=== PATIENT | female | born 1965 | race Caucasian/White ===

== ENCOUNTER 2017-06-15 07:29 | Outpatient (CLI) | payer MEDICARE ==
[~2017-06-15] VITALS: Ht 167.6 cm; Wt 95.5 kg
--- NOTE | ~2017-06-15 | HEMODYNAMI ---
PATIENT:NYLA SCHMIDT MEDICAL RECORD: [id number] : 67 LOCATION:[facility] ADMISSION DATE: 06/15/17 Generatedon:06/15/201711:34 Patient name: NYLA SCHMIDT Patient #: [id number] SSN: : 1965 Date of study: 06/15/2017 Page: Of Hemodynamic Procedure Report Patient Data Patient Demographics Procedure consent was obtained First Name: NYLA Gender: Female Last Name: BRAYAN : 1965 [facility] Initial: NASEEM Age: 52 year(s) Patient #: [id number] Race: Additional ID: [id number] Contact details Address: [address] [place] [address] [address]ET State: [place] City: [place] Zip code: [address] Admission Admission Data Admission Date: 06/15/2017 Admission Time: 7:29 Height (in.): 66 BSA: 2.04 (m2) Height (cm.): 167.64 BMI: 33.89 (kg/m2) Weight (lbs.): 210 Weight (kg.): 95.25 Lab Results Lab Result Date: 06/15/2017 Lab Result Time: 0:00 Biochemistry Name Units Result Min Max BUN mg/dl 14 --(--*-)-- 7 18 CK-MB ng/ml 0.1 --(*---)-- 0 3.6 Creatinine mg/dl 0.8 --(-*--)-- 0.6 1.3 Creatinine l 41 --(*---)-- 21 215 Kinase Troponin l ng/ml 0.017 --(-*--)-- 0 0.06 CBC Name Units Result Min Max Hemoglobin g/dl 15.5 --(-*--)-- 13.5 17.5 Procedure Procedure Types Cath Procedure Diagnostic Procedure [facility] w/Coronaries PCI Procedure Coronary Stent Initial Miscellaneous Procedures Moderate Sedation up to 15 minutes Procedure Description Procedure Date Procedure Date: 06/15/2017 Procedure Start Time: 11:16 Procedure End Time: 11:33 Procedure Staff Name Function Deejay Wong MD Performing Physician Otto Nguyen RT Scrub Kendal Gill RN Nurse Pablo Ascencio RT Monitor Procedure Data Cath Procedure Fluoroscopy Diagnostic fluoroscopy Total fluoroscopy Time: 3 time: 3 min min Diagnostic fluoroscopy Total fluoroscopy dose: 509 dose: 509 mGy mGy Contrast Material Contrast Material Type Amount (ml) Isovue 300 102 Entry Location Entry Primary Successful Side Size Upsize Upsize Entry Closure Wray ccessful Closure Location (Fr) 1 (Fr) 2 (Fr) Remarks Device Remarks Radial Right 6 Fr Mechanical artery Short Compression Estimated blood loss: 10 ml Diagnostic catheters Device Type Used For End Catheter Placement Diagnostic Terumo 5Fr Procedure [place] 110cm catheter Procedure Complications No complications Procedure Medications Medication Administration Route Dosage Oxygen NC 2 l/min Heparin Flush Bag added to field 2 bags (1000units/500ml NS) Lidocaine 2% added to field 20 Radial Cocktail added to field 1 syringe (Verapomil 2mg/Nitro 400mcg/Heparin 1500units) Versed I.V. 1 mg Fentanyl I.V. 50 mcg Radial Cocktail I.A. 1 syringe (Verapomil 2mg/Nitro 400mcg/Heparin 1500units) Versed I.V. 1 mg Fentanyl I.V. 50 mcg Versed I.V. 1 mg Fentanyl I.V. 50 mcg Heparin Bolus I.V. 4000 units Integrilin (Bolus I.V. 8.5 ml 2mg/ml) Versed I.V. 1 mg Fentanyl I.V. 50 mcg Versed I.V. 0.5 mg Fentanyl I.V. 50 mcg Plavix P.O. 600 mg Hemodynamics Rest BSA: 2.04 (m2) HGB: 15.5 (g/dl) O2 Consumption: Estimated: 214.94 (ml/min) O2 Co nsumption indexed: Estimated:105.36 (ml/min/m) Heart Rate: 91 (bpm) Pressure Samples Time Site Value (mmHg) Purpose Heart Use Rate(bpm) 11:19 AO 82/60(71) Snapshot 103 Snapshots Pre Cath Intra NCS Post Cath Vital Signs Time Heart Resp SPO2 etCO2 [id number] NIBP (mmHg) Rhythm Pain Sedation Rate (ipm) (%) (mmHg) (mmHg) Status Level (bpm) 10:35:42 75 16 97 0 0 160/79(112) NSR 0 (11) 10(A) , No pain 10:40:00 87 20 97 0 0 133/68(87) NSR 0 (11) 10(A) , No pain 10:44:12 88 20 95 0 0 126/74(96) NSR 0 (11) 10(A) , No pain 10:48:22 86 16 96 0 0 129/69(104) NSR 0 (11) 10(A) , No pain 10:52:23 95 16 96 0 0 124/70(96) NSR 0 (11) 10(A) , No pain 10:56:31 95 16 95 0 0 121/70(98) NSR 0 (11) 10(A) , No pain 11:00:39 98 19 95 0 0 129/72(95) NSR 0 (11) 10(A) , No pain 11:04:39 97 16 95 0 0 115/69(96) NSR 0 (11) 10(A) , No pain 11:08:47 97 16 96 0 0 112/67(89) NSR 0 (11) 10(A) , No pain 11:12:56 97 15 96 0 0 124/59(91) NSR 0 (11) 10(A) , No pain 11:16:58 97 14 96 0 0 104/64(87) NSR 0 (11) 10(A) , No pain 11:21:02 119 17 96 0 0 121/67(106) NSR 0 (11) 10(A) , No pain 11:25:14 114 15 94 0 0 132/61(103) NSR 0 (11) 10(A) , No pain 11:29:14 108 15 98 0 0 127/65(95) NSR 0 (11) 10(A) , No pain 11:33:23 94 0 0 135/72(97) NSR 0 (11) 10(A) , No pain Medications Time Medication Route Dose Verified Delivered Reason Note s Effectiveness by by 10:38:30 Oxygen NC 2 l/min Deejay Lopezecca Per physician Judith Gill RN 10:38:38 Heparin Flush added 2 bags Deejay Villalba used for Bag to Judith Wong MD procedure (1000units/500ml field NS) 10:38:46 Lidocaine 2% added 20ml Deejay Deejay used for to vial Judith Wong MD procedure field 10:38:52 Radial Cocktail added 1 Deejay Deejay used for (Verapomil to syringe Judith Wong MD procedure 2mg/Nitro field 400mcg/Heparin 1500units) 11:14:40 Versed I.V. 1 mg Deejay Kendal for sedation Judith Gill RN 11:14:54 Fentanyl I.V. 50 mcg Deejay Kendal for sedation Judith Gill RN 11:16:38 Versed I.V. 1 mg Deejay Kendal for sedation Judith Gill RN 11:16:47 Fentanyl I.V. 50 mcg Deejay Kendal for sedation Judith Gill RN 11:18:11 Radial Cocktail I.A. 1 Deejay Deejay for (Verapomil syringe Judith Wong MD vasodilation 2mg/Nitro 400mcg/Heparin 1500units) 11:18:33 Versed I.V. 1 mg Deejay Kendal for sedation Judith Gill RN 11:18:49 Fentanyl I.V. 50 mcg Deejay Kendal for sedation Judith Gill RN 11:20:35 Versed I.V. 1 mg Deejay Kendal for sedation Judith Gill RN 11:20:53 Fentanyl I.V. 50 mcg Deejay Kendal for sedation Judith Gill RN 11:22:39 Versed I.V. 0.5 mg Deejay Kendal for sedation Judith Gill RN 11:22:54 Fentanyl I.V. 50 mcg Deejay Kendal for sedation Judith Gill RN 11:23:00 Heparin Bolus I.V. 4000 Deejay Kendal for dose units Judith Gill RN anticoagulation verified with dr wong 11:24:02 Integrilin I.V. 8.5 ml Deejay Kendal for wast ed (Bolus 2mg/ml) Judith Gill RN antiplatelet 1.5ml therapy 11:27:13 Plavix P.O. 600 mg Deejay Kendal for Judith Gill RN antiplatelet therapy Procedure Log Time Note 9:40:03 ACC Patient presents with Stable Angina CCS Anginal Class 2--Slight limitation of ordinary activity. 9:40:06 Diagnostic Cath status Elective 9:40:09 Time tracking: Regular hours 9:40:13 Plan of Care:Hemodynamics will remain stable., Cardiac rhythm will remain stable., Comfort level will be maintained., Respiratory function will remain adequate., Patient/ family verbilizes understanding of procedure., Procedure tolerated without complication., Recovers from procedure without complications.. 10:15:36 Pablo NAYAK(R) sent for patient. Start room use. 10:30:26 Patient received from Pre/Post Procedure Room to CCL 1 Alert and oriented. Tansferred to table in Supine position. 10:30:27 Warm blankets applied, and dianne hugger turned on for patient comfort. 10:30:28 Correct patient and procedure confirmed by team. 10:30:29 Signed procedure consent form obtained from patient. 10:30:30 ECG and BP/O2 sat monitors applied to patient. 10:31:05 Lab Result : BUN 14 mg/dl 10:31:05 Lab Result : Creatinine 0.8 mg/dl 10:31:05 Lab Result : Creatinine Kinase 41 l 10:31:05 Lab Result : CK-MB 0.1 ng/ml 10:31:05 Lab Result : Hemoglobin 15.5 g/dl 10:31:05 Lab Result : Troponin l 0.017 ng/ml 10:31:08 Lab results completed and on chart. 10:34:33 Vital chart was started 10:38:30 Oxygen 2 l/min NC was administered by Kendal Gill RN; Per physician; 10:38:38 Heparin Flush Bag (1000units/500ml NS) 2 bags added to field was administered by Deejay Wong MD; used for procedure; 10:38:46 Lidocaine 2% 20ml vial added to field was administered by Deejay Wong MD; used for procedure; 10:38:52 Radial Cocktail (Verapomil 2mg/Nitro 400mcg/Heparin 1500units) 1 syringe added to field was administered by Deejay Wong MD; used for procedure; 10:45:31 Baseline sample Acquired. 10:45:36 Rhythm: sinus rhythm 10:45:38 Full Disclosure recording started 10:46:12 H&P Date Dictated: 06/10/2017 Within 30 days and on chart.. 10:46:14 Pre-procedure instructions explained to patient. 10:46:14 Pre-op teaching completed and patient verbalized understanding. 10:46:18 Family in waiting room. 10:46:19 Patient NPO since Midnight. 10:46:21 Is the patient allergic to Iodine/contrast media? No. 10:46:28 Is patient on blood thinner?No 10:46:29 Patient diabetic? Yes. 10:46:31 If diabetic: On Metformin? No 10:46:33 Patient not . Patient has had hysterectomy. 10:46:37 Previous problem with sedation/anesthesia? No ? 10:46:38 Snore? Yes 10:46:39 Sleep apnea? Yes 10:46:40 Deviated septum? No 10:46:40 Opens mouth fully? Yes 10:46:41 Sticks out tongue? Yes 10:46:44 Airway obstruction? Yes COPD 10:46:58 Dentures? Yes OUT 10:47:01 Pre procedure: right dorsailis pedis pulse 1+ Palpable, but thready & weak; easily obliterated 10:47:03 Modified Mark's test Ulnar < 7 seconds 10:47:04 Patient pain scale 0/10 ?. 10:47:11 IV patent on arrival in port with 0.9% NaCl at O. 10:47:32 Port is located in the Rt Chest. 10:47:38 Right Radial & Right Groin area was prepped with chlora-prep and draped in sterile fashion 10:47:40 Alarms reviewed by R. N. 10:47:40 Sharps counted by scrub and verified by R.N. 10:47:49 Use device set Radial Dx 10:47:53 Tegaderm 4 x 4 opened to sterile field. 10:47:54 Acist Hand Control opened to sterile field. 10:47:54 Acist Manifold opened to sterile field. 10:47:56 Acist Syringe opened to sterile field. 10:47:56 Medline Cath Pack opened to sterile field. 10:47:57 Bag Decanter opened to sterile field. 10:47:57 Terumo 6Fr Slender Glidesheath opened to sterile field. 10:47:57 St Alfredo 260cm J .035 wire opened to sterile field. 10:47:58 MBrace Wrist Support opened to sterile field. 10:49:49 Physician paged 10:50:55 Zero performed for pressure channel P1 10:51:39 Patient Height : 66 cm 10:51:43 Patient Weight : 210 kg 11:14:02 Zero performed for pressure channel P1 11:14:13 Zero performed for pressure channel P1 11:14:33 --------ALL STOP TIME OUT------ 11:14:34 Final Timeout: patient, procedure, and site verified with staff and physician. All members of the team are in agreement. 11:14:36 Right Radial & Right Groin site verified by team. 11:14:39 Physical assessment completed. ASA score P 2 - A patient with mild systemic disease as per Deejay Wong MD. 11:14:40 Versed 1 mg I.V. was administered by Kendal Gill RN; for sedation; 11:14:42 Sedation plan: IV Moderate Sedation Versed, Fentanyl 11:14:43 Zero performed for pressure channel P1 11:14:54 Fentanyl 50 mcg I.V. was administered by Kendal Gill RN; for sedation; 11:16:21 Procedure started. 11:16:28 Local anesthetic to right radial artery with Lidocaine 2% by Deejay Wong MD.INITIAL ACCESS ONLY 11:16:38 Versed 1 mg I.V. was administered by Kendal Gill RN; for sedation; 11:16:47 Fentanyl 50 mcg I.V. was administered by Kendal Gill RN; for sedation; 11:17:38 A 6 Fr Short sheath was inserted into the Right Radial artery 11:18:11 Radial Cocktail (Verapomil 2mg/Nitro 400mcg/Heparin 1500units) 1 syringe I.A. was administered by Deejay Wong MD; for vasodilation; 11:18:30 A Diagnostic Terumo 5Fr [place] 110cm catheter was advanced over the wire and used for Procedure. 11:18:33 Versed 1 mg I.V. was administered by Kendal Gill RN; for sedation; 11:18:49 Fentanyl 50 mcg I.V. was administered by Kendal Gill RN; for sedation; 11:19:05 LV angiography performed. 11:19:06 LV gram done using CARBALLO 11:19:14 EF : 55 % 11:19:21 Injector settings: Ml/sec: 7, Volume: 15, 11:19:39 LCA angiography performed. 11:20:16 Sounday BasixCompak Inflation Kit opened to sterile field. 11:20:16 Seay Whisper J 300cm 0.014 guide wire opened to sterile field. 11:20:35 Versed 1 mg I.V. was administered by Kendal Gill RN; for sedation; 11::53 Fentanyl 50 mcg I.V. was administered by Kendal Gill RN; for sedation; 11::09 Medtronic Launcher 6Fr AR 2.0 guide catheter opened to sterile field. 11:21:14 RCA angiography performed. 11::55 Catheter exchanged over wire. 11::39 Versed 0.5 mg I.V. was administered by Kendal Gill RN; for sedation; 11::42 ACC PCI Site: [place] has 80% stenosis. 11::44 ACC Pre-intervention GIOVANI Flow is 3. 11:22:53 6 Fr AR 2 guide catheter was inserted over the wire 11::54 Fentanyl 50 mcg I.V. was administered by Kendal Gill RN; for sedation; 11::00 Heparin Bolus 4000 units I.V. was administered by Kendal Gill RN; for anticoagulation; dose verified with dr wong 11:23:26 Whisper wire advanced. 11:23:40 Wire advanced across lesion. 11:24:02 Integrilin (Bolus 2mg/ml) 8.5 ml I.V. was administered by Kendal Gill RN; for antiplatelet therapy; wasted 1.5ml 11::52 Inflation Number: 1 A Biofreedom 2.25 x 24 Stent (No Cost Implant) was prepped and advanced across the Dist RCA. The stent was deployed at 15 SERJIO for 0:10 (min:sec). 11:25:04 ACC Post-intervention GIOVANI Flow is 3. 11:25:13 Stent catheter was removed intact over wire. 11:25:17 Wire removed. 11:25:18 Guide catheter removed. 11:25:32 Sheath removed intact; hemostasis achieved with Mechanical Compression to the Right Radial artery. 11:25:34 Procedure ended.(Physican Out) 11::42 Terumo TR Band Standard opened to sterile field. 11:26:11 Fluoroscopy time 03.00 minutes. 11::16 Fluoroscopy dose: 509 mGy 11::16 Flurop Dose total: 509 11::21 Contrast amount:Isovue 300 102ml. 11::23 Sharps counted by scrub and verified by R.N. 11::32 TR band inflated with 12cc of air. 11:26:34 Insertion/operative site no bleeding no hematoma. 11:26:36 Post Procedure Pulses reassessed and unchanged 11::41 Post-procedure physical assessment completed. ASA score P 2 - A patient with mild systemic disease as per Deejay Wong MD. 11::44 Post procedure rhythm: unchanged. 11::47 Estimated blood loss: 10 ml 11::49 Post procedure instruction explained to patient.Patient verbalizes understanding. 11::49 Patient needs reinforcement of post procedure teaching. 11:27:04 Procedure type changed to Cath procedure, Diagnostic procedure, LHC, LHC w/Coronaries, PCI procedure, Coronary Stent Initial, Miscellaneous Procedures, Moderate Sedation up to 15 minutes 11:27:09 Procedure Complication : No complications 11:27:13 Plavix 600 mg P.O. was administered by Kendal Gill RN; for antiplatelet therapy; 11:27:13 Procedure and supply charges have been captured, reviewed, submitted and are correct. 11:33:13 Vital chart was stopped 11:33:14 See physician's report for complete and final results. 11:33:16 Report given to Pre/Post Procedure Room. 11:33:21 Patient transfered to Pre/Post Procedure Room with Stretcher. 11:33:24 Procedure ended. 11:33:24 Full Disclosure recording stopped 11:33:32 End room use (Document Last) Intervention Summary Intervention Notes Time ActionType Lesion and Equipment Action# Pressure Duration Attributes Used 11:24:52 Place stent Dist RCA Biofreedom 1 15 00:10 2.25 x 24 Stent (No Cost Implant) Device Usage Item Name Manufacture Quantity Catalog Hospital Part Current Minimal Lot# / Number Charge Number Stock Stock Serial# Code Tegaderm 4 3M 1 [id number] 673657 242955 5 x 4 Acist Hand Acist 1 90529 462767 347128 621075 5 One Public Acist Acist 1 28352 200826 698970 836913 5 Mobim Acist Acist 1 59952 227974 149325 398145 20 Syringe Medical Systems Inc Medline Cardinal 1 [id number] 210749 75830 811525 5 Cath Pack Health Bag Microtek 1 2002S 819133 51305 189536 5 Decanter Medical Inc. Terumo 6Fr Terumo 1 [id number] 233736 943623 608834 [address] St Alfredo 1 173429 174681 222912 256719 30 260cm J .035 wire MBrace Advanced 1 140-0250-00 158114 45109 853984 5 Wrist Vascular Support Dynamics Diagnostic Terumo 1 03-6813 103438 518681 541117 5 Terumo 5Fr [place] 110cm catheter Merit Merit 1 [id number] 619334 146383 543716 15 BasixComDealflow.comk Medical Inflation Kit Seay Seay 1 [id number] 650686 073260 952468 5 Whisper J Vascular 300cm 0.014 guide wire Medtronic Medtronic 1 [id number] 276885 43141 827818 1 Launcher 6Fr AR 2.0 guide catheter Biofreedom Biosensors 1 [facility]2-2224 657990 119583 5 [id number] 2.25 x 24 Europe SA Stent (No Cost Implant) Terumo TR Terumo 1 [id number] 596077 717437 809364 40 Band Standard Signature Audit [place] Stage Time Signature Unsigned Intra-Procedure 06/15/2017 Pablo Ascencio 11:34:13 AM RT(R) Signatures Monitor : Pablo Ascencio RT Signature : Date : Time : [facility] [address] [place] [address]
--- NOTE | ~2017-06-15 | OP ---
PATIENT NAME: NYLA SCHMIDT MEDICAL RECORD: [id number] :67 LOCATION:D.[facility] ADMISSION DATE: SURGEON: DEL LEON MD OPERATION DATE: 06/15/17 PROCEDURES: 1. Percutaneous transluminal coronary angioplasty stent right coronary artery. 2. Left heart catheterization. 3. Selective coronary angiography. 4. Left ventriculogram. INDICATION: 1. Angina. 2. Coronary artery disease. 3. Preoperative evaluation for upcoming hernia surgery. PROCEDURE IN DETAIL: After informed consent was obtained and after detailed explanation of risks, benefits, as well as alternative therapies, the patient elected to proceed with angiogram and angioplasty. The right radial area was prepped and draped in a normal sterile fashion. The right radial artery was cannulated via modified Seldinger technique with placement of 6-Wolof sheath. All catheters exchanged through this sheath. FINDINGS: Left ventricular systolic function is normal. Overall ejection fraction is estimated at 60%. SELECTIVE CORONARY ANGIOGRAPHY: 1. Left main is with no significant angiographic disease. 2. Left anterior descending has mild irregularities but no flow-limiting stenosis. Previous placed stent appears to be widely patent. 3. Left circumflex has mild irregularities but no flow-limiting stenosis. 4. The right coronary artery has previous placed stent with 80% stenosis. This is in the distal right coronary artery. It is a 20 millimeter lesion in a 2.25 vessel with GIOVANI 3 flow before and after the intervention. PTCA STENT TO THE RIGHT CORONARY ARTERY: The intervention was undertaken with a 2.25 X 24 millimeter BioFreedom stent. The result was 0% residual stenosis. OVERALL IMPRESSION: Successful percutaneous transluminal coronary angioplasty stent of the right coronary artery going from 80% initial stenosis to 0% residual stenosis. DEL LEON MD CC: [id number] DICTATION DATE: 06/15/17 1500 PHOTO MASK PROCESSOR: DM 06/16/17 0911 DEP CLI 06/15/17 [place] [id number]
[~2017-06-15 07:29] MED LIST: ADVAIR 500/501 DISK INH; AMBIEN10 MG PO; ASPIRIN81 MG PO; CATAPRES0.3 MG PO; CELEXA20 MG PO; HYDROCODONE-APA1 TAB PO; IPRAT-ALBUT 0.5-3 ML UPD; KLONOPIN0.5 MG PO; LEVAQUIN750 MG PO; NORVASC5 MG PO; PLAVIX75 MG PO; PREDNISONE10 MG PO; PREDNISONE20 MG PO; PREDNISONE5 MG PO; PREDNISONE50 MG PO; PROVENTIL/2.5 MG/3 M NEB; SPIRIVA18 MCG INH; ZESTRIL20 MG PO; ZITHROMAX250 MG PO; [UNRECOGNIZED DRUG - OTHER] IM
[2017-06-15] MEDS ORDERED: NORVASC5 MG PO (07:53)
[2017-06-15 07:55] VITALS: BP 147/79; Ht 167.6 cm; Wt 95.5 kg
[2017-06-15 08:47] LABS: BASOPHILS 0.2 % (0-2); EOSINOPHILS 0.7 % (0-7); HEMOGLOBIN 15.5 g/dL (12-16); IMMATURE GRANULOCYTES 0.2 % (0-5); LYMPHOCYTES 38.6 % (15-50); MCH 30.6 pg (26.0-34.0); MCHC 33.7 g/dL (31.0-37.0); MCV 90.7 fL (80.0-100.0); MONOCYTES 7.9 % (2-11); NEUTROPHILS 52.4 % (40-80); PLATELET COUNT 256 10x3/uL (130-400); RBC 5.07 10x6/uL (4.00-5.40); RDW 14.1 % (11.5-14.5); WBC 9.4 10x3/uL (4.8-10.8)
[2017-06-15 08:48] LABS: CALC OSMOLALITY 278 mosm/kg (275-300); CALCIUM 8.7 mg/dL (8.5-10.1); CHLORIDE - SERUM 97 mmol/L (98-107); CREATININE - SERUM 0.8 mg/dL (0.6-1.3); SODIUM 134 mmol/L (136-145); UREA NITROGEN 14 mg/dL (7-18); eGFR NON AFRICAN AMERICAN 80 mL/min (90-120)
[2017-06-15 08:56] LABS: GLUCOSE 278 mg/dL (74-106)
[2017-06-15 10:26] LABS: CKMB 0.1 U/L (0.0-3.6); CREATINE KINASE 41 UL (21-215); TROPONIN-I < 0.017 ng/mL (0.000-0.060)
--- NOTE | 2017-06-15 11:52 | NUR ---
1145 RECEIVED PT FROM HOSIERY OPERATOR. PT IS DROWSY. VSS, PT DENIES ANY C/O CHEST DISCOMFORT. TR BAND CDI TO RIGHT WRIST, AREA IS FREE FROM BLEEDING/HEMATOMA. WRIST IMMOBILIZER IN PLACE. FINGERS WARM, CAP REFILL IS BRISK, PT DENIES ANY N/V DEFICIT. PO FLUIDS AND SANDWICH SERVED. FAMILY AT BEDSIDE, CALL LIGHT IN REACH. RR EVEN AND UNLABORED.
--- NOTE | 2017-06-15 12:08 | NUR ---
1200 PT IS TOLERATING PO FLUIDS AND SANDWICH WITH NO C/O. TR BAND CDI TO RIGHT WRIST, NO BLEEDING OR HEMATOMA NOTED. FINGERS WARM, CAP REFILL IS BRISK. WRIST IMMOBILIZER IN PLACE. RR EVEN AND UNLABORED. CALL LIGHT IN REACH. PT DENEIS ANY C/O AT THIS TIME.
--- NOTE | 2017-06-15 12:54 | NUR ---
1230 PT JACIEL SANDWICH AND PO FLUIDS WITH NO C/O. TR BAND CDI, NO BLEEDING OR HEMATOMA NOTED. CAP REFILL IS BRISK, FINGERS WARM. DENIES ANY C/O AT THIS TIME. CALL LIGHT IS IN REACH. NO FAMILY AT BEDSIDE.
--- NOTE | 2017-06-15 13:08 | NUR ---
1300 FAMILY AT BEDSIDE, CALL LIGHT IN REACH. PT DENIES ANY C/O. TR BAND IS CDI. RR EVEN AND UNLABORED. VSS. CONTINUE TO MONITOR.
--- NOTE | 2017-06-15 13:28 | NUR ---
1330 PT DENIES ANY C/O. TR BAND IS CDI, AREA FREE FROM BLEEDING OR HEMATOMA. FINGERS WARM, CAP REFILL IS BRISK. FAMILY AT BEDSIDE.
--- NOTE | 2017-06-15 14:15 | NUR ---
1415 DENIES ANY C/O, NO BLEEDING AT CATH SITE. POST PROCEDURE EKG DONE. FAMILY AT BEDSIDE.
--- NOTE | 2017-06-15 15:00 | NUR ---
1500 POST PROCEDURE LAB HAS BEEN DRAWN. TR BAND DEFLATION UNDERWAY WITH NO BLEEDING OR HEMATOMA NOTED. PT HAS AMBULATED TO THE BATHROOM AND VOIDED QS. DENIES ANY C/O AT THIS TIME.
--- NOTE | 2017-06-15 15:46 | NUR ---
1530 POWER PORT HAS BEEN FLUSHED AND DE-ACCESSED PER PROTOCOL. BANDAID PLACED TO SITE. TR BAND HAS BEEN REMOVED, NO BLEEDING OR HEMATOMA NOTED AT SITE. 2X2 AND TEGADERM APPLIED. REVIEWED DC INSTRUCTIONS, PT AND VERBALIZE UNDERSTANDING. PT ESCORTED TO PRIVATE AUTO VIA WC BY NURSE WTIH DRIVING HER HOME.
== END 2017-06-15 15:30 | disposition home or self-care (01) ==
LOC: D.CATH 07:29
PROVIDERS: Internal Medicine Interventional Cardiology
DX: I25.119 Atherosclerotic heart disease of native coronary artery with unspecified angina pectoris (principal); Z00.6 Encounter for examination for normal comparison and control in clinical research program; Z01.812 Encounter for preprocedural laboratory examination
CPT/HCPCS: 93458; C9600

== ENCOUNTER 2017-08-17 06:00 | Outpatient (CLI) | payer MEDICARE ==
[~2017-08-17] VITALS: Ht 167.6 cm; Wt 94.5 kg
--- NOTE | ~2017-08-17 | DS ---
PATIENT:NYLA SAPP :67 MEDICAL RECORD: [id number] DISCHARGE SUMMARY ADMISSION DATE: 08/17/17 DISCHARGE DATE: DISCHARGE DIAGNOSES: 1. Chest pain. 2. Coronary artery disease. 3. Previous percutaneous transluminal coronary angioplasty and stent. 4. Hypertension. HOSPITAL COURSE: Mrs. Sapp presents with chest pain; however, she has wide patency of all previously placed stents. Most likely, the chest pain is secondary to GERD. No new disease was present. Discharged home. Follow up with [facility] as previously scheduled. TRANSINT:[id number] Voice Confirmation ID: [id number] DOCUMENT ID: [id number] DEL LEON MD CC: [id number] DICTATION DATE: 08/17/17 1116 ELECTRONICS SPECIALIST: 08/17/17 1336 [facility] [address] [place] [address]
--- NOTE | ~2017-08-17 | HEMODYNAMI ---
PATIENT:NYLA SCHMIDT MEDICAL RECORD: [id number] : 67 [facility] ADMISSION DATE: 08/17/17 Generatedon:08/17/201711:15 Patient name: NYLA SCHMIDT Patient #: [id number] SSN: : 1965 Date of study: 08/17/2017 Page: Of Hemodynamic Procedure Report Patient Data Patient Demographics Procedure consent was obtained First Name: NYLA Gender: Female Last Name: BRAYAN : 1965 Middle Initial: NASEEM Age: 52 year(s) Patient #: [id number] Race: Additional ID: [id number] Contact details Address: [address] [place] [address] [address] State: [place] City: [place] Zip code: [address] Past Medical History Allergies Allergen Reaction Date Comments Reported IV contrast dye 08/17/2017 Other allergy 08/17/2017 Naproxen Admission Admission Data Admission Date: 08/17/2017 Admission Time: 6:00 Room #: D.2120 Procedure Procedure Types Cath Procedure Diagnostic Procedure [facility] w/Coronaries Miscellaneous Procedures Moderate Sedation up to 15 minutes Procedure Description Procedure Date Procedure Date: 08/17/2017 Procedure Start Time: 11:07 Procedure End Time: 11:15 Procedure Staff Name Function Deejay Wong MD Performing Physician Pablo Ascencio RT Scrub Manuela Mcfarland RT Scrub Wilman Garner RN Nurse Mila Cowart RT Monitor Procedure Data Cath Procedure Fluoroscopy Diagnostic fluoroscopy Total fluoroscopy Time: 0.9 time: 0.9 min min Diagnostic fluoroscopy Total fluoroscopy dose: 497 dose: 497 mGy mGy Contrast Material Contrast Material Type Amount (ml) Isovue 300 44 Entry Location Entry Primary Successful Side Size Upsize Upsize Entry Closure Succes sful Closure Location (Fr) 1 (Fr) 2 (Fr) Remarks Device Remarks Femoral Right 5 Fr Exoseal artery Estimated blood loss: 5 ml Diagnostic catheters Device Type Used For End Catheter Placement Cordis 5Fr Pigtail LV Angiography Catheter (MP) Cordis 5Fr JL 4.0 Left Coronary Catheter (MP) Angiography Cordis 5Fr 3DRC Catheter Right Coronary (MP) Angiography Procedure Complications No complications Procedure Medications Medication Administration Route Dosage 0.9% NaCl I.V. 100 ml/hr Oxygen NC 2 l/min Versed I.V. 1 mg Fentanyl I.V. 50 mcg Heparin Flush Bag added to field 2 bags (1000units/500ml NS) Lidocaine 2% added to field 20 Versed I.V. 1 mg Fentanyl I.V. 50 mcg Hemodynamics Rest Heart Rate: 83 (bpm) Snapshots Pre Cath Intra NCS Post Cath Vital Signs Time Heart Resp SPO2 etCO2 [id number] NIBP (mmHg) Rhythm Pain Sedation Rate (ipm) (%) (mmHg) (mmHg) Status Level (bpm) 10:55:09 84 14 95 0 0 130/74(103) NSR 0 (11) 10(A) , No pain 10:59:52 80 16 95 0 0 121/64(93) NSR 0 (11) 10(A) , No pain 11:04:32 74 15 95 0 0 132/67(93) NSR 0 (11) 9(A) , No pain 11:09:15 80 16 94 0 0 129/66(92) NSR 0 (11) 10(A) , No pain 11:13:56 86 11 94 0 0 127/65(91) NSR 0 (11) 10(A) , No pain Medications Time Medication Route Dose Verified Delivered Reason Notes Effe ctiveness by by 10:50:54 0.9% NaCl I.V. 100 Wilman Wilman Per ml/hr Pascual Garner physician RN RN 10:51:10 Oxygen NC 2 Wilman Wilman Per l/min Pascual Garner physician RN RN 11:01:40 Versed I.V. 1 mg Wilman Wilman for Lorigan Lorigan sedation RN RN 11:01:50 Fentanyl I.V. 50 Wilman Wilman for mcg Lorigan Lorglory sedation RN RN 11:04:10 Heparin Flush added 2 Wilman Wilman used for Bag to bags Lorigan Pascual procedure (1000units/500ml field RN RN NS) 11:04:29 Lidocaine 2% added 20ml Wilman Wilman for local to vial Lorigan Lorigan anesthetic field RN RN 11:08:02 Versed I.V. 1 mg Wilman Wilman for Pascual Garner sedation RN RN 11:08:12 Fentanyl I.V. 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 Start room use. 10:37:09 Time tracking: Regular hours 10:37:13 Plan of Care:Hemodynamics will remain stable., Cardiac rhythm will remain stable., Comfort level will be maintained., Respiratory function will remain adequate., Patient/ family verbilizes understanding of procedure., Procedure tolerated without complication., Recovers from procedure without complications.. 10:49:57 Patient received from PCU to CCL 1 Alert and oriented. Tansferred to table in Supine position. 10:49:59 Warm blankets applied, and dianne hugger turned on for patient comfort. 10:50:00 Correct patient and procedure confirmed by team. 10:50:02 Signed procedure consent form obtained from patient. 10:50:02 ECG and BP/O2 sat monitors applied to patient. 10:50:03 Full Disclosure recording started 10:50:54 0.9% NaCl 100 ml/hr I.V. was administered by Wilman Garner RN; Per physician; 10:51:10 Oxygen 2 l/min NC was administered by Wilman Garner RN; Per physician; 10:54:21 Vital chart was started 10:57:10 Rhythm: sinus rhythm 10:57:19 H&P Date Dictated: 08/16/2017 Within 30 days and on chart.. 10:57:20 Pre-procedure instructions explained to patient. 10:57:21 Pre-op teaching completed and patient verbalized understanding. 10:57:24 Baseline sample Acquired. 10:57:28 Family in patients room. 10:57:30 Patient NPO since Midnight. 10:57:38 Patient allergic to IV contrast dye 10:57:46 Patient allergic to Other allergyNaproxen 10:57:49 Is the patient allergic to Iodine/contrast media? Yes. 10:57:50 Was the patient premedicated? Yes 10:57:51 Is patient on blood thinner?No 10:57:55 Patient diabetic? No. 10:57:58 Previous problem with sedation/anesthesia? No ? 10:57:59 Snore? Yes 10:58:00 Sleep apnea? Yes 10:58:01 Deviated septum? No 10:58:01 Opens mouth fully? Yes 10:58:02 Sticks out tongue? Yes 10:58:08 Airway obstruction? Yes COPD 10:58:11 Dentures? Yes OUT 10:58:15 Pre procedure: right dorsailis pedis pulse 2+ Normal; easily identifiable; not easily obliterated 10:58:22 Pre procedure: right radial pulse 0-Absent 10:58:24 Patient pain scale 7/10 ?. 10:59:23 IV patent on arrival in port, Rt subclavian with 0.9% NaCl at KVO. 10:59:33 Lab results completed and on chart. 10:59:36 Right groin area was prepped with chlora-prep and draped in sterile fashion 10:59:37 Alarms reviewed by R. N. 10:59:37 Sharps counted by scrub and verified by R.N. 10:59:52 Use device set Femoral Dx 10:59:53 Acist Syringe opened to sterile field. 10:59:54 Bag Decanter opened to sterile field. 10:59:54 Medline Cath Pack opened to sterile field. 10:59:54 Terumo 5Fr Oliver Sheath opened to sterile field. 10:59:55 [facility] Alfredo 260cm J .035 wire opened to sterile field. 10:59:56 Acist Hand Control opened to sterile field. 10:59:57 Acist Manifold opened to sterile field. 10:59:57 Diagnostic Infinity 5Fr Multipack catheter opened to sterile field. 10:59:58 Tegaderm 4 x 4 opened to sterile field. 11:00:20 Final Timeout: patient, procedure, and site verified with staff and physician. All members of the team are in agreement. 11:00:22 Right groin site verified by team. 11:00:24 Physical assessment completed. ASA score P 2 - A patient with mild systemic disease as per Deejay Wong MD. 11:00:27 Sedation plan: IV Moderate Sedation Versed, Fentanyl 11:01:40 Versed 1 mg I.V. was administered by Wilman Garner RN; for sedation; 11:01:50 Fentanyl 50 mcg I.V. was administered by Wilman Garner RN; for sedation; 11:02:38 Zero performed for pressure channel P1 11:03:11 Zero performed for pressure channel P1 11:04:10 Heparin Flush Bag (1000units/500ml NS) 2 bags added to field was administered by Wilman Garner RN; used for procedure; 11::29 Lidocaine 2% 20ml vial added to field was administered by Wilman Garner RN; for local anesthetic; 11:06:54 Procedure started. 11:07:03 Local anesthetic to right femoral artery with Lidocaine 2% by Deejay Wong MD.INITIAL ACCESS ONLY 11:07:20 A 5 Fr sheath was inserted into the Right Femoral artery 11:08:02 Versed 1 mg I.V. was administered by Wilman Garner RN; for sedation; 11:08:05 A Cordis 5Fr Pigtail Catheter (MP) was advanced over the wire and used for LV Angiography. 11:08:12 Fentanyl 50 mcg I.V. was administered by Wilman Garner RN; for sedation; 11::54 LV gram done using CARBALLO 11:08:58 EF : 55 % 11:09:01 Injector settings: Ml/sec: 10, Volume: 20, 11:09:02 Catheter removed. 11:09:08 A Cordis 5Fr JL 4.0 Catheter (MP) was advanced over the wire and used for Left Coronary Angiography. 11:10:28 Catheter removed. 11:10:34 A Cordis 5Fr 3DRC Catheter (MP) was advanced over the wire and used for Right Coronary Angiography. 11:11:26 Catheter removed. 11:11:37 Sheath removed intact; hemostasis achieved with Exoseal to the Right Femoral artery. 11:11:39 Procedure ended.(Physican Out) 11:11:52 Fluoroscopy time 00.90 minutes. 11:11:55 Fluoroscopy dose: 497 mGy 11:11:55 Flurop Dose total: 497 11:11:58 Contrast amount:Isovue 300 44ml. 11:12:02 Insertion/operative site no bleeding no hematoma. 11:12:05 Post-op/insertion site Right Femoral artery dressed using a 4 x 4 and Tegaderm. 11:12:08 Post right femoral artery:stable, clean and dry 11:12:09 Post Procedure Pulses reassessed and unchanged 11:12:13 Post-procedure physical assessment completed. ASA score P 2 - A patient with mild systemic disease as per Deejay Wong MD. 11:12:15 Post procedure rhythm: unchanged. 11:12:22 Cordis 5Fr Exoseal opened to sterile field. 11:12:26 Estimated blood loss: 5 ml 11:12:27 Post procedure instruction explained to patient.Patient verbalizes understanding. 11:12:28 Patient needs reinforcement of post procedure teaching. 11:12:35 Procedure type changed to Cath procedure, Diagnostic procedure, LHC, LHC w/Coronaries, Miscellaneous Procedures, Moderate Sedation up to 15 minutes 11:12:39 Procedure Complication : No complications 11:12:41 See physician's report for complete and final results. 11:14:28 Procedure and supply charges have been captured, reviewed, submitted and are correct. 11:15:17 Vital chart was stopped 11:15:20 Report given to PCU. 11:15:24 Patient transfered to PCU with Bed. 11:15:28 Procedure ended. 11:15:28 Full Disclosure recording stopped 11:15:34 End room use (Document Last) Device Usage Item Name Manufacture Quantity Catalog Hospital Part Current Minimal Lo t# / Number Charge Number Stock Stock Serial# Code Acist Acist 1 [id number] [id number] 335271 755944 20 Syringe [employer] Inc Bag Microtek 1 2002S [id number] 06350 386901 5 Decanter [employer] Inc. Medline Cardinal 1 [id number] 390687 68736 553316 5 Cath Pack Health Terumo 5Fr Terumo 1 [id number] 103126 912148 509540 [address] [facility] Alfredo 1 324208 675007 828072 003551 30 260cm J .035 wire Acist Hand Acist 1 99910 557678 701985 175099 5 Control Medical [employer] Inc Acist Acist 1 62175 897018 406219 022761 5 Manifold Medical Systems Inc Diagnostic Cardinal 1 [id number] 346808 88698 339663 30 Infinity Health 5Fr Multipack catheter Tegaderm 4 3M 1 1626W 250403 461975 632217 5 x 4 Cordis 5Fr Cardinal 1 645556 5 Pigtail Health Catheter (MP) Cordis 5Fr Cardinal 1 619730 5 JL 4.0 Health Catheter (MP) Cordis 5Fr Cardinal 1 890519 5 3DRC Health Catheter (MP) Cordis 5Fr Cardinal 1 EX500 624045 263136 546401 10 Exoseal Health Signature Audit [place] Stage Time Signature Unsigned Intra-Procedure 08/17/2017 Mila 11:15:43 AM Counts RT(R) Signatures Monitor : Mila Signature : Counts RT Date : Time : [address] [place] [address]
--- NOTE | ~2017-08-17 | OP ---
PATIENT NAME: NYLA SCHMIDT MEDICAL RECORD: [id number] :67 LOCATION:D.M2 D.2120 ADMISSION DATE: SURGEON: DEL LEON MD DATE OF OPERATION: 08/17/2017 PROCEDURES: 1. Left heart catheterization. 2. Selective coronary angiography. 3. Left ventriculogram. INDICATION: Chest pain compatible with angina, previous PTCA stent. PROCEDURE IN DETAIL: After informed consent was obtained and after detailed explanation of risks, benefits as well as alternative therapies, the patient elected to proceed with angiogram and heart catheterization. The right femoral area was prepped and draped in normal sterile fashion. The right femoral artery was cannulated via modified Seldinger technique with placement of 5-Guyanese sheath. All catheters exchanged through this sheath. FINDINGS: Left ventriculogram was performed in the standard 30-degree CARBALLO view reveals good cardiac wall motion throughout all segments. Overall ejection fraction estimated 60%. SELECTIVE CORONARY ANGIOGRAPHY: 1. Left main showed no significant angiographic disease. 2. Left anterior descending has previously placed stent that is widely patent with no significant restenosis. No disease elsewise throughout the LAD or its branches. 3. Left circumflex has moderate irregularities, but no flow-limiting stenosis. 4. The right coronary has previously placed stent that is widely patent with no significant restenosis. No disease elsewise throughout the RCA or its branches. OVERALL IMPRESSION: Wide patency of all of the previously placed stent. No disease elsewise. Chest pain is noncardiac in etiology, most likely gastroesophageal reflux disease. TRANSINT:[id number] Voice Confirmation ID: [id number] DOCUMENT ID: [id number] DEL LEON MD CC: [id number] DICTATION DATE: 08/17/17 1117 QUALITY LAB TECHNICIAN: 08/17/17 1227 REG [facility] [address] [place] [place] [id number]
[2017-08-17 06:35] LABS: BASOPHILS 0.3 % (0-2); EOSINOPHILS 1.3 % (0-7); HEMATOCRIT 44.6 % (36.0-48.0); HEMOGLOBIN 15.5 g/dL (12-16); IMMATURE GRANULOCYTES 0.3 % (0-5); LYMPHOCYTES 34.5 % (15-50); MCH 31.6 pg (26.0-34.0); MCHC 34.8 g/dL (31.0-37.0); MCV 90.8 fL (80.0-100.0); MEAN PLATELET VOLUME 10.5 fL (7.4-10.4); MONOCYTES 6.9 % (2-11); NEUTROPHILS 56.7 % (40-80); PLATELET COUNT 279 10x3/uL (130-400); RBC 4.91 10x6/uL (4.00-5.40); RDW 13.7 % (11.5-14.5); WBC 11.7 10x3/uL (4.8-10.8)
[2017-08-17 06:56] LABS: ALBUMIN 3.4 g/dL (3.4-5.0); ALKALINE PHOSPHATASE 123 U/L (46-116); ALT (SGPT) 41 U/L (10-68); BILIRUBIN - TOTAL 0.28 mg/dL (0.2-1.3); CALC OSMOLALITY 280 mosm/kg (275-300); CALCIUM 8.7 mg/dL (8.5-10.1); CARBON DIOXIDE 30.2 mmol/L (21.0-32.0); CHLORIDE - SERUM 98 mmol/L (98-107); CREATININE - SERUM 0.8 mg/dL (0.6-1.3); GLUCOSE 304 mg/dL (74-106); PROTEIN - SERUM 7.2 g/dL (6.4-8.2); SODIUM 135 mmol/L (136-145); UREA NITROGEN 12 mg/dL (7-18); eGFR NON AFRICAN AMERICAN 80 mL/min (90-120)
[2017-08-17 07:07] LABS: CHOL - HDL RATIO 5.5 ratio (2.3-4.1); CHOLESTEROL, TOTAL 142 mg/dL (0-200); CKMB 0.3 U/L (0.0-3.6); CREATINE KINASE 38 UL (21-215); HDL CHOLESTEROL 26 mg/dL (32-96); LDL CHOLESTEROL 92 mg/dL (0-100); LDL-HDL RATIO 3.5 ratio (1.5-3.5); TRIGLYCERIDE 122 mg/dL (30-200); TROPONIN-I 0.037 ng/mL (0.000-0.060)
--- NOTE | 2017-08-17 09:35 | NUR ---
RECEIVED PT FROM ER TO ROOM 2119 VIA BED IN STABLE CONDITION RESP UNLABORED DENIES ANY NEEDS OR DISCOMFORT AT THIS TIME
--- NOTE | 2017-08-17 11:30 | NUR ---
TO TEACHER LEARNING DISABLED VIA BED
[2017-08-17 12:31] VITALS: BP 155/92; Ht 167.6 cm; Wt 94.5 kg
--- NOTE | 2017-08-17 13:00 | NUR ---
RECIEVED PT BACK TO ROOM VIA BED VSS RT GROIN DRSG C/D/I PPPX4 NAD NOTED AT BEDSIDE
--- NOTE | 2017-08-17 15:20 | NUR ---
REVIEWED DISCHARGE INSTRUCTIONS WITH PT STATES UNDERSTANDING COPY GIVEN DCD RT CHEST INFUSAPORT USING STERILE TECHNIQUE PT TOLERATED WELL DISCHARGE PT TO HOME LEFT UNIT VIA W/C IN STABLE CONDITION WITH ALL PERSONAL BELONGINGS
== END 2017-08-17 15:20 | disposition home or self-care (01) ==
LOC: D.ER 06:00 → D.M2 06:00 → D.OPS 06:00 → D.M2 07:39 → EDSTATUS 07:39 → D.OPS 15:20
PROVIDERS: Family Medicine
DX: I25.10 Atherosclerotic heart disease of native coronary artery without angina pectoris (principal); R07.9 Chest pain, unspecified; I10 Essential (primary) hypertension; Z95.5 Presence of coronary angioplasty implant and graft; F17.200 Nicotine dependence, unspecified, uncomplicated; Z01.812 Encounter for preprocedural laboratory examination

== ENCOUNTER → 2017-09-09 17:00 | Outpatient (CLI) | payer MEDICARE ==
[2017-08-17 12:31] VITALS: BMI 33.6
== END | disposition home or self-care (01) ==
LOC: D.MAMMO 14:30
DX: Z85.3 Personal history of malignant neoplasm of breast (principal); Z12.31 Encounter for screening mammogram for malignant neoplasm of breast

== ENCOUNTER 2018-05-27 11:10 | Emergency (ER) | payer MEDICARE ==
[~2018-05-27] VITALS: Ht 167.6 cm; Wt 92.3 kg
[2018-05-27 11:23] VITALS: Ht 167.6 cm; Wt 92.3 kg
[2018-05-27] MEDS ORDERED: METFORMIN HCL500 M1 PO (11:26)
[2018-05-27] MEDS ORDERED: CATAPRES0.1 MG PO (11:26)
[2018-05-27] MEDS ORDERED: NOVOLOG100 U/M1 SC (11:27)
[2018-05-27] MEDS ORDERED: LANTUS SOL100 UNIT/1 SC (11:28)
[2018-05-27 11:49] LABS: BASOPHILS 0.2 % (0-2); EOSINOPHILS 1.1 % (0-7); HEMATOCRIT 45.2 % (36.0-48.0); HEMOGLOBIN 15.7 g/dL (12-16); IMMATURE GRANULOCYTES 0.3 % (0-5); LYMPHOCYTES 33.9 % (15-50); MCH 34.3 pg (26.0-34.0); MCHC 34.7 g/dL (31.0-37.0); MCV 98.7 fL (80.0-100.0); MEAN PLATELET VOLUME 10.2 fL (7.4-10.4); MONOCYTES 6.5 % (2-11); PLATELET COUNT 292 10x3/uL (130-400); RBC 4.58 10x6/uL (4.00-5.40); RDW 14.9 % (11.5-14.5); WBC 11.5 10x3/uL (4.8-10.8)
[2018-05-27 12:02] LABS: ALBUMIN 3.7 g/dL (3.4-5.0); ALKALINE PHOSPHATASE 119 U/L (46-116); ALT (SGPT) 27 U/L (10-68); BILIRUBIN - TOTAL 0.33 mg/dL (0.2-1.3); CALC OSMOLALITY 282 mosm/kg (275-300); CALCIUM 9.2 mg/dL (8.5-10.1); CARBON DIOXIDE 27.7 mmol/L (21.0-32.0); CHLORIDE - SERUM 101 mmol/L (98-107); CREATININE - SERUM 0.8 mg/dL (0.6-1.3); GLUCOSE 249 mg/dL (74-106); POTASSIUM - SERUM 4.6 mmol/L (3.5-5.1); PROTEIN - SERUM 7.5 g/dL (6.4-8.2); SODIUM 138 mmol/L (136-145); UREA NITROGEN 9 mg/dL (7-18); eGFR NON AFRICAN AMERICAN 80 mL/min (90-120)
[2018-05-27 12:43] LABS: CKMB 0.3 U/L (0.0-3.6); CREATINE KINASE 30 UL (21-215); TROPONIN-I < 0.017 ng/mL (0.000-0.060)
[2018-05-27 12:44] LABS: INR 0.99 (0.85-1.17); PROTIME 12.7 SECONDS (11.6-15.0)
[2018-05-27 12:46] LABS: D-DIMER-QUANTITATIVE 0.6 ug/mLFEU (0.20-0.54)
[2018-05-27 14:59] LABS: APPEARANCE HAZY (CLEAR); BILIRUBIN NEGATIVE (NEGATIVE); COLOR STRAW (YELLOW); GLUCOSE NEGATIVE (NEGATIVE); KETONE NEGATIVE (NEGATIVE); NITRITE NEGATIVE (NEGATIVE); PROTEIN NEGATIVE (NEGATIVE); SPECIFIC GRAVITY 1.005 (1.005-1.020); UROBILINOGEN NORMAL (NORMAL)
[2018-05-27] MEDS ORDERED: LEVAQUIN500 MG PO (16:22)
[2018-05-27] MEDS ORDERED: PREDNISONE10 MG PO (16:22)
[2018-05-27] MEDS ORDERED: PROAIR HFA8.5 GM INH (16:22)
== END 2018-05-27 17:52 | disposition home or self-care (01) ==
LOC: D.ER 11:10
PROVIDERS: Family Medicine
DX: J11.1 Influenza due to unidentified influenza virus with other respiratory manifestations (principal); R05 Cough; F17.200 Nicotine dependence, unspecified, uncomplicated

== ENCOUNTER 2019-01-24 08:24 | Outpatient (CLI) | payer MEDICARE ==
[~2019-01-24] VITALS: Ht 167.6 cm; Wt 90.9 kg
[~2019-01-24 08:24] MED LIST changes: +CATAPRES0.1 MG PO; +LANTUS SOL100 UNIT/1 SC; +LEVAQUIN500 MG PO; +METFORMIN HCL500 M1 PO; +NOVOLOG100 U/M1 SC; +PROAIR HFA8.5 GM INH
[2019-01-24 09:34] VITALS: BP 95/60; Ht 167.6 cm; Wt 90.9 kg
--- NOTE | 2019-01-24 10:00 | NUR ---
CALLED DR SORENSEN AT THIS TIME, TELEPHONE ORDER GIVEN TO DIEGO COLLADO AT THIS TIME.
[2019-01-24 10:52] LABS: BASOPHILS 0.3 % (0-2); EOSINOPHILS 0.9 % (0-7); HEMATOCRIT 38.7 % (36.0-48.0); HEMOGLOBIN 13.5 g/dL (12-16); IMMATURE GRANULOCYTES 0.1 % (0-5); LYMPHOCYTES 34.9 % (15-50); MCH 40.8 pg (26.0-34.0); MCHC 34.9 g/dL (31.0-37.0); MCV 116.9 fL (80.0-100.0); MEAN PLATELET VOLUME 10.5 fL (7.4-10.4); MONOCYTES 4.8 % (2-11); PLATELET COUNT 278 10x3/uL (130-400); RBC 3.31 10x6/uL (4.00-5.40); RDW 14.3 % (11.5-14.5); WBC 6.7 10x3/uL (4.8-10.8)
[2019-01-24 11:03] LABS: CALC OSMOLALITY 281 mosm/kg (275-300); CALCIUM 8.7 mg/dL (8.5-10.1); CARBON DIOXIDE 29.6 mmol/L (21.0-32.0); CHLORIDE - SERUM 102 mmol/L (98-107); CREATININE - SERUM 0.6 mg/dL (0.6-1.3); POTASSIUM - SERUM 4.3 mmol/L (3.5-5.1); SODIUM 139 mmol/L (136-145); UREA NITROGEN 10 mg/dL (7-18); eGFR NON AFRICAN AMERICAN > 90 mL/min (90-120)
[2019-01-24 11:06] LABS: GLUCOSE 190 mg/dL (74-106)
[2019-01-24 11:09] LABS: INR 1.07 (0.85-1.17); PROTIME 13.4 SECONDS (11.6-15.0)
[2019-01-24 11:10] LABS: APTT 31.8 SECONDS (22.8-39.4)
== END 2019-01-24 13:50 | disposition home or self-care (01) ==
LOC: D.SP 08:24 → D.CT 11:00 → D.SP 13:50
PROVIDERS: Specialist
DX: R91.8 Other nonspecific abnormal finding of lung field (principal); Z53.8 Procedure and treatment not carried out for other reasons; Z85.3 Personal history of malignant neoplasm of breast; Z01.812 Encounter for preprocedural laboratory examination

== ENCOUNTER 2019-05-20 14:34 | Emergency (ER) | payer MEDICARE ==
[~2019-05-20] VITALS: Ht 167.6 cm; Wt 90.5 kg
[2019-05-20 14:58] VITALS: BP 138/88; Ht 167.6 cm; Wt 90.5 kg
[2019-05-20] MEDS ORDERED: ULTRAM50 MG PO (17:09)
== END 2019-05-20 17:47 | disposition home or self-care (01) ==
LOC: D.ER 14:34
DX: S83.92XA Sprain of unspecified site of left knee, initial encounter (principal); W18.30XA Fall on same level, unspecified, initial encounter; Y93.89 Activity, other specified; Y92.89 Other specified places as the place of occurrence of the external cause

== ENCOUNTER → 2019-06-01 10:07 | Outpatient (CLI) | payer MEDICARE ==
[2019-05-20 14:58] VITALS: BMI 32.2
[~2019-06-01 10:07] MED LIST changes: +ULTRAM50 MG PO
== END | disposition home or self-care (01) ==
LOC: D.MRI 10:07
PROVIDERS: ATTEND Emergency Medicine
DX: M89.9 Disorder of bone, unspecified (principal); Z85.3 Personal history of malignant neoplasm of breast

== ENCOUNTER 2019-06-16 12:35 | Inpatient (IN) | payer MEDICARE ==
[~2019-06-16] VITALS: Ht 167.6 cm; Wt 90.3 kg
[2019-06-16] MEDS ORDERED: OXYCONTIN10 MG PO (12:51)
[2019-06-16 13:43] LABS: INR 1.23 (0.85-1.17)
[2019-06-16 13:49] LABS: ALBUMIN 3.1 g/dL (3.4-5.0); ALKALINE PHOSPHATASE 64 U/L (46-116); ALT (SGPT) 14 U/L (10-68); BILIRUBIN - TOTAL 1.37 mg/dL (0.2-1.3); CALC OSMOLALITY 273 mosm/kg (275-300); CALCIUM 8.1 mg/dL (8.5-10.1); CARBON DIOXIDE 30.8 mmol/L (21.0-32.0); CHLORIDE - SERUM 100 mmol/L (98-107); CREATININE - SERUM 0.6 mg/dL (0.6-1.3); PROTEIN - SERUM 6.1 g/dL (6.4-8.2); SODIUM 137 mmol/L (136-145); UREA NITROGEN 8 mg/dL (7-18); eGFR NON AFRICAN AMERICAN > 90 mL/min (90-120)
[2019-06-16 13:55] LABS: GLUCOSE 127 mg/dL (74-106)
[2019-06-16 14:01] LABS: CKMB 0.1 U/L (0.0-3.6); CREATINE KINASE 23 UL (21-215); PRO BNP 705 pg/mL (0-125); TROPONIN-I < 0.017 ng/mL (0.000-0.060)
[2019-06-16 14:26] LABS: MCH 42.6 pg (26.0-34.0); MCHC 35.9 g/dL (31.0-37.0); MCV 118.5 fL (80.0-100.0); RDW 17.4 % (11.5-14.5); WBC 2.9 10x3/uL (4.8-10.8)
[2019-06-16 14:27] LABS: PLATELET COUNT 106 10x3/uL (130-400)
[2019-06-16 14:31] LABS: HEMATOCRIT 19.2 % (36.0-48.0); HEMOGLOBIN 6.9 g/dL (12-16); RBC 1.62 10x6/uL (4.00-5.40)
[2019-06-16 15:55] LABS: APPEARANCE CLEAR (CLEAR); BILIRUBIN NEGATIVE (NEGATIVE); COLOR YELLOW (YELLOW); GLUCOSE NEGATIVE (NEGATIVE); KETONE NEGATIVE (NEGATIVE); NITRITE NEGATIVE (NEGATIVE); PROTEIN NEGATIVE (NEGATIVE); SPECIFIC GRAVITY 1.005 (1.005-1.020); UROBILINOGEN NORMAL (NORMAL)
[2019-06-16 16:10] LABS: HYPOCHROMASIA 2+; LYMPHOCYTES 48 % (15-50); MONOCYTES 1 % (2-11); NEUTROPHILS 51 % (40-80); ROULEAUX 4+
[2019-06-16 16:11] LABS: PLATELET ESTIMATE NORMAL; PLATELET MORPHOLOGY NORMAL PLT MORPH
[2019-06-16 18:07] VITALS: BP 107/64; BMI 32.2
[2019-06-16 20:00] VITALS: BP 110/57
[2019-06-17] VITALS: BP 112/65
[2019-06-17 04:00] VITALS: BP 106/57
[2019-06-17 04:23] LABS: BASOPHILS 0 % (0-2); EOSINOPHILS 1.1 % (0-7); IMMATURE GRANULOCYTES 0.3 % (0-5); LYMPHOCYTES 57.8 % (15-50); MCH 38.3 pg (26.0-34.0); MCHC 35.1 g/dL (31.0-37.0); MEAN PLATELET VOLUME 12.2 fL (7.4-10.4); MONOCYTES 3.1 % (2-11); NEUTROPHILS 37.7 % (40-80); PLATELET COUNT 95 10x3/uL (130-400); RDW 24.6 % (11.5-14.5); WBC 3.6 10x3/uL (4.8-10.8)
[2019-06-17 04:30] LABS: HEMATOCRIT 27.1 % (36.0-48.0); HEMOGLOBIN 9.5 g/dL (12-16); MCV 109.3 fL (80.0-100.0); RBC 2.48 10x6/uL (4.00-5.40)
[2019-06-17 04:36] LABS: CALC OSMOLALITY 273 mosm/kg (275-300); CALCIUM 7.3 mg/dL (8.5-10.1); CARBON DIOXIDE 30.4 mmol/L (21.0-32.0); CHLORIDE - SERUM 100 mmol/L (98-107); CREATININE - SERUM 0.7 mg/dL (0.6-1.3); GLUCOSE 143 mg/dL (74-106); MAGNESIUM - SERUM 1.6 mg/dL (1.8-2.4); PHOSPHOROUS 4.8 mg/dL (2.5-4.9); POTASSIUM - SERUM 3.3 mmol/L (3.5-5.1); SODIUM 137 mmol/L (136-145); UREA NITROGEN 8 mg/dL (7-18); eGFR NON AFRICAN AMERICAN > 90 mL/min (90-120)
[2019-06-17 09:01] VITALS: BP 125/67
[2019-06-17 12:50] VITALS: BP 110/61
[2019-06-17 14:43] VITALS: Ht 167.6 cm; Wt 90.3 kg
[2019-06-17 17:44] VITALS: BP 101/55
[2019-06-17 20:00] VITALS: BP 94/55
[2019-06-18] VITALS: BP 106/59
[2019-06-18 04:00] VITALS: BP 113/57
[2019-06-18 06:20] LABS: BASOPHILS 0.3 % (0-2); EOSINOPHILS 0.9 % (0-7); HEMATOCRIT 25.6 % (36.0-48.0); HEMOGLOBIN 8.9 g/dL (12-16); IMMATURE GRANULOCYTES 0.3 % (0-5); LYMPHOCYTES 37.6 % (15-50); MCH 37.7 pg (26.0-34.0); MCHC 34.8 g/dL (31.0-37.0); MCV 108.5 fL (80.0-100.0); NEUTROPHILS 58.9 % (40-80); PLATELET COUNT 77 10x3/uL (130-400); RBC 2.36 10x6/uL (4.00-5.40); RDW 23.8 % (11.5-14.5); WBC 3.4 10x3/uL (4.8-10.8)
[2019-06-18 06:26] LABS: CHLORIDE - SERUM 100 mmol/L (98-107); MAGNESIUM - SERUM 1.7 mg/dL (1.8-2.4); SODIUM 135 mmol/L (136-145)
[2019-06-18 06:27] LABS: CALC OSMOLALITY 270 mosm/kg (275-300); CALCIUM 7.3 mg/dL (8.5-10.1); CARBON DIOXIDE 32.3 mmol/L (21.0-32.0); CREATININE - SERUM 0.7 mg/dL (0.6-1.3); GLUCOSE 136 mg/dL (74-106); POTASSIUM - SERUM 4.1 mmol/L (3.5-5.1); eGFR NON AFRICAN AMERICAN > 90 mL/min (90-120)
[2019-06-18 06:35] LABS: UREA NITROGEN 11 mg/dL (7-18)
[2019-06-18 07:54] LABS: PLATELET ESTIMATE DECREASED
[2019-06-18 09:16] VITALS: BP 127/80
[2019-06-18 12:54] VITALS: BP 140/73
[2019-06-18 18:29] VITALS: BP 136/86
[2019-06-18 20:00] VITALS: BP 125/68
[2019-06-19] VITALS: BP 109/58
[2019-06-19 05:45] VITALS: BP 122/63
[2019-06-19 07:02] LABS: INR 1.28 (0.85-1.17); PROTIME 15.4 SECONDS (11.6-15.0)
[2019-06-19 07:03] LABS: D-DIMER-QUANTITATIVE 3.56 ug/mLFEU (0.20-0.54)
[2019-06-19 07:20] LABS: HEMATOCRIT 25.7 % (36.0-48.0); MCH 37.7 pg (26.0-34.0); MCV 107.5 fL (80.0-100.0); MEAN PLATELET VOLUME 11.6 fL (7.4-10.4); PLATELET COUNT 62 10x3/uL (130-400); RBC 2.39 10x6/uL (4.00-5.40); RDW 22.3 % (11.5-14.5)
[2019-06-19 07:26] LABS: CALCIUM 7.7 mg/dL (8.5-10.1); CARBON DIOXIDE 30.9 mmol/L (21.0-32.0); CHLORIDE - SERUM 102 mmol/L (98-107); CREATININE - SERUM 0.7 mg/dL (0.6-1.3); FERRITIN 176 ng/mL (3-244); MAGNESIUM - SERUM 1.6 mg/dL (1.8-2.4); PHOSPHOROUS 2.7 mg/dL (2.5-4.9); POTASSIUM - SERUM 4.1 mmol/L (3.5-5.1); SODIUM 140 mmol/L (136-145); UREA NITROGEN 11 mg/dL (7-18); WBC 1.7 10x3/uL (4.8-10.8); eGFR NON AFRICAN AMERICAN > 90 mL/min (90-120)
[2019-06-19 07:32] LABS: CALC OSMOLALITY 283 mosm/kg (275-300); GLUCOSE 200 mg/dL (74-106); LDH 1864 U/L (81-234)
[2019-06-19 08:44] VITALS: BP 118/65
[2019-06-19 09:28] LABS: HYPER SEGMENTED NEUTROPHILS 1+; LYMPHOCYTES 38 % (15-50); NEUTROPHILS 62 % (40-80); PLATELET ESTIMATE DECREASED
--- NOTE | 2019-06-20 11:41 | MORECARE ---
CASE MANAGEMENT DISCHARGE SUMMARY PATIENT: NYLA SCHMIDT UNIT: [id number] ADM DATE: 06/16/19 AGE: 54 : [birth year] SEX: F ROOM[facility]ED[facility] AUTHOR: MAGALY CAMARA PHYSICIAN: REFERRING PHYSICIAN: FRANCISCO SORENSEN MD DATE OF SERVICE: 06/20/19 Discharge Plan Patient Name: NYLA SCHMIDT Facility: [facility]:[place] : 1965 Planned Disposition: Anticipated Discharge Date: Discharge Date: 06/19/2019 Expected LOS: 0 Initial Reviewer: [email or web address] Initial Review Date: 06/20/2019 Generated: 06/20/19 12:40 pm Patient Name: NYLA SCHMIDT Page 49727 at 1141 All edits/amendments must be made on the electronic document DICTATION DATE: 06/20/19 1140 MILL ORDER SCHEDULER: EDY 06/20/19 1140 RPT#: [id number] DC DATE:06/19/19 STATUS: DIS IN [facility] [address] [facility] [place] [address] END OF REPORT
[2019-06-21 07:14] LABS: IMMUNOGLOBULIN A 170 mg/dL (87-352); IMMUNOGLOBULIN G 802 mg/dL (700-1600)
[2019-06-21 12:09] LABS: ANA REFLEX - ANTICHROMATIN ABS 0.2 AI (0.0-0.9); ANA REFLEX - CENTROMERE B ABS <0.2 AI (0.0-0.9); ANA REFLEX - DBL STRANDED DNA <1 IU/mL (0-9); ANA REFLEX - DIRECT Positive (Negative); ANA REFLEX - JO-1 AB <0.2 AI (0.0-0.9); ANA REFLEX - RNP ANTIBODIES 1.1 AI (0.0-0.9); ANA REFLEX - SCL-70 <0.2 AI (0.0-0.9); ANA REFLEX - SJOGRENS AB SSA <0.2 AI (0.0-0.9); ANA REFLEX - SJOGRENS AB SSB <0.2 AI (0.0-0.9); ANA REFLEX - SMITH AB <0.2 AI (0.0-0.9)
[2019-06-22 06:09] LABS: IGG SUBCLASS 1 513 mg/dL (248-810); IGG SUBCLASS 2 109 mg/dL (130-555); IGG SUBCLASS 3 26 mg/dL (15-102); IGG SUBCLASS 4 17 mg/dL (2-96)
[2019-06-23 05:09] LABS: IMMUNOGLOBULIN E 19 IU/mL (6-495)
== END 2019-06-19 08:40 | disposition left against medical advice (07) | DRG 177 ==
LOC: D.ER 12:35 → D.MS 17:23
PROVIDERS: Family Medicine; Internal Medicine Pulmonary Disease; Legal Medicine; ADMIT Emergency Medicine; ATTEND Emergency Medicine
DX: J15.6 Pneumonia due to other Gram-negative bacteria (principal); J96.01 Acute respiratory failure with hypoxia; D61.818 Other pancytopenia; D64.9 Anemia, unspecified; J15.212 Pneumonia due to Methicillin resistant Staphylococcus aureus; E87.6 Hypokalemia; J44.9 Chronic obstructive pulmonary disease, unspecified; I10 Essential (primary) hypertension

== ENCOUNTER → 2019-07-07 13:02 | Outpatient (CLI) | payer MEDICARE ==
[2019-06-17 14:43] VITALS: BMI 32.1
--- NOTE | ~2019-07-07 | EC ---
PATIENT:NYLA SCHMIDT DATE OF SERVICE: 07/07/19 SEX: F MEDICAL RECORD: [id number] DATE OF : 67 LOCATION:D.[facility] AGE OF PATIENT: 54 ADMISSION DATE: 07/07/19 REFERRING PHYSICIAN: INTERPRETING PHYSICIAN: DEL WONG MD ECHOCARDIOGRAM REPORT ECHO CHARGES 4 ECHO COMPLETE Date: 07/07/19 CLINICAL DIAGNOSIS: SOB/MAGANA/ANGINA H/O CAD/HTN ECHOCARDIOGRAPHIC MEASUREMENTS (adult normal given) AC root (d.<3.7cm) 3.2 cm LV Septum d (<1.2 cm> 1.3 cm Valve Excursion 2.0 cm LV Septum (systole) 1.4 cm Left Atria (s.<4.0cm> 4.8 cm LVPW d(<1.2cm) 1.2 cm RV (d.<2.3cm) 2.6 cm LVPW (sytole) 1.6 cm LV diastole(<5.6CM) 5.3 cm MV E-F(>70mm/sec) cm LV systole 4.1 cm LVOT Diameter 1.9 cm MV exc.(>10mm) cm Est.ejection fraction (50-75%) % DOPPLER: LVIT cm/sec A 104 cm/sec E 86.0 cm/sec LA cm/sec RVSP 18.1 mmHg LVOT 91.0 cm/sec AOP1/2T m/s Asc. Ao 125 cm/sec RVOT 54.0 cm/sec RA cm/sec PA 103 cm/sec AV Gradient Peak 6.2 mmHg AV Mean 3.2 mmHg AV Area 2.2 cm MV Gradient Peak 4.1 mmHg MV Mean 1.7 mmHg MV Area cm COMMENTS: Sterilizer Operator: Albert TERRYOE Maintenance Services Dispatcher: 1 Dr. Wong TAPE# PACS Pericardial Effusion Y DATE OF SERVICE: 07/07/2019 ECHOCARDIOGRAM DATE OF SERVICE: 07/07/2019 FINDINGS: 1. Left ventricular chamber size is within normal limits. Left ventricular systolic function is normal at 50%. 2. Left atrium is enlarged at 4.8 cm. Right atrium and right ventricular ECHOCARDIOGRAM REPORT [id number] NYLA SCHMIDT chamber sizes are as well mildly dilated. 3. Valvular structures have normal structure and motion. 4. Doppler interrogation reveals no significant valvular insufficiency or stenosis. 5. Trace pericardial effusion is present. This is not hemodynamically significant. TRANSINT:[id number] Voice Confirmation ID: [id number] DOCUMENT ID: [id number] DEL WONG MD CC: [id number] DICTATION DATE: 07/08/19 145 BUSINESS PROCESS MODELER: 07/08/19 1609 DEP CLI 07/07/19 [place] [id number] [place] [id number]
[~2019-07-07 13:02] MED LIST changes: +OXYCONTIN10 MG PO
== END | disposition home or self-care (01) ==
LOC: D.HCCARDIO 13:02
PROVIDERS: ATTEND Internal Medicine Interventional Cardiology
DX: R06.00 Dyspnea, unspecified (principal); R06.02 Shortness of breath; I25.110 Atherosclerotic heart disease of native coronary artery with unstable angina pectoris; I10 Essential (primary) hypertension

== ENCOUNTER → 2019-08-17 12:25 | Outpatient (CLI) | payer MEDICARE ==
[2019-06-17 14:43] VITALS: BMI 32.1
[~2019-08-17 12:25] MED LIST changes: +BAYER CHEWABLE81 MG PO
[2019-08-17 12:38] LABS: HEMATOCRIT 27.4 % (36.0-48.0); HEMOGLOBIN 8.9 g/dL (12-16); LYMPHOCYTES 33.6 % (15-50); MCH 35.9 pg (26.0-34.0); MCHC 32.5 g/dL (31.0-37.0); MCV 110.5 fL (80.0-100.0); NEUTROPHILS 48.7 % (40-80); PLATELET COUNT 262 10x3/uL (130-400); RBC 2.48 10x6/uL (4.00-5.40)
== END | disposition home or self-care (01) ==
LOC: D.LABREF 12:25
PROVIDERS: ATTEND Legal Medicine
DX: Z85.3 Personal history of malignant neoplasm of breast (principal)

== ENCOUNTER 2019-08-30 08:13 | Outpatient (CLI) | payer MEDICARE ==
[~2019-08-30] VITALS: Ht 167.6 cm; Wt 82.3 kg
--- NOTE | ~2019-08-30 | HEMODYNAMI ---
PATIENT:NYLA SCHMIDT MEDICAL RECORD: [id number] : 67 LOCATION:[facility] ADMISSION DATE: 08/30/19 Generatedon:08/31/20198:17 Patient name: NYLA SCHMIDT Patient #: [id number] SSN: [id number] : 1965 Date of study: 08/30/2019 Page: Of Hemodynamic Procedure Report Patient Data Patient Demographics Procedure consent was obtained First Name: NYLA Gender: Female Last Name: BRAYAN : 1965 [facility] Initial: NASEEM Age: 54 year(s) Patient #: [id number] Race: SSN: [id number] Additional ID: [id number] Contact details [address]: [address] [place] [address] street State: [place] City: [place] Zip code: [address] Past Medical History Allergies Allergen Reaction Date Comments Reported IV contrast dye 08/17/2017 Other allergy 08/17/2017 Naproxen Other allergy 08/30/2019 IODINE/NAPROXEN Admission Admission Data Admission Date: 08/30/2019 Admission Time: 8:13 Arrival Date: 08/30/2019 Arrival Time: 8:13 Admit Source: Emergency Insurance Payor: Medicare, department Medicaid Room #: D.CL02 PSYCHIATRIC #: [id number] Height (in.): 66.14 BSA: 1.92 (m2) Height (cm.): 168 BMI: 29.05 (kg/m2) Weight (lbs.): 180.78 Weight (kg.): 82 Lab Results Lab Result Date: 08/30/2019 Lab Result Time: 0:00 Biochemistry Name Units Result Min Max BUN mg/dl 10 --(-*--)-- 7 18 Creatinine l 0.9 -*(----)-- 21 215 Kinase eGFR ml/min 69 *-(----)-- 90 120 NONAFRICAN CBC Name Units Result Min Max Hemoglobin g/dl 11.6 *-(----)-- 13.5 17.5 Procedure Procedure Types Cath Procedure Diagnostic Procedure [facility] w/Coronaries FFR/IVUS FFR Initial Sedation Charges Moderate Sedation up to 15 minutes PCI Procedure Coronary Stent Coronary Stent Initial Procedure Description Procedure Date Procedure Date: 08/30/2019 Procedure Start Time: 11:12 Procedure End Time: 11:37 Procedure Staff Name Function Cristiana Leavitten RT Scrub Deejay Wong MD Performing Physician Coretta Don RT Monitor Samantha Moore RT Monitor Wilman Garner RN Nurse Indication Angina Procedure Data Cath Procedure Fluoroscopy Diagnostic fluoroscopy Total fluoroscopy Time: 4.4 time: 4.4 min min Diagnostic fluoroscopy Total fluoroscopy dose: 706 dose: 706 mGy mGy Contrast Material Contrast Material Type Amount (ml) Isovue 300 82 Entry Location Entry Primary Successful Side Size Upsize Upsize Entry Closure Succes sful Closure Location (Fr) 1 (Fr) 2 (Fr) Remarks Device Remarks Femoral Right 5 Fr 6 Fr Exoseal artery Short Estimated blood loss: 10 ml Diagnostic catheters Device Type Used For End Catheter Placement MULTIPACK Pigtail 5 Fr LV Angiography catheter MULTIPACK JL 4.0 5Fr Left Coronary catheter Angiography MULTIPACK 3DRC 5Fr Right Coronary catheter Angiography Procedure Complications No complications Procedure Medications Medication Administration Route Dosage 0.9% NaCl I.V. 100 ml/hr Oxygen etCO2 Nasal cannula 2 l/min Heparin Flush Bag added to field 2 bags (1000units/500ml NS) Lidocaine 2% added to field 20 Versed I.V. 2 mg Fentanyl I.V. 100 mcg Heparin Bolus I.V. 4000 units Integrilin (Bolus I.V. 7.3 ml 2mg/ml) Integrilin (Bolus wasted 2.7 ml 2mg/ml) Plavix P.O. 600 mg Hemodynamics Rest HGB: 11.6 (g/dl) O2 Consumption: Estimated: 176.11 (ml/min) O2 Consumption index ed: Estimated:91.72 (ml/min/m) Heart Rate: 56 (bpm) Snapshots Pre Cath Intra NCS Post Cath Vital Signs Time Heart Resp SPO2 etCO2 NIBP Rhythm Pain Sedation Rate (ipm) (%) (mmHg) (mmHg) Status Level (bpm) 10:58:19 63 20 96 0 126/55(84) NSR 0 (11) 10(A) , No pain 11:02:35 60 15 93 43.6 110/56(72) NSR 0 (11) 10(A) , No pain 11:06:47 61 12 93 31.5 105/50(72) NSR 0 (11) 10(A) , No pain 11:10:55 64 15 92 39.1 97/51(71) NSR 0 (11) 10(A) , No pain 11:14:59 66 11 93 39.1 99/48(74) NSR 0 (11) 9(A) , No pain 11:19:07 73 12 93 39.8 107/45(74) NSR 0 (11) 9(A) , No pain 11:23:16 73 12 93 39.1 98/48(73) NSR 0 (11) 9(A) , No pain 11:27:22 78 14 93 41.3 106/49(73) NSR 0 (11) 10(A) , No pain 11:31:32 75 19 93 40.6 103/49(68) NSR 0 (11) 10(A) , No pain 11:35:38 74 12 95 41.3 104/56(69) NSR 0 (11) 10(A) , No pain Medications Time Medication Route Dose Verified Delivered Reason Notes Effectiveness by by 11:04:26 0.9% NaCl I.V. 100 Wilman Wilman Per physician ml/hr Pascual Garner RN RN 11:04:37 Oxygen etCO2 2 Wilman Wilman for low 02 sats Nasal l/min Pascual Garner cannula RN RN 11:04:50 Heparin Flush added 2 Wilman Wilman used for Bag to bags Pascual Garner procedure (1000units/500ml RN RN NS) 11:05:02 Lidocaine 2% added 20ml Wilman Wilman for local to vial Pascual Garner anesthetic RN RN 11:10:41 Versed I.V. 2 mg Wilman Wilman for sedation Pascual Garner RN RN 11:10:49 Fentanyl I.V. 100 Wilman Wilman for sedation mcg Pascual Garner RN RN 11:25:23 Heparin Bolus I.V. 4000 Wilman Wilman for units Pascual Garner anticoagulation RN RN 11:25:40 Integrilin I.V. 7.3 Wilman Wilman for (Bolus 2mg/ml) ml Pascual Garner antiplatelet RN RN therapy 11:25:50 Integrilin wasted 2.7ml Wilman Stovall to sharp's (Bolus 2mg/ml) Pascual Garner RN RN 11:30:45 Plavix P.O. 600 Wilman Stovall for mg Pascual Garner antiplatelet RN RN therapy Procedure Log Time Note 10:42:56 Diagnostic Cath Status : Urgent 10:44:01 Admit Source: Emergency department 10:45:10 ACC Patient presents with Unstable Angina CCS Anginal Class 4--Inability to carry out any physical activity w/o angina. Angina may occur at rest. 10:45:23 Procedure Status Emergent Heart Cath (AMI). 10:45:27 Wilman Garner RN sent for patient. Start room use. 10:45:30 Time tracking: Regular hours (M-F 7:00 - 5:00) 10:45:37 Plan of Care:Hemodynamics will remain stable., Cardiac rhythm will remain stable., Comfort level will be maintained., Respiratory function will remain adequate., Patient/ family verbilizes understanding of procedure., Procedure tolerated without complication., Recovers from procedure without complications.. 10:46:29 Indication : Angina 10:46:56 Informed consent obtained and on chart 10:49:58 Patient received from ED to CCL 2 Alert and oriented. Tansferred to table in Supine position. 10:50:01 Warm blankets applied, and dianne hugger turned on for patient comfort. 10:50:02 ECG and BP/O2 sat monitors applied to patient. 10:50:02 Correct patient and procedure confirmed by team. 10:53:56 Arrival Date: 08/30/2019 8:13:00 AM 10:54:35 Insurance Payor : Medicare, Medicaid 10:55:47 Patient Height : 66.14 inches 10:55:53 Patient Weight : 180.78 lbs 10:57:04 Lab Result : eGFR NONAFRICAN 69 ml/min 10:57:04 Lab Result : Hemoglobin 11.6 g/dl 10:57:04 Lab Result : BUN 10 mg/dl 10:57:04 Lab Result : Creatinine Kinase 0.9 l 10:57:06 Vital chart was started 10:57:46 Baseline sample Acquired. 10:57:51 Rhythm: sinus rhythm 10:57:54 Full Disclosure recording started 10:57:55 - 10:58:14 H&P Date Dictated: 08/30/2019 ER History on chart., New H&P dictated by physician.. 10:58:17 Pre-procedure instructions explained to patient. 10:58:18 Pre-op teaching completed and patient verbalized understanding. 10:58:31 Family in waiting room. 10:58:40 Patient NPO since Midnight. 10:59:08 Patient allergic to Other allergyIODINE/NAPROXEN 10:59:15 Is the patient allergic to Iodine/contrast media? Yes. 10:59:26 Was the patient premedicated? Yes 10:59:36 Is patient on blood thinner?No 10:59:43 Patient diabetic? Yes. 10:59:48 If diabetic: On Metformin? Yes 11:00:05 If on Metformin: Last Dose? 08/29/2019 11:00:51 ----Pre-sedation anethsthesia assessment.---- 11:01:01 Patient not . Patient has had hysterectomy. 11:01:10 Previous problem with sedation/anesthesia? No NO 11:01:12 Snore? Yes 11:01:14 Sleep apnea? Yes 11:01:24 Deviated septum? Unknown 11:01:26 Opens mouth fully? Yes 11:01:27 Sticks out tongue? Yes 11:01:51 Dentures? No ? 11:02:01 Pre procedure: right dorsailis pedis pulse 1+ Palpable, but thready & weak; easily obliterated 11:02:09 Patient pain scale 0/10 ?. 11:02:20 IV patent on arrival in left forearm with 0.9% NaCl at KVO. 11:02:29 Lab results completed and on chart. 11:02:34 Right groin area was prepped with chlora-prep and draped in sterile fashion 11:02:41 Sharps counted by scrub and verified by R.N. 11:02:41 Alarms reviewed by R. N. 11:03:42 Use device set Femoral Dx 11:03:44 ACIST Syringe (28329) opened to sterile field. 11:03:46 Bag Decanter (2001S) opened to sterile field. 11:03:47 Medline Cath Pack ([id number]) opened to sterile field. 11:03:49 ACIST Hand Control (26173) opened to sterile field. 11:03:50 ACIST Manifold (74927) opened to sterile field. 11:03:52 Tegaderm 4 x 4 (1626W) opened to sterile field. 11:03:55 SHEATH 5FR [place] (SAE440) opened to sterile field. 11:03:56 EMERALD Guide Wire (484-175) opened to sterile field. 11:04:25 PCI Cath Status : Urgent 11:04:26 0.9% NaCl 100 ml/hr I.V. was administered by Wilman Garner RN; Per physician; Verbal order read back and verified. 11:04:37 Oxygen 2 l/min etCO2 Nasal cannula was administered by Wilman Garner RN; for low 02 sats; Verbal order read back and verified. 11:04:50 Heparin Flush Bag (1000units/500ml NS) 2 bags added to field was administered by Wilman Garner RN; used for procedure; Verbal order read back and verified. 11:05:02 Lidocaine 2% 20ml vial added to field was administered by Wilman Garner RN; for local anesthetic; Verbal order read back and verified. 11:08:54 ACCPatient has been prescribed/administered the following anti-anginal medication within the last 2 weeks: Calcium Channel Blockers, SARA-Inhibitor 11:09:01 Zero performed for pressure channel P1 11:09:20 Physician arrived 11::22 --------ALL STOP TIME OUT------ 11::23 Final Timeout: patient, procedure, and site verified with staff and physician. All members of the team are in agreement. 11:09:25 Right groin site verified by team. 11:09:32 Fire Safety Assessment: A--An alcohol-based skin anteseptic being used preoperatively., C--Open oxygen or nitrous oxide is being used., D--An ESU, laser, or fiber-optic light is being used. 11:09:50 Physical assessment completed. ASA score P 3 - A patient with severe systemic disease as per Deejay Wong MD. 11:09:58 2) 60-89 Mildly reduced kidney function, and other findings (as for stage 1) point to kidney disease. 11:10:07 Maximum allowable contrast dose (3.7 X eGFR X 0.75)191 ml. 11:10:14 Sedation plan: IV Moderate Sedation Medication:Versed, Fentanyl 11:10:38 DIAGNOSTIC Multipack 5Fr catheter set (EM7182) opened to sterile field. 11:10:41 Versed 2 mg I.V. was administered by Wilman Garner RN; for sedation; Verbal order read back and verified. 11:10:49 Fentanyl 100 mcg I.V. was administered by Wilman Garner RN; for sedation; Verbal order read back and verified. 11:12:45 Procedure started. 11:12:53 Local anesthetic to right femoral artery with Lidocaine 2% by Deejay Wong MD.INITIAL ACCESS ONLY 11:14:09 A 5 Fr sheath was inserted into the Right Femoral artery 11:14:26 A MULTIPACK Pigtail 5 Fr catheter was advanced over the wire and used for LV Angiography. 11:14:52 LV gram done using CARBALLO 11:15:00 EF : 50 % 11:15:08 A MULTIPACK JL 4.0 5Fr catheter was advanced over the wire and used for Left Coronary Angiography. 11:15:33 LCA angiography performed. 11:16:13 Catheter removed. 11:16:21 A MULTIPACK 3DRC 5Fr catheter was advanced over the wire and used for Right Coronary Angiography. 11:17:19 INFLATOR Merit BasixCompak (OW5919) opened to sterile field. 11:17:33 CHOICE PT Extra Support 182cm wire ([id number]) opened to sterile field. 11:17:53 GUIDE 6FR AR 1.0 catheter ([id number]) opened to sterile field. 11:18:05 SHEATH 6FR [place] (FIU469) opened to sterile field. 11:18:29 ACC Pre-intervention GIOVANI Flow is 3. 11:18:32 Sheath upsized to a 6 Fr Short. 11:20:00 [place] Verrata Plus pressure wire (54912X) opened to sterile field. 11:21:09 6 Fr AR1 guide catheter was inserted over the wire 11:21:44 IFR wire advanced. 11:22:04 FFR/IFR wire advanced. 11:22:06 Wire advanced across lesion. 11:23:51 mRCA lesion measured at .80 with IFR 11::23 Heparin Bolus 4000 units I.V. was administered by Wilman Garner RN; for anticoagulation; Verbal order read back and verified. 11:25:40 Inflate balloon Inflation number: 1 A EUPHORA 2.5 x 15 Balloon ([id number]) was prepped and advanced across the Mid RCA 80, then inflated to 13 SERJIO for 0:10 (min:sec) . 11:25:40 Integrilin (Bolus 2mg/ml) 7.3 ml I.V. was administered by Wilman Garner RN; for antiplatelet therapy; Verbal order read back and verified. 11:25:50 Integrilin (Bolus 2mg/ml) 2.7ml wasted was administered by Wilman Garner RN; to sharp's; Verbal order read back and verified. 11:27:51 Place stent Inflation Number: 2 A COBRA RX 2.5 X 08 Stent was prepped and advanced across the Mid RCA 80. The stent was deployed at 13 SERJIO for 0:12 (min:sec) . 11:29:05 Stent catheter was removed intact over wire. 11:29:08 Guide catheter removed. 11:29:20 ACC Post-intervention GIOVANI Flow is 3. 11:30:00 EXOSEAL 6Fr (EX600) opened to sterile field. 11:30:12 Procedure ended.(Physican Out) 11:30:32 Sheath removed intact; hemostasis achieved with Exoseal to the Right Femoral artery. 11:30:45 Plavix 600 mg P.O. was administered by Wilman Garner RN; for antiplatelet therapy; Verbal order read back and verified. 11:31:06 ACCDominant side:Co-Dominant 11:31:36 Fluoroscopy time 04.40 minutes. 11::39 Fluoroscopy dose: 706 mGy 11:31:39 Flurop Dose total: 706 11:31:46 Dose Area Product 94168 mGy/cm. 11:31:53 Contrast amount:Isovue 300 82ml. 11:31:56 Sharps counted by scrub and verified by R.N. 11:32:01 Insertion/operative site no bleeding no hematoma. 11:32:06 Post-op/insertion site Right Femoral artery dressed using a 4 x 4 and Tegaderm. 11:32:12 Post right femoral artery:stable 11:32:16 Post Procedure Pulses reassessed and unchanged 11:32:27 Post-procedure physical assessment completed. ASA score P 3 - A patient with severe systemic disease as per Deejay Wong MD. 11:32:33 Post procedure rhythm: unchanged. 11:32:39 Estimated blood loss: 10 ml 11:32:42 Post procedure instruction explained to patient.Patient verbalizes understanding. 11:32:43 Patient needs reinforcement of post procedure teaching. 11:32:50 Procedure and supply charges have been captured, reviewed, submitted an d are correct. 11:33:00 Procedure Complication : No complications 11:35:07 Procedure type changed to Cath procedure, Diagnostic procedure, LHC, LH C w/Coronaries, FFR/IVUS, FFR Initial, Sedation Charges, Moderate Sedation up to 15 minutes, PCI procedure, Coronary Stent, Coronary Stent Initial 11:35:30 ACT drawn and resulted at 265 seconds. (normal therapeutic range 180-24 0 seconds). 11:37:18 Vital chart was stopped 11:37:19 See physician's report for complete and final results. 11:37:27 Report given to Pre/Post Procedure Room. 11:37:47 Patient transfered to Pre/Post Procedure Room with Stretcher. 11:37:50 Full Disclosure recording stopped 11:37:50 Procedure ended. 11:38:21 ACC-PCI Only Patient was given prescriptions, or instructed by Deejay Wong MD to start/continue the following medications upon discharge: Plavix 11:38:31 End room use (Document Last) Intervention Summary Intervention Notes Time ActionType Lesion and Equipment Action# Pressure Duration Attributes Used 11:25:40 Inflate Mid RCA EUPHORA 1 13 00:10 balloon 2.5 x 15 Balloon ([id number]) 11:27:51 Place stent Mid RCA COBRA RX 2 13 00:12 2.5 X 08 Stent Device Usage Item Name Manufacture Quantity Catalog Number Hospital Part Current Minimal Lot# / Charge Number Stock Stock Serial# Code ACIST Syringe Acist 1 58745 664859 243992 769755 20 (39150) i2we Inc Bag Decanter Microtek 1 196321 74575 247149 5 (2002S) Medical Inc. Medline Cath Medline 1 [id number] 303202 96362 148261 5 Pack ([id number]) ACIST Hand Acist 1 06279 745432 837542 796318 5 Control Medical (51299) Systems Inc ACIST Manifold Acist 1 27691 791912 036724 621874 5 (89767) Medical Systems Inc Tegaderm 4 x 4 3M 1 1626W 713667 557108 808314 5 (1626W) SHEATH 5FR Terumo 1 WCP592 225215 095325 216220 5 [place] (YWR800) EMERALD Guide Cardinal 1 502-455 671436 704961 382639 5 Wire (502-455) Health DIAGNOSTIC Cardinal 1 NV7494 334118 39538 924086 30 Multipack 5Fr Health catheter set (TV3321) MULTIPACK Cardinal 1 841247 5 Pigtail 5 Fr Health catheter MULTIPACK JL Cardinal 1 778357 5 4.0 5Fr Health catheter MULTIPACK 3DRC Cardinal 1 473512 5 5Fr catheter Health INFLATOR Merit Merit 1 BD3845 166105 720477 808831 15 Accelera Mobile Broadband (LB9529) CHOICE PT Seney 1 [id number] 844812 687572 930404 5 Extra Support Scientific 182cm wire ([id number]) GUIDE 6FR AR Medtronic 1 [id number] 630023 15327 889165 1 1.0 catheter (EO7DI98) SHEATH 6FR Terumo 1 RXU617 046576 299280 784155 40 [place] (GNL659) [place] 1 53085K 291052 731547673 602131 5 Verrata Plus pressure wire (37299U) EUPHORA 2.5 x Medtronic 1 [id number] 884106 018395 039662 5 [id number] 15 Balloon ([id number]) COBRA RX 2.5 X Celonova 1 039541 [id number] 7844016 1 2 [id number] 08 stent Biosciences () EXOSEAL 6Fr Cardinal 1 EX600 083574 434085 356589 10 (EX600) Health Signature Audit [place] Stage Time Signature Unsigned Intra-Procedure 08/30/2019 Samantha 11:39:19 AM Teresa RT(R) (CV) Intra-Procedure 08/30/2019 Wilman 11:39:53 AM Pascual RIVAS Intra-Procedure 08/30/2019 Deejay Wong 11:40:23 AM ; Cristiana Velasquez RT(R) [facility] [address] [place] [address]
[~2019-08-30 08:13] MED LIST changes: -BAYER CHEWABLE81 MG PO
[2019-08-30 08:46] LABS: BASOPHILS 0.4 % (0-2); EOSINOPHILS 0.9 % (0-7); HEMATOCRIT 37.5 % (36.0-48.0); HEMOGLOBIN 11.6 g/dL (12-16); IMMATURE GRANULOCYTES 0.2 % (0-5); LYMPHOCYTES 14.8 % (15-50); MCH 30.4 pg (26.0-34.0); MCHC 30.9 g/dL (31.0-37.0); MCV 98.4 fL (80.0-100.0); MONOCYTES 9.1 % (2-11); NEUTROPHILS 74.6 % (40-80); RBC 3.81 10x6/uL (4.00-5.40); RDW 23.8 % (11.5-14.5); WBC 9.9 10x3/uL (4.8-10.8)
[2019-08-30 08:48] LABS: PLATELET COUNT 408 10x3/uL (130-400)
[2019-08-30 08:55] LABS: APTT 31.3 SECONDS (22.8-39.4); INR 1.07 (0.85-1.17); PROTIME 13.4 SECONDS (11.6-15.0)
[2019-08-30 08:59] LABS: ALBUMIN 3.2 g/dL (3.4-5.0); ALKALINE PHOSPHATASE 117 U/L (46-116); ALT (SGPT) 15 U/L (10-68); BILIRUBIN - TOTAL 0.33 mg/dL (0.2-1.3); CALC OSMOLALITY 282 mosm/kg (275-300); CALCIUM 8.7 mg/dL (8.5-10.1); CARBON DIOXIDE 31.6 mmol/L (21.0-32.0); CHLORIDE - SERUM 104 mmol/L (98-107); CREATININE - SERUM 0.9 mg/dL (0.6-1.3); GLUCOSE 184 mg/dL (74-106); POTASSIUM - SERUM 4.3 mmol/L (3.5-5.1); PROTEIN - SERUM 6.8 g/dL (6.4-8.2); SODIUM 140 mmol/L (136-145); UREA NITROGEN 10 mg/dL (7-18); eGFR NON AFRICAN AMERICAN 69 mL/min (90-120)
[2019-08-30 09:11] LABS: CKMB 0.2 U/L (0.0-3.6); CREATINE KINASE 16 UL (21-215); MAGNESIUM - SERUM 1.9 mg/dL (1.8-2.4); TROPONIN-I < 0.017 ng/mL (0.000-0.060)
[2019-08-30 10:02] VITALS: Ht 167.6 cm; Wt 82.3 kg
[2019-08-30 10:47] VITALS: BP 126/64
--- NOTE | 2019-08-30 11:47 | NUR ---
PT ARRIVED BY STRETCHER. PLACED ON MONITORS. ASSESSMENT COMPLETED. NO FAMILY FOUND AT THIS TIME. CHECKED WAITING ROOM AND CALLED ER. PT INSTRUCTED TO KEEP HEAD FLAT ON PILLOW AND RIGHT LEG STRAIGHT. RIGHT UPPER CHEST INFUSAPORT ACCESSED AND INFUSING PER MD ORDERS.
[2019-08-30] MEDS ORDERED: BAYER CHEWABLE81 MG PO (11:54)
[2019-08-30] MEDS ORDERED: PLAVIX75 MG PO (11:54)
--- NOTE | 2019-08-30 12:02 | NUR ---
RIGHT GROIN DRESSING C/D/I. NO S/S OF HEMATOMA NOTED. CALL LIGHT WITHIN REACH. VSS.
--- NOTE | 2019-08-30 12:29 | NUR ---
PT ON BEDPAN. VOIDED WITHOUT DIFFICULTY. RADHA CARE GIVEN. VSS. FAMILY AT BEDSIDE. RIGHT GROIN DRESSING C/D/I. NO S/S OF HEMATOMA NOTED. PT IN SUPINE POSITION. DENIES NAUSEA. GIVEN SANDWICH TRAY. FAMILY AT BEDSIDE TO ASSIST PT WITH EATING.
--- NOTE | 2019-08-30 13:00 | NUR ---
PT RESTING COMFORTABLY. RIGHT GROIN DRESSING C/D/I. NO S/S OF HEMATOMA NOTED. CALL LIGHT WITHIN REACH. FAMILY AT BEDSIDE. RIGHT PEDAL PULSE PALPABLE. DENIES NAUSEA/PAIN. WILL CONTINUE TO MONITOR.
--- NOTE | 2019-08-30 13:45 | NUR ---
PT RESTING COMFORTABLY. VSS. RIGHT GROIN DRESSING C/D/I. NO S/S OF HEMATOMA NOTED. CALL LIGHT WITHIN REACH. VSS. FAMILY AT BEDSIDE. NO NEEDS AT THIS TIME.
--- NOTE | 2019-08-30 14:30 | NUR ---
HEAD OF BED INC TO 30 DEGREES. TOLERATED WELL. RIGHT GROIN DRESSING C/D/I. NO S/S OF HEMATOMA NOTED. CALL LIGHT WITHIN REACH. VSS. FAMILY AT BEDSIDE.
--- NOTE | 2019-08-30 15:20 | NUR ---
RIGHT UPPER CHEST INFUSAPORT FLUSHED WITH HEPARIN FLUSH PER MD ORDERS. TOLERATED WELL. NEEDLE REMOVED AND 2X2 APPLIED WITH BANDAID. NO BLEEDING NOTED. RIGHT GROIN DRESSING C/D/I. NO S/S OF HEMATOMA NOTED. PT INSTRUCTED TO GET UP AND DRESSED. AMBULATED TO RESTROOM. VOIDED WITHOUT DIFFICULTY. BACK TO ROOM AND DISCUSSED DISCHARGE INSTRUCTIONS WITH PT AND PT'S FAMILY. THEY VOICED UNDERSTANDING.
--- NOTE | 2019-08-30 15:25 | NUR ---
PT TAKEN OUT TO VEHICLE BY WHEELCHAIR. NO S/S OF DISTRESS NOTED. ALL BELONGINGS AND PAPERWORK IN HAND.
--- NOTE | 2019-09-08 13:30 | OP ---
PATIENT NAME: NYLA SAPP MEDICAL RECORD: [id number] :67 LOCATION:D.CAT ADMISSION DATE: SURGEON: DEL LEON MD DATE OF OPERATION: 08/30/2019 ADDENDUM Ms. Sapp underwent successful PTCA stent with no further anginal symptomatology. She will follow up with [facility] in 1 month. Lipid panel will be drawn at that time and a fasting state. TRANSINT:[id number] Voice Confirmation ID: [id number] DOCUMENT ID: [id number] DEL LEON MD at 1330 CC: [id number] DICTATION DATE: 08/31/19 1038 PARAPROFESSIONAL AIDE TEACHER: 08/31/19 1200 DEP CLI 08/30/19 [address] [place] [address]
--- NOTE | 2019-09-08 13:30 | CN ---
PATIENT NAME:NYLA SAPP MEDICAL RECORD: [id number] : 67 LOCATION:DДмитрийCAT ADMIT DATE: ACCOUNT: [id number] CONSULTING PHYSICIAN: DEL LEON MD REFERRING PHYSICIAN: ARTURO CLAIRE MD DATE OF CONSULTATION: 08/30/2019 DIAGNOSES: 1. Unstable angina class IV. 2. Coronary artery disease. 3. Previous multivessel percutaneous transluminal coronary angioplasty stent. 4. Insulin-dependent diabetes. 5. Hypertension. 6. Hyperlipidemia. 7. Smoking. 8. Chronic obstructive pulmonary disease. HISTORY OF PRESENT ILLNESS: Mrs. Sapp presents with increasing anginal symptomatology. She is now a class IV. She presented to our office yesterday with increasing anginal symptomatology. We had the addition of Imdur to her medical regimen. She is already on lisinopril, amlodipine, clonidine. She has bradycardia, hence beta blockers were not needed. She has continued to have progression of her angina. She has a class IV. She has multiple risk factors as above. She has a past history of coronary artery disease. Last cardiac intervention was over a year ago, has been on aspirin as well, but not on Plavix. PHYSICAL EXAMINATION: CONSTITUTIONAL/GENERAL APPEARANCE: Well nourished, well developed, appears stated age. EYES: Lids and conjunctivae noninjected. No discharge. No pallor. ENT: Lips within normal limit. No cyanosis. No pallor. NECK: Carotid arteries, bilateral normal upstroke. No bruits. No thrills. No jugular venous pressure or distention. CERVICAL LYMPH NODES: Nontender. Nonenlarged. THYROID: Not enlarged. No nodules. CARDIOVASCULAR: Precordial exam, nondisplaced. No heaves or pericardial thrills. Rate and rhythm, regular. Heart sounds, normal S1, normal S2. No S3, no gallop, no rub. Systolic murmur, not heard. Diastolic murmur, not heard. RESPIRATORY: Respiratory effort, unlabored. Normal curvature. No thoracic deformity. No chest wall tenderness. Percussion, resonant. Auscultation, clear. No wheezes, no rales, no rhonchi. ABDOMEN: Soft, nondistended, nontender. No abdominal pain, no vomiting and normal appetite. MUSCULOSKELETAL: No joint tenderness, normal gait, normal tone. SKIN: Warm and dry. OVERALL IMPRESSION: Unstable angina class IV, despite maximal medical therapy with clonidine, amlodipine, Imdur, lisinopril, with heart rates in the 60s and 70s and continued progression of angina. We will proceed with repeat coronary angiography and further care depends upon the findings of the angiography. TRANSINT:[id number] Voice Confirmation ID: [id number] DOCUMENT ID: [id number] CONSULT REPORT [id number] NYLA SAPP JEFFREY MD at 1330 CC: [id number] DICTATION DATE: 08/30/19 1034 AGENT TICKETING GATE: 08/30/19 1250 DEP CLI 08/30/[address] [facility] [address] [place] [address]
--- NOTE | 2019-09-08 13:30 | OP ---
PATIENT NAME: NYLA SCHMIDT MEDICAL RECORD: [id number] :67 LOCATION:D.CAT ADMISSION DATE: SURGEON: DEL LEON MD DATE OF OPERATION: 08/30/2019 PROCEDURES: 1. PTCA stent RCA. 2. IFR. 3. Left heart catheterization. 4. Selective coronary angiography. 5. Left ventriculogram. INDICATION: Unstable angina and coronary artery disease. PROCEDURE IN DETAIL: After informed consent was obtained and after detailed explanation of risks, benefits as well as alternative therapies, the patient elected to proceed with angiogram and angioplasty. The right femoral area was prepped and draped in normal sterile fashion. Right femoral artery was cannulated via modified Seldinger technique with placement of 6-Faroese sheath. All catheters exchanged through this sheath. FINDINGS: The left ventriculogram was performed in standard 30-degree CARBALLO view, reveals good cardiac wall motion, ejection fraction 50% to 55%. SELECTIVE CORONARY ANGIOGRAPHY: 1. Left main is with no significant angiographic disease. 2. Left anterior descending has mild irregularities, but no flow-limiting stenosis. Previously placed stent is widely patent. 3. Left circumflex has mild irregularities, but no flow-limiting stenosis. 4. The right coronary has previously placed stent throughout the RCA leading into the PLV. IFR was normal going into the PLV; however, the PDA takes off at this and there is greater than 80% stenosis. The IFR was abnormal at 0.80. PTCA STENT OF THE RCA PDA: Stent used was a 2.5 x 8 mm Cobra. Result was 0% residual stenosis. OVERALL IMPRESSION: Successful PTCA stent of the RCA PDA going from 80+ percent initial stenosis with abnormal IFR to 0% residual stenosis. TRANSINT:[id number] Voice Confirmation ID: [id number] DOCUMENT ID: [id number] DEL LEON MD at 1332 CC: [id number] DICTATION DATE: 08/30/19 1136 PROJECT ASSISTANT: 08/30/19 1359 DEP CLI 08/30/19 [facility] [address] [id number]
== END 2019-08-30 15:25 | disposition home or self-care (01) ==
LOC: D.CATH 08:13 → D.ER 08:13 → EDSTATUS 10:04 → D.CLR 11:44 → D.CATH 15:25
PROVIDERS: ATTEND Family Medicine
DX: I25.110 Atherosclerotic heart disease of native coronary artery with unstable angina pectoris (principal); E11.9 Type 2 diabetes mellitus without complications; I10 Essential (primary) hypertension; E78.5 Hyperlipidemia, unspecified; J44.9 Chronic obstructive pulmonary disease, unspecified

== ENCOUNTER → 2020-06-11 10:58 | Outpatient (CLI) | payer MEDICARE ==
[2019-08-30 10:02] VITALS: BMI 29.2
[~2020-06-11 10:58] MED LIST changes: +BAYER CHEWABLE81 MG PO
== END | disposition home or self-care (01) ==
LOC: D.RAD 10:58 → D.LAB 10:58
PROVIDERS: ATTEND Emergency Medicine
DX: R10.9 Unspecified abdominal pain (principal)

== ENCOUNTER 2020-07-18 09:05 | Inpatient (IN) | payer MEDICARE ==
[~2020-07-18] VITALS: Ht 167.6 cm; Wt 90.3 kg
[2020-07-18 09:49] LABS: CALC OSMOLALITY 278 mosm/kg (275-300); CALCIUM 10.1 mg/dL (8.5-10.1); CARBON DIOXIDE 26.6 mmol/L (21.0-32.0); CHLORIDE - SERUM 99 mmol/L (98-107); CREATININE - SERUM 1.4 mg/dL (0.6-1.3); POTASSIUM - SERUM 4.9 mmol/L (3.5-5.1); SODIUM 135 mmol/L (136-145); UREA NITROGEN 16 mg/dL (7-18); eGFR NON AFRICAN AMERICAN 41 mL/min (90-120)
[2020-07-18 09:50] LABS: GLUCOSE 236 mg/dL (74-106)
[2020-07-18 09:53] LABS: BASOPHILS 0.1 % (0-2); EOSINOPHILS 0.1 % (0-7); HEMATOCRIT 50.6 % (36.0-48.0); IMMATURE GRANULOCYTES 0.3 % (0-5); LYMPHOCYTES 16.4 % (15-50); MCH 29.4 pg (26.0-34.0); MCHC 33.6 g/dL (31.0-37.0); MCV 87.4 fL (80.0-100.0); MEAN PLATELET VOLUME 10.3 fL (7.4-10.4); MONOCYTES 5.7 % (2-11); NEUTROPHILS 77.4 % (40-80); PLATELET COUNT 366 10x3/uL (130-400); RBC 5.79 10x6/uL (4.00-5.40); RDW 14.9 % (11.5-14.5); WBC 18.2 10x3/uL (4.8-10.8)
[2020-07-18 09:58] LABS: ALBUMIN 4.1 g/dL (3.4-5.0); ALKALINE PHOSPHATASE 121 U/L (30-120); ALT (SGPT) 39 U/L (10-68); AMYLASE - SERUM 41 U/L (25-115); BILIRUBIN - TOTAL 0.56 mg/dL (0.2-1.3); LIPASE 54 U/L (73-393); PROTEIN - SERUM 8.5 g/dL (6.4-8.2)
[2020-07-18 09:59] LABS: TROPONIN-I < 0.017 ng/mL (0.000-0.060)
[2020-07-18 12:31] LABS: BILIRUBIN NEGATIVE (NEGATIVE); KETONE NEGATIVE (NEGATIVE); NITRITE NEGATIVE (NEGATIVE)
--- NOTE | 2020-07-18 13:07 | NUR ---
AFTER NG TUBE PLACEMENT, O2 SATURATION 88% ON 2L NC, INCREASED TO 4L SAT 91%.
--- NOTE | 2020-07-18 13:11 | NUR ---
PT REQUESTING THAT HER PORT BE ACCESSED PRIOR TO TRANSPORT TO FLOOR, WILL ACCESS PORT.
[2020-07-18] MEDS ORDERED: BASAGLAR K100 UNIT/1 SC (13:49)
--- NOTE | 2020-07-18 14:04 | NUR ---
ARRIVED TO ROOM 2218 VIA WC AWAKE AND ALERT. RESP EVEN AND UNLABORED WITH NO DISTRESS NOTED. HAS NG TUBE NOTED TO LEFT NARE TO LIWS. TURN AND REPOSITION SELF AB RAAD. CAN EXPRESS NEEDS AND WANTS. NO C/O NOTED OF YET. REMAIN NPO. ASSESSMENT COMPLETED. C/L IN REACH AT BEDSIDE.
[2020-07-18 15:50] VITALS: BMI 32.3
--- NOTE | 2020-07-18 18:11 | NUR ---
PT WAS MEDICATED WITH MORPHINE AT THIS TIME FOR C/O ABD PAIN RATING 8/10. AND C/L IN REACH AT BEDSIDE.
--- NOTE | 2020-07-18 19:30 | NUR ---
PT SITTING UP IN BED WITHOUT DISTRESS, AOX4. AT BEDSIDE. NGT TO LIS. RIGHT CHEST PORT INFUSING NS @ 125. DENIES NEEDS AT THIS TIME. CL IN REACH, WILL CTM
[2020-07-18 20:00] VITALS: BP 118/65
--- NOTE | 2020-07-18 20:00 | NUR ---
PT O2 88% ON 2L/NC. CALLED RESP, O2 INCREASED TO 3L/NC. ENCOURAGED TO TRY AND COUGH AND DEEP BREATHE AND USE INCENTIVE SPIROMETER. PT STATES SHE HAS COPD AND O2 IS USUALLY LOW
--- NOTE | 2020-07-18 21:30 | NUR ---
CALLED DR SANCHEZ ABOUT PT PAIN NO CONTROLLED WITH MORPHINE. PT STATES PAIN 9/10 TWO HOURS AFTER HAVING MORPHINE, NOT DUE AGAIN FOR TWO HOURS. DR SANCHEZ ORDERED TO GIVE DOSE OF MORPHINE EARLY NOW AND START DILAUDID GENERATOR TECHNICIAN AT STANDARD DOSE. GAVE PT MORPHINE AND STARTED DILAUDID GENERATOR TECHNICIAN. WILL CTM
[2020-07-19 04:00] VITALS: BP 101/52
--- NOTE | 2020-07-19 04:09 | NUR ---
PT O2 88% AND WOULD NOT INCREASE WITH DEEP BREATHS. CALLED RESP, O2 INCREASED TO 4L/NC, O2 93%
[2020-07-19 07:00] LABS: BASOPHILS 0.1 % (0-2); EOSINOPHILS 0.3 % (0-7); HEMATOCRIT 45.2 % (36.0-48.0); HEMOGLOBIN 14.3 g/dL (12-16); IMMATURE GRANULOCYTES 0.2 % (0-5); LYMPHOCYTES 26.8 % (15-50); MCH 28.5 pg (26.0-34.0); MCHC 31.6 g/dL (31.0-37.0); MEAN PLATELET VOLUME 10.2 fL (7.4-10.4); MONOCYTES 10.1 % (2-11); NEUTROPHILS 62.5 % (40-80); PLATELET COUNT 311 10x3/uL (130-400); RBC 5.01 10x6/uL (4.00-5.40); RDW 15.1 % (11.5-14.5)
[2020-07-19 07:05] LABS: APTT 28.3 SECONDS (22.8-39.4); INR 1.01 (0.85-1.17); PROTIME 13.3 SECONDS (11.6-15.0)
[2020-07-19 07:13] LABS: MCV 90.2 fL (80.0-100.0); WBC 11.5 10x3/uL (4.8-10.8)
[2020-07-19 07:20] LABS: ALBUMIN 3.1 g/dL (3.4-5.0); ANION GAP 9.5 mmol/L (8-16); BILIRUBIN - TOTAL 0.38 mg/dL (0.2-1.3); CALCIUM 7.9 mg/dL (8.5-10.1); CARBON DIOXIDE 28.8 mmol/L (21.0-32.0); MAGNESIUM - SERUM 1.7 mg/dL (1.8-2.4); POTASSIUM - SERUM 4.3 mmol/L (3.5-5.1); PROTEIN - SERUM 6.9 g/dL (6.4-8.2)
[2020-07-19 09:48] VITALS: BP 122/70
[2020-07-19 12:58] VITALS: BP 112/77
[2020-07-19 13:31] VITALS: BMI 32.2
--- NOTE | 2020-07-19 14:33 | NUR ---
I have reviewed this patient and I concur with the Shift Assessment completed by the Licensed Practical Nurse today this shift.
[2020-07-19 17:23] VITALS: BP 150/88
[2020-07-19 20:00] VITALS: BP 140/64
--- NOTE | 2020-07-19 20:30 | NUR ---
PT SITTING UP IN BED WITHOUT DISTRESS, AOX4. AT BEDSIDE. SIPPING ON DR BRAGA WHEN I WALKED IN ROOM, REMINDED PT SHE IS NPO AND CANNOT HAVE ANYTHING TO DRINK OR EAT. PT NGT OUT. PT STATES IT CAME OUT EARLIER TODAY. REFUSES TO HAVE IT PLACED BACK IN. IV LEFT AC INFUSING NS @ 100 WITH DILAUDID FLASH WELDING MACHINE OPERATOR. RIGHT CHEST PORT UNACCESSED AFTER COMING OUT EARLIER. REACCESSED PORT WITH 20G 1 INCH NEEDLE X 2 ATTEMPTS. SL LEFT AC. CONSENTS FOR SURGERY SIGNED AT THIS TIME. DENIES OTHER NEEDS AT THIS TIME. CL IN REACH, WILL CTM
[2020-07-20] VITALS (13 sets, daily range): BP systolic 105–155; BP diastolic 51–87
--- NOTE | 2020-07-20 02:00 | NUR ---
PT IV ALARMING OCCLUDED. NO OCCLUSION OF TUBING, ATTEMPTED TO FLUSH PORT, WOULD NOT FLUSH OR DRAW BLOOD. REMOVED PORT. ATTEMPTED TO ACCESS PORT AGAIN, INFILTRATED. PT DID NOT LIKE LEFT AC IV, ALARMS OCCLUDED WHEN SHE BENDS HER ARM AND STATES IT KEEPS HER AWAKE. 20G IV SITED TO RIGHT FA X1 ATTEMPT
[2020-07-20 05:34] LABS: BASOPHILS 0.1 % (0-2); EOSINOPHILS 0.4 % (0-7); HEMATOCRIT 41.7 % (36.0-48.0); HEMOGLOBIN 13.2 g/dL (12-16); IMMATURE GRANULOCYTES 0.1 % (0-5); MCH 28.4 pg (26.0-34.0); MCHC 31.7 g/dL (31.0-37.0); MCV 89.9 fL (80.0-100.0); MONOCYTES 12.5 % (2-11); NEUTROPHILS 48.9 % (40-80); PLATELET COUNT 277 10x3/uL (130-400); RBC 4.64 10x6/uL (4.00-5.40); RDW 14.7 % (11.5-14.5); WBC 9.2 10x3/uL (4.8-10.8)
[2020-07-20 05:51] LABS: ANION GAP 7.5 mmol/L (8-16); CALCIUM 7.9 mg/dL (8.5-10.1); CARBON DIOXIDE 28.6 mmol/L (21.0-32.0); CREATININE - SERUM 0.9 mg/dL (0.6-1.3); POTASSIUM - SERUM 4.1 mmol/L (3.5-5.1)
--- NOTE | 2020-07-20 06:00 | NUR ---
ASSISTED PT WITH SHOWER SET UP. PT DID HIBICLENS FOR PROCEDURE TODAY. LINENS CHANGED
--- NOTE | 2020-07-20 10:33 | NUR ---
ASSESSMENT PER FLOW SHEET. PATIENT IS WITHOUT DISTRESS.NPO FOR PROCEDURE TODAY. HEPI CLENSE BATH COMPLETED BY RAILROAD TRACK INSPECTOR.PAIN CONTROLLED WITH FRAMING INSPECTOR.MONITOR FOR NEEDS.
--- NOTE | 2020-07-20 13:03 | NUR ---
TO OR VIA BED.
--- NOTE | 2020-07-20 19:04 | NUR ---
1854 DR CAMEJO LABOR RELATIONS DIRECTOR. NOTIFIED OF PATIENTS COPD COMPLICATIONS. ORDERS RECIEVED TO TRANSER TO ICU
--- NOTE | 2020-07-20 19:30 | NUR ---
PT BACK FROM SURGERY. VSS. O2 93% ON 10L/HFNC. PT HAVING 6/10 ABD PAIN. CONNECTED PT TO DILAUDID BUDDHIST MONK. WOUND VAC IN PLACE, ON AND CONNECTED TO POWER. DRESSING TO BILAT SIDES OF ABD CDI. AT BEDSIDE. PROVIDED ICE CHIPS ORDERED. DENIES OTHER NEEDS AT THIS TIME. CL IN REACH, WILL CTM
--- NOTE | 2020-07-20 19:43 | NUR ---
1914 PATIENT REFUSES GOING TO ICU. HER CONDITION WAS EXPLAINED TO HER AND THE RISKS INVOLVED. HER AT BEDSIDE AND HE TRIED TALKING WITH HER. PATIENT STATES "YOU CANT MAKE ME GO TO THE ICU, I WILL LEAVE THE HOSPITAL FIRST." "YOU HAVE BEEN TELLING ME WHAT TO DO ALL DAY AND I AM SICK OF IT." "YOU ARE NOT GONNA TELL ME WHAT TO DO." "YOU ARE NOT GOD, YOU CANT TELL ME WHAT WILL HAPPEN IF I GO TO THE FLOOR." PATIENT IS AWAKE AND ALERT AND ORIENTED TO PERSON, PLACE AND TIME. SAO2 89-90% ON 10 L OXYGEN VIA HIGH FLOW NASAL CANNULA. PATIENT REMOVED NASAL CANNULA 3 TIMES IN THE TWO HOURS IN PACU, AND EACH TIME HER SAO2 DROPPED LESS THAN 86% QUICKLY. PATIENT AND ACKNOLEDGES ACCEPTANCE OF THE RISKS GOING BACK TO HER ROOM ON MED SURG. REPORT CALLED TO KELLY RIVAS, AND SITUATION EXPLAINED AND REPORT GIVEN. SLITTER CUT OFF OPERATOR, JOE RIVAS AND DR CAMEJO NOTIFIED OF THE SITUATION. PATIENT TRANSPORTED TO 2217 MED SURG WITH 10L PORTABLE OXYGEN, HAND OFF TO KELLY PERFORMED. SAO2 ON ARRIVAL WAS 90% PATIENT INSTRUCTED TO TAKE DEEP BREATHS. SAO2 INCREASED TO 93% ON 10 LITERS NC OXYGEN.
--- NOTE | 2020-07-20 20:01 | NUR ---
1800 DR PEACE CALLED REGARDING LOW SAO2, HIGH FLOW OXYGEN AND ABG RESULTS. ORDERS RECEIVED FOR SODIUM BICARB X 2, A SECOND DUONEB UPD AND 1 GM CALCIUM CHLORIDE. HE SUGGESTS PATIENT MAY NEED TO GO TO ICU FOR FURTHER PULMONARY TREATENT EG. CPAP/BIPAP. 1830 DR CAMEJO WEB KNITTER, NOTIFIED OF SITUATION AND CURRENT TREATMENT WITHOUT PROGRESS. ORDERS FOR TRANSFER TO ICU AND PULMONARY CONSULT RECEIVED. ORDERS ENTERED INTO EMR.
--- NOTE | 2020-07-20 20:30 | NUR ---
DR SANCHEZ CALLED, UPDATE GIVEN ON PT. STATES HE WILL BE BY IN AM TO SEE PT AND SPEAK WITH . UPDATED
--- NOTE | 2020-07-20 21:30 | NUR ---
DR SNIDER AT BEDSIDE SEEING PT
--- NOTE | 2020-07-20 23:00 | NUR ---
PT LYING IN BED SLEEPING WITH OUT DISTRESS, AT BEDSIDE. VSS. WILL CTM
[2020-07-21 00:30] VITALS: BP 110/63
[2020-07-21 04:00] VITALS: BP 103/57
[2020-07-21 07:14] LABS: BASOPHILS 0.1 % (0-2); EOSINOPHILS 0 % (0-7); HEMATOCRIT 41.6 % (36.0-48.0); HEMOGLOBIN 13.1 g/dL (12-16); IMMATURE GRANULOCYTES 0.2 % (0-5); LYMPHOCYTES 16.3 % (15-50); MCH 28.6 pg (26.0-34.0); MCHC 31.5 g/dL (31.0-37.0); MCV 90.8 fL (80.0-100.0); MEAN PLATELET VOLUME 9.6 fL (7.4-10.4); MONOCYTES 9.9 % (2-11); NEUTROPHILS 73.5 % (40-80); PLATELET COUNT 251 10x3/uL (130-400); RBC 4.58 10x6/uL (4.00-5.40); RDW 14.6 % (11.5-14.5)
[2020-07-21 07:16] LABS: WBC 11.7 10x3/uL (4.8-10.8)
--- NOTE | 2020-07-21 08:00 | NUR ---
ASSESSMENT PER FLOW SHEET. PATIENT IS WITHOUT SIGNS OF DISTRESS. IN ROOM. CALL LIGHT IN REACH. MIDLINE ABDOMINAL INCISION CDI,WOUND VAC WORKING. RIGHT AND LEFT SIDE INCISION MINIMAL DRAINAGE ON DRESSING. MONITOR
[2020-07-21 08:15] VITALS: BP 89/49
[2020-07-21 09:08] LABS: ANION GAP 11.2 mmol/L (8-16); CARBON DIOXIDE 27.6 mmol/L (21.0-32.0); CREATININE - SERUM 0.9 mg/dL (0.6-1.3); POTASSIUM - SERUM 4.8 mmol/L (3.5-5.1)
[2020-07-21 13:47] VITALS: BP 154/73
--- NOTE | 2020-07-21 16:00 | NUR ---
DISCHARGE INSTRUCTIONS,STATES UNDERSTANDING. IV DCD WITH CATH TIP INTACT.LEFT UNIT VIA WHEELCHAIR
[2020-07-21 17:37] VITALS: BP 110/57
--- NOTE | 2020-07-21 19:00 | NUR ---
BEDSIDE REPORT RECEIVED AND CARE OF PT ASSUMED. PT LYING IN MID BAEZ'S POSITION WITH EYES CLOSED. O2 IN USE VIA NC AT 4L, HOWEVER PT HAS PULLED OFF AND IS READING 60% O2 SATS. REPLACED O2 AND O2 CAME UP TO 92%. INSTRUCTED PT TO NOT TAKE O2 OFF. IS AT BEDSIDE. IV TO LEFT FA PATENT WITH NS INFUSING AT 100 ML/HR. HYPERBARIC TECH W/ DILAUDID IN USE FOR PAIN CONTROL. MIDLINE INCISION WITH WOUND VAC IN PLACE. PLACED SCD'S ON BLE PER ORDER.
--- NOTE | 2020-07-21 19:00 | NUR ---
PATIENT ALERT AND ORIENTED WHEN ENTERING THE ROOM. PATIENT ASSESSMENT PERFORMED, SEE CHART. PATIENT INCONTINENT OF URINE. BED BATH AND BE CHANGE PROVIDED. DENIES PAIN. DENIES DISCOMFORT AT THIS TIME. DENIES FURTHER NEEDS AT THIS TIME. CALL LIGHT CLOSE. CPOC.
[2020-07-21 20:00] VITALS: BP 123/55
--- NOTE | 2020-07-21 21:16 | NUR ---
HS MEDICATIONS GIVEN. PT WITH O2 OFF AGAIN AND SPO2 IN THE 60%. REPLACED O2 AND NOW READING 93%. ENCOURAGED PT TO KEEP O2 ON.
[2020-07-22 00:10] VITALS: BP 114/69
--- NOTE | 2020-07-22 00:36 | NUR ---
PT PULLED OUT IV AND WOUND VAC LOOSENED AND ALARM SOUNDING....O2 OFF, PT WILL NOT KEEP ON AND SPO2 DROPS TO 60%. IV BEING RE-SITED. PT STATES THAT SHE DOES NOT WANT THIS NURSE IN HER ROOM BECAUSE I STATED THAT SHE WAS GETTING CONFUSED BECAUSE SHE WILL NOT KEEP HER O2 ON. ASSIGNED TO URMILA SAMUELS RN.
--- NOTE | 2020-07-22 01:10 | NUR ---
ATTEMPTED TO RESITE IV X 2. PATIENT PULLED HAND FIRST TIME AND IV BLEW. ATTEMPTED SECOND TIME THAT WAS UNSUCCESSFUL. PATIENT REFUSES TO LET ANOTHER NURSE RESITE. PATIENT STATES SHE "CAN'T AND WON'T DO THIS ANYMORE." SPOKE WITH PATIENT ABOUT VASCULAR ACCESS. PATIENT CONTINUALLY DENIED. NO IV ACCESS AT THIS TIME. EDUCATION PROVIDED ABOUT PAIN CONTROL BEING IV. PATIENT CONTINUALLY REFUSED EVEN WITH EDUCATION.
--- NOTE | 2020-07-22 04:01 | NUR ---
PATIENT OXYGEN OFF AGAIN. CONTINUOUS PULSE OX READING 87%, READJUSTED HFC AND STATS IMPROVED TO 94%
[2020-07-22 04:30] VITALS: BP 136/68
[2020-07-22 07:29] LABS: CALC OSMOLALITY 278 mosm/kg (275-300); CALCIUM 7.4 mg/dL (8.5-10.1); CARBON DIOXIDE 27.6 mmol/L (21.0-32.0); CHLORIDE - SERUM 104 mmol/L (98-107); CREATININE - SERUM 0.7 mg/dL (0.6-1.3); GLUCOSE 181 mg/dL (74-106); SODIUM 137 mmol/L (136-145); UREA NITROGEN 13 mg/dL (7-18); eGFR NON AFRICAN AMERICAN > 90 mL/min (90-120)
[2020-07-22 07:50] LABS: BASOPHILS 0.1 % (0-2); EOSINOPHILS 0.2 % (0-7); HEMATOCRIT 37.1 % (36.0-48.0); IMMATURE GRANULOCYTES 0.3 % (0-5); MCH 28.8 pg (26.0-34.0); MCHC 32.3 g/dL (31.0-37.0); MEAN PLATELET VOLUME 9.8 fL (7.4-10.4); NEUTROPHILS 76.4 % (40-80); PLATELET COUNT 250 10x3/uL (130-400); RBC 4.17 10x6/uL (4.00-5.40); RDW 14.5 % (11.5-14.5); WBC 14.3 10x3/uL (4.8-10.8)
--- NOTE | 2020-07-22 08:00 | NUR ---
ASSESSMENT PER FLOW SHEET. PATIENT IS WITHOUT DISTRESS. SHE DID PULL IV OUT LAST NIGHT AND REFUSES RE SITE AFTER 2 STICKS PER NIGHT NURSE. SAYS SHE WAS UP MOST OF NIGHT AND WANTS HER TO SLEEP. MONITOR FOR NEEDS
[2020-07-22 09:49] VITALS: BP 150/66
--- NOTE | 2020-07-22 12:28 | NUR ---
STILL REFUSES IV RESITE. WANTS TO SPEAK WITH .
--- NOTE | 2020-07-22 16:58 | NUR ---
I HAVE SPOKE WITH DR. LEI AND NELL MCINTYRE. PATIENT REFUSAL OF IV RESITE. DR LEI AGREEABLE WITH PO LEVAQUIN, BUT PATIENT NOT ABLE. SHE IS NPO.
[2020-07-22 17:21] VITALS: BP 135/81
--- NOTE | 2020-07-22 19:00 | NUR ---
PATIENT ALERT AND ORIENTED WHEN ENTERING THE ROOM. AT BEDSIDE. ASSESSMENT PERFORMED, SEE CHART. DIANE CATHETER PATENT AND DRAINING YELLOW URINE. PATIENT REMAINS WITHOUT AN IV DUE TO REFUSAL, MD'S AND SURGEONS ARE AWARE. SPOKE WITH PATIENT FOR SEVERAL MINUTES IN REGARDS TO DIANE CATHETER AND WOUND VAC. EDUCATION AND TEACHING PROVIDED ON SPLINTING. PATIENT PROVIDES RETURN DEMONSTRATION. PATIENT HAS SCDS ON PER ORDER. DENIES NEEDS AT THIS TIME. CALL LIGHT CLOSE. CPOC.
[2020-07-22 20:00] VITALS: BP 141/74
[2020-07-23 00:05] VITALS: BP 140/80
--- NOTE | 2020-07-23 03:39 | NUR ---
DIANE CARE PERFORMED PER PROTOCAL.
[2020-07-23 04:30] VITALS: BP 141/72
[2020-07-23 05:15] LABS: BASOPHILS 0.1 % (0-2); EOSINOPHILS 0.4 % (0-7); HEMATOCRIT 35.9 % (36.0-48.0); HEMOGLOBIN 11.8 g/dL (12-16); IMMATURE GRANULOCYTES 0.4 % (0-5); LYMPHOCYTES 16.5 % (15-50); MCH 28.6 pg (26.0-34.0); MCHC 32.9 g/dL (31.0-37.0); MEAN PLATELET VOLUME 9.9 fL (7.4-10.4); MONOCYTES 10.9 % (2-11); NEUTROPHILS 71.7 % (40-80); PLATELET COUNT 294 10x3/uL (130-400); RBC 4.13 10x6/uL (4.00-5.40); RDW 14.2 % (11.5-14.5)
[2020-07-23 05:28] LABS: MCV 86.9 fL (80.0-100.0)
[2020-07-23 05:50] LABS: CALC OSMOLALITY 273 mosm/kg (275-300); CALCIUM 7.9 mg/dL (8.5-10.1); CARBON DIOXIDE 28.2 mmol/L (21.0-32.0); CHLORIDE - SERUM 101 mmol/L (98-107); CREATININE - SERUM 0.8 mg/dL (0.6-1.3); GLUCOSE 142 mg/dL (74-106); MAGNESIUM - SERUM 1.6 mg/dL (1.8-2.4); PHOSPHOROUS 1.7 mg/dL (2.5-4.9); SODIUM 136 mmol/L (136-145); UREA NITROGEN 13 mg/dL (7-18); eGFR NON AFRICAN AMERICAN 79 mL/min (90-120)
[2020-07-23 05:56] LABS: POTASSIUM - SERUM 3.3 mmol/L (3.5-5.1)
[2020-07-23 08:44] VITALS: BP 120/75
[2020-07-23 13:30] VITALS: BP 87/61
[2020-07-23 17:37] VITALS: BP 94/50
[2020-07-23 20:00] VITALS: BP 97/54
--- NOTE | 2020-07-24 01:37 | NUR ---
RESTING WITH NO SIGNS OR SYMPTOMS OF DISTRESS. AT BEDSIDE. WOUND VAC CONNECTED AND SUCTIONING AT 125 MMHQ WITH NO SIGNS OF LEAKAGE. CALL LIGHT CLOSE. CPOC.
[2020-07-24 04:00] VITALS: BP 106/63
[2020-07-24 05:45] LABS: BASOPHILS 0.1 % (0-2); EOSINOPHILS 1.4 % (0-7); HEMOGLOBIN 11.1 g/dL (12-16); IMMATURE GRANULOCYTES 0.3 % (0-5); MCH 28.2 pg (26.0-34.0); MCHC 32.6 g/dL (31.0-37.0); MCV 86.3 fL (80.0-100.0); MEAN PLATELET VOLUME 10.2 fL (7.4-10.4); NEUTROPHILS 68.2 % (40-80); PLATELET COUNT 308 10x3/uL (130-400); RBC 3.94 10x6/uL (4.00-5.40); RDW 14.4 % (11.5-14.5); WBC 12.1 10x3/uL (4.8-10.8)
[2020-07-24 06:23] LABS: CALC OSMOLALITY 269 mosm/kg (275-300); CALCIUM 7.9 mg/dL (8.5-10.1); CARBON DIOXIDE 30.5 mmol/L (21.0-32.0); CHLORIDE - SERUM 101 mmol/L (98-107); CREATININE - SERUM 0.8 mg/dL (0.6-1.3); GLUCOSE 103 mg/dL (74-106); POTASSIUM - SERUM 3.1 mmol/L (3.5-5.1); SODIUM 135 mmol/L (136-145); UREA NITROGEN 12 mg/dL (7-18); eGFR NON AFRICAN AMERICAN 79 mL/min (90-120)
[2020-07-24 09:02] LABS: MAGNESIUM - SERUM 1.7 mg/dL (1.8-2.4)
[2020-07-24 09:03] LABS: PHOSPHOROUS 2.5 mg/dL (2.5-4.9)
[2020-07-24 10:04] VITALS: BP 109/62
[2020-07-24 13:46] VITALS: BP 116/69
--- NOTE | 2020-07-24 14:52 | NUR ---
Nutrition follow-up: Pt remains on clear liquids 2/2 SBO; surgery No IV access 2/2 refusal Labs reviewed Wound VAC in place Wt: 199# Recommend starting ProcalAmine PPN @ 75 ml/hr RDN following.
[2020-07-24 16:47] VITALS: BP 93/54
[2020-07-24 20:00] VITALS: BP 109/57
--- NOTE | 2020-07-24 20:30 | NUR ---
PT SITTING UP IN BED WITHOUT DISTRESS, AOX4. AT BEDSIDE. NO IV ACCESS, PT REFUSES. STATES SHE IS GOING HOME IN AM. SCDS ON. MIDLINE INCISION TO ABD WITH WOUND VAC IN PLACE. BILAT DRESSING TO SIDES, DRESSING WITH SOME DRAINAGE. PT STATES NO PAIN AT THIS TIME. TOLERATING DIET, NO N/V. ABD TENDER. FSBS 151, REFUSED HUMALOG BUT TOOK LANTUS. DENIES OTHER NEEDS. CL IN REACH, WILL CTM
[2020-07-25] VITALS: BP 103/54
[2020-07-25 04:00] VITALS: BP 99/54
--- NOTE | 2020-07-25 04:19 | NUR ---
PT LYING IN BED SLEEPING WITHOUT DISTRESS, AT BEDSIDE. CL IN REACH, WILL CTM
[2020-07-25 07:00] LABS: BASOPHILS 0.1 % (0-2); EOSINOPHILS 1.4 % (0-7); HEMATOCRIT 31.8 % (36.0-48.0); HEMOGLOBIN 10.6 g/dL (12-16); IMMATURE GRANULOCYTES 0.4 % (0-5); LYMPHOCYTES 22.5 % (15-50); MCH 28.6 pg (26.0-34.0); MCHC 33.3 g/dL (31.0-37.0); MCV 85.7 fL (80.0-100.0); MONOCYTES 11.1 % (2-11); NEUTROPHILS 64.5 % (40-80); PLATELET COUNT 282 10x3/uL (130-400); RBC 3.71 10x6/uL (4.00-5.40); RDW 14.4 % (11.5-14.5); WBC 13.4 10x3/uL (4.8-10.8)
[2020-07-25 08:50] LABS: CREATININE - SERUM 0.8 mg/dL (0.6-1.3); SODIUM 135 mmol/L (136-145); eGFR NON AFRICAN AMERICAN 79 mL/min (90-120)
[2020-07-25 09:12] LABS: CHLORIDE - SERUM 98 mmol/L (98-107)
[2020-07-25 09:15] LABS: CALC OSMOLALITY 270 mosm/kg (275-300); GLUCOSE 156 mg/dL (74-106); UREA NITROGEN 7 mg/dL (7-18)
[2020-07-25 09:21] LABS: POTASSIUM - SERUM 2.8 mmol/L (3.5-5.1)
[2020-07-25 13:46] VITALS: BP 137/71
[2020-07-25] MEDS ORDERED: COLACE100 MG PO (14:16)
[2020-07-25] MEDS ORDERED: DILAUDID2 MG PO (14:17)
--- NOTE | 2020-07-25 15:16 | MORECARE ---
CASE MANAGEMENT DISCHARGE SUMMARY PATIENT: NYLA SCHMIDT UNIT: [id number] ADM DATE: 07/18/20 AGE: 55 : 67 SEX: F ROOM/BED: D.2218 AUTHOR: MAGALY CAMARA PHYSICIAN: REFERRING PHYSICIAN: FRANCISCO SORENSEN MD DATE OF SERVICE: 07/25/20 Discharge Plan Patient Name: NYLA SCHMIDT Facility: [facility]:[place] : 1965 Planned Disposition: Home or Self Care Anticipated Discharge Date: Discharge Date: Expected LOS: Initial Reviewer: [email or web address] Initial Review Date: 07/18/2020 Generated: 07/25/20 4:16 pm DCPIA - Discharge Planning Initial Assessment Updated by [email or web address]: Vivian Huynh on 07/25/20 3:13 pm * Is the patient Alert and Oriented? Yes * How many steps to enter\exit or inside your home? * PCP LULU * [facility]acy [facility] * Preadmission Environment Home with Family * ADLs Independent * Equipment Nebulizer Oxygen * List name and contact numbers for known caregivers / representatives who currently or will assist patient after discharge: AUDI ( SPOUSE) [phone] * Verbal permission to speak to the caregivers and representatives has been obtained from the patient. N/A * Community resources currently utilized None * Additional services required to return to the preadmission environment? Yes * Can the patient safely return to the preadmission environment? Yes * Has this patient been hospitalized within the prior 30 days at any hospital? No Patient Name: NYLA SCHMIDT Page [id number] at 1516 All edits/amendments must be made on the electronic document DICTATION DATE: 07/25/20 1516 CHAR CONVEYOR TENDER: DEY 07/25/20 151 RPT#: [id number] DC DATE: STATUS: ADM IN [facility] [address] [place] [address] END OF REPORT
--- NOTE | 2020-07-25 15:25 | MORECARE ---
CASE MANAGEMENT DISCHARGE SUMMARY PATIENT: NYLA SCHMIDT UNIT: [id number] ADM DATE: 07/18/20 AGE: 55 : 67 SEX: F ROOM/BED: D.7304 AUTHOR: MAGALY CAMARA PHYSICIAN: REFERRING PHYSICIAN: FRANCISCO SORENSEN MD DATE OF SERVICE: 07/25/20 Discharge Plan Patient Name: NYLA SCHMIDT Facility: [facility]:[place] : 1965 Planned Disposition: Home or Self Care Anticipated Discharge Date: Discharge Date: Expected LOS: Initial Reviewer: [email or web address] Initial Review Date: 07/18/2020 Generated: 07/25/20 4:24 pm Comments DCP- Discharge Planning Updated by [email or web address]: Vivian Huynh on 07/25/20 2:[address] Patient Name: NYLA SCHMIDT Admission Status: ER Accout number: [id number] Admission Date: 07-18-2020 : 1965 Admission Diagnosis:INCISIONAL HERNIA WITH OBSTRUCTION, WITHOUT GANGRENE Attending: RISHABH Current LOS: 7 Anticipated DC Date: Planned Disposition: Home or Self Care Primary Insurance: [employer] ADV Discharge Planning Comments: CM met with patient to complete initial dc planning assessment. CM educated patient on the CM role and verbal consent given by patient to complete assessment. Patient lives at home with her where she states that she is independent with her care. At discharge patient plans to return home and feels this is a safe discharge. CM discussed availability of home health, rehab services, and medical equipment. She stated that she has home O2 and a nebulizer with [facility]. I called [facility] and they did not having her with portable O2. She did qualify for Portable, they will deliver a portable tank to the hospital before she leaves today. She did not want home health. TITO for [employer] and declination for home health obtained. [facility] also served and explained. Patient denied known discharge needs at this time. CM will continue to follow and will assist as needed with dc plans/needs. Mulling Machine Operator: Vivian Huynh DCPIA - Discharge Planning Initial Assessment Updated by [id number]: Vivian Huynh on 07/25/20 3:13 pm * Is the patient Alert and Oriented? Yes * How many steps to enter\exit or inside your home? * PCP AGATHA * Pharmacy [facility] * Preadmission Environment Home with Family * ADLs Independent * Equipment Nebulizer Oxygen * List name and contact numbers for known caregivers / representatives who currently or will assist patient after discharge: AUDI ( SPOUSE) [phone] * Verbal permission to speak to the caregivers and representatives has been obtained from the patient. N/A * Community resources currently utilized None * Additional services required to return to the preadmission environment? Yes * Can the patient safely return to the preadmission environment? Yes * Has this patient been hospitalized within the prior 30 days at any hospital? No External Providers [facility] [place] Contact Date: Service Request Date: Service Type: Resolution: Reviewer: Comments: Coverage Notice Reviewer: [email or web address] Génesis Huynh Notice Issued Date-Time: 07/25/2020 14:45 Notice Type: IM Discharge Notice Notice Delivered To: Patient Relationship to Patient: Book Publisher Name: Delivery Method: - Yessenia Days: Prior Verbal Notification: Recipient Understood Notice: Recipient Signature: Med Rec Note Co-signed by Attending: Coverage Notice Comment: Last DP export: 07/25/20 2:16 p Patient Name: NYLA SCHMIDT Page 62315 at 1525 All edits/amendments must be made on the electronic document DICTATION DATE: 07/25/20 1524 ATHLETIC FIELD CUSTODIAN: EDY 07/25/20 1524 RPT#: [id number] DC DATE: STATUS: ADM IN [facility] [address] [place] [address] END OF REPORT
--- NOTE | 2020-07-25 17:20 | NUR ---
PATIENT RECIEVED DC INSTRUCTIONS. VERBALIZED UNDERSTANDING. NO QUESTIONS AT THIS TIME. PRESCRIPTIONS GIVEN TO PATIENT. PROVENA WOUND VAC CHANGED TO SMALLER HOME VAC. ASSISTED TO AND ESCORTED DOWN TO PRIVATE VEHICLE WITH PESONAL BELONGINGS.
--- NOTE | 2020-07-26 16:30 | MORECARE ---
CASE MANAGEMENT DISCHARGE SUMMARY PATIENT: NYLA SCHMIDT UNIT: [id number] ADM DATE: 07/18/20 AGE: 55 : 67 SEX: F ROOM/BED: D.6508 AUTHOR: MAGALY CAMARA PHYSICIAN: REFERRING PHYSICIAN: FRANCISCO SORENSEN MD DATE OF SERVICE: 07/26/20 Discharge Plan Patient Name: NYLA SCHMIDT Facility: [facility]:[place] : 1965 Planned Disposition: Home or Self Care Anticipated Discharge Date: Discharge Date: 07/25/2020 Expected LOS: Initial Reviewer: [email or web address] Initial Review Date: 07/18/2020 Generated: 07/26/20 5:29 pm Comments DCP- Discharge Planning Updated by [email or web address]: Vivian Huynh on 07/25/20 2:[address] Patient Name: NYLA SCHMIDT Admission Status: ER Accout number: [id number] Admission Date: 07-18-2020 : 1965 Admission Diagnosis:INCISIONAL HERNIA WITH OBSTRUCTION, WITHOUT GANGRENE Attending: RISHABH Current LOS: 7 Anticipated DC Date: Planned Disposition: Home or Self Care Primary Insurance: [employer] MEDICARE ADV Discharge Planning Comments: CM met with patient to complete initial dc planning assessment. CM educated patient on the CM role and verbal consent given by patient to complete assessment. Patient lives at home with her where she states that she is independent with her care. At discharge patient plans to return home and feels this is a safe discharge. CM discussed availability of home health, rehab services, and medical equipment. She stated that she has home O2 and a nebulizer with [facility]. I called [facility] and they did not having her with portable O2. She did qualify for Portable, they will deliver a portable tank to the hospital before she leaves today. She did not want home health. TITO for [facility] and declination for home health obtained. [facility] also served and explained. Patient denied known discharge needs at this time. CM will continue to follow and will assist as needed with dc plans/needs. Pot Fireman: Vivian Huynh DCPIA - Discharge Planning Initial Assessment Updated by [email or web address]: Vivian Huynh on 07/25/20 3:13 pm * Is the patient Alert and Oriented? Yes * How many steps to enter\exit or inside your home? * PCP AGATHA * Pharmacy [facility] * Preadmission Environment Home with Family * ADLs Independent * Equipment Nebulizer Oxygen * List name and contact numbers for known caregivers / representatives who currently or will assist patient after discharge: NERI ( SPOUSE) [phone] * Verbal permission to speak to the caregivers and representatives has been obtained from the patient. N/A * Community resources currently utilized None * Additional services required to return to the preadmission environment? Yes * Can the patient safely return to the preadmission environment? Yes * Has this patient been hospitalized within the prior 30 days at any hospital? No Coverage Notice Reviewer: [email or web address] Génesis Huynh Notice Issued Date-Time: 07/25/2020 14:45 Notice Type: IM Discharge Notice Notice Delivered To: Patient Relationship to Patient: Advertising Job Titles Name: neri spouse Delivery Method: HAND - Hand Delivered Yessenia Days: Prior Verbal Notification: Recipient Understood Notice: Yes Recipient Signature: Yes Med Rec Note Co-signed by Attending: Coverage Notice Comment: Reviewer: [id number] Huynh Notice Issued Date-Time: 07/25/2020 14:45 Notice Type: Patient Choice Letter Notice Delivered To: Family Member Relationship to Patient: Spouse Advertising Job Titles Name: neri Delivery Method: HAND - Hand Delivered Yessenia Days: Prior Verbal Notification: Recipient Understood Notice: Yes Recipient Signature: Yes Med Rec Note Co-signed by Attending: Coverage Notice Comment: did not want home health Last DP export: 07/25/20 2:25 p Patient Name: NYLA SCHMIDT Page [id number] at 1630 All edits/amendments must be made on the electronic document DICTATION DATE: 07/26/20 1630 BARREL STRAIGHTENER: EDY 07/26/20 1630 RPT#: [id number] DC DATE:07/25/20 STATUS: DIS IN [place] [address] [place] [address] END OF REPORT
[2020-08-15 15:10] VITALS: Ht 167.6 cm; Wt 90.3 kg
== END 2020-07-25 17:30 | disposition home or self-care (01) | DRG 354 ==
LOC: D.ER 09:05 → D.MS 12:09 → OBSVTIME 12:09 → D.MS 12:09 → D.CVICU 15:44 → D.MS 07-20 19:22
PROVIDERS: Family Medicine; Legal Medicine; Surgery; ADMIT Emergency Medicine; ATTEND Emergency Medicine
PROC: 0WQF0ZZ Repair Abdominal Wall, Open Approach (ICD-10-PCS; principal; 2020-07-20 11:30)
DX: K43.0 Incisional hernia with obstruction, without gangrene (principal); J98.11 Atelectasis; I31.3 Pericardial effusion (noninflammatory); I10 Essential (primary) hypertension; E11.9 Type 2 diabetes mellitus without complications; J44.9 Chronic obstructive pulmonary disease, unspecified; K76.0 Fatty (change of) liver, not elsewhere classified; F32.9 Major depressive disorder, single episode, unspecified; K57.90 Diverticulosis of intestine, part unspecified, without perforation or abscess without bleeding; I25.10 Atherosclerotic heart disease of native coronary artery without angina pectoris

== ENCOUNTER → 2020-09-19 15:00 | Outpatient (CLI) | payer MEDICARE ==
[2020-08-15 15:10] VITALS: BMI 32.3
[~2020-09-19 15:00] MED LIST changes: +BASAGLAR K100 UNIT/1 SC; +COLACE100 MG PO; +DILAUDID2 MG PO
== END | disposition home or self-care (01) ==
LOC: D.LABREF 15:00
PROVIDERS: ATTEND Surgery
DX: T14.90XA Injury, unspecified, initial encounter (principal)

== ENCOUNTER 2021-02-11 08:15 | Inpatient (IN) | payer MEDICARE ==
[2021-02-08 12:49] LABS: BASOPHILS 0.2 % (0-2); EOSINOPHILS 0.5 % (0-7); HEMATOCRIT 46.2 % (36.0-48.0); IMMATURE GRANULOCYTES 0.3 % (0-5); LYMPHOCYTE ABS# 3.29 10x3/uL (1.18-3.74); LYMPHOCYTES 28.6 % (15-50); MCH 28.2 pg (26.0-34.0); MCHC 32.5 g/dL (31.0-37.0); MCV 86.8 fL (80.0-100.0); MEAN PLATELET VOLUME 9.1 fL (7.4-10.4); MONOCYTES 5.9 % (2-11); NEUTROPHIL ABS# 7.41 10x3/uL (1.56-6.13); NEUTROPHILS 64.5 % (40-80); PLATELET COUNT 306 10x3/uL (130-400); RBC 5.32 10x6/uL (4.00-5.40); RDW 15.5 % (11.5-14.5); WBC 11.5 10x3/uL (4.8-10.8)
[2021-02-08 13:20] LABS: ANION GAP 9.9 mmol/L (8-16); CALCIUM 9.1 mg/dL (8.5-10.1); CARBON DIOXIDE 26.3 mmol/L (21.0-32.0); CREATININE - SERUM 0.9 mg/dL (0.6-1.3); POTASSIUM - SERUM 4.2 mmol/L (3.5-5.1)
[~2021-02-11] VITALS: Ht 167.6 cm; Wt 90.7 kg
[2021-02-11 08:56] VITALS: BP 122/63; BMI 32.3
[2021-02-11 18:09] VITALS: BP 114/55; BMI 32.3
[2021-02-11 20:00] VITALS: BP 123/67
[2021-02-12] VITALS: BP 111/51
[2021-02-12 04:00] VITALS: BP 130/84
[2021-02-12 06:11] LABS: BASOPHILS 0.1 % (0-2); EOSINOPHILS 0.6 % (0-7); HEMATOCRIT 42.6 % (36.0-48.0); HEMOGLOBIN 13.4 g/dL (12-16); IMMATURE GRANULOCYTES 0.3 % (0-5); LYMPHOCYTE ABS# 2.05 10x3/uL (1.18-3.74); LYMPHOCYTES 13.1 % (15-50); MCH 28.1 pg (26.0-34.0); MCHC 31.5 g/dL (31.0-37.0); MCV 89.3 fL (80.0-100.0); MEAN PLATELET VOLUME 9.6 fL (7.4-10.4); NEUTROPHIL ABS# 11.99 10x3/uL (1.56-6.13); NEUTROPHILS 76.9 % (40-80); PLATELET COUNT 289 10x3/uL (130-400); RBC 4.77 10x6/uL (4.00-5.40); RDW 15.6 % (11.5-14.5); WBC 15.6 10x3/uL (4.8-10.8)
[2021-02-12 06:54] LABS: ALKALINE PHOSPHATASE 74 U/L (30-120); ALT (SGPT) 22 U/L (10-68); BILIRUBIN - TOTAL 0.39 mg/dL (0.2-1.3); CALCIUM 7.8 mg/dL (8.5-10.1); CARBON DIOXIDE 28.1 mmol/L (21.0-32.0); CHLORIDE - SERUM 103 mmol/L (98-107); CREATININE - SERUM 0.9 mg/dL (0.6-1.3); MAGNESIUM - SERUM 1.7 mg/dL (1.8-2.4); PHOSPHOROUS 4.4 mg/dL (2.5-4.9); POTASSIUM - SERUM 4.3 mmol/L (3.5-5.1); PROTEIN - SERUM 6.5 g/dL (6.4-8.2); SODIUM 135 mmol/L (136-145); UREA NITROGEN 10 mg/dL (7-18); eGFR NON AFRICAN AMERICAN 69 mL/min (90-120)
[2021-02-12 06:57] LABS: CALC OSMOLALITY 274 mosm/kg (275-300); GLUCOSE 212 mg/dL (74-106); TROPONIN-I < 0.017 ng/mL (0.000-0.060)
--- NOTE | 2021-02-12 07:04 | NUR ---
pt slept in bed all throughout the night. was at bedside. complained of pain but was using the information technology intern pump. bed in lowest position. call light in reach. o2 at 2-3L via nasal cannula.
--- NOTE | 2021-02-12 07:30 | NUR ---
REC'D IN BED AWAKE AND ALERT. RESP EVEN AND UNLABORED WITH NO DISTRESS NOTED. CAN EXPRESS NEEDS AND WANTS. NO C/O NOTED OR VOICED. ASSESSMENT COMPLETED AT THIS TIME. HUBSAND AND C/L IN REACH AT BEDSIDE.
[2021-02-12 08:26] VITALS: BP 132/58
[2021-02-12 12:43] VITALS: BP 112/58
[2021-02-12 13:54] VITALS: BMI 32.2
[2021-02-12 17:47] VITALS: BP 98/54
[2021-02-12 20:00] VITALS: BP 115/53
--- NOTE | 2021-02-12 21:03 | NUR ---
PT IS LYING IN BED WITH AT BEDSIDE. DILAUDID PUMP WAS CHANGED. ABDOMEN DRESSING HAS A LITTLE DRAINAG ON IT. NO OTHER COMPLAINTS AT THIS TIME. ALL NEEDS WERE COMPLETED. CALL LIGHT IN REACH.
[2021-02-13 04:00] VITALS: BP 120/60
--- NOTE | 2021-02-13 07:30 | NUR ---
REC'D IN BED AWAKE AND ALERT. RESP EVEN AND UNLABORED WITH NO DISTRESS NOTED CAN EXPRESS NEEDS AND WANTS. NO C/O NOTED OR VOICED. ASSESSMENT COMPLETED AT THIS TIME. HUBSAND AND C/L IN REACH AT BEDSIDE.
[2021-02-13 08:14] VITALS: BP 95/51
[2021-02-13 09:21] VITALS: Ht 167.6 cm; Wt 90.7 kg
--- NOTE | 2021-02-13 09:30 | NUR ---
KATHERINE WALSH HERE MADE ROUNDS REC'D NEW ORDERS FOR TO DC DILUADID DESILVERIZER AND TO START ON NORCO 10 MG Q 6 HRS PRN AND VISTARIL 25 MG Q 6 HRS PRN WELL. PT AWARE OF NEW ORDERS.
--- NOTE | 2021-02-13 10:39 | NUR ---
DRESSING CHANGED TO MIDLINE AT THIS TIME AND PT OUT OF BED TO CHAIR. TOLERATED WELL. C/L AND AT BEDSIDE.
[2021-02-13 11:37] LABS: ALBUMIN 2.5 g/dL (3.4-5.0); BILIRUBIN - TOTAL 0.53 mg/dL (0.2-1.3); CALCIUM 7.6 mg/dL (8.5-10.1); CARBON DIOXIDE 27.2 mmol/L (21.0-32.0); CREATININE - SERUM 0.9 mg/dL (0.6-1.3); MAGNESIUM - SERUM 1.6 mg/dL (1.8-2.4); POTASSIUM - SERUM 4.2 mmol/L (3.5-5.1); PROTEIN - SERUM 5.3 g/dL (6.4-8.2)
[2021-02-13 12:19] VITALS: BP 134/82
[2021-02-13 12:22] LABS: BASOPHILS 0.1 % (0-2); EOSINOPHILS 1.8 % (0-7); HEMOGLOBIN 11.5 g/dL (12-16); IMMATURE GRANULOCYTES 0.2 % (0-5); LYMPHOCYTE ABS# 2.66 10x3/uL (1.18-3.74); LYMPHOCYTES 15.9 % (15-50); MCH 28.8 pg (26.0-34.0); MCHC 31.9 g/dL (31.0-37.0); MEAN PLATELET VOLUME 9.6 fL (7.4-10.4); MONOCYTES 9.5 % (2-11); NEUTROPHILS 72.5 % (40-80); RDW 15.4 % (11.5-14.5); WBC 16.7 10x3/uL (4.8-10.8)
[2021-02-13 12:50] LABS: PLATELET COUNT 222 10x3/uL (130-400)
--- NOTE | 2021-02-13 14:26 | NUR ---
WAS MEDICATED WITH PRN NORCO AND VISTARIL PER ORDER FOR C/O ABD PAIN. C/L IN REACH AT BEDSIDE.
[2021-02-13 17:05] VITALS: BP 112/57
[2021-02-13 20:00] VITALS: BP 100/46
[2021-02-14] VITALS (7 sets, daily range): BP systolic 88–126; BP diastolic 46–62
--- NOTE | 2021-02-14 02:39 | NUR ---
PT WAS IN BED WITH AT BEDSIDE. ALERT AND ORIENTED. NO COMPLAINTS OF PAIN NOR DISTRESS NOTED. ABD DRESSING STILL IN PLACE WITH LITTLE DRAINAGE. CALL LIGHT IN REACH WITH BED IN LOWEST POSITION.
[2021-02-14 06:01] LABS: BASOPHILS 0.1 % (0-2); EOSINOPHILS 2.5 % (0-7); HEMATOCRIT 33.7 % (36.0-48.0); HEMOGLOBIN 10.6 g/dL (12-16); IMMATURE GRANULOCYTES 0.4 % (0-5); LYMPHOCYTE ABS# 2.96 10x3/uL (1.18-3.74); LYMPHOCYTES 21.6 % (15-50); MCHC 31.5 g/dL (31.0-37.0); MCV 88.9 fL (80.0-100.0); MEAN PLATELET VOLUME 9.8 fL (7.4-10.4); MONOCYTES 10.5 % (2-11); NEUTROPHIL ABS# 8.92 10x3/uL (1.56-6.13); NEUTROPHILS 64.9 % (40-80); PLATELET COUNT 219 10x3/uL (130-400); RBC 3.79 10x6/uL (4.00-5.40); RDW 15.4 % (11.5-14.5); WBC 13.7 10x3/uL (4.8-10.8)
[2021-02-14 06:23] LABS: ALBUMIN 2.2 g/dL (3.4-5.0); ANION GAP 8.9 mmol/L (8-16); BILIRUBIN - TOTAL 0.41 mg/dL (0.2-1.3); CALCIUM 7.8 mg/dL (8.5-10.1); CARBON DIOXIDE 27.9 mmol/L (21.0-32.0); CREATININE - SERUM 0.9 mg/dL (0.6-1.3); MAGNESIUM - SERUM 1.7 mg/dL (1.8-2.4); POTASSIUM - SERUM 3.8 mmol/L (3.5-5.1); PROTEIN - SERUM 5.5 g/dL (6.4-8.2)
--- OUTSIDE RECORDS SUMMARY | 2021-02-14 13:39 | XMS Report ---
Demographics + + + | Address | [address] | | | [place] [address] | + + + | Home Phone | | + + + | Preferred Language | Unknown | + + + | Marital Status | | + + + | Restoration Affiliation | Unknown | + + + | Race | White | + + + | Ethnic Group | Not or | + + + Author + + + | Author | [facility], | | | [facility] | | | [place] | + + + | Organization | [facility], | | | [facility] | | | [place] | + + + | Address | [address] | | | [place] [address] | | | | + + + | Phone | [phone] | + + + Care Team Providers + +------+ + | Care Terrazzo Worker Helper Name | Role | Phone | + +------+ + | MARIBELL SNIDER | 3 | [phone] | + +------+ + | MARIBELL SNIDER | 4 | [phone] | + +------+ + Reason for Referral Reason for Visit Ventral incisional hernia, History of hernia re pair Assessment No assessment recorded. Patient Targets + + + + | Encounter Date | Instructions | Goals | | | | | | | | | + + + + | 02/14/2021 | | | | | | | | | | | + + + + Plan of Treatment + + + + + + + | Reminders | | Order | Submit | Provider | Details | | | | Date | Date | | | | | | | | | | | | | | | | | | | | | | | | | | | | | | | + + + + + + + | | None | | | | | | | recorded. | | | | | | | | | | | | | | | | | | | | | | | | | | | Appointme | | | | | | | nts | | | | | | | | | | | | | | | | | | | | | | | | | | | | | | | | | | | | | | | | | | | | | | | | | | | | | | | | | | | | | | + + + + + + + | | None | | | | | | | recorded. | | | | | | | | | | | | | | | | | | | | Lab | | | | | | | | | | | | | | | | | | | | | | | | | | | | | | | | | | | | | | | | | | | | | | | | | | | | | | | | | | | | | | + + + + + + + | | | | | | | | | | | | National | | | | | 1 | | Park | | | | | | 1 | Medical | | | | | | | Center, | | | Referral | general | | | 130 | | | | surgery | | | Medical | | | | referral | | | [address], Hot | | | | | | | [place], | | | | | | | [place], | | | | | | | [address], Ph | | | | | | | (501) | | | | | | | [phone] | | | | | | | | | | | | | | | | | | | | | | | | | | | | | | + + + + + + + | | None | | | | | | | recorded. | | | | | | | | | | | | | | | | | | | | | | | | | | | Procedure | | | | | | | s | | | | | | | | | | | | | | | | | | | | | | | | | | | | | | | | | | | | | | | | | | | | | | | | | | | | | | | | | | | | | | + + + + + + + | | None | | | | | | | recorded. | | | | | | | | | | | | | | | | | | | | | | | | | | | Surgeries | | | | | | | | | | | | | | | | | | | | | | | | | | | | | | | | | | | | | | | | | | | | | | | | | | | | | | | | | | | | | | + + + + + + + | | None | | | | | | | recorded. | | | | | | | | | | | | | | | | | | | | | | | | | | | Imaging | | | | | | | | | | | | | | | | | | | | | | | | | | | | | | | | | | | | | | | | | | | | | | | | | | | | | | | | | | | | | | + + + + + + + Results +--------+--------+--------+--------+--------+--------+--------+--------+ | Date | Name | Descri | Value | Unit | Range | Abnorm | Provid | | | | ption | | | | al | er | | | | | | | | Flag | Detail | | | | | | | | | | | | | | | | | | | | | | | | | | | | | | | | | | | | | | | | | | | | | | | | | | | | | | | +--------+--------+--------+--------+--------+--------+--------+--------+ | 02/08/ | CBC w/ | | 0.2 | % | 0-2 | normal | | | 2021 | auto | | | | | | | | | diff | | | | | | | | | | | | | | | | | | | | | | | | | | | | | | | | | | | | | | | | | | | | | | basoph | | | | | Nation | | | | il % | | | | | al | | | | | | | | | Park | | | | | | | | | Medica | | | | | | | | | l | | | | | | | | | Center | | | | | | | | | | | | | | | | | | | | | | | | | | | | | | | | | | | | | | | | | | | | | | | | | | | | | | | | | | | | | | | | | | | | | | | | | | | | | | | | | | | | | | | | | | | | | | | | | | | | | | | | | | | | | | | | | | | | | | | | | | | | | | | | | | | | | | | 1909 | | | | | | | | | [address] | | | | | | [address], | | | | | | | | | Hot | | | | | | | | | Spring | | | | | | | | | s, [place], | | | | | | | | | | | | | | | | | | [address]- | | | | | | | | | [address], | | | | | | | | | Ph | | | | | | | | | (501) | | | | | | | | | 321[address]10 | | | | | | | | | 00 | | | | | | | | | | | | | | | | | | | | | | | | | | | | | | | | | | | | | | | | | | | | | | | | | | | | | | | | | | | | | | | | | | | | | | | | | | | | | | | | | | | | | | | | | | | | | | | | | | | | +--------+--------+--------+--------+--------+--------+--------+--------+ | 03/12/ | CBC w/ | | 0.5 | % | 0-7 | normal | | | 2021 | auto | | | | | | | | | diff | | | | | | | | | | | | | | | | | | | | | | | | | | | | | | | | | | | | | | | | | | | | | | eosino | | | | | Nation | | | | phils | | | | | al | | | | | | | | | Park | | | | | | | | | Medica | | | | | | | | | l | | | | | | | | | Center | | | | | | | | | | | | | | | | | | | | | | | | | | | | | | | | | | | | | | | | | | | | | | | | | | | | | | | | | | | | | | | | | | | | | | | | | | | | | | | | | | | | | | | | | | | | | | | | | | | | | | | | | | | | | | | | | | | | | | | | | | | | | | | | | | | | | | | 1909 | | | | | | | | | [address] | | | | [address] | [address], | | | | | | | | | Hot | | | | | | | | | Spring | | | | | | | | | s, [place], | | | | | | | | | | | | | | | | | | [address]- | | | | | | | | | [address], | | | | | | | | | Ph | | | | | | | | | (501) | | | | | | | | | 321[address]10 | | | | | | | | | 00 | | | | | | | | | | | | | | | | | | | | | | | | | | | | | | | | | | | | | | | | | | | | | | | | | | | | | | | | | | | | | | | | | | | | | | | | | | | | | | | | | | | | | | | | | | | | | | | | | | | | +--------+--------+--------+--------+--------+--------+--------+--------+ | 03/12/ | CBC w/ | | 46.2 | % | 36.0-4 | normal | | | 2021 | auto | | | | 8.0 | | | | | diff | | | | | | | | | | | | | | | | | | | | | | | | | | | | | | | | | | | | | | | | | | | | | | HCT | | | | | Nation | | | | vfr | | | | | al | | | | bld | | | | | Park | | | | auto | | | | | Medica | | | | | | | | | l | | | | | | | | | Center | | | | | | | | | | | | | | | | | | | | | | | | | | | | | | | | | | | | | | | | | | | | | | | | | | | | | | | | | | | | | | | | | | | | | | | | | | | | | | | | | | | | | | | | | | | | | | | | | | | | | | | | | | | | | | | | | | | | | | | | | | | | | | | | | | | | | | | 1909 | | | | | | | | | [address] | | | | | [address] | [address], | | | | | | | | | Hot | | | | | | | | | Spring | | | | | | | | | s, [place], | | | | | | | | | | | | | | | | | | [address]- | | | | | | | | | [address], | | | | | | | | | Ph | | | | | | | | | (501) | | | | | | | | | 321[address]10 | | | | | | | | | 00 | | | | | | | | | | | | | | | | | | | | | | | | | | | | | | | | | | | | | | | | | | | | | | | | | | | | | | | | | | | | | | | | | | | | | | | | | | | | | | | | | | | | | | | | | | | | | | | | | | | | +--------+--------+--------+--------+--------+--------+--------+--------+ | 03/12/ | CBC w/ | | 15.0 | g/dL | 12-16 | normal | | | 2021 | auto | | | | | | | | | diff | | | | | | | | | | | | | | | | | | | | | | | | | | | | | | | | | | | | | | | | | | | | | | hemogl | | | | | Nation | | | | obin | | | | | al | | | | | | | | | Park | | | | | | | | | Medica | | | | | | | | | l | | | | | | | | | Center | | | | | | | | | | | | | | | | | | | | | | | | | | | | | | | | | | | | | | | | | | | | | | | | | | | | | | | | | | | | | | | | | | | | | | | | | | | | | | | | | | | | | | | | | | | | | | | | | | | | | | | | | | | | | | | | | | | | | | | | | | | | | | | | | | | | | | | [address] | | | | | | | | | [address], | | | | | | | | | Hot | | | | | | | | | Spring | | | | | | | | | s, [place], | | | | | | | | | | | | | | | | | | [address]- | | | | | | | | | [address], | | | | | | | | | Ph | | | | | | | | | (501) | | | | | | | | | 321[address]10 | | | | | | | | | 00 | | | | | | | | | | | | | | | | | | | | | | | | | | | | | | | | | | | | | | | | | | | | | | | | | | | | | | | | | | | | | | | | | | | | | | | | | | | | | | | | | | | | | | | | | | | | | | | | | | | | +--------+--------+--------+--------+--------+--------+--------+--------+ | 03/12/ | CBC w/ | | 0.3 | % | 0-5 | normal | | | 2021 | auto | | 0.3 | | | | | | | diff | | | | | | | | | | | | | | | | | | | | | | | | | | | | | | | | | | | | | | | | | | | | | | imm | | | | | Nation | | | | granul | | | | | al | | | | ocytes | | | | | Park | | | | bld | | | | | Medica | | | | ql | | | | | l | | | | auto | | | | | Center | | | | | | | | | | | | | | | | | | | | | | | | | | | | | | | | | | | | | | | | | | | | | | | | | | | | | | | | | | | | | | | | | | | | | | | | | | | | | | | | | | | | | | | | | | | | | | | | | | | | | | | | | | | | | | | | | | | | | | | | | | | | | | | | | | | | | | | 1909 | | | | | | | | | [address] | | | | | | | | | [address], | | | | | | | | | Hot | | | | | | | | | Spring | | | | | | | | | s, [place], | | | | | | | | | | | | | | | | | | [address]- | | | | | | | | | [address], | | | | | | | | | Ph | | | | | | | | | (501) | | | | | | | | | 321[address]10 | | | | | | | | | 00 | | | | | | | | | | | | | | | | | | | | | | | | | | | | | | | | | | | | | | | | | | | | | | | | | | | | | | | | | | | | | | | | | | | | | | | | | | | | | | | | | | | | | | | | | | | | | | | | | | | | +--------+--------+--------+--------+--------+--------+--------+--------+ | 03/12/ | CBC w/ | | 3.29 | 10x3/u | 1.18-3 | normal | | | 2021 | auto | | | L | .74 | | | | | diff | | | | | | | | | | | | | | | | | | | | | | | | | | | | | | | | | | | | | | | | | | | | | | absolu | | | | | Nation | | | | te | | | | | al | | | | lympho | | | | | Park | | | | cyte | | | | | Medica | | | | count | | | | | l | | | | | | | | | Center | | | | | | | | | | | | | | | | | | | | | | | | | | | | | | | | | | | | | | | | | | | | | | | | | | | | | | | | | | | | | | | | | | | | | | | | | | | | | | | | | | | | | | | | | | | | | | | | | | | | | | | | | | | | | | | | | | | | | | | | | | | | | | | | | | | | | | | 1909 | | | | | | | | | [address] | | | | | | | | | [address], | | | | | | | | | Hot | | | | | | | | | Spring | | | | | | | | | s, [place], | | | | | | | | | | | | | | | | | | [address]- | | | | | | | | | [address], | | | | | | | | | Ph | | | | | | | | | (501) | | | | | | | | | 321[address]10 | | | | | | | | | 00 | | | | | | | | | | | | | | | | | | | | | | | | | | | | | | | | | | | | | | | | | | | | | | | | | | | | | | | | | | | | | | | | | | | | | | | | | | | | | | | | | | | | | | | | | | | | | | | | | | | | +--------+--------+--------+--------+--------+--------+--------+--------+ | 03/12/ | CBC w/ | | 28.6 | % | 15-50 | normal | | | 2021 | auto | | | | | | | | | diff | | | | | | | | | | | | | | | | | | | | | | | | | | | | | | | | | | | | | | | | | | | | | | lympho | | | | | Nation | | | | cytes | | | | | al | | | | | | | | | Park | | | | | | | | | Medica | | | | | | | | | l | | | | | | | | | Center | | | | | | | | | | | | | | | | | | | | | | | | | | | | | | | | | | | | | | | | | | | | | | | | | | | | | | | | | | | | | | | | | | | | | | | | | | | | | | | | | | | | | | | | | | | | | | | | | | | | | | | | | | | | | | | | | | | | | | | | | | | | | | | | | | | | | | | 1909 | | | | | | | | | [address] | | | | | | | | | [address], | | | | | | | | | Hot | | | | | | | | | Spring | | | | | | | | | s, [place], | | | | | | | | | | | | | | | | | | [address]- | | | | | | | | | [address], | | | | | | | | | Ph | | | | | | | | | (501) | | | | | | | | | 321[address]10 | | | | | | | | | 00 | | | | | | | | | | | | | | | | | | | | | | | | | | | | | | | | | | | | | | | | | | | | | | | | | | | | | | | | | | | | | | | | | | | | | | | | | | | | | | | | | | | | | | | | | | | | | | | | | | | | +--------+--------+--------+--------+--------+--------+--------+--------+ | 03/12/ | CBC w/ | | 28.2 | pg | 26.0-3 | normal | | | 2021 | auto | | | | 4.0 | | | | | diff | | | | | | | | | | | | | | | | | | | | | | | | | | | | | | | | | | | | | | | | | | | | | | [facility]CH | | | | | Nation | | | | | | | | | al | | | | | | | | | Park | | | | | | | | | Medica | | | | | | | | | l | | | | | | | | | Center | | | | | | | | | | | | | | | | | | | | | | | | | | | | | | | | | | | | | | | | | | | | | | | | | | | | | | | | | | | | | | | | | | | | | | | | | | | | | | | | | | | | | | | | | | | | | | | | | | | | | | | | | | | | | | | | | | | | | | | | | | | | | | | | | | | | | | | 1909 | | | | | | | | | [address] | | | | | | | | | [address], | | | | | | | | | Hot | | | | | | | | | Spring | | | | | | | | | s, [place], | | | | | | | | | | | | | | | | | | [address]- | | | | | | | | | [address], | | | | | | | | | Ph | | | | | | | | | (501) | | | | | | | | | 321[address]10 | | | | | | | | | 00 | | | | | | | | | | | | | | | | | | | | | | | | | | | | | | | | | | | | | | | | | | | | | | | | | | | | | | | | | | | | | | | | | | | | | | | | | | | | | | | | | | | | | | | | | | | | | | | | | | | | +--------+--------+--------+--------+--------+--------+--------+--------+ | 03/12/ | CBC w/ | | 32.5 | g/dL | 31.0-3 | normal | | | 2021 | auto | | | | 7.0 | | | | | diff | | | | | | | | | | | | | | | | | | | | | | | | | | | | | | | | | | | | | | | | | | | | | | [facility] | | | | | Nation | | | | RBC | | | | | al | | | | auto-m | | | | | Park | | | | cnc | | | | | Medica | | | | | | | | | l | | | | | | | | | Center | | | | | | | | | | | | | | | | | | | | | | | | | | | | | | | | | | | | | | | | | | | | | | | | | | | | | | | | | | | | | | | | | | | | | | | | | | | | | | | | | | | | | | | | | | | | | | | | | | | | | | | | | | | | | | | | | | | | | | | | | | | | | | | | | | | | | | | [address] | | | | | | | | | [address] | | [address], | | | | | | | | | Hot | | | | | | | | | Spring | | | | | | | | | s, [place], | | | | | | | | | | | | | | | | | | [address]- | | | | | | | | | [address], | | | | | | | | | Ph | | | | | | | | | (501) | | | | | | | | | 321[address]10 | | | | | | | | | 00 | | | | | | | | | | | | | | | | | | | | | | | | | | | | | | | | | | | | | | | | | | | | | | | | | | | | | | | | | | | | | | | | | | | | | | | | | | | | | | | | | | | | | | | | | | | | | | | | | | | | +--------+--------+--------+--------+--------+--------+--------+--------+ | 03/12/ | CBC w/ | | 86.8 | fL | 80.0-1 | normal | | | 2021 | auto | | | | 00.0 | | | | | diff | | | | | | | | | | | | | | | | | | | | | | | | | | | | | | | | | | | | | | | | | | | | | | MCV | | | | | Nation | | | | | | | | | al | | | | | | | | | Park | | | | | | | | | Medica | | | | | | | | | l | | | | | | | | | Center | | | | | | | | | | | | | | | | | | | | | | | | | | | | | | | | | | | | | | | | | | | | | | | | | | | | | | | | | | | | | | | | | | | | | | | | | | | | | | | | | | | | | | | | | | | | | | | | | | | | | | | | | | | | | | | | | | | | | | | | | | | | | | | | | | | | | | | [address] | | | | | | | | | [address] | [address], | | | | | | | | | Hot | | | | | | | | | Spring | | | | | | | | | s, [place], | | | | | | | | | | | | | | | | | | [address]- | | | | | | | | | [address], | | | | | | | | | Ph | | | | | | | | | (501) | | | | | | | | | 321[address]10 | | | | | | | | | 00 | | | | | | | | | | | | | | | | | | | | | | | | | | | | | | | | | | | | | | | | | | | | | | | | | | | | | | | | | | | | | | | | | | | | | | | | | | | | | | | | | | | | | | | | | | | | | | | | | | | | +--------+--------+--------+--------+--------+--------+--------+--------+ | 03/12/ | CBC w/ | | 5.9 | % | 2-11 | normal | | | 2021 | auto | | | | | | | | | diff | | | | | | | | | | | | | | | | | | | | | | | | | | | | | | | | | | | | | | | | | | | | | | monocy | | | | | Nation | | | | dl | | | | | al | | | | | | | | | Park | | | | | | | | | Medica | | | | | | | | | l | | | | | | | | | Center | | | | | | | | | | | | | | | | | | | | | | | | | | | | | | | | | | | | | | | | | | | | | | | | | | | | | | | | | | | | | | | | | | | | | | | | | | | | | | | | | | | | | | | | | | | | | | | | | | | | | | | | | | | | | | | | | | | | | | | | | | | | | | | | | | | | | | | [address] | | | | | | | | | [address] | | [address] | | | | | | | | | Hot | | | | | | | | | Spring | | | | | | | | | s, [place], | | | | | | | | | | | | | | | | | | [address]- | | | | | | | | | [address], | | | | | | | | | Ph | | | | | | | | | (501) | | | | | | | | | 321[address]10 | | | | | | | | | 00 | | | | | | | | | | | | | | | | | | | | | | | | | | | | | | | | | | | | | | | | | | | | | | | | | | | | | | | | | | | | | | | | | | | | | | | | | | | | | | | | | | | | | | | | | | | | | | | | | | | | +--------+--------+--------+--------+--------+--------+--------+--------+ | 03/12/ | CBC w/ | | 9.1 | fL | 7.4-10 | normal | | | 2021 | auto | | | | .4 | | | | | diff | | | | | | | | | | | | | | | | | | | | | | | | | | | | | | | | | | | | | | | | | | | | | | mean | | | | | Nation | | | | platel | | | | | al | | | | et | | | | | Park | | | | volume | | | | | Medica | | | | | | | | | l | | | | | | | | | Center | | | | | | | | | | | | | | | | | | | | | | | | | | | | | | | | | | | | | | | | | | | | | | | | | | | | | | | | | | | | | | | | | | | | | | | | | | | | | | | | | | | | | | | | | | | | | | | | | | | | | | | | | | | | | | | | | | | | | | | | | | | | | | | | | | | | | | | 1909 | | | | | | | | | [address] | | | | | | | | | [address], | | | | | | | | | Hot | | | | | | | | | Spring | | | | | | | | | s, [place], | | | | | | | | | | | | | | | | | | [address]- | | | | | | | | | [address], | | | | | | | | | Ph | | | | | | | | | (501) | | | | | | | | | [address] | | | | | | | | | 00 | | | | | | | | | | | | | | | | | | | | | | | | | | | | | | | | | | | | | | | | | | | | | | | | | | | | | | | | | | | | | | | | | | | | | | | | | | | | | | | | | | | | | | | | | | | | | | | | | | | | +--------+--------+--------+--------+--------+--------+--------+--------+ | 03/12/ | CBC w/ | | 7.41 | 10x3/u | 1.56-6 | high | | | 2021 | auto | | | L | .13 | | | | | diff | | | | | | | | | | | | | | | | | | | | | | | | | | | | | | | | | | | | | | | | | | | | | | neutro | | | | | Nation | | | | norma | | | | | al | | | | abs# | | | | | Park | | | | | | | | | Medica | | | | | | | | | l | | | | | | | | | Center | | | | | | | | | | | | | | | | | | | | | | | | | | | | | | | | | | | | | | | | | | | | | | | | | | | | | | | | | | | | | | | | | | | | | | | | | | | | | | | | | | | | | | | | | | | | | | | | | | | | | | | | | | | | | | | | | | | | | | | | | | | | | | | | | | | | | | | 1909 | | | | | | | | | [address] | | | | | | | | | [address], | | | | | | | | | Hot | | | | | | | | | Spring | | | | | | | | | s, [place], | | | | | | | | | | | | | | | | | | [address]- | | | | | | | | | 7752, | | | | | | | | | Ph | | | | | | | | | (501) | | | | | | | | | 321-10 | | | | | | | | | 00 | | | | | | | | | | | | | | | | | | | | | | | | | | | | | | | | | | | | | | | | | | | | | | | | | | | | | | | | | | | | | | | | | | | | | | | | | | | | | | | | | | | | | | | | | | | | | | | | | | | | +--------+--------+--------+--------+--------+--------+--------+--------+ | 03/12/ | CBC w/ | | 64.5 | % | 40-80 | normal | | | 2021 | auto | | | | | | | | | diff | | | | | | | | | | | | | | | | | | | | | | | | | | | | | | | | | | | | | | | | | | | | | | neutro | | | | | Nation | | | | phils | | | | | al | | | | nfr | | | | | Park | | | | bld | | | | | [facility] | | | | auto | | | | | l | | | | | | | | | Center | | | | | | | | | | | | | | | | | | | | | | | | | | | | | | | | | | | | | | | | | | | | | | | | | | | | | | | | | | | | | | | | | | | | | | | | | | | | | | | | | | | | | | | | | | | | | | | | | | | | | | | | | | | | | | | | | | | | | | | | | | | | | | | | | | | | | | | [address] | | | | | | | | | [address], | | | | | | | | | Hot | | | | | | | | | Spring | | | | | | | | | s, [place], | | | | | | | | | | | | | | | | | | [address]- | | | | | | | | | 7752, | | | | | | | | | Ph | | | | | | | | | (501) | | | | | | | | | 321-10 | | | | | | | | | 00 | | | | | | | | | | | | | | | | | | | | | | | | | | | | | | | | | | | | | | | | | | | | | | | | | | | | | | | | | | | | | | | | | | | | | | | | | | | | | | | | | | | | | | | | | | | | | | | | | | | | +--------+--------+--------+--------+--------+--------+--------+--------+ | 03/12/ | CBC w/ | | 306 | 10x3/u | 130-40 | normal | | | 2021 | auto | | | L | 0 | | | | | diff | | | | | | | | | | | | | | | | | | | | | | | | | | | | | | | | | | | | | | | | | | | | | | platel | | | | | Nation | | | | et # | | | | | al | | | | bld | | | | | Park | | | | auto | | | | | [facility] | | | | | | | | | l | | | | | | | | | Center | | | | | | | | | | | | | | | | | | | | | | | | | | | | | | | | | | | | | | | | | | | | | | | | | | | | | | | | | | | | | | | | | | | | | | | | | | | | | | | | | | | | | | | | | | | | | | | | | | | | | | | | | | | | | | | | | | | | | | | | | | | | | | | | | | | | | | | [address] | | | | | | | | | [address] | | | | | | | | | Hot | | | | | | | | | Spring | | | | | | | | | s, [place], | | | | | | | | | | | | | | | | | | [address]- | | | | | | | | | 7752, | | | | | | | | | Ph | | | | | | | | | (501) | | | | | | | | | 321-10 | | | | | | | | | 00 | | | | | | | | | | | | | | | | | | | | | | | | | | | | | | | | | | | | | | | | | | | | | | | | | | | | | | | | | | | | | | | | | | | | | | | | | | | | | | | | | | | | | | | | | | | | | | | | | | | | +--------+--------+--------+--------+--------+--------+--------+--------+ | 03/12/ | CBC w/ | | 5.32 | 10x6/u | 4.00-5 | normal | | | 2021 | auto | | | L | .40 | | | | | diff | | | | | | | | | | | | | | | | | | | | | | | | | | | | | | | | | | | | | | | | | | | | | | RBC # | | | | | Nation | | | | bld | | | | | al | | | | auto | | | | | Park | | | | | | | | | [facility] | | | | | | | | | l | | | | | | | | | Center | | | | | | | | | | | | | | | | | | | | | | | | | | | | | | | | | | | | | | | | | | | | | | | | | | | | | | | | | | | | | | | | | | | | | | | | | | | | | | | | | | | | | | | | | | | | | | | | | | | | | | | | | | | | | | | | | | | | | | | | | | | | | | | | | | | | | | | [address] | | | | | | | | | [address] | | | | [address], | | | | | | | | | Hot | | | | | | | | | Spring | | | | | | | | | s, [place], | | | | | | | | | | | | | | | | | | [address]- | | | | | | | | | [address]752, | | | | | | | | | Ph | | | | | | | | | (501) | | | | | | | | | 321-10 | | | | | | | | | 00 | | | | | | | | | | | | | | | | | | | | | | | | | | | | | | | | | | | | | | | | | | | | | | | | | | | | | | | | | | | | | | | | | | | | | | | | | | | | | | | | | | | | | | | | | | | | | | | | | | | | +--------+--------+--------+--------+--------+--------+--------+--------+ | 03/12/ | CBC w/ | | 15.5 | % | 11.5-1 | high | | | 2021 | auto | | | | 4.5 | | | | | diff | | | | | | | | | | | | | | | | | | | | | | | | | | | | | | | | | | | | | | | | | | | | | | RDW | | | | | Nation | | | | RBC | | | | | al | | | | auto-R | | | | | Park | | | | TO | | | | | [facility] | | | | | | | | | l | | | | | | | | | Center | | | | | | | | | | | | | | | | | | | | | | | | | | | | | | | | | | | | | | | | | | | | | | | | | | | | | | | | | | | | | | | | | | | | | | | | | | | | | | | | | | | | | | | | | | | | | | | | | | | | | | | | | | | | | | | | | | | | | | | | | | | | | | | | | | | | | | | 1909 | | | | | | | | | [address] | | | [address] | | | | | | | | | Hot | | | | | | | | | Spring | | | | | | | | | s, [place], | | | | | | | | | | | | | | | | | | [address]- | | | | | | | | | [address], | | | | | | | | | Ph | | | | | | | | | (501) | | | | | | | | | 321-10 | | | | | | | | | 00 | | | | | | | | | | | | | | | | | | | | | | | | | | | | | | | | | | | | | | | | | | | | | | | | | | | | | | | | | | | | | | | | | | | | | | | | | | | | | | | | | | | | | | | | | | | | | | | | | | | | +--------+--------+--------+--------+--------+--------+--------+--------+ | 03/12/ | CBC w/ | | 11.5 | 10x3/u | 4.8-10 | high | | | 2021 | auto | | | L | .8 | | | | | diff | | | | | | | | | | | | | | | | | | | | | | | | | | | | | | | | | | | | | | | | | | | | | | WBC | | | | | Nation | | | | | | | | | al | | | | | | | | | Park | | | | | | | | | [facility] | | | | | | | | | l | | | | | | | | | Center | | | | | | | | | | | | | | | | | | | | | | | | | | | | | | | | | | | | | | | | | | | | | | | | | | | | | | | | | | | | | | | | | | | | | | | | | | | | | | | | | | | | | | | | | | | | | | | | | | | | | | | | | | | | | | | | | | | | | | | | | | | | | | | | | | | | | | | [address] | | | | | | | | | [address] | | | | [address] | [address] | | | | | | | | | Hot | | | | | | | | | Spring | | | | | | | | | s, [place], | | | | | | | | | | | | | | | | | | [id number]- | | | | | | | | | [address], | | | | | | | | | Ph | | | | | | | | | (501) | | | | | | | | | 321-10 | | | | | | | | | 00 | | | | | | | | | | | | | | | | | | | | | | | | | | | | | | | | | | | | | | | | | | | | | | | | | | | | | | | | | | | | | | | | | | | | | | | | | | | | | | | | | | | | | | | | | | | | | | | | | | | | +--------+--------+--------+--------+--------+--------+--------+--------+ | 03/12/ | BMP, | | 9.90 | mmol/L | 8-16 | normal | | | 2021 | serum | | | | | | | | | or | | | | | | | | | plasma | | | | | | | | | | | | | | | | | | | | | | | | | | | | | | | | | | | | | anion | | | | | Nation | | | | gap | | | | | al | | | | serpl- | | | | | Park | | | | scnc | | | | | [facility] | | | | | | | | | l | | | | | | | | | Center | | | | | | | | | | | | | | | | | | | | | | | | | | | | | | | | | | | | | | | | | | | | | | | | | | | | | | | | | | | | | | | | | | | | | | | | | | | | | | | | | | | | | | | | | | | | | | | | | | | | | | | | | | | | | | | | | | | | | | | | | | | | | | | | | | | | | | | 1910 | | | | | | | | | [address] | | | | | | | | | [address], | | | | | | | | | Hot | | | | | | | | | Spring | | | | | | | | | s, [place], | | | | | | | | | | | | | | | | | | [address]- | | | | | | | | | [address]752, | | | | | | | | | Ph | | | | | | | | | (501) | | | | | | | | | 321-10 | | | | | | | | | 00 | | | | | | | | | | | | | | | | | | | | | | | | | | | | | | | | | | | | | | | | | | | | | | | | | | | | | | | | | | | | | | | | | | | | | | | | | | | | | | | | | | | | | | | | | | | | | | | | | | | | +--------+--------+--------+--------+--------+--------+--------+--------+ | 03/12/ | BMP, | | 17 | ratio | 10-20 | normal | | | 2021 | serum | | | | | | | | | or | | | | | | | | | plasma | | | | | | | | | | | | | | | | | | | | | | | | | | | | | | | | | | | | | BUN/cr | | | | | Nation | | | | e | | | | | al | | | | ratio | | | | | Park | | | | | | | | | Medica | | | | | | | | | l | | | | | | | | | Center | | | | | | | | | | | | | | | | | | | | | | | | | | | | | | | | | | | | | | | | | | | | | | | | | | | | | | | | | | | | | | | | | | | | | | | | | | | | | | | | | | | | | | | | | | | | | | | | | | | | | | | | | | | | | | | | | | | | | | | | | | | | | | | | | | | | | | | 1910 | | | | | | | | | [address] | | | | | | | | | [address], | | | | | | | | | Hot | | | | | | | | | Spring | | | | | | | | | s, [place], | | | | | | | | | | | | | | | | | | [address]- | | | | | | | | | [address]752, | | | | | | | | | Ph | | | | | | | | | (501) | | | | | | | | | 321[address]10 | | | | | | | | | 00 | | | | | | | | | | | | | | | | | | | | | | | | | | | | | | | | | | | | | | | | | | | | | | | | | | | | | | | | | | | | | | | | | | | | | | | | | | | | | | | | | | | | | | | | | | | | | | | | | | | | +--------+--------+--------+--------+--------+--------+--------+--------+ | 03/12/ | BMP, | | 15 | mg/dL | 7-18 | normal | | | 2021 | serum | | | | | | | | | or | | | | | | | | | plasma | | | | | | | | | | | | | | | | | | | | | | | | | | | | | | | | | | | | | BUN | | | | | Nation | | | | serpl- | | | | | al | | | | mcnc | | | | | Park | | | | | | | | | [facility]ica | | | | | | | | | l | | | | | | | | | Center | | | | | | | | | | | | | | | | | | | | | | | | | | | | | | | | | | | | | | | | | | | | | | | | | | | | | | | | | | | | | | | | | | | | | | | | | | | | | | | | | | | | | | | | | | | | | | | | | | | | | | | | | | | | | | | | | | | | | | | | | | | | | | | | | | | | | | | 1910 | | | | | | | | | [address] | | | | | | | | | [address], | | | | | | | | | Hot | | | | | | | | | Spring | | | | | | | | | s, [place], | | | | | | | | | | | | | | | | | | [address]- | | | | | | | | | 7752, | | | | | | | | | Ph | | | | | | | | | (501) | | | | | | | | | 321[address]10 | | | | | | | | | 00 | | | | | | | | | | | | | | | | | | | | | | | | | | | | | | | | | | | | | | | | | | | | | | | | | | | | | | | | | | | | | | | | | | | | | | | | | | | | | | | | | | | | | | | | | | | | | | | | | | | | +--------+--------+--------+--------+--------+--------+--------+--------+ | 03/12/ | BMP, | | 9.1 | mg/dL | 8.5-10 | normal | | | 2021 | serum | | | | .1 | | | | | or | | | | | | | | | plasma | | | | | | | | | | | | | | | | | | | | | | | | | | | | | | | | | | | | | calciu | | | | | Nation | | | | m | | | | | al | | | | serpl- | | | | | Park | | | | mcnc | | | | | [facility] | | | | | | | | | l | | | | | | | | | Center | | | | | | | | | | | | | | | | | | | | | | | | | | | | | | | | | | | | | | | | | | | | | | | | | | | | | | | | | | | | | | | | | | | | | | | | | | | | | | | | | | | | | | | | | | | | | | | | | | | | | | | | | | | | | | | | | | | | | | | | | | | | | | | | | | | | | | | 1909 | | | | | | | | | [address] | | | | | | | | | [address], | | | | | | | | | Hot | | | | | | | | | Spring | | | | | | | | | s, [place], | | | | | | | | | | | | | | | | | | [address]- | | | | | | | | | [address]752, | | | | | | | | | Ph | | | | | | | | | (501) | | | | | | | | | 321[address]10 | | | | | | | | | 00 | | | | | | | | | | | | | | | | | | | | | | | | | | | | | | | | | | | | | | | | | | | | | | | | | | | | | | | | | | | | | | | | | | | | | | | | | | | | | | | | | | | | | | | | | | | | | | | | | | | | +--------+--------+--------+--------+--------+--------+--------+--------+ | 03/12/ | BMP, | | 89 | mmol/L | 98-107 | low | | | 2021 | serum | | | | | | | | | or | | | | | | | | | plasma | | | | | | | | | | | | | | | | | | | | | | | | | | | | | | | | | | | | | chlori | | | | | Nation | | | | de | | | | | al | | | | ser/pl | | | | | Park | | | | as | | | | | Medica | | | | | | | | | l | | | | | | | | | Center | | | | | | | | | | | | | | | | | | | | | | | | | | | | | | | | | | | | | | | | | | | | | | | | | | | | | | | | | | | | | | | | | | | | | | | | | | | | | | | | | | | | | | | | | | | | | | | | | | | | | | | | | | | | | | | | | | | | | | | | | | | | | | | | | | | | | | | 1909 | | | | | | | | | [address] | | | | | | | | | [address], | | | | | | | | | Hot | | | | | | | | | Spring | | | | | | | | | s, [place], | | | | | | | | | | | | | | | | | | [address]- | | | | | | | | | [address]752, | | | | | | | | | Ph | | | | | | | | | (501) | | | | | | | | | 321[address]10 | | | | | | | | | 00 | | | | | | | | | | | | | | | | | | | | | | | | | | | | | | | | | | | | | | | | | | | | | | | | | | | | | | | | | | | | | | | | | | | | | | | | | | | | | | | | | | | | | | | | | | | | | | | | | | | | +--------+--------+--------+--------+--------+--------+--------+--------+ | 03/12/ | BMP, | | 26.3 | mmol/L | 21.0-3 | normal | | | 2021 | serum | | | | 2.0 | | | | | or | | | | | | | | | plasma | | | | | | | | | | | | | | | | | | | | | | | | | | | | | | | | | | | | | CO2 | | | | | Nation | | | | serpl- | | | | | al | | | | scnc | | | | | Park | | | | | | | | | [facility]ica | | | | | | | | | l | | | | | | | | | Center | | | | | | | | | | | | | | | | | | | | | | | | | | | | | | | | | | | | | | | | | | | | | | | | | | | | | | | | | | | | | | | | | | | | | | | | | | | | | | | | | | | | | | | | | | | | | | | | | | | | | | | | | | | | | | | | | | | | | | | | | | | | | | | | | | | | | | | 1909 | | | | | | | | | [address] | | | | | | | | | [address], | | | | | | | | | Hot | | | | | | | | | Spring | | | | | | | | | s, [place], | | | | | | | | | | | | | | | | | | [address]- | | | | | | | | | [address]752, | | | | | | | | | Ph | | | | | | | | | (501) | | | | | | | | | 321[address]10 | | | | | | | | | 00 | | | | | | | | | | | | | | | | | | | | | | | | | | | | | | | | | | | | | | | | | | | | | | | | | | | | | | | | | | | | | | | | | | | | | | | | | | | | | | | | | | | | | | | | | | | | | | | | | | | | +--------+--------+--------+--------+--------+--------+--------+--------+ | 03/12/ | BMP, | | 254 | mOsm/k | 275-30 | low | | | 2021 | serum | | | g | 0 | | | | | or | | | | | | | | | plasma | | | | | | | | | | | | | | | | | | | | | | | | | | | | | | | | | | | | | osmola | | | | | Nation | | | | lity | | | | | al | | | | serpl | | | | | Park | | | | calc | | | | | Medica | | | | | | | | | l | | | | | | | | | Center | | | | | | | | | | | | | | | | | | | | | | | | | | | | | | | | | | | | | | | | | | | | | | | | | | | | | | | | | | | | | | | | | | | | | | | | | | | | | | | | | | | | | | | | | | | | | | | | | | | | | | | | | | | | | | | | | | | | | | | | | | | | | | | | | | | | | | | 1909 | | | | | | | | | [address] | | | | | | | | | [address], | | | | | | | | | Hot | | | | | | | | | Spring | | | | | | | | | s, [place], | | | | | | | | | | | | | | | | | | [address]- | | | | | | | | | [address]752, | | | | | | | | | Ph | | | | | | | | | (501) | | | | | | | | | 321-10 | | | | | | | | | 00 | | | | | | | | | | | | | | | | | | | | | | | | | | | | | | | | | | | | | | | | | | | | | | | | | | | | | | | | | | | | | | | | | | | | | | | | | | | | | | | | | | | | | | | | | | | | | | | | | | | | +--------+--------+--------+--------+--------+--------+--------+--------+ | 03/12/ | BMP, | | 0.9 | mg/dL | 0.6-1. | normal | | | 2021 | serum | | | | 3 | | | | | or | | | | | | | | | plasma | | | | | | | | | | | | | | | | | | | | | | | | | | | | | | | | | | | | | creat | | | | | Nation | | | | serpl- | | | | | al | | | | mc[facility] | | | | | Park | | | | | | | | | [facility] | | | | | | | | | l | | | | | | | | | Center | | | | | | | | | | | | | | | | | | | | | | | | | | | | | | | | | | | | | | | | | | | | | | | | | | | | | | | | | | | | | | | | | | | | | | | | | | | | | | | | | | | | | | | | | | | | | | | | | | | | | | | | | | | | | | | | | | | | | | | | | | | | | | | | | | | | | | | 1909 | | | | | | | | | [address] | | | | | | | | | [address], | | | | | | | | | Hot | | | | | | | | | Spring | | | | | | | | | s, [place], | | | | | | | | | | | | | | | | | | [address]- | | | | | | | | | [address], | | | | | | | | | Ph | | | | | | | | | (501) | | | | | | | | | 321[address]10 | | | | | | | | | 00 | | | | | | | | | | | | | | | | | | | | | | | | | | | | | | | | | | | | | | | | | | | | | | | | | | | | | | | | | | | | | | | | | | | | | | | | | | | | | | | | | | | | | | | | | | | | | | | | | | | | +--------+--------+--------+--------+--------+--------+--------+--------+ | 03/12/ | BMP, | | 84 | mL/min | 90-120 | low | | | 2021 | serum | | | | | | | | | or | | | | | | | | | plasma | | | | | | | | | | | | | | | | | | | | | | | | | | | | | | | | | | | | | eGFR | | | | | Nation | | | | joie | | | | | al | | | | n | | | | | Park | | | | americ | | | | | [facility] | | | | an | | | | | l | | | | | | | | | Center | | | | | | | | | | | | | | | | | | | | | | | | | | | | | | | | | | | | | | | | | | | | | | | | | | | | | | | | | | | | | | | | | | | | | | | | | | | | | | | | | | | | | | | | | | | | | | | | | | | | | | | | | | | | | | | | | | | | | | | | | | | | | | | | | | | | | | | 1909 | | | | | | | | | [address] | | | | | | | | | [address], | | | | | | | | | Hot | | | | | | | | | Spring | | | | | | | | | s, [place], | | | | | | | | | | | | | | | | | | [address]- | | | | | | | | | [address]752, | | | | | | | | | Ph | | | | | | | | | (501) | | | | | | | | | 321[address]10 | | | | | | | | | 00 | | | | | | | | | | | | | | | | | | | | | | | | | | | | | | | | | | | | | | | | | | | | | | | | | | | | | | | | | | | | | | | | | | | | | | | | | | | | | | | | | | | | | | | | | | | | | | | | | | | | +--------+--------+--------+--------+--------+--------+--------+--------+ | 03/12/ | BMP, | | 69 | mL/min | 90-120 | low | | | 2021 | serum | | | | | | | | | or | | | | | | | | | plasma | | | | | | | | | | | | | | | | | | | | | | | | | | | | | | | | | | | | | eGFR | | | | | Nation | | | | non-af | | | | | al | | | | rican | | | | | Park | | | | americ | | | | | Medica | | | | an | | | | | l | | | | | | | | | Center | | | | | | | | | | | | | | | | | | | | | | | | | | | | | | | | | | | | | | | | | | | | | | | | | | | | | | | | | | | | | | | | | | | | | | | | | | | | | | | | | | | | | | | | | | | | | | | | | | | | | | | | | | | | | | | | | | | | | | | | | | | | | | | | | | | | | | | 1909 | | | | | | | | | [address] | | | | | | | | | [address], | | | | | | | | | Hot | | | | | | | | | Spring | | | | | | | | | s, [place], | | | | | | | | | | | | | | | | | | [address]- | | | | | | | | | [address], | | | | | | | | | Ph | | | | | | | | | (501) | | | | | | | | | 321[address]10 | | | | | | | | | 00 | | | | | | | | | | | | | | | | | | | | | | | | | | | | | | | | | | | | | | | | | | | | | | | | | | | | | | | | | | | | | | | | | | | | | | | | | | | | | | | | | | | | | | | | | | | | | | | | | | | | +--------+--------+--------+--------+--------+--------+--------+--------+ | 03/12/ | BMP, | | 286 | mg/dL | 74-106 | high | | | 2021 | serum | | | | | | | | | or | | | | | | | | | plasma | | | | | | | | | | | | | | | | | | | | | | | | | | | | | | | | | | | | | glucos | | | | | Nation | | | | e | | | | | al | | | | serpl- | | | | | Park | | | | [facility] | | | | | [facility] | | | | | | | | | l | | | | | | | | | Center | | | | | | | | | | | | | | | | | | | | | | | | | | | | | | | | | | | | | | | | | | | | | | | | | | | | | | | | | | | | | | | | | | | | | | | | | | | | | | | | | | | | | | | | | | | | | | | | | | | | | | | | | | | | | | | | | | | | | | | | | | | | | | | | | | | | | | | 1910 | | | | | | | | | [address] | | | | | | | | | [address], | | | | | | | | | Hot | | | | | | | | | Spring | | | | | | | | | s, [place], | | | | | | | | | | | | | | | | | | [address]- | | | | | | | | | [address]752, | | | | | | | | | Ph | | | | | | | | | (501) | | | | | | | | | 321[address]10 | | | | | | | | | 00 | | | | | | | | | | | | | | | | | | | | | | | | | | | | | | | | | | | | | | | | | | | | | | | | | | | | | | | | | | | | | | | | | | | | | | | | | | | | | | | | | | | | | | | | | | | | | | | | | | | | +--------+--------+--------+--------+--------+--------+--------+--------+ | 03/12/ | BMP, | | 4.2 | mmol/L | 3.5-5. | normal | | | 2021 | serum | | | | 1 | | | | | or | | | | | | | | | plasma | | | | | | | | | | | | | | | | | | | | | | | | | | | | | | | | | | | | | potass | | | | | Nation | | | | ium | | | | | al | | | | ser/pl | | | | | Park | | | | as | | | | | Medica | | | | | | | | | l | | | | | | | | | Center | | | | | | | | | | | | | | | | | | | | | | | | | | | | | | | | | | | | | | | | | | | | | | | | | | | | | | | | | | | | | | | | | | | | | | | | | | | | | | | | | | | | | | | | | | | | | | | | | | | | | | | | | | | | | | | | | | | | | | | | | | | | | | | | | | | | | | | 1910 | | | | | | | | | [address] | | | | | | | | [address], | | | | | | | | | Hot | | | | | | | | | Spring | | | | | | | | | s, [place], | | | | | | | | | | | | | | | | | | [address]- | | | | | | | | | [address]752, | | | | | | | | | Ph | | | | | | | | | (501) | | | | | | | | | 321-10 | | | | | | | | | 00 | | | | | | | | | | | | | | | | | | | | | | | | | | | | | | | | | | | | | | | | | | | | | | | | | | | | | | | | | | | | | | | | | | | | | | | | | | | | | | | | | | | | | | | | | | | | | | | | | | | | +--------+--------+--------+--------+--------+--------+--------+--------+ | 03/12/ | BMP, | | 121 | mmol/L | 136-14 | low | | | 2021 | serum | | | | 5 | | | | | or | | | | | | | | | plasma | | | | | | | | | | | | | | | | | | | | | | | | | | | | | | | | | | | | | sodium | | | | | Nation | | | | | | | | | al | | | | serpl- | | | | | Park | | | | scnc | | | | | Medica | | | | | | | | | l | | | | | | | | | Center | | | | | | | | | | | | | | | | | | | | | | | | | | | | | | | | | | | | | | | | | | | | | | | | | | | | | | | | | | | | | | | | | | | | | | | | | | | | | | | | | | | | | | | | | | | | | | | | | | | | | | | | | | | | | | | | | | | | | | | | | | | | | | | | | | | | | | | [address] | | | | | | | | | [address] | [address], | | | | | | | | | Hot | | | | | | | | | Spring | | | | | | | | | s, [place], | | | | | | | | | | | | | | | | | | [address]- | | | | | | | | | [address]752, | | | | | | | | | Ph | | | | | | | | | (501) | | | | | | | | | 321[address]10 | | | | | | | | | 00 | | | | | | | | | | | | | | | | | | | | | | | | | | | | | | | | | | | | | | | | | | | | | | | | | | | | | | | | | | | | | | | | | | | | | | | | | | | | | | | | | | | | | | | | | | | | | | | | | | | | +--------+--------+--------+--------+--------+--------+--------+--------+ | 03/16/ | CBC w/ | | 0.1 | % | 0-2 | normal | | | 2021 | auto | | | | | | | | | diff | | | | | | | | | | | | | | | | | | | | | | | | | | | | | | | | | | | | | | | | | | | | | | basoph | | | | | Nation | | | | il % | | | | | al | | | | | | | | | Park | | | | | | | | | Medica | | | | | | | | | l | | | | | | | | | Center | | | | | | | | | | | | | | | | | | | | | | | | | | | | | | | | | | | | | | | | | | | | | | | | | | | | | | | | | | | | | | | | | | | | | | | | | | | | | | | | | | | | | | | | | | | | | | | | | | | | | | | | | | | | | | | | | | | | | | | | | | | | | | | | | | | | | | | 1910 | | | | | | | | | [address] | | | | | | | | | [address], | | | | | | | | | Hot | | | | | | | | | Spring | | | | | | | | | s, [place], | | | | | | | | | | | | | | | | | | [address]- | | | | | | | | | [address], | | | | | | | | | Ph | | | | | | | | | (501) | | | | | | | | | 321[address]10 | | | | | | | | | 00 | | | | | | | | | | | | | | | | | | | | | | | | | | | | | | | | | | | | | | | | | | | | | | | | | | | | | | | | | | | | | | | | | | | | | | | | | | | | | | | | | | | | | | | | | | | | | | | | | | | | +--------+--------+--------+--------+--------+--------+--------+--------+ | 03/16/ | CBC w/ | | 0.6 | % | 0-7 | normal | | | 2021 | auto | | | | | | | | | diff | | | | | | | | | | | | | | | | | | | | | | | | | | | | | | | | | | | | | | | | | | | | | | eosino | | | | | Nation | | | | phils | | | | | al | | | | | | | | | Park | | | | | | | | | Medica | | | | | | | | | l | | | | | | | | | Center | | | | | | | | | | | | | | | | | | | | | | | | | | | | | | | | | | | | | | | | | | | | | | | | | | | | | | | | | | | | | | | | | | | | | | | | | | | | | | | | | | | | | | | | | | | | | | | | | | | | | | | | | | | | | | | | | | | | | | | | | | | | | | | | | | | | | | | 1910 | | | | | | | | | [address] | | | | | | | | | [address], | | | | | | | | | Hot | | | | | | | | | Spring | | | | | | | | | s, [place], | | | | | | | | | | | | | | | | | | [address]- | | | | | | | | | [address], | | | | | | | | | Ph | | | | | | | | | (501) | | | | | | | | | [address] | | | | | | | | | 00 | | | | | | | | | | | | | | | | | | | | | | | | | | | | | | | | | | | | | | | | | | | | | | | | | | | | | | | | | | | | | | | | | | | | | | | | | | | | | | | | | | | | | | | | | | | | | | | | | | | | +--------+--------+--------+--------+--------+--------+--------+--------+ | 03/16/ | CBC w/ | | 42.6 | % | 36.0-4 | normal | | | 2021 | auto | | | | 8.0 | | | | | diff | | | | | | | | | | | | | | | | | | | | | | | | | | | | | | | | | | | | | | | | | | | | | | HCT | | | | | Nation | | | | vfr | | | | | al | | | | bld | | | | | Park | | | | auto | | | | | [facility] | | | | | | | | | l | | | | | | | | | Center | | | | | | | | | | | | | | | | | | | | | | | | | | | | | | | | | | | | | | | | | | | | | | | | | | | | | | | | | | | | | | | | | | | | | | | | | | | | | | | | | | | | | | | | | | | | | | | | | | | | | | | | | | | | | | | | | | | | | | | | | | | | | | | | | | | | | | | 1909 | | | | | | | | | [address] | | | [address] | | | | | | | | | Hot | | | | | | | | | Spring | | | | | | | | | s, [place], | | | | | | | | | | | | | | | | | | [id number]- | | | | | | | | | 7752, | | | | | | | | | Ph | | | | | | | | | (501) | | | | | | | | | 321-10 | | | | | | | | | 00 | | | | | | | | | | | | | | | | | | | | | | | | | | | | | | | | | | | | | | | | | | | | | | | | | | | | | | | | | | | | | | | | | | | | | | | | | | | | | | | | | | | | | | | | | | | | | | | | | | | | +--------+--------+--------+--------+--------+--------+--------+--------+ | 03/16/ | CBC w/ | | 13.4 | g/dL | 12-16 | normal | | | 2021 | auto | | | | | | | | | diff | | | | | | | | | | | | | | | | | | | | | | | | | | | | | | | | | | | | | | | | | | | | | | hemogl | | | | | Nation | | | | obin | | | | | al | | | | | | | | | Park | | | | | | | | | [facility] | | | | | | | | | l | | | | | | | | | Center | | | | | | | | | | | | | | | | | | | | | | | | | | | | | | | | | | | | | | | | | | | | | | | | | | | | | | | | | | | | | | | | | | | | | | | | | | | | | | | | | | | | | | | | | | | | | | | | | | | | | | | | | | | | | | | | | | | | | | | | | | | | | | | | | | | | | | | [address] | | | | | | | | | [address] | | | | | | | | | Hot | | | | | | | | | Spring | | | | | | | | | s, [place], | | | | | | | | | | | | | | | | | | [address]- | | | | | | | | | 7752, | | | | | | | | | Ph | | | | | | | | | (501) | | | | | | | | | 321-10 | | | | | | | | | 00 | | | | | | | | | | | | | | | | | | | | | | | | | | | | | | | | | | | | | | | | | | | | | | | | | | | | | | | | | | | | | | | | | | | | | | | | | | | | | | | | | | | | | | | | | | | | | | | | | | | | +--------+--------+--------+--------+--------+--------+--------+--------+ | 03/16/ | CBC w/ | | 0.3 | % | 0-5 | normal | | | 2021 | auto | | 0.3 | | | | | | | diff | | | | | | | | | | | | | | | | | | | | | | | | | | | | | | | | | | | | | | | | | | | | | | imm | | | | | Nation | | | | granul | | | | | al | | | | ocytes | | | | | Park | | | | bld | | | | | [facility] | | | | ql | | | | | l | | | | auto | | | | | Center | | | | | | | | | | | | | | | | | | | | | | | | | | | | | | | | | | | | | | | | | | | | | | | | | | | | | | | | | | | | | | | | | | | | | | | | | | | | | | | | | | | | | | | | | | | | | | | | | | | | | | | | | | | | | | | | | | | | | | | | | | | | | | | | | | | | | | | [address] | | | | | | | | | [address] | | | | | | | | | Hot | | | | | | | | | Spring | | | | | | | | | s, [place], | | | | | | | | | | | | | | | | | | [address]- | | | | | | | | | [address], | | | | | | | | | Ph | | | | | | | | | (501) | | | | | | | | | 321[address]10 | | | | | | | | | 00 | | | | | | | | | | | | | | | | | | | | | | | | | | | | | | | | | | | | | | | | | | | | | | | | | | | | | | | | | | | | | | | | | | | | | | | | | | | | | | | | | | | | | | | | | | | | | | | | | | | | +--------+--------+--------+--------+--------+--------+--------+--------+ | 03/16/ | CBC w/ | | 2.05 | 10x3/u | 1.18-3 | normal | | | 2021 | auto | | | L | .74 | | | | | diff | | | | | | | | | | | | | | | | | | | | | | | | | | | | | | | | | | | | | | | | | | | | | | absolu | | | | | Nation | | | | te | | | | | al | | | | lympho | | | | | Park | | | | cyte | | | | | [facility] | | | | count | | | | | l | | | | | | | | | Center | | | | | | | | | | | | | | | | | | | | | | | | | | | | | | | | | | | | | | | | | | | | | | | | | | | | | | | | | | | | | | | | | | | | | | | | | | | | | | | | | | | | | | | | | | | | | | | | | | | | | | | | | | | | | | | | | | | | | | | | | | | | | | | | | | | | | | | [address] | | | | | | | | | [address] | | | | | | | | | Hot | | | | | | | | | Spring | | | | | | | | | s, [place], | | | | | | | | | | | | | | | | | | [address]- | | | | | | | | | [address], | | | | | | | | | Ph | | | | | | | | | (501) | | | | | | | | | 321[address]10 | | | | | | | | | 00 | | | | | | | | | | | | | | | | | | | | | | | | | | | | | | | | | | | | | | | | | | | | | | | | | | | | | | | | | | | | | | | | | | | | | | | | | | | | | | | | | | | | | | | | | | | | | | | | | | | | +--------+--------+--------+--------+--------+--------+--------+--------+ | 03/16/ | CBC w/ | | 13.1 | % | 15-50 | low | | | 2021 | auto | | | | | | | | | diff | | | | | | | | | | | | | | | | | | | | | | | | | | | | | | | | | | | | | | | | | | | | | | lympho | | | | | Nation | | | | cytes | | | | | al | | | | | | | | | Park | | | | | | | | | [facility] | | | | | | | | | l | | | | | | | | | Center | | | | | | | | | | | | | | | | | | | | | | | | | | | | | | | | | | | | | | | | | | | | | | | | | | | | | | | | | | | | | | | | | | | | | | | | | | | | | | | | | | | | | | | | | | | | | | | | | | | | | | | | | | | | | | | | | | | | | | | | | | | | | | | | | | | | | | | 1909 | | | | | | | | | [address] | | | | | | | | | Hot | | | | | | | | | Spring | | | | | | | | | s, [place], | | | | | | | | | | | | | | | | | | [address]- | | | | | | | | | [address], | | | | | | | | | Ph | | | | | | | | | (501) | | | | | | | | | 321[address]10 | | | | | | | | | 00 | | | | | | | | | | | | | | | | | | | | | | | | | | | | | | | | | | | | | | | | | | | | | | | | | | | | | | | | | | | | | | | | | | | | | | | | | | | | | | | | | | | | | | | | | | | | | | | | | | | | +--------+--------+--------+--------+--------+--------+--------+--------+ | 03/16/ | CBC w/ | | 28.1 | pg | 26.0-3 | normal | | | 2021 | auto | | | | 4.0 | | | | | diff | | | | | | | | | | | | | | | | | | | | | | | | | | | | | | | | | | | | | | | | | | | | | | [facility] | | | | | Nation | | | | | | | | | al | | | | | | | | | Park | | | | | | | | | [facility] | | | | | | | | | l | | | | | | | | | Center | | | | | | | | | | | | | | | | | | | | | | | | | | | | | | | | | | | | | | | | | | | | | | | | | | | | | | | | | | | | | | | | | | | | | | | | | | | | | | | | | | | | | | | | | | | | | | | | | | | | | | | | | | | | | | | | | | | | | | | | | | | | | | | | | | | | | | | 1909 | | | | | | | | | [address] | | | | | | [address] | [address], | | | | | | | | | Hot | | | | | | | | | Spring | | | | | | | | | s, [place], | | | | | | | | | | | | | | | | | | [address]- | | | | | | | | | [address]752, | | | | | | | | | Ph | | | | | | | | | (501) | | | | | | | | | 321-10 | | | | | | | | | 00 | | | | | | | | | | | | | | | | | | | | | | | | | | | | | | | | | | | | | | | | | | | | | | | | | | | | | | | | | | | | | | | | | | | | | | | | | | | | | | | | | | | | | | | | | | | | | | | | | | | | +--------+--------+--------+--------+--------+--------+--------+--------+ | 03/16/ | CBC w/ | | 31.5 | g/dL | 31.0-3 | normal | | | 2021 | auto | | | | 7.0 | | | | | diff | | | | | | | | | | | | | | | | | | | | | | | | | | | | | | | | | | | | | | | | | | | | | | [facility] | | | | | Nation | | | | RBC | | | | | al | | | | auto-m | | | | | Park | | | | cnc | | | | | [facility] | | | | | | | | | l | | | | | | | | | Center | | | | | | | | | | | | | | | | | | | | | | | | | | | | | | | | | | | | | | | | | | | | | | | | | | | | | | | | | | | | | | | | | | | | | | | | | | | | | | | | | | | | | | | | | | | | | | | | | | | | | | | | | | | | | | | | | | | | | | | | | | | | | | | | | | | | | | | 1910 | | | | | | | | | [address] | | | | | | | | | [address], | | | | | | | | | Hot | | | | | | | | | Spring | | | | | | | | | s, [place], | | | | | | | | | | | | | | | | | | [address]- | | | | | | | | | 7752, | | | | | | | | | Ph | | | | | | | | | (501) | | | | | | | | | 321-10 | | | | | | | | | 00 | | | | | | | | | | | | | | | | | | | | | | | | | | | | | | | | | | | | | | | | | | | | | | | | | | | | | | | | | | | | | | | | | | | | | | | | | | | | | | | | | | | | | | | | | | | | | | | | | | | | +--------+--------+--------+--------+--------+--------+--------+--------+ | 03/16/ | CBC w/ | | 89.3 | fL | 80.0-1 | normal | | | 2021 | auto | | | | 00.0 | | | | | diff | | | | | | | | | | | | | | | | | | | | | | | | | | | | | | | | | | | | | | | | | | | | | | MCV | | | | | Nation | | | | | | | | | al | | | | | | | | | Park | | | | | | | | | Medica | | | | | | | | | l | | | | | | | | | Center | | | | | | | | | | | | | | | | | | | | | | | | | | | | | | | | | | | | | | | | | | | | | | | | | | | | | | | | | | | | | | | | | | | | | | | | | | | | | | | | | | | | | | | | | | | | | | | | | | | | | | | | | | | | | | | | | | | | | | | | | | | | | | | | | | | | | | | 1909 | | | | | | | | | [address] | | | | | | | | | [address], | | | | | | | | | Hot | | | | | | | | | Spring | | | | | | | | | s, [place], | | | | | | | | | | | | | | | | | | [address]- | | | | | | | | | [address]752, | | | | | | | | | Ph | | | | | | | | | (501) | | | | | | | | | 321-10 | | | | | | | | | 00 | | | | | | | | | | | | | | | | | | | | | | | | | | | | | | | | | | | | | | | | | | | | | | | | | | | | | | | | | | | | | | | | | | | | | | | | | | | | | | | | | | | | | | | | | | | | | | | | | | | | +--------+--------+--------+--------+--------+--------+--------+--------+ | 03/16/ | CBC w/ | | 9.0 | % | 2-11 | normal | | | 2021 | auto | | | | | | | | | diff | | | | | | | | | | | | | | | | | | | | | | | | | | | | | | | | | | | | | | | | | | | | | | monocy | | | | | Nation | | | | dl | | | | | al | | | | | | | | | Park | | | | | | | | | Medica | | | | | | | | | l | | | | | | | | | Center | | | | | | | | | | | | | | | | | | | | | | | | | | | | | | | | | | | | | | | | | | | | | | | | | | | | | | | | | | | | | | | | | | | | | | | | | | | | | | | | | | | | | | | | | | | | | | | | | | | | | | | | | | | | | | | | | | | | | | | | | | | | | | | | | | | | | | | 1909 | | | | | | | | | [address] | | | | | | | | | [address], | | | | | | | | | Hot | | | | | | | | | Spring | | | | | | | | | s, [place], | | | | | | | | | | | | | | | | | | [address]- | | | | | | | | | [address]752, | | | | | | | | | Ph | | | | | | | | | (501) | | | | | | | | | 321-10 | | | | | | | | | 00 | | | | | | | | | | | | | | | | | | | | | | | | | | | | | | | | | | | | | | | | | | | | | | | | | | | | | | | | | | | | | | | | | | | | | | | | | | | | | | | | | | | | | | | | | | | | | | | | | | | | +--------+--------+--------+--------+--------+--------+--------+--------+ | 03/16/ | CBC w/ | | 9.6 | fL | 7.4-10 | normal | | | 2021 | auto | | | | .4 | | | | | diff | | | | | | | | | | | | | | | | | | | | | | | | | | | | | | | | | | | | | | | | | | | | | | mean | | | | | Nation | | | | platel | | | | | al | | | | et | | | | | Park | | | | volume | | | | | [facility] | | | | | | | | | l | | | | | | | | | Center | | | | | | | | | | | | | | | | | | | | | | | | | | | | | | | | | | | | | | | | | | | | | | | | | | | | | | | | | | | | | | | | | | | | | | | | | | | | | | | | | | | | | | | | | | | | | | | | | | | | | | | | | | | | | | | | | | | | | | | | | | | | | | | | | | | | | | | 1909 | | | | | | | | | [address] | | | | | | | | | [address], | | | | | | | | | Hot | | | | | | | | | Spring | | | | | | | | | s, [place], | | | | | | | | | | | | | | | | | | [address]- | | | | | | | | | [address]752, | | | | | | | | | Ph | | | | | | | | | (501) | | | | | | | | | 321-10 | | | | | | | | | 00 | | | | | | | | | | | | | | | | | | | | | | | | | | | | | | | | | | | | | | | | | | | | | | | | | | | | | | | | | | | | | | | | | | | | | | | | | | | | | | | | | | | | | | | | | | | | | | | | | | | | +--------+--------+--------+--------+--------+--------+--------+--------+ | 03/16/ | CBC w/ | | 11.99 | 10x3/u | 1.56-6 | high | | | 2021 | auto | | | L | .13 | | | | | diff | | | | | | | | | | | | | | | | | | | | | | | | | | | | | | | | | | | | | | | | | | | | | | neutro | | | | | Nation | | | | norma | | | | | al | | | | abs# | | | | | Park | | | | | | | | | [facility] | | | | | | | | | l | | | | | | | | | Center | | | | | | | | | | | | | | | | | | | | | | | | | | | | | | | | | | | | | | | | | | | | | | | | | | | | | | | | | | | | | | | | | | | | | | | | | | | | | | | | | | | | | | | | | | | | | | | | | | | | | | | | | | | | | | | | | | | | | | | | | | | | | | | | | | | | | | | 1909 | | | | | | | | | [address] | | | | | | | | | [address], | | | | | | | | | Hot | | | | | | | | | Spring | | | | | | | | | s, [place], | | | | | | | | | | | | | | | | | | [address]- | | | | | | | | | [address]752, | | | | | | | | | Ph | | | | | | | | | (501) | | | | | | | | | 321-10 | | | | | | | | | 00 | | | | | | | | | | | | | | | | | | | | | | | | | | | | | | | | | | | | | | | | | | | | | | | | | | | | | | | | | | | | | | | | | | | | | | | | | | | | | | | | | | | | | | | | | | | | | | | | | | | | +--------+--------+--------+--------+--------+--------+--------+--------+ | 03/16/ | CBC w/ | | 76.9 | % | 40-80 | normal | | | 2021 | auto | | | | | | | | | diff | | | | | | | | | | | | | | | | | | | | | | | | | | | | | | | | | | | | | | | | | | | | | | neutro | | | | | Nation | | | | phils | | | | | al | | | | nfr | | | | | Park | | | | bld | | | | | [facility] | | | | auto | | | | | l | | | | | | | | | Center | | | | | | | | | | | | | | | | | | | | | | | | | | | | | | | | | | | | | | | | | | | | | | | | | | | | | | | | | | | | | | | | | | | | | | | | | | | | | | | | | | | | | | | | | | | | | | | | | | | | | | | | | | | | | | | | | | | | | | | | | | | | | | | | | | | | | | | 1909 | | | | | | | | | [address] | | | | | | | | | [address], | | | | | | | | | Hot | | | | | | | | | Spring | | | | | | | | | s, [place], | | | | | | | | | | | | | | | | | | [address]- | | | | | | | | | [address]752, | | | | | | | | | Ph | | | | | | | | | (501) | | | | | | | | | 321[address]10 | | | | | | | | | 00 | | | | | | | | | | | | | | | | | | | | | | | | | | | | | | | | | | | | | | | | | | | | | | | | | | | | | | | | | | | | | | | | | | | | | | | | | | | | | | | | | | | | | | | | | | | | | | | | | | | | +--------+--------+--------+--------+--------+--------+--------+--------+ | 03/16/ | CBC w/ | | 289 | 10x3/u | 130-40 | normal | | | 2021 | auto | | | L | 0 | | | | | diff | | | | | | | | | | | | | | | | | | | | | | | | | | | | | | | | | | | | | | | | | | | | | | platel | | | | | Nation | | | | et # | | | | | al | | | | bld | | | | | Park | | | | auto | | | | | [facility] | | | | | | | | | l | | | | | | | | | Center | | | | | | | | | | | | | | | | | | | | | | | | | | | | | | | | | | | | | | | | | | | | | | | | | | | | | | | | | | | | | | | | | | | | | | | | | | | | | | | | | | | | | | | | | | | | | | | | | | | | | | | | | | | | | | | | | | | | | | | | | | | | | | | | | | | | | | | 1909 | | | | | | | | | [address] | | | | | | | | | [address], | | | | | | | | | Hot | | | | | | | | | Spring | | | | | | | | | s, [place], | | | | | | | | | | | | | | | | | | [address]- | | | | | | | | | [address]752, | | | | | | | | | Ph | | | | | | | | | (501) | | | | | | | | | 321[address]10 | | | | | | | | | 00 | | | | | | | | | | | | | | | | | | | | | | | | | | | | | | | | | | | | | | | | | | | | | | | | | | | | | | | | | | | | | | | | | | | | | | | | | | | | | | | | | | | | | | | | | | | | | | | | | | | | +--------+--------+--------+--------+--------+--------+--------+--------+ | 03/16/ | CBC w/ | | 4.77 | 10x6/u | 4.00-5 | normal | | | 2021 | auto | | | L | .40 | | | | | diff | | | | | | | | | | | | | | | | | | | | | | | | | | | | | | | | | | | | | | | | | | | | | | RBC # | | | | | Nation | | | | bld | | | | | al | | | | auto | | | | | Park | | | | | | | | | [facility] | | | | | | | | | l | | | | | | | | | Center | | | | | | | | | | | | | | | | | | | | | | | | | | | | | | | | | | | | | | | | | | | | | | | | | | | | | | | | | | | | | | | | | | | | | | | | | | | | | | | | | | | | | | | | | | | | | | | | | | | | | | | | | | | | | | | | | | | | | | | | | | | | | | | | | | | | | | | 1909 | | | | | | | | | [address] | | | | | | | | | [address], | | | | | | | | | Hot | | | | | | | | | Spring | | | | | | | | | s, [place], | | | | | | | | | | | | | | | | | | [address]- | | | | | | | | | [address]752, | | | | | | | | | Ph | | | | | | | | | (501) | | | | | | | | | 321[address]10 | | | | | | | | | 00 | | | | | | | | | | | | | | | | | | | | | | | | | | | | | | | | | | | | | | | | | | | | | | | | | | | | | | | | | | | | | | | | | | | | | | | | | | | | | | | | | | | | | | | | | | | | | | | | | | | | +--------+--------+--------+--------+--------+--------+--------+--------+ | 03/16/ | CBC w/ | | 15.6 | % | 11.5-1 | high | | | 2021 | auto | | | | 4.5 | | | | | diff | | | | | | | | | | | | | | | | | | | | | | | | | | | | | | | | | | | | | | | | | | | | | | RDW | | | | | Nation | | | | RBC | | | | | al | | | | auto-R | | | | | Park | | | | TO | | | | | [facility] | | | | | | | | | l | | | | | | | | | Center | | | | | | | | | | | | | | | | | | | | | | | | | | | | | | | | | | | | | | | | | | | | | | | | | | | | | | | | | | | | | | | | | | | | | | | | | | | | | | | | | | | | | | | | | | | | | | | | | | | | | | | | | | | | | | | | | | | | | | | | | | | | | | | | | | | | | | | 1909 | | | | | | | | | [address] | | | | | | | | | [address], | | | | | | | | | Hot | | | | | | | | | Spring | | | | | | | | | s, [place], | | | | | | | | | | | | | | | | | | [address]- | | | | | | | | | [address]752, | | | | | | | | | Ph | | | | | | | | | (501) | | | | | | | | | 321[address]10 | | | | | | | | | 00 | | | | | | | | | | | | | | | | | | | | | | | | | | | | | | | | | | | | | | | | | | | | | | | | | | | | | | | | | | | | | | | | | | | | | | | | | | | | | | | | | | | | | | | | | | | | | | | | | | | | +--------+--------+--------+--------+--------+--------+--------+--------+ | 03/16/ | CBC w/ | | 15.6 | 10x3/u | 4.8-10 | high | | | 2021 | auto | | | L | .8 | | | | | diff | | | | | | | | | | | | | | | | | | | | | | | | | | | | | | | | | | | | | | | | | | | | | | WBC | | | | | Nation | | | | | | | | | al | | | | | | | | | Park | | | | | | | | | [facility] | | | | | | | | | l | | | | | | | | | Center | | | | | | | | | | | | | | | | | | | | | | | | | | | | | | | | | | | | | | | | | | | | | | | | | | | | | | | | | | | | | | | | | | | | | | | | | | | | | | | | | | | | | | | | | | | | | | | | | | | | | | | | | | | | | | | | | | | | | | | | | | | | | | | | | | | | | | | 1909 | | | | | | | | | [address] | | | | | | | | | [address], | | | | | | | | | Hot | | | | | | | | | Spring | | | | | | | | | s, [place], | | | | | | | | | | | | | | | | | | [address]- | | | | | | | | | 7752, | | | | | | | | | Ph | | | | | | | | | (501) | | | | | | | | | 321[address]10 | | | | | | | | | 00 | | | | | | | | | | | | | | | | | | | | | | | | | | | | | | | | | | | | | | | | | | | | | | | | | | | | | | | | | | | | | | | | | | | | | | | | | | | | | | | | | | | | | | | | | | | | | | | | | | | | +--------+--------+--------+--------+--------+--------+--------+--------+ | 03/16/ | CMP, | | 3.0 | g/dL | 3.4-5. | low | | | 2021 | serum | | | | 0 | | | | | or | | | | | | | | | plasma | | | | | | | | | | | | | | | | | | | | | | | | | | | | | | | | | | | | | albumi | | | | | Nation | | | | n | | | | | al | | | | | | | | | Park | | | | | | | | | Medica | | | | | | | | | l | | | | | | | | | Center | | | | | | | | | | | | | | | | | | | | | | | | | | | | | | | | | | | | | | | | | | | | | | | | | | | | | | | | | | | | | | | | | | | | | | | | | | | | | | | | | | | | | | | | | | | | | | | | | | | | | | | | | | | | | | | | | | | | | | | | | | | | | | | | | | | | | | | [address] | | | | | | | | | [address] | | | | | | | | [address], | | | | | | | | | Hot | | | | | | | | | Spring | | | | | | | | | s, [place], | | | | | | | | | | | | | | | | | | [address]- | | | | | | | | | [address]752, | | | | | | | | | Ph | | | | | | | | | (501) | | | | | | | | | 321[address]10 | | | | | | | | | 00 | | | | | | | | | | | | | | | | | | | | | | | | | | | | | | | | | | | | | | | | | | | | | | | | | | | | | | | | | | | | | | | | | | | | | | | | | | | | | | | | | | | | | | | | | | | | | | | | | | | | +--------+--------+--------+--------+--------+--------+--------+--------+ | 03/16/ | CMP, | | 74 | U/L | 30-120 | normal | | | 2021 | serum | | | | | | | | | or | | | | | | | | | plasma | | | | | | | | | | | | | | | | | | | | | | | | | | | | | | | | | | | | | ALP | | | | | Nation | | | | serpl- | | | | | al | | | | ccnc | | | | | Park | | | | | | | | | [facility] | | | | | | | | | l | | | | | | | | | Center | | | | | | | | | | | | | | | | | | | | | | | | | | | | | | | | | | | | | | | | | | | | | | | | | | | | | | | | | | | | | | | | | | | | | | | | | | | | | | | | | | | | | | | | | | | | | | | | | | | | | | | | | | | | | | | | | | | | | | | | | | | | | | | | | | | | | | | 1910 | | | | | | | | | [address] | | | | | | | | | [address], | | | | | | | | | Hot | | | | | | | | | Spring | | | | | | | | | s, [place], | | | | | | | | | | | | | | | | | | [address]- | | | | | | | | | [address]752, | | | | | | | | | Ph | | | | | | | | | (501) | | | | | | | | | 321[address]10 | | | | | | | | | 00 | | | | | | | | | | | | | | | | | | | | | | | | | | | | | | | | | | | | | | | | | | | | | | | | | | | | | | | | | | | | | | | | | | | | | | | | | | | | | | | | | | | | | | | | | | | | | | | | | | | | +--------+--------+--------+--------+--------+--------+--------+--------+ | 03/16/ | CMP, | | 22 | U/L | 10-68 | normal | | | 2021 | serum | | | | | | | | | or | | | | | | | | | plasma | | | | | | | | | | | | | | | | | | | | | | | | | | | | | | | | | | | | | ALT | | | | | Nation | | | | (SGPT) | | | | | al | | | | | | | | | Park | | | | ser/pl | | | | | [facility] | | | | as | | | | | l | | | | | | | | | Center | | | | | | | | | | | | | | | | | | | | | | | | | | | | | | | | | | | | | | | | | | | | | | | | | | | | | | | | | | | | | | | | | | | | | | | | | | | | | | | | | | | | | | | | | | | | | | | | | | | | | | | | | | | | | | | | | | | | | | | | | | | | | | | | | | | | | | | 1910 | | | | | | | | | [address] | | | | | | | | | [address], | | | | | | | | | Hot | | | | | | | | | Spring | | | | | | | | | s, [place], | | | | | | | | | | | | | | | | | | [address]- | | | | | | | | | [address]752, | | | | | | | | | Ph | | | | | | | | | (501) | | | | | | | | | 321[address]10 | | | | | | | | | 00 | | | | | | | | | | | | | | | | | | | | | | | | | | | | | | | | | | | | | | | | | | | | | | | | | | | | | | | | | | | | | | | | | | | | | | | | | | | | | | | | | | | | | | | | | | | | | | | | | | | | +--------+--------+--------+--------+--------+--------+--------+--------+ | 03/16/ | CMP, | | 8.20 | mmol/L | 8-16 | normal | | | 2021 | serum | | | | | | | | | or | | | | | | | | | plasma | | | | | | | | | | | | | | | | | | | | | | | | | | | | | | | | | | | | | anion | | | | | Nation | | | | gap | | | | | al | | | | serpl- | | | | | Park | | | | scnc | | | | | [facility] | | | | | | | | | l | | | | | | | | | Center | | | | | | | | | | | | | | | | | | | | | | | | | | | | | | | | | | | | | | | | | | | | | | | | | | | | | | | | | | | | | | | | | | | | | | | | | | | | | | | | | | | | | | | | | | | | | | | | | | | | | | | | | | | | | | | | | | | | | | | | | | | | | | | | | | | | | | | 1909 | | | | | | | | | [address] | | | | | | | | | [address], | | | | | | | | | Hot | | | | | | | | | Spring | | | | | | | | | s, [place], | | | | | | | | | | | | | | | | | | [address]- | | | | | | | | | [address]752, | | | | | | | | | Ph | | | | | | | | | (501) | | | | | | | | | [address]10 | | | | | | | | | 00 | | | | | | | | | | | | | | | | | | | | | | | | | | | | | | | | | | | | | | | | | | | | | | | | | | | | | | | | | | | | | | | | | | | | | | | | | | | | | | | | | | | | | | | | | | | | | | | | | | | | +--------+--------+--------+--------+--------+--------+--------+--------+ | 03/16/ | CMP, | | 18 | U/L | 0-45 | normal | | | 2021 | serum | | | | | | | | | or | | | | | | | | | plasma | | | | | | | | | | | | | | | | | | | | | | | | | | | | | | | | | | | | | AST | | | | | Nation | | | | (SGOT) | | | | | al | | | | | | | | | Park | | | | | | | | | [facility] | | | | | | | | | l | | | | | | | | | Center | | | | | | | | | | | | | | | | | | | | | | | | | | | | | | | | | | | | | | | | | | | | | | | | | | | | | | | | | | | | | | | | | | | | | | | | | | | | | | | | | | | | | | | | | | | | | | | | | | | | | | | | | | | | | | | | | | | | | | | | | | | | | | | | | | | | | | | 1909 | | | | | | | | | [address] | | | | | | | | | Hot | | | | | | | | | Spring | | | | | | | | | s, [place], | | | | | | | | | | | | | | | | | | [address]- | | | | | | | | | [address], | | | | | | | | | Ph | | | | | | | | | (501) | | | | | | | | | 321[address]10 | | | | | | | | | 00 | | | | | | | | | | | | | | | | | | | | | | | | | | | | | | | | | | | | | | | | | | | | | | | | | | | | | | | | | | | | | | | | | | | | | | | | | | | | | | | | | | | | | | | | | | | | | | | | | | | | +--------+--------+--------+--------+--------+--------+--------+--------+ | 03/16/ | CMP, | | 11 | ratio | 10-20 | normal | | | 2021 | serum | | | | | | | | | or | | | | | | | | | plasma | | | | | | | | | | | | | | | | | | | | | | | | | | | | | | | | | | | | | BUN/cr | | | | | Nation | | | | e | | | | | al | | | | ratio | | | | | Park | | | | | | | | | [facility] | | | | | | | | | l | | | | | | | | | Center | | | | | | | | | | | | | | | | | | | | | | | | | | | | | | | | | | | | | | | | | | | | | | | | | | | | | | | | | | | | | | | | | | | | | | | | | | | | | | | | | | | | | | | | | | | | | | | | | | | | | | | | | | | | | | | | | | | | | | | | | | | | | | | | | | | | | | | 1909 | | | | | | | | | [address] | | | [address] | [address], | | | | | | | | | Hot | | | | | | | | | Spring | | | | | | | | | s, [place], | | | | | | | | | | | | | | | | | | [address]- | | | | | | | | | [address], | | | | | | | | | Ph | | | | | | | | | (501) | | | | | | | | | [address]10 | | | | | | | | | 00 | | | | | | | | | | | | | | | | | | | | | | | | | | | | | | | | | | | | | | | | | | | | | | | | | | | | | | | | | | | | | | | | | | | | | | | | | | | | | | | | | | | | | | | | | | | | | | | | | | | | +--------+--------+--------+--------+--------+--------+--------+--------+ | 03/16/ | CMP, | | 0.39 | mg/dL | 0.2-1. | normal | | | 2021 | serum | | | | 3 | | | | | or | | | | | | | | | plasma | | | | | | | | | | | | | | | | | | | | | | | | | | | | | | | | | | | | | biliru | | | | | Nation | | | | bin - | | | | | al | | | | total | | | | | Park | | | | | | | | | [facility] | | | | | | | | | l | | | | | | | | | Center | | | | | | | | | | | | | | | | | | | | | | | | | | | | | | | | | | | | | | | | | | | | | | | | | | | | | | | | | | | | | | | | | | | | | | | | | | | | | | | | | | | | | | | | | | | | | | | | | | | | | | | | | | | | | | | | | | | | | | | | | | | | | | | | | | | | | | | 1909 | | | | | | | | | [address] | | | | | | | | | [address], | | | | | | | | | Hot | | | | | | | | | Spring | | | | | | | | | s, [place], | | | | | | | | | | | | | | | | | | [address]- | | | | | | | | | [address], | | | | | | | | | Ph | | | | | | | | | (501) | | | | | | | | | [address] | | | | | | | | | 00 | | | | | | | | | | | | | | | | | | | | | | | | | | | | | | | | | | | | | | | | | | | | | | | | | | | | | | | | | | | | | | | | | | | | | | | | | | | | | | | | | | | | | | | | | | | | | | | | | | | | +--------+--------+--------+--------+--------+--------+--------+--------+ | 03/16/ | CMP, | | 10 | mg/dL | 7-18 | normal | | | 2021 | serum | | | | | | | | | or | | | | | | | | | plasma | | | | | | | | | | | | | | | | | | | | | | | | | | | | | | | | | | | | | BUN | | | | | Nation | | | | serpl- | | | | | al | | | | [facility] | | | | | Park | | | | | | | | | [facility] | | | | | | | | | l | | | | | | | | | Center | | | | | | | | | | | | | | | | | | | | | | | | | | | | | | | | | | | | | | | | | | | | | | | | | | | | | | | | | | | | | | | | | | | | | | | | | | | | | | | | | | | | | | | | | | | | | | | | | | | | | | | | | | | | | | | | | | | | | | | | | | | | | | | | | | | | | | | 1909 | | | | | | | | | [address] | | | | | [address] | [address], | | | | | | | | | Hot | | | | | | | | | Spring | | | | | | | | | s, [place], | | | | | | | | | | | | | | | | | | [address]- | | | | | | | | | [address], | | | | | | | | | Ph | | | | | | | | | (501) | | | | | | | | | [address] | | | | | | | | | 00 | | | | | | | | | | | | | | | | | | | | | | | | | | | | | | | | | | | | | | | | | | | | | | | | | | | | | | | | | | | | | | | | | | | | | | | | | | | | | | | | | | | | | | | | | | | | | | | | | | | | +--------+--------+--------+--------+--------+--------+--------+--------+ | 03/16/ | CMP, | | 7.8 | mg/dL | 8.5-10 | low | | | 2021 | serum | | | | .1 | | | | | or | | | | | | | | | plasma | | | | | | | | | | | | | | | | | | | | | | | | | | | | | | | | | | | | | calciu | | | | | Nation | | | | m | | | | | al | | | | serpl- | | | | | Park | | | | [facility] | | | | | [facility] | | | | | | | | | l | | | | | | | | | Center | | | | | | | | | | | | | | | | | | | | | | | | | | | | | | | | | | | | | | | | | | | | | | | | | | | | | | | | | | | | | | | | | | | | | | | | | | | | | | | | | | | | | | | | | | | | | | | | | | | | | | | | | | | | | | | | | | | | | | | | | | | | | | | | | | | | | | | [address] | | | | | | | | | [address] | | | [address] | | | | | | | | | Hot | | | | | | | | | Spring | | | | | | | | | s, [place], | | | | | | | | | | | | | | | | | | [address]- | | | | | | | | | [address], | | | | | | | | | Ph | | | | | | | | | (501) | | | | | | | | | [address] | | | | | | | | | 00 | | | | | | | | | | | | | | | | | | | | | | | | | | | | | | | | | | | | | | | | | | | | | | | | | | | | | | | | | | | | | | | | | | | | | | | | | | | | | | | | | | | | | | | | | | | | | | | | | | | | +--------+--------+--------+--------+--------+--------+--------+--------+ | 03/16/ | CMP, | | 103 | mmol/L | 98-107 | normal | | | 2021 | serum | | | | | | | | | or | | | | | | | | | plasma | | | | | | | | | | | | | | | | | | | | | | | | | | | | | | | | | | | | | chlori | | | | | Nation | | | | de | | | | | al | | | | ser/pl | | | | | Park | | | | as | | | | | [facility] | | | | | | | | | l | | | | | | | | | Center | | | | | | | | | | | | | | | | | | | | | | | | | | | | | | | | | | | | | | | | | | | | | | | | | | | | | | | | | | | | | | | | | | | | | | | | | | | | | | | | | | | | | | | | | | | | | | | | | | | | | | | | | | | | | | | | | | | | | | | | | | | | | | | | | | | | | | | [address] | | | | | | | | | [address] | | | | | | | | | Hot | | | | | | | | | Spring | | | | | | | | | s, [place], | | | | | | | | | | | | | | | | | | [address]- | | | | | | | | | [address], | | | | | | | | | Ph | | | | | | | | | (501) | | | | | | | | | [address] | | | | | | | | | 00 | | | | | | | | | | | | | | | | | | | | | | | | | | | | | | | | | | | | | | | | | | | | | | | | | | | | | | | | | | | | | | | | | | | | | | | | | | | | | | | | | | | | | | | | | | | | | | | | | | | | +--------+--------+--------+--------+--------+--------+--------+--------+ | 03/16/ | CMP, | | 28.1 | mmol/L | 21.0-3 | normal | | | 2021 | serum | | | | 2.0 | | | | | or | | | | | | | | | plasma | | | | | | | | | | | | | | | | | | | | | | | | | | | | | | | | | | | | | CO2 | | | | | Nation | | | | serpl- | | | | | al | | | | scnc | | | | | Park | | | | | | | | | Medica | | | | | | | | | l | | | | | | | | | Center | | | | | | | | | | | | | | | | | | | | | | | | | | | | | | | | | | | | | | | | | | | | | | | | | | | | | | | | | | | | | | | | | | | | | | | | | | | | | | | | | | | | | | | | | | | | | | | | | | | | | | | | | | | | | | | | | | | | | | | | | | | | | | | | | | | | | | | 1910 | | | | | | | | | [address] | | | | | | | | | [address], | | | | | | | | | Hot | | | | | | | | | Spring | | | | | | | | | s, [place], | | | | | | | | | | | | | | | | | | [address]- | | | | | | | | | 7752, | | | | | | | | | Ph | | | | | | | | | (501) | | | | | | | | | 321-10 | | | | | | | | | 00 | | | | | | | | | | | | | | | | | | | | | | | | | | | | | | | | | | | | | | | | | | | | | | | | | | | | | | | | | | | | | | | | | | | | | | | | | | | | | | | | | | | | | | | | | | | | | | | | | | | | +--------+--------+--------+--------+--------+--------+--------+--------+ | 03/16/ | CMP, | | 274 | mOsm/k | 275-30 | low | | | 2021 | serum | | | g | 0 | | | | | or | | | | | | | | | plasma | | | | | | | | | | | | | | | | | | | | | | | | | | | | | | | | | | | | | osmola | | | | | Nation | | | | lity | | | | | al | | | | serpl | | | | | Park | | | | calc | | | | | Medica | | | | | | | | | l | | | | | | | | | Center | | | | | | | | | | | | | | | | | | | | | | | | | | | | | | | | | | | | | | | | | | | | | | | | | | | | | | | | | | | | | | | | | | | | | | | | | | | | | | | | | | | | | | | | | | | | | | | | | | | | | | | | | | | | | | | | | | | | | | | | | | | | | | | | | | | | | | | 1909 | | | | | | | | | [address] | | | | | | | | | [address], | | | | | | | | | Hot | | | | | | | | | Spring | | | | | | | | | s, [place], | | | | | | | | | | | | | | | | | | [address]- | | | | | | | | | 7752, | | | | | | | | | Ph | | | | | | | | | (501) | | | | | | | | | 321-10 | | | | | | | | | 00 | | | | | | | | | | | | | | | | | | | | | | | | | | | | | | | | | | | | | | | | | | | | | | | | | | | | | | | | | | | | | | | | | | | | | | | | | | | | | | | | | | | | | | | | | | | | | | | | | | | | +--------+--------+--------+--------+--------+--------+--------+--------+ | 03/16/ | CMP, | | 0.9 | mg/dL | 0.6-1. | normal | | | 2021 | serum | | | | 3 | | | | | or | | | | | | | | | plasma | | | | | | | | | | | | | | | | | | | | | | | | | | | | | | | | | | | | | creat | | | | | Nation | | | | serpl- | | | | | al | | | | mcnc | | | | | Park | | | | | | | | | Medica | | | | | | | | | l | | | | | | | | | Center | | | | | | | | | | | | | | | | | | | | | | | | | | | | | | | | | | | | | | | | | | | | | | | | | | | | | | | | | | | | | | | | | | | | | | | | | | | | | | | | | | | | | | | | | | | | | | | | | | | | | | | | | | | | | | | | | | | | | | | | | | | | | | | | | | | | | | | 1909 | | | | | | | | | [address] | | | | | | | | | [address], | | | | | | | | | Hot | | | | | | | | | Spring | | | | | | | | | s, [place], | | | | | | | | | | | | | | | | | | [address]- | | | | | | | | | 7752, | | | | | | | | | Ph | | | | | | | | | (501) | | | | | | | | | 321-10 | | | | | | | | | 00 | | | | | | | | | | | | | | | | | | | | | | | | | | | | | | | | | | | | | | | | | | | | | | | | | | | | | | | | | | | | | | | | | | | | | | | | | | | | | | | | | | | | | | | | | | | | | | | | | | | | +--------+--------+--------+--------+--------+--------+--------+--------+ | 03/16/ | CMP, | | 84 | mL/min | 90-120 | low | | | 2021 | serum | | | | | | | | | or | | | | | | | | | plasma | | | | | | | | | | | | | | | | | | | | | | | | | | | | | | | | | | | | | eGFR | | | | | Nation | | | | joie | | | | | al | | | | n | | | | | Park | | | | americ | | | | | Medica | | | | an | | | | | l | | | | | | | | | Center | | | | | | | | | | | | | | | | | | | | | | | | | | | | | | | | | | | | | | | | | | | | | | | | | | | | | | | | | | | | | | | | | | | | | | | | | | | | | | | | | | | | | | | | | | | | | | | | | | | | | | | | | | | | | | | | | | | | | | | | | | | | | | | | | | | | | | | 1909 | | | | | | | | | [address] | | | | | | | | | [address], | | | | | | | | | Hot | | | | | | | | | Spring | | | | | | | | | s, [place], | | | | | | | | | | | | | | | | | | [address]- | | | | | | | | | 7752, | | | | | | | | | Ph | | | | | | | | | (501) | | | | | | | | | 321-10 | | | | | | | | | 00 | | | | | | | | | | | | | | | | | | | | | | | | | | | | | | | | | | | | | | | | | | | | | | | | | | | | | | | | | | | | | | | | | | | | | | | | | | | | | | | | | | | | | | | | | | | | | | | | | | | | +--------+--------+--------+--------+--------+--------+--------+--------+ | 03/16/ | CMP, | | 69 | mL/min | 90-120 | low | | | 2021 | serum | | | | | | | | | or | | | | | | | | | plasma | | | | | | | | | | | | | | | | | | | | | | | | | | | | | | | | | | | | | eGFR | | | | | Nation | | | | non-af | | | | | al | | | | rican | | | | | Park | | | | americ | | | | | Medica | | | | an | | | | | l | | | | | | | | | Center | | | | | | | | | | | | | | | | | | | | | | | | | | | | | | | | | | | | | | | | | | | | | | | | | | | | | | | | | | | | | | | | | | | | | | | | | | | | | | | | | | | | | | | | | | | | | | | | | | | | | | | | | | | | | | | | | | | | | | | | | | | | | | | | | | | | | | | 1909 | | | | | | | | | [address] | | | | | | | | | [address], | | | | | | | | | Hot | | | | | | | | | Spring | | | | | | | | | s, [place], | | | | | | | | | | | | | | | | | | [address]- | | | | | | | | | 7752, | | | | | | | | | Ph | | | | | | | | | (501) | | | | | | | | | 321-10 | | | | | | | | | 00 | | | | | | | | | | | | | | | | | | | | | | | | | | | | | | | | | | | | | | | | | | | | | | | | | | | | | | | | | | | | | | | | | | | | | | | | | | | | | | | | | | | | | | | | | | | | | | | | | | | | +--------+--------+--------+--------+--------+--------+--------+--------+ | 03/16/ | CMP, | | 3.5 | g/L | | | | | 2021 | serum | | | | | | | | | or | | | | | | | | | plasma | | | | | | | | | | | | | | | | | | | | | | | | | | | | | | | | | | | | | globul | | | | | Nation | | | | in ser | | | | | al | | | | | | | | | Park | | | | calc-m | | | | | Medica | | | | cnc | | | | | l | | | | | | | | | Center | | | | | | | | | | | | | | | | | | | | | | | | | | | | | | | | | | | | | | | | | | | | | | | | | | | | | | | | | | | | | | | | | | | | | | | | | | | | | | | | | | | | | | | | | | | | | | | | | | | | | | | | | | | | | | | | | | | | | | | | | | | | | | | | | | | | | | | 1909 | | | | | | | | | [address] | | | | | | | | | [address], | | | | | | | | | Hot | | | | | | | | | Spring | | | | | | | | | s, [place], | | | | | | | | | | | | | | | | | | [address]- | | | | | | | | | 7752, | | | | | | | | | Ph | | | | | | | | | (501) | | | | | | | | | 321[address]10 | | | | | | | | | 00 | | | | | | | | | | | | | | | | | | | | | | | | | | | | | | | | | | | | | | | | | | | | | | | | | | | | | | | | | | | | | | | | | | | | | | | | | | | | | | | | | | | | | | | | | | | | | | | | | | | | +--------+--------+--------+--------+--------+--------+--------+--------+ | 03/16/ | CMP, | | 212 | mg/dL | 74-106 | high | | | 2021 | serum | | | | | | | | | or | | | | | | | | | plasma | | | | | | | | | | | | | | | | | | | | | | | | | | | | | | | | | | | | | glucos | | | | | Nation | | | | e | | | | | al | | | | serpl- | | | | | Park | | | | mcnc | | | | | Medica | | | | | | | | | l | | | | | | | | | Center | | | | | | | | | | | | | | | | | | | | | | | | | | | | | | | | | | | | | | | | | | | | | | | | | | | | | | | | | | | | | | | | | | | | | | | | | | | | | | | | | | | | | | | | | | | | | | | | | | | | | | | | | | | | | | | | | | | | | | | | | | | | | | | | | | | | | | | 1909 | | | | | | | | | [address] | | | | | | | | | [address], | | | | | | | | | Hot | | | | | | | | | Spring | | | | | | | | | s, [place], | | | | | | | | | | | | | | | | | | [address]- | | | | | | | | | 7752, | | | | | | | | | Ph | | | | | | | | | (501) | | | | | | | | | 321-10 | | | | | | | | | 00 | | | | | | | | | | | | | | | | | | | | | | | | | | | | | | | | | | | | | | | | | | | | | | | | | | | | | | | | | | | | | | | | | | | | | | | | | | | | | | | | | | | | | | | | | | | | | | | | | | | | +--------+--------+--------+--------+--------+--------+--------+--------+ | 03/16/ | CMP, | | 4.3 | mmol/L | 3.5-5. | normal | | | 2021 | serum | | | | 1 | | | | | or | | | | | | | | | plasma | | | | | | | | | | | | | | | | | | | | | | | | | | | | | | | | | | | | | potass | | | | | Nation | | | | ium | | | | | al | | | | ser/pl | | | | | Park | | | | as | | | | | Medica | | | | | | | | | l | | | | | | | | | Center | | | | | | | | | | | | | | | | | | | | | | | | | | | | | | | | | | | | | | | | | | | | | | | | | | | | | | | | | | | | | | | | | | | | | | | | | | | | | | | | | | | | | | | | | | | | | | | | | | | | | | | | | | | | | | | | | | | | | | | | | | | | | | | | | | | | | | | 1909 | | | | | | | | | [address] | | | | | | | | | [address], | | | | | | | | | Hot | | | | | | | | | Spring | | | | | | | | | s, [place], | | | | | | | | | | | | | | | | | | [address]- | | | | | | | | | [address]752, | | | | | | | | | Ph | | | | | | | | | (501) | | | | | | | | | 321-10 | | | | | | | | | 00 | | | | | | | | | | | | | | | | | | | | | | | | | | | | | | | | | | | | | | | | | | | | | | | | | | | | | | | | | | | | | | | | | | | | | | | | | | | | | | | | | | | | | | | | | | | | | | | | | | | | +--------+--------+--------+--------+--------+--------+--------+--------+ | 03/16/ | CMP, | | 135 | mmol/L | 136-14 | low | | | 2021 | serum | | | | 5 | | | | | or | | | | | | | | | plasma | | | | | | | | | | | | | | | | | | | | | | | | | | | | | | | | | | | | | sodium | | | | | Nation | | | | | | | | | al | | | | serpl- | | | | | Park | | | | scnc | | | | | Medica | | | | | | | | | l | | | | | | | | | Center | | | | | | | | | | | | | | | | | | | | | | | | | | | | | | | | | | | | | | | | | | | | | | | | | | | | | | | | | | | | | | | | | | | | | | | | | | | | | | | | | | | | | | | | | | | | | | | | | | | | | | | | | | | | | | | | | | | | | | | | | | | | | | | | | | | | | | | 1909 | | | | | | | | | [address] | | | | | | | | | [address], | | | | | | | | | Hot | | | | | | | | | Spring | | | | | | | | | s, [place], | | | | | | | | | | | | | | | | | | [address]- | | | | | | | | | [address]752, | | | | | | | | | Ph | | | | | | | | | (501) | | | | | | | | | 321-10 | | | | | | | | | 00 | | | | | | | | | | | | | | | | | | | | | | | | | | | | | | | | | | | | | | | | | | | | | | | | | | | | | | | | | | | | | | | | | | | | | | | | | | | | | | | | | | | | | | | | | | | | | | | | | | | | +--------+--------+--------+--------+--------+--------+--------+--------+ | 03/16/ | CMP, | | 6.5 | g/dL | 6.4-8. | normal | | | 2021 | serum | | | | 2 | | | | | or | | | | | | | | | plasma | | | | | | | | | | | | | | | | | | | | | | | | | | | | | | | | | | | | | protei | | | | | Nation | | | | n | | | | | al | | | | total | | | | | Park | | | | ser/pl | | | | | Medica | | | | as | | | | | l | | | | | | | | | Center | | | | | | | | | | | | | | | | | | | | | | | | | | | | | | | | | | | | | | | | | | | | | | | | | | | | | | | | | | | | | | | | | | | | | | | | | | | | | | | | | | | | | | | | | | | | | | | | | | | | | | | | | | | | | | | | | | | | | | | | | | | | | | | | | | | | | | | 1909 | | | | | | | | | [address] | | | | | | | | | [address], | | | | | | | | | Hot | | | | | | | | | Spring | | | | | | | | | s, [place], | | | | | | | | | | | | | | | | | | [address]- | | | | | | | | | 7752, | | | | | | | | | Ph | | | | | | | | | (501) | | | | | | | | | 321-10 | | | | | | | | | 00 | | | | | | | | | | | | | | | | | | | | | | | | | | | | | | | | | | | | | | | | | | | | | | | | | | | | | | | | | | | | | | | | | | | | | | | | | | | | | | | | | | | | | | | | | | | | | | | | | | | | +--------+--------+--------+--------+--------+--------+--------+--------+ | 03/16/ | magnes | | 1.7 | mg/dL | 1.8-2. | low | | | 2021 | ium, | | | | 4 | | | | | serum | | | | | | | | | or | | | | | | | | | plasma | | | | | | | | | | | | | | | | | | | | | | | | | | | | magnes | | | | | Nation | | | | ium | | | | | al | | | | serpl- | | | | | Park | | | | mcnc | | | | | Medica | | | | | | | | | l | | | | | | | | | Center | | | | | | | | | | | | | | | | | | | | | | | | | | | | | | | | | | | | | | | | | | | | | | | | | | | | | | | | | | | | | | | | | | | | | | | | | | | | | | | | | | | | | | | | | | | | | | | | | | | | | | | | | | | | | | | | | | | | | | | | | | | | | | | | | | | | | | | [address] | | | | | | | | | [address] | | | | | | | | [address], | | | | | | | | | Hot | | | | | | | | | Spring | | | | | | | | | s, [place], | | | | | | | | | | | | | | | | | | [address]- | | | | | | | | | [address]752, | | | | | | | | | Ph | | | | | | | | | (501) | | | | | | | | | 321[address]10 | | | | | | | | | 00 | | | | | | | | | | | | | | | | | | | | | | | | | | | | | | | | | | | | | | | | | | | | | | | | | | | | | | | | | | | | | | | | | | | | | | | | | | | | | | | | | | | | | | | | | | | | | | | | | | | | +--------+--------+--------+--------+--------+--------+--------+--------+ | 03/16/ | phosph | | 4.4 | mg/dL | 2.5-4. | normal | | | 2021 | orus, | | | | 9 | | | | | serum | | | | | | | | | or | | | | | | | | | plasma | | | | | | | | | | | | | | | | | | | | | | | | | | | | phosph | | | | | Nation | | | | orous | | | | | al | | | | | | | | | Park | | | | | | | | | Medica | | | | | | | | | l | | | | | | | | | Center | | | | | | | | | | | | | | | | | | | | | | | | | | | | | | | | | | | | | | | | | | | | | | | | | | | | | | | | | | | | | | | | | | | | | | | | | | | | | | | | | | | | | | | | | | | | | | | | | | | | | | | | | | | | | | | | | | | | | | | | | | | | | | | | | | | | | | | [address] | | | | | | | | | [address] | | | | | | | | [address], | | | | | | | | | Hot | | | | | | | | | Spring | | | | | | | | | s, [place], | | | | | | | | | | | | | | | | | | [address]- | | | | | | | | | 7752, | | | | | | | | | Ph | | | | | | | | | (501) | | | | | | | | | 321[address]10 | | | | | | | | | 00 | | | | | | | | | | | | | | | | | | | | | | | | | | | | | | | | | | | | | | | | | | | | | | | | | | | | | | | | | | | | | | | | | | | | | | | | | | | | | | | | | | | | | | | | | | | | | | | | | | | | +--------+--------+--------+--------+--------+--------+--------+--------+ | 03/16/ | tropon | | < | NG/mL | 0.000- | normal | | | 2021 | in I, | | 0.017 | | 0.060 | | | | | serum | | | | | | | | | or | | | | | | | | | plasma | | | | | | | | | | | | | | | | | | | | | | | | | | | | tropon | | | | | Nation | | | | in I | | | | | al | | | | serpl- | | | | | Park | | | | mcnc | | | | | Medica | | | | | | | | | l | | | | | | | | | Center | | | | | | | | | | | | | | | | | | | | | | | | | | | | | | | | | | | | | | | | | | | | | | | | | | | | | | | | | | | | | | | | | | | | | | | | | | | | | | | | | | | | | | | | | | | | | | | | | | | | | | | | | | | | | | | | | | | | | | | | | | | | | | | | | | | | | | | 1910 | | | | | | | | | [address] | | | | | | | | [address], | | | | | | | | | Hot | | | | | | | | | Spring | | | | | | | | | s, [place], | | | | | | | | | | | | | | | | | | [address]- | | | | | | | | | 7752, | | | | | | | | | Ph | | | | | | | | | (501) | | | | | | | | | 321[address]10 | | | | | | | | | 00 | | | | | | | | | | | | | | | | | | | | | | | | | | | | | | | | | | | | | | | | | | | | | | | | | | | | | | | | | | | | | | | | | | | | | | | | | | | | | | | | | | | | | | | | | | | | | | | | | | | | +--------+--------+--------+--------+--------+--------+--------+--------+ | 03/17/ | glucos | | 233 | mg/dL | 70-110 | high | | | 2021 | e, | | | | | | | | | fastin | | | | | | | | | g, | | | | | | | | | finger | | | | | | | | | stick, | | | | | | | | | blood | | | | | | | | | | glucom | | | | | Nation | | | (point | eter - | | | | | al | | | of | fs | | | | | Park | | | care) | glucos | | | | | Medica | | | | e | | | | | l | | | | | | | | | Center | | | | | | | | | | | | | | | | | | | | | | | | | | | | | | | | | | | | | | | | | | | | | | | | | | | | | | | | | | | | | | | | | | | | | | | | | | | | | | | | | | | | | | | | | | | | | | | | | | | | | | | | | | | | | | | | | | | | | | | | | | | | | | | | | | | | | | | 1909 | | | | | | | | | [address] | | | | | | | | | [address], | | | | | | | | | Hot | | | | | | | | | Spring | | | | | | | | | s, [place], | | | | | | | | | | | | | | | | | | [address]- | | | | | | | | | 7752, | | | | | | | | | Ph | | | | | | | | | (501) | | | | | | | | | 321[address]10 | | | | | | | | | 00 | | | | | | | | | | | | | | | | | | | | | | | | | | | | | | | | | | | | | | | | | | | | | | | | | | | | | | | | | | | | | | | | | | | | | | | | | | | | | | | | | | | | | | | | | | | | | | | | | | | | +--------+--------+--------+--------+--------+--------+--------+--------+ | 03/17/ | glucos | | 173 | mg/dL | 70-110 | high | | | 2021 | e, | | | | | | | | | fastin | | | | | | | | | g, | | | | | | | | | finger | | | | | | | | | stick, | | | | | | | | | blood | | | | | | | | | | glucom | | | | | Nation | | | (point | eter - | | | | | al | | | of | fs | | | | | Park | | | care) | glucos | | | | | Medica | | | | e | | | | | l | | | | | | | | | Center | | | | | | | | | | | | | | | | | | | | | | | | | | | | | | | | | | | | | | | | | | | | | | | | | | | | | | | | | | | | | | | | | | | | | | | | | | | | | | | | | | | | | | | | | | | | | | | | | | | | | | | | | | | | | | | | | | | | | | | | | | | | | | | | | | | | | | | 1910 | | | | | | | | | [address] | | | | | | | | | [address], | | | | | | | | | Hot | | | | | | | | | Spring | | | | | | | | | s, [place], | | | | | | | | | | | | | | | | | | [address]- | | | | | | | | | 7752, | | | | | | | | | Ph | | | | | | | | | (501) | | | | | | | | | 321[address]10 | | | | | | | | | 00 | | | | | | | | | | | | | | | | | | | | | | | | | | | | | | | | | | | | | | | | | | | | | | | | | | | | | | | | | | | | | | | | | | | | | | | | | | | | | | | | | | | | | | | | | | | | | | | | | | | | +--------+--------+--------+--------+--------+--------+--------+--------+ | 03/17/ | glucos | | 191 | mg/dL | 70-110 | high | | | 2021 | e, | | | | | | | | | fastin | | | | | | | | | g, | | | | | | | | | finger | | | | | | | | | stick, | | | | | | | | | blood | | | | | | | | | | glucom | | | | | Nation | | | (point | eter - | | | | | al | | | of | fs | | | | | Park | | | care) | glucos | | | | | [facility] | | | | e | | | | | l | | | | | | | | | Center | | | | | | | | | | | | | | | | | | | | | | | | | | | | | | | | | | | | | | | | | | | | | | | | | | | | | | | | | | | | | | | | | | | | | | | | | | | | | | | | | | | | | | | | | | | | | | | | | | | | | | | | | | | | | | | | | | | | | | | | | | | | | | | | | | | | | | | 1909 | | | | | | | | | [address] | | | | | [address] | | | | | | | | | Hot | | | | | | | | | Spring | | | | | | | | | s, [place], | | | | | | | | | | | | | | | | | | [id number]- | | | | | | | | | [address]752, | | | | | | | | | Ph | | | | | | | | | (501) | | | | | | | | | 321-10 | | | | | | | | | 00 | | | | | | | | | | | | | | | | | | | | | | | | | | | | | | | | | | | | | | | | | | | | | | | | | | | | | | | | | | | | | | | | | | | | | | | | | | | | | | | | | | | | | | | | | | | | | | | | | | | | +--------+--------+--------+--------+--------+--------+--------+--------+ | 03/17/ | glucos | | 190 | mg/dL | 70-110 | high | | | 2021 | e, | | | | | | | | | fastin | | | | | | | | | g, | | | | | | | | | finger | | | | | | | | | stick, | | | | | | | | | blood | | | | | | | | | | glucom | | | | | Nation | | | (point | eter - | | | | | al | | | of | fs | | | | | Park | | | care) | glucos | | | | | Medica | | | | e | | | | | l | | | | | | | | | Center | | | | | | | | | | | | | | | | | | | | | | | | | | | | | | | | | | | | | | | | | | | | | | | | | | | | | | | | | | | | | | | | | | | | | | | | | | | | | | | | | | | | | | | | | | | | | | | | | | | | | | | | | | | | | | | | | | | | | | | | | | | | | | | | | | | | | | | [address] | | | | | | | | | [address] | [address], | | | | | | | | | Hot | | | | | | | | | Spring | | | | | | | | | s, [place], | | | | | | | | | | | | | | | | | | [address]- | | | | | | | | | [address]752, | | | | | | | | | Ph | | | | | | | | | (501) | | | | | | | | | 321-10 | | | | | | | | | 00 | | | | | | | | | | | | | | | | | | | | | | | | | | | | | | | | | | | | | | | | | | | | | | | | | | | | | | | | | | | | | | | | | | | | | | | | | | | | | | | | | | | | | | | | | | | | | | | | | | | | +--------+--------+--------+--------+--------+--------+--------+--------+ | 03/17/ | surgic | | | | | | | | 2021 | al | | | | | | | | | pathol | | | | | | | | | ogy | | | | | | | | | study | | | | | | | | | | | | | | | | | | | | | | | | | | | | surgic | | | | | Nation | | | | al | | | | | al | | | | | | | | | Park | | | | | | | | | Medica | | | | | | | | | l | | | | | | | | | Center | | | | | | | | | | | | | | | | | | | | | | | | | | | | | | | | | | | | | | | | | | | | | | | | | | | | | | | | | | | | | | | | | | | | | | | | | | | | | | | | | | | | | | | | | | | | | | | | | | | | | | | | | | | | | | | | | | | | | | | | | | | | | | | | | | | | | | | 1909 | | | | | | | | | [address] | | | | | | | | [address] | | | | | | | | | Hot | | | | | | | | | Spring | | | | | | | | | s, [place], | | | | | | | | | | | | | | | | | | [id number]- | | | | | | | | | [address]752, | | | | | | | | | Ph | | | | | | | | | (501) | | | | | | | | | 321[address]10 | | | | | | | | | 00 | | | | | | | | | | | | | | | | | | | | | | | | | | | | | | | | | | | | | | | | | | | | | | | | | | | | | | | | | | | | | | | | | | | | | | | | | | | | | | | | | | | | | | | | | | | | | | | | | | | | +--------+--------+--------+--------+--------+--------+--------+--------+ | 03/17/ | CMP, | | 2.5 | g/dL | 3.4-5. | low | | | 2021 | serum | | | | 0 | | | | | or | | | | | | | | | plasma | | | | | | | | | | | | | | | | | | | | | | | | | | | | | | | | | | | | | albumi | | | | | Nation | | | | n | | | | | al | | | | | | | | | Park | | | | | | | | | Medica | | | | | | | | | l | | | | | | | | | Center | | | | | | | | | | | | | | | | | | | | | | | | | | | | | | | | | | | | | | | | | | | | | | | | | | | | | | | | | | | | | | | | | | | | | | | | | | | | | | | | | | | | | | | | | | | | | | | | | | | | | | | | | | | | | | | | | | | | | | | | | | | | | | | | | | | | | | | 1909 | | | | | | | | | [address] | | | [address] | | | | | | | | | Hot | | | | | | | | | Spring | | | | | | | | | s, [place], | | | | | | | | | | | | | | | | | | [address]- | | | | | | | | | [address]752, | | | | | | | | | Ph | | | | | | | | | (501) | | | | | | | | | 321[address]10 | | | | | | | | | 00 | | | | | | | | | | | | | | | | | | | | | | | | | | | | | | | | | | | | | | | | | | | | | | | | | | | | | | | | | | | | | | | | | | | | | | | | | | | | | | | | | | | | | | | | | | | | | | | | | | | | +--------+--------+--------+--------+--------+--------+--------+--------+ | 03/17/ | CMP, | | 72 | U/L | 30-120 | normal | | | 2021 | serum | | | | | | | | | or | | | | | | | | | plasma | | | | | | | | | | | | | | | | | | | | | | | | | | | | | | | | | | | | | ALP | | | | | Nation | | | | serpl- | | | | | al | | | | ccnc | | | | | Park | | | | | | | | | [facility] | | | | | | | | | l | | | | | | | | | Center | | | | | | | | | | | | | | | | | | | | | | | | | | | | | | | | | | | | | | | | | | | | | | | | | | | | | | | | | | | | | | | | | | | | | | | | | | | | | | | | | | | | | | | | | | | | | | | | | | | | | | | | | | | | | | | | | | | | | | | | | | | | | | | | | | | | | | | 1909 | | | | | | | | | [address] | | | [address] | | | | | | | | | Hot | | | | | | | | | Spring | | | | | | | | | s, [place], | | | | | | | | | | | | | | | | | | [address]- | | | | | | | | | [address], | | | | | | | | | Ph | | | | | | | | | (501) | | | | | | | | | 321[address]10 | | | | | | | | | 00 | | | | | | | | | | | | | | | | | | | | | | | | | | | | | | | | | | | | | | | | | | | | | | | | | | | | | | | | | | | | | | | | | | | | | | | | | | | | | | | | | | | | | | | | | | | | | | | | | | | | +--------+--------+--------+--------+--------+--------+--------+--------+ | 03/17/ | CMP, | | 17 | U/L | 10-68 | normal | | | 2021 | serum | | | | | | | | | or | | | | | | | | | plasma | | | | | | | | | | | | | | | | | | | | | | | | | | | | | | | | | | | | | ALT | | | | | Nation | | | | (SGPT) | | | | | al | | | | | | | | | Park | | | | ser/pl | | | | | [facility] | | | | as | | | | | l | | | | | | | | | Center | | | | | | | | | | | | | | | | | | | | | | | | | | | | | | | | | | | | | | | | | | | | | | | | | | | | | | | | | | | | | | | | | | | | | | | | | | | | | | | | | | | | | | | | | | | | | | | | | | | | | | | | | | | | | | | | | | | | | | | | | | | | | | | | | | | | | | | 1909 | | | | | | | | | [address] | | | | | | | | | [address], | | | | | | | | | Hot | | | | | | | | | Spring | | | | | | | | | s, [place], | | | | | | | | | | | | | | | | | | [address]- | | | | | | | | | 7752, | | | | | | | | | Ph | | | | | | | | | (501) | | | | | | | | | 321-10 | | | | | | | | | 00 | | | | | | | | | | | | | | | | | | | | | | | | | | | | | | | | | | | | | | | | | | | | | | | | | | | | | | | | | | | | | | | | | | | | | | | | | | | | | | | | | | | | | | | | | | | | | | | | | | | | +--------+--------+--------+--------+--------+--------+--------+--------+ | 03/17/ | CMP, | | 11.00 | mmol/L | 8-16 | normal | | | 2021 | serum | | | | | | | | | or | | | | | | | | | plasma | | | | | | | | | | | | | | | | | | | | | | | | | | | | | | | | | | | | | anion | | | | | Nation | | | | gap | | | | | al | | | | serpl- | | | | | Park | | | | scnc | | | | | Medica | | | | | | | | | l | | | | | | | | | Center | | | | | | | | | | | | | | | | | | | | | | | | | | | | | | | | | | | | | | | | | | | | | | | | | | | | | | | | | | | | | | | | | | | | | | | | | | | | | | | | | | | | | | | | | | | | | | | | | | | | | | | | | | | | | | | | | | | | | | | | | | | | | | | | | | | | | | | 1910 | | | | | | | | | [address] | | | | | | | | | [address], | | | | | | | | | Hot | | | | | | | | | Spring | | | | | | | | | s, [place], | | | | | | | | | | | | | | | | | | [address]- | | | | | | | | | 7752, | | | | | | | | | Ph | | | | | | | | | (501) | | | | | | | | | 321-10 | | | | | | | | | 00 | | | | | | | | | | | | | | | | | | | | | | | | | | | | | | | | | | | | | | | | | | | | | | | | | | | | | | | | | | | | | | | | | | | | | | | | | | | | | | | | | | | | | | | | | | | | | | | | | | | | +--------+--------+--------+--------+--------+--------+--------+--------+ | 03/17/ | CMP, | | 10 | U/L | 0-45 | | | | 2021 | serum | | | | | | | | | or | | | | | | | | | plasma | | | | | | | | | | | | | | | | | | | | | | | | | | | | | | | | | | | | | AST | | | | | Nation | | | | (SGOT) | | | | | al | | | | | | | | | Park | | | | | | | | | Medica | | | | | | | | | l | | | | | | | | | Center | | | | | | | | | | | | | | | | | | | | | | | | | | | | | | | | | | | | | | | | | | | | | | | | | | | | | | | | | | | | | | | | | | | | | | | | | | | | | | | | | | | | | | | | | | | | | | | | | | | | | | | | | | | | | | | | | | | | | | | | | | | | | | | | | | | | | | | 1909 | | | | | | | | | [address] | | | | | | | | | [address], | | | | | | | | | Hot | | | | | | | | | Spring | | | | | | | | | s, [place], | | | | | | | | | | | | | | | | | | [address]- | | | | | | | | | 7752, | | | | | | | | | Ph | | | | | | | | | (501) | | | | | | | | | 321-10 | | | | | | | | | 00 | | | | | | | | | | | | | | | | | | | | | | | | | | | | | | | | | | | | | | | | | | | | | | | | | | | | | | | | | | | | | | | | | | | | | | | | | | | | | | | | | | | | | | | | | | | | | | | | | | | | +--------+--------+--------+--------+--------+--------+--------+--------+ | 03/17/ | CMP, | | 10 | ratio | 10-20 | normal | | | 2021 | serum | | | | | | | | | or | | | | | | | | | plasma | | | | | | | | | | | | | | | | | | | | | | | | | | | | | | | | | | | | | BUN/cr | | | | | Nation | | | | e | | | | | al | | | | ratio | | | | | Park | | | | | | | | | Medica | | | | | | | | | l | | | | | | | | | Center | | | | | | | | | | | | | | | | | | | | | | | | | | | | | | | | | | | | | | | | | | | | | | | | | | | | | | | | | | | | | | | | | | | | | | | | | | | | | | | | | | | | | | | | | | | | | | | | | | | | | | | | | | | | | | | | | | | | | | | | | | | | | | | | | | | | | | | 1909 | | | | | | | | | [address] | | | | | | | | | [address], | | | | | | | | | Hot | | | | | | | | | Spring | | | | | | | | | s, [place], | | | | | | | | | | | | | | | | | | [address]- | | | | | | | | | [address]752, | | | | | | | | | Ph | | | | | | | | | (501) | | | | | | | | | 321-10 | | | | | | | | | 00 | | | | | | | | | | | | | | | | | | | | | | | | | | | | | | | | | | | | | | | | | | | | | | | | | | | | | | | | | | | | | | | | | | | | | | | | | | | | | | | | | | | | | | | | | | | | | | | | | | | | +--------+--------+--------+--------+--------+--------+--------+--------+ | 03/17/ | CMP, | | 0.53 | mg/dL | 0.2-1. | normal | | | 2021 | serum | | | | 3 | | | | | or | | | | | | | | | plasma | | | | | | | | | | | | | | | | | | | | | | | | | | | | | | | | | | | | | biliru | | | | | Nation | | | | bin - | | | | | al | | | | total | | | | | Park | | | | | | | | | Medica | | | | | | | | | l | | | | | | | | | Center | | | | | | | | | | | | | | | | | | | | | | | | | | | | | | | | | | | | | | | | | | | | | | | | | | | | | | | | | | | | | | | | | | | | | | | | | | | | | | | | | | | | | | | | | | | | | | | | | | | | | | | | | | | | | | | | | | | | | | | | | | | | | | | | | | | | | | | 1909 | | | | | | | | | [address] | | | | | | | | | [address], | | | | | | | | | Hot | | | | | | | | | Spring | | | | | | | | | s, [place], | | | | | | | | | | | | | | | | | | [address]- | | | | | | | | | 7752, | | | | | | | | | Ph | | | | | | | | | (501) | | | | | | | | | 321-10 | | | | | | | | | 00 | | | | | | | | | | | | | | | | | | | | | | | | | | | | | | | | | | | | | | | | | | | | | | | | | | | | | | | | | | | | | | | | | | | | | | | | | | | | | | | | | | | | | | | | | | | | | | | | | | | | +--------+--------+--------+--------+--------+--------+--------+--------+ | 03/17/ | CMP, | | 9 | mg/dL | 7-18 | normal | | | 2021 | serum | | | | | | | | | or | | | | | | | | | plasma | | | | | | | | | | | | | | | | | | | | | | | | | | | | | | | | | | | | | BUN | | | | | Nation | | | | serpl- | | | | | al | | | | mcnc | | | | | Park | | | | | | | | | Medica | | | | | | | | | l | | | | | | | | | Center | | | | | | | | | | | | | | | | | | | | | | | | | | | | | | | | | | | | | | | | | | | | | | | | | | | | | | | | | | | | | | | | | | | | | | | | | | | | | | | | | | | | | | | | | | | | | | | | | | | | | | | | | | | | | | | | | | | | | | | | | | | | | | | | | | | | | | | 1909 | | | | | | | | | [address] | | | | | | | | | [address], | | | | | | | | | Hot | | | | | | | | | Spring | | | | | | | | | s, [place], | | | | | | | | | | | | | | | | | | [address]- | | | | | | | | | 7752, | | | | | | | | | Ph | | | | | | | | | (501) | | | | | | | | | 321-10 | | | | | | | | | 00 | | | | | | | | | | | | | | | | | | | | | | | | | | | | | | | | | | | | | | | | | | | | | | | | | | | | | | | | | | | | | | | | | | | | | | | | | | | | | | | | | | | | | | | | | | | | | | | | | | | | +--------+--------+--------+--------+--------+--------+--------+--------+ | 03/17/ | CMP, | | 7.6 | mg/dL | 8.5-10 | low | | | 2021 | serum | | | | .1 | | | | | or | | | | | | | | | plasma | | | | | | | | | | | | | | | | | | | | | | | | | | | | | | | | | | | | | calciu | | | | | Nation | | | | m | | | | | al | | | | serpl- | | | | | Park | | | | mcnc | | | | | Medica | | | | | | | | | l | | | | | | | | | Center | | | | | | | | | | | | | | | | | | | | | | | | | | | | | | | | | | | | | | | | | | | | | | | | | | | | | | | | | | | | | | | | | | | | | | | | | | | | | | | | | | | | | | | | | | | | | | | | | | | | | | | | | | | | | | | | | | | | | | | | | | | | | | | | | | | | | | | 1909 | | | | | | | | | [address] | | | | | | | | | [address], | | | | | | | | | Hot | | | | | | | | | Spring | | | | | | | | | s, [place], | | | | | | | | | | | | | | | | | | [address]- | | | | | | | | | 7752, | | | | | | | | | Ph | | | | | | | | | (501) | | | | | | | | | 321-10 | | | | | | | | | 00 | | | | | | | | | | | | | | | | | | | | | | | | | | | | | | | | | | | | | | | | | | | | | | | | | | | | | | | | | | | | | | | | | | | | | | | | | | | | | | | | | | | | | | | | | | | | | | | | | | | | +--------+--------+--------+--------+--------+--------+--------+--------+ | 03/17/ | CMP, | | 101 | mmol/L | 98-107 | normal | | | 2021 | serum | | | | | | | | | or | | | | | | | | | plasma | | | | | | | | | | | | | | | | | | | | | | | | | | | | | | | | | | | | | chlori | | | | | Nation | | | | de | | | | | al | | | | ser/pl | | | | | Park | | | | as | | | | | Medica | | | | | | | | | l | | | | | | | | | Center | | | | | | | | | | | | | | | | | | | | | | | | | | | | | | | | | | | | | | | | | | | | | | | | | | | | | | | | | | | | | | | | | | | | | | | | | | | | | | | | | | | | | | | | | | | | | | | | | | | | | | | | | | | | | | | | | | | | | | | | | | | | | | | | | | | | | | | 1909 | | | | | | | | | [address] | | | | | | | | | [address], | | | | | | | | | Hot | | | | | | | | | Spring | | | | | | | | | s, [place], | | | | | | | | | | | | | | | | | | [address]- | | | | | | | | | [address]752, | | | | | | | | | Ph | | | | | | | | | (501) | | | | | | | | | 321-10 | | | | | | | | | 00 | | | | | | | | | | | | | | | | | | | | | | | | | | | | | | | | | | | | | | | | | | | | | | | | | | | | | | | | | | | | | | | | | | | | | | | | | | | | | | | | | | | | | | | | | | | | | | | | | | | | +--------+--------+--------+--------+--------+--------+--------+--------+ | 03/17/ | CMP, | | 27.2 | mmol/L | 21.0-3 | normal | | | 2021 | serum | | | | 2.0 | | | | | or | | | | | | | | | plasma | | | | | | | | | | | | | | | | | | | | | | | | | | | | | | | | | | | | | CO2 | | | | | Nation | | | | serpl- | | | | | al | | | | scnc | | | | | Park | | | | | | | | | Medica | | | | | | | | | l | | | | | | | | | Center | | | | | | | | | | | | | | | | | | | | | | | | | | | | | | | | | | | | | | | | | | | | | | | | | | | | | | | | | | | | | | | | | | | | | | | | | | | | | | | | | | | | | | | | | | | | | | | | | | | | | | | | | | | | | | | | | | | | | | | | | | | | | | | | | | | | | | | 1909 | | | | | | | | | [address] | | | | | | | | | [address], | | | | | | | | | Hot | | | | | | | | | Spring | | | | | | | | | s, [place], | | | | | | | | | | | | | | | | | | [address]- | | | | | | | | | [address]752, | | | | | | | | | Ph | | | | | | | | | (501) | | | | | | | | | 321-10 | | | | | | | | | 00 | | | | | | | | | | | | | | | | | | | | | | | | | | | | | | | | | | | | | | | | | | | | | | | | | | | | | | | | | | | | | | | | | | | | | | | | | | | | | | | | | | | | | | | | | | | | | | | | | | | | +--------+--------+--------+--------+--------+--------+--------+--------+ | 03/17/ | CMP, | | 275 | mOsm/k | 275-30 | normal | | | 2021 | serum | | | g | 0 | | | | | or | | | | | | | | | plasma | | | | | | | | | | | | | | | | | | | | | | | | | | | | | | | | | | | | | osmola | | | | | Nation | | | | lity | | | | | al | | | | serpl | | | | | Park | | | | calc | | | | | Medica | | | | | | | | | l | | | | | | | | | Center | | | | | | | | | | | | | | | | | | | | | | | | | | | | | | | | | | | | | | | | | | | | | | | | | | | | | | | | | | | | | | | | | | | | | | | | | | | | | | | | | | | | | | | | | | | | | | | | | | | | | | | | | | | | | | | | | | | | | | | | | | | | | | | | | | | | | | | [address] | | | | | | | | | [address] | | | | | [address], | | | | | | | | | Hot | | | | | | | | | Spring | | | | | | | | | s, [place], | | | | | | | | | | | | | | | | | | [address]- | | | | | | | | | [address]752, | | | | | | | | | Ph | | | | | | | | | (501) | | | | | | | | | 321-10 | | | | | | | | | 00 | | | | | | | | | | | | | | | | | | | | | | | | | | | | | | | | | | | | | | | | | | | | | | | | | | | | | | | | | | | | | | | | | | | | | | | | | | | | | | | | | | | | | | | | | | | | | | | | | | | | +--------+--------+--------+--------+--------+--------+--------+--------+ | 03/17/ | CMP, | | 0.9 | mg/dL | 0.6-1. | normal | | | 2021 | serum | | | | 3 | | | | | or | | | | | | | | | plasma | | | | | | | | | | | | | | | | | | | | | | | | | | | | | | | | | | | | | creat | | | | | Nation | | | | serpl- | | | | | al | | | | mcnc | | | | | Park | | | | | | | | | [facility]ica | | | | | | | | | l | | | | | | | | | Center | | | | | | | | | | | | | | | | | | | | | | | | | | | | | | | | | | | | | | | | | | | | | | | | | | | | | | | | | | | | | | | | | | | | | | | | | | | | | | | | | | | | | | | | | | | | | | | | | | | | | | | | | | | | | | | | | | | | | | | | | | | | | | | | | | | | | | | 1910 | | | | | | | | | [address] | | | | | | | | | [address], | | | | | | | | | Hot | | | | | | | | | Spring | | | | | | | | | s, [place], | | | | | | | | | | | | | | | | | | [address]- | | | | | | | | | 7752, | | | | | | | | | Ph | | | | | | | | | (501) | | | | | | | | | 321-10 | | | | | | | | | 00 | | | | | | | | | | | | | | | | | | | | | | | | | | | | | | | | | | | | | | | | | | | | | | | | | | | | | | | | | | | | | | | | | | | | | | | | | | | | | | | | | | | | | | | | | | | | | | | | | | | | +--------+--------+--------+--------+--------+--------+--------+--------+ | 03/17/ | CMP, | | 84 | mL/min | 90-120 | low | | | 2021 | serum | | | | | | | | | or | | | | | | | | | plasma | | | | | | | | | | | | | | | | | | | | | | | | | | | | | | | | | | | | | eGFR | | | | | Nation | | | | joie | | | | | al | | | | n | | | | | Park | | | | americ | | | | | Medica | | | | an | | | | | l | | | | | | | | | Center | | | | | | | | | | | | | | | | | | | | | | | | | | | | | | | | | | | | | | | | | | | | | | | | | | | | | | | | | | | | | | | | | | | | | | | | | | | | | | | | | | | | | | | | | | | | | | | | | | | | | | | | | | | | | | | | | | | | | | | | | | | | | | | | | | | | | | | [address] | | | | | | | | | [address] | | | | | | | | [address], | | | | | | | | | Hot | | | | | | | | | Spring | | | | | | | | | s, [place], | | | | | | | | | | | | | | | | | | [address]- | | | | | | | | | 7752, | | | | | | | | | Ph | | | | | | | | | (501) | | | | | | | | | 321-10 | | | | | | | | | 00 | | | | | | | | | | | | | | | | | | | | | | | | | | | | | | | | | | | | | | | | | | | | | | | | | | | | | | | | | | | | | | | | | | | | | | | | | | | | | | | | | | | | | | | | | | | | | | | | | | | | +--------+--------+--------+--------+--------+--------+--------+--------+ | 03/17/ | CMP, | | 69 | mL/min | 90-120 | low | | | 2021 | serum | | | | | | | | | or | | | | | | | | | plasma | | | | | | | | | | | | | | | | | | | | | | | | | | | | | | | | | | | | | eGFR | | | | | Nation | | | | non-af | | | | | al | | | | rican | | | | | Park | | | | americ | | | | | Medica | | | | an | | | | | l | | | | | | | | | Center | | | | | | | | | | | | | | | | | | | | | | | | | | | | | | | | | | | | | | | | | | | | | | | | | | | | | | | | | | | | | | | | | | | | | | | | | | | | | | | | | | | | | | | | | | | | | | | | | | | | | | | | | | | | | | | | | | | | | | | | | | | | | | | | | | | | | | | [address] | | | | | | | | | [address] | | | | | | | | [address], | | | | | | | | | Hot | | | | | | | | | Spring | | | | | | | | | s, [place], | | | | | | | | | | | | | | | | | | [address]- | | | | | | | | | [address]752, | | | | | | | | | Ph | | | | | | | | | (501) | | | | | | | | | 321-10 | | | | | | | | | 00 | | | | | | | | | | | | | | | | | | | | | | | | | | | | | | | | | | | | | | | | | | | | | | | | | | | | | | | | | | | | | | | | | | | | | | | | | | | | | | | | | | | | | | | | | | | | | | | | | | | | +--------+--------+--------+--------+--------+--------+--------+--------+ | 03/17/ | CMP, | | 2.8 | g/L | | | | | 2021 | serum | | | | | | | | | or | | | | | | | | | plasma | | | | | | | | | | | | | | | | | | | | | | | | | | | | | | | | | | | | | globul | | | | | Nation | | | | in ser | | | | | al | | | | | | | | | Park | | | | calc-m | | | | | Medica | | | | cnc | | | | | l | | | | | | | | | Center | | | | | | | | | | | | | | | | | | | | | | | | | | | | | | | | | | | | | | | | | | | | | | | | | | | | | | | | | | | | | | | | | | | | | | | | | | | | | | | | | | | | | | | | | | | | | | | | | | | | | | | | | | | | | | | | | | | | | | | | | | | | | | | | | | | | | | | [address] | | | | | | | | | [address] | | [address], | | | | | | | | | Hot | | | | | | | | | Spring | | | | | | | | | s, [place], | | | | | | | | | | | | | | | | | | [address]- | | | | | | | | | [address]752, | | | | | | | | | Ph | | | | | | | | | (501) | | | | | | | | | 321[address]10 | | | | | | | | | 00 | | | | | | | | | | | | | | | | | | | | | | | | | | | | | | | | | | | | | | | | | | | | | | | | | | | | | | | | | | | | | | | | | | | | | | | | | | | | | | | | | | | | | | | | | | | | | | | | | | | | +--------+--------+--------+--------+--------+--------+--------+--------+ | 03/17/ | CMP, | | 218 | mg/dL | 74-106 | high | | | 2021 | serum | | | | | | | | | or | | | | | | | | | plasma | | | | | | | | | | | | | | | | | | | | | | | | | | | | | | | | | | | | | glucos | | | | | Nation | | | | e | | | | | al | | | | serpl- | | | | | Park | | | | mc[facility] | | | | | Medica | | | | | | | | | l | | | | | | | | | Center | | | | | | | | | | | | | | | | | | | | | | | | | | | | | | | | | | | | | | | | | | | | | | | | | | | | | | | | | | | | | | | | | | | | | | | | | | | | | | | | | | | | | | | | | | | | | | | | | | | | | | | | | | | | | | | | | | | | | | | | | | | | | | | | | | | | | | | 1910 | | | | | | | | | [address] | | | | | | | | | [address], | | | | | | | | | Hot | | | | | | | | | Spring | | | | | | | | | s, [place], | | | | | | | | | | | | | | | | | | [address]- | | | | | | | | | [address]752, | | | | | | | | | Ph | | | | | | | | | (501) | | | | | | | | | 321[address]10 | | | | | | | | | 00 | | | | | | | | | | | | | | | | | | | | | | | | | | | | | | | | | | | | | | | | | | | | | | | | | | | | | | | | | | | | | | | | | | | | | | | | | | | | | | | | | | | | | | | | | | | | | | | | | | | | +--------+--------+--------+--------+--------+--------+--------+--------+ | 03/17/ | CMP, | | 4.2 | mmol/L | 3.5-5. | normal | | | 2021 | serum | | | | 1 | | | | | or | | | | | | | | | plasma | | | | | | | | | | | | | | | | | | | | | | | | | | | | | | | | | | | | | potass | | | | | Nation | | | | ium | | | | | al | | | | ser/pl | | | | | Park | | | | as | | | | | Medica | | | | | | | | | l | | | | | | | | | Center | | | | | | | | | | | | | | | | | | | | | | | | | | | | | | | | | | | | | | | | | | | | | | | | | | | | | | | | | | | | | | | | | | | | | | | | | | | | | | | | | | | | | | | | | | | | | | | | | | | | | | | | | | | | | | | | | | | | | | | | | | | | | | | | | | | | | | | 1909 | | | | | | | | | [address] | | | | | | | | | Hot | | | | | | | | | Spring | | | | | | | | | s, [place], | | | | | | | | | | | | | | | | | | [address]- | | | | | | | | | [address], | | | | | | | | | Ph | | | | | | | | | (501) | | | | | | | | | 321[address]10 | | | | | | | | | 00 | | | | | | | | | | | | | | | | | | | | | | | | | | | | | | | | | | | | | | | | | | | | | | | | | | | | | | | | | | | | | | | | | | | | | | | | | | | | | | | | | | | | | | | | | | | | | | | | | | | | +--------+--------+--------+--------+--------+--------+--------+--------+ | 03/17/ | CMP, | | 135 | mmol/L | 136-14 | low | | | 2021 | serum | | | | 5 | | | | | or | | | | | | | | | plasma | | | | | | | | | | | | | | | | | | | | | | | | | | | | | | | | | | | | | sodium | | | | | Nation | | | | | | | | | al | | | | serpl- | | | | | Park | | | | scnc | | | | | [facility] | | | | | | | | | l | | | | | | | | | Center | | | | | | | | | | | | | | | | | | | | | | | | | | | | | | | | | | | | | | | | | | | | | | | | | | | | | | | | | | | | | | | | | | | | | | | | | | | | | | | | | | | | | | | | | | | | | | | | | | | | | | | | | | | | | | | | | | | | | | | | | | | | | | | | | | | | | | | 1909 | | | | | | | | | [address] | | | [address], | | | | | | | | | Hot | | | | | | | | | Spring | | | | | | | | | s, [place], | | | | | | | | | | | | | | | | | | [address]- | | | | | | | | | [address], | | | | | | | | | Ph | | | | | | | | | (501) | | | | | | | | | [address]10 | | | | | | | | | 00 | | | | | | | | | | | | | | | | | | | | | | | | | | | | | | | | | | | | | | | | | | | | | | | | | | | | | | | | | | | | | | | | | | | | | | | | | | | | | | | | | | | | | | | | | | | | | | | | | | | | +--------+--------+--------+--------+--------+--------+--------+--------+ | 03/17/ | CMP, | | 5.3 | g/dL | 6.4-8. | low | | | 2021 | serum | | | | 2 | | | | | or | | | | | | | | | plasma | | | | | | | | | | | | | | | | | | | | | | | | | | | | | | | | | | | | | protei | | | | | Nation | | | | n | | | | | al | | | | total | | | | | Park | | | | ser/pl | | | | | [facility] | | | | as | | | | | l | | | | | | | | | Center | | | | | | | | | | | | | | | | | | | | | | | | | | | | | | | | | | | | | | | | | | | | | | | | | | | | | | | | | | | | | | | | | | | | | | | | | | | | | | | | | | | | | | | | | | | | | | | | | | | | | | | | | | | | | | | | | | | | | | | | | | | | | | | | | | | | | | | [address] | | | | | | | | | [address] | | | | | | | | | Hot | | | | | | | | | Spring | | | | | | | | | s, [place], | | | | | | | | | | | | | | | | | | [address]- | | | | | | | | | [address], | | | | | | | | | Ph | | | | | | | | | (501) | | | | | | | | | [address]10 | | | | | | | | | 00 | | | | | | | | | | | | | | | | | | | | | | | | | | | | | | | | | | | | | | | | | | | | | | | | | | | | | | | | | | | | | | | | | | | | | | | | | | | | | | | | | | | | | | | | | | | | | | | | | | | | +--------+--------+--------+--------+--------+--------+--------+--------+ | 03/17/ | magnes | | 1.6 | mg/dL | 1.8-2. | low | | | 2021 | ium, | | | | 4 | | | | | serum | | | | | | | | | or | | | | | | | | | plasma | | | | | | | | | | | | | | | | | | | | | | | | | | | | magnes | | | | | Nation | | | | ium | | | | | al | | | | serpl- | | | | | Park | | | | [facility] | | | | | [facility] | | | | | | | | | l | | | | | | | | | Center | | | | | | | | | | | | | | | | | | | | | | | | | | | | | | | | | | | | | | | | | | | | | | | | | | | | | | | | | | | | | | | | | | | | | | | | | | | | | | | | | | | | | | | | | | | | | | | | | | | | | | | | | | | | | | | | | | | | | | | | | | | | | | | | | | | | | | | [address] | | | | | | | | | [address] | | | [address], | | | | | | | | | Hot | | | | | | | | | Spring | | | | | | | | | s, [place], | | | | | | | | | | | | | | | | | | [address]- | | | | | | | | | [address], | | | | | | | | | Ph | | | | | | | | | (501) | | | | | | | | | [address] | | | | | | | | | 00 | | | | | | | | | | | | | | | | | | | | | | | | | | | | | | | | | | | | | | | | | | | | | | | | | | | | | | | | | | | | | | | | | | | | | | | | | | | | | | | | | | | | | | | | | | | | | | | | | | | | +--------+--------+--------+--------+--------+--------+--------+--------+ | 03/17/ | CBC w/ | | 0.1 | % | 0-2 | normal | | | 2021 | auto | | | | | | | | | diff | | | | | | | | | | | | | | | | | | | | | | | | | | | | | | | | | | | | | | | | | | | | | | basoph | | | | | Nation | | | | il % | | | | | al | | | | | | | | | Park | | | | | | | | | [facility] | | | | | | | | | l | | | | | | | | | Center | | | | | | | | | | | | | | | | | | | | | | | | | | | | | | | | | | | | | | | | | | | | | | | | | | | | | | | | | | | | | | | | | | | | | | | | | | | | | | | | | | | | | | | | | | | | | | | | | | | | | | | | | | | | | | | | | | | | | | | | | | | | | | | | | | | | | | | [address] | | | | | | | | | [address] | | | | | | | | | Hot | | | | | | | | | Spring | | | | | | | | | s, [place], | | | | | | | | | | | | | | | | | | [address]- | | | | | | | | | [address], | | | | | | | | | Ph | | | | | | | | | (501) | | | | | | | | | [address] | | | | | | | | | 00 | | | | | | | | | | | | | | | | | | | | | | | | | | | | | | | | | | | | | | | | | | | | | | | | | | | | | | | | | | | | | | | | | | | | | | | | | | | | | | | | | | | | | | | | | | | | | | | | | | | | +--------+--------+--------+--------+--------+--------+--------+--------+ | 03/17/ | CBC w/ | | 1.8 | % | 0-7 | normal | | | 2021 | auto | | | | | | | | | diff | | | | | | | | | | | | | | | | | | | | | | | | | | | | | | | | | | | | | | | | | | | | | | eosino | | | | | Nation | | | | phils | | | | | al | | | | | | | | | Park | | | | | | | | | [facility] | | | | | | | | | l | | | | | | | | | Center | | | | | | | | | | | | | | | | | | | | | | | | | | | | | | | | | | | | | | | | | | | | | | | | | | | | | | | | | | | | | | | | | | | | | | | | | | | | | | | | | | | | | | | | | | | | | | | | | | | | | | | | | | | | | | | | | | | | | | | | | | | | | | | | | | | | | | | [address] | | | | | | | | | [address] | | | [address] | | | | | | | | | Hot | | | | | | | | | Spring | | | | | | | | | s, [place], | | | | | | | | | | | | | | | | | | [address]- | | | | | | | | | [address], | | | | | | | | | Ph | | | | | | | | | (501) | | | | | | | | | [address] | | | | | | | | | 00 | | | | | | | | | | | | | | | | | | | | | | | | | | | | | | | | | | | | | | | | | | | | | | | | | | | | | | | | | | | | | | | | | | | | | | | | | | | | | | | | | | | | | | | | | | | | | | | | | | | | +--------+--------+--------+--------+--------+--------+--------+--------+ | 03/17/ | CBC w/ | | 36.0 | % | 36.0-4 | normal | | | 2021 | auto | | | | 8.0 | | | | | diff | | | | | | | | | | | | | | | | | | | | | | | | | | | | | | | | | | | | | | | | | | | | | | HCT | | | | | Nation | | | | vfr | | | | | al | | | | bld | | | | | Park | | | | auto | | | | | [facility] | | | | | | | | | l | | | | | | | | | Center | | | | | | | | | | | | | | | | | | | | | | | | | | | | | | | | | | | | | | | | | | | | | | | | | | | | | | | | | | | | | | | | | | | | | | | | | | | | | | | | | | | | | | | | | | | | | | | | | | | | | | | | | | | | | | | | | | | | | | | | | | | | | | | | | | | | | | | 1909 | | | | | | | | | [address] | | | | | | | [address] | [address], | | | | | | | | | Hot | | | | | | | | | Spring | | | | | | | | | s, [place], | | | | | | | | | | | | | | | | | | [address]- | | | | | | | | | [address]752, | | | | | | | | | Ph | | | | | | | | | (501) | | | | | | | | | 321[address]10 | | | | | | | | | 00 | | | | | | | | | | | | | | | | | | | | | | | | | | | | | | | | | | | | | | | | | | | | | | | | | | | | | | | | | | | | | | | | | | | | | | | | | | | | | | | | | | | | | | | | | | | | | | | | | | | | +--------+--------+--------+--------+--------+--------+--------+--------+ | 03/17/ | CBC w/ | | 11.5 | g/dL | 12-16 | low | | | 2021 | auto | | | | | | | | | diff | | | | | | | | | | | | | | | | | | | | | | | | | | | | | | | | | | | | | | | | | | | | | | hemogl | | | | | Nation | | | | obin | | | | | al | | | | | | | | | Park | | | | | | | | | Medica | | | | | | | | | l | | | | | | | | | Center | | | | | | | | | | | | | | | | | | | | | | | | | | | | | | | | | | | | | | | | | | | | | | | | | | | | | | | | | | | | | | | | | | | | | | | | | | | | | | | | | | | | | | | | | | | | | | | | | | | | | | | | | | | | | | | | | | | | | | | | | | | | | | | | | | | | | | | 1909 | | | | | | | | | [address] | | | | | | | | | [address], | | | | | | | | | Hot | | | | | | | | | Spring | | | | | | | | | s, [place], | | | | | | | | | | | | | | | | | | [address]- | | | | | | | | | [address]752, | | | | | | | | | Ph | | | | | | | | | (501) | | | | | | | | | 321[address]10 | | | | | | | | | 00 | | | | | | | | | | | | | | | | | | | | | | | | | | | | | | | | | | | | | | | | | | | | | | | | | | | | | | | | | | | | | | | | | | | | | | | | | | | | | | | | | | | | | | | | | | | | | | | | | | | | +--------+--------+--------+--------+--------+--------+--------+--------+ | 03/17/ | CBC w/ | | 0.2 | % | 0-5 | normal | | | 2021 | auto | | 0.2 | | | | | | | diff | | | | | | | | | | | | | | | | | | | | | | | | | | | | | | | | | | | | | | | | | | | | | | imm | | | | | Nation | | | | granul | | | | | al | | | | ocytes | | | | | Park | | | | bld | | | | | [facility] | | | | ql | | | | | l | | | | auto | | | | | Center | | | | | | | | | | | | | | | | | | | | | | | | | | | | | | | | | | | | | | | | | | | | | | | | | | | | | | | | | | | | | | | | | | | | | | | | | | | | | | | | | | | | | | | | | | | | | | | | | | | | | | | | | | | | | | | | | | | | | | | | | | | | | | | | | | | | | | | 1909 | | | | | | | | | [address] | | | | | | | | | [address], | | | | | | | | | Hot | | | | | | | | | Spring | | | | | | | | | s, [place], | | | | | | | | | | | | | | | | | | [address]- | | | | | | | | | [address]752, | | | | | | | | | Ph | | | | | | | | | (501) | | | | | | | | | 321[address]10 | | | | | | | | | 00 | | | | | | | | | | | | | | | | | | | | | | | | | | | | | | | | | | | | | | | | | | | | | | | | | | | | | | | | | | | | | | | | | | | | | | | | | | | | | | | | | | | | | | | | | | | | | | | | | | | | +--------+--------+--------+--------+--------+--------+--------+--------+ | 03/17/ | CBC w/ | | 2.66 | 10x3/u | 1.18-3 | normal | | | 2021 | auto | | | L | .74 | | | | | diff | | | | | | | | | | | | | | | | | | | | | | | | | | | | | | | | | | | | | | | | | | | | | | absolu | | | | | Nation | | | | te | | | | | al | | | | lympho | | | | | Park | | | | cyte | | | | | [facility] | | | | count | | | | | l | | | | | | | | | Center | | | | | | | | | | | | | | | | | | | | | | | | | | | | | | | | | | | | | | | | | | | | | | | | | | | | | | | | | | | | | | | | | | | | | | | | | | | | | | | | | | | | | | | | | | | | | | | | | | | | | | | | | | | | | | | | | | | | | | | | | | | | | | | | | | | | | | | 1909 | | | | | | | | | [address] | | | | | | | | | [address], | | | | | | | | | Hot | | | | | | | | | Spring | | | | | | | | | s, [place], | | | | | | | | | | | | | | | | | | [address]- | | | | | | | | | [address]752, | | | | | | | | | Ph | | | | | | | | | (501) | | | | | | | | | 321[address]10 | | | | | | | | | 00 | | | | | | | | | | | | | | | | | | | | | | | | | | | | | | | | | | | | | | | | | | | | | | | | | | | | | | | | | | | | | | | | | | | | | | | | | | | | | | | | | | | | | | | | | | | | | | | | | | | | +--------+--------+--------+--------+--------+--------+--------+--------+ | 03/17/ | CBC w/ | | 15.9 | % | 15-50 | normal | | | 2021 | auto | | | | | | | | | diff | | | | | | | | | | | | | | | | | | | | | | | | | | | | | | | | | | | | | | | | | | | | | | lympho | | | | | Nation | | | | cytes | | | | | al | | | | | | | | | Park | | | | | | | | | [facility] | | | | | | | | | l | | | | | | | | | Center | | | | | | | | | | | | | | | | | | | | | | | | | | | | | | | | | | | | | | | | | | | | | | | | | | | | | | | | | | | | | | | | | | | | | | | | | | | | | | | | | | | | | | | | | | | | | | | | | | | | | | | | | | | | | | | | | | | | | | | | | | | | | | | | | | | | | | | 1909 | | | | | | | | | [address] | | | | | | | | | [address], | | | | | | | | | Hot | | | | | | | | | Spring | | | | | | | | | s, [place], | | | | | | | | | | | | | | | | | | [address]- | | | | | | | | | [address]752, | | | | | | | | | Ph | | | | | | | | | (501) | | | | | | | | | 321[address]10 | | | | | | | | | 00 | | | | | | | | | | | | | | | | | | | | | | | | | | | | | | | | | | | | | | | | | | | | | | | | | | | | | | | | | | | | | | | | | | | | | | | | | | | | | | | | | | | | | | | | | | | | | | | | | | | | +--------+--------+--------+--------+--------+--------+--------+--------+ | 03/17/ | CBC w/ | | 28.8 | pg | 26.0-3 | normal | | | 2021 | auto | | | | 4.0 | | | | | diff | | | | | | | | | | | | | | | | | | | | | | | | | | | | | | | | | | | | | | | | | | | | | | [facility]CH | | | | | Nation | | | | | | | | | al | | | | | | | | | Park | | | | | | | | | Medica | | | | | | | | | l | | | | | | | | | Center | | | | | | | | | | | | | | | | | | | | | | | | | | | | | | | | | | | | | | | | | | | | | | | | | | | | | | | | | | | | | | | | | | | | | | | | | | | | | | | | | | | | | | | | | | | | | | | | | | | | | | | | | | | | | | | | | | | | | | | | | | | | | | | | | | | | | | | 1909 | | | | | | | | | [address] | | | | | | | | | [address], | | | | | | | | | Hot | | | | | | | | | Spring | | | | | | | | | s, [place], | | | | | | | | | | | | | | | | | | [address]- | | | | | | | | | [address], | | | | | | | | | Ph | | | | | | | | | (501) | | | | | | | | | 321[address]10 | | | | | | | | | 00 | | | | | | | | | | | | | | | | | | | | | | | | | | | | | | | | | | | | | | | | | | | | | | | | | | | | | | | | | | | | | | | | | | | | | | | | | | | | | | | | | | | | | | | | | | | | | | | | | | | | +--------+--------+--------+--------+--------+--------+--------+--------+ | 03/17/ | CBC w/ | | 31.9 | g/dL | 31.0-3 | normal | | | 2021 | auto | | | | 7.0 | | | | | diff | | | | | | | | | | | | | | | | | | | | | | | | | | | | | | | | | | | | | | | | | | | | | | [facility] | | | | | Nation | | | | RBC | | | | | al | | | | auto-m | | | | | Park | | | | cnc | | | | | [facility] | | | | | | | | | l | | | | | | | | | Center | | | | | | | | | | | | | | | | | | | | | | | | | | | | | | | | | | | | | | | | | | | | | | | | | | | | | | | | | | | | | | | | | | | | | | | | | | | | | | | | | | | | | | | | | | | | | | | | | | | | | | | | | | | | | | | | | | | | | | | | | | | | | | | | | | | | | | | 1909 | | | | | | | | | [address] | | | | | | | | | [address], | | | | | | | | | Hot | | | | | | | | | Spring | | | | | | | | | s, [place], | | | | | | | | | | | | | | | | | | [address]- | | | | | | | | | [address], | | | | | | | | | Ph | | | | | | | | | (501) | | | | | | | | | 321[address]10 | | | | | | | | | 00 | | | | | | | | | | | | | | | | | | | | | | | | | | | | | | | | | | | | | | | | | | | | | | | | | | | | | | | | | | | | | | | | | | | | | | | | | | | | | | | | | | | | | | | | | | | | | | | | | | | | +--------+--------+--------+--------+--------+--------+--------+--------+ | 03/17/ | CBC w/ | | 90.0 | fL | 80.0-1 | normal | | | 2021 | auto | | | | 00.0 | | | | | diff | | | | | | | | | | | | | | | | | | | | | | | | | | | | | | | | | | | | | | | | | | | | | | MCV | | | | | Nation | | | | | | | | | al | | | | | | | | | Park | | | | | | | | | Medica | | | | | | | | | l | | | | | | | | | Center | | | | | | | | | | | | | | | | | | | | | | | | | | | | | | | | | | | | | | | | | | | | | | | | | | | | | | | | | | | | | | | | | | | | | | | | | | | | | | | | | | | | | | | | | | | | | | | | | | | | | | | | | | | | | | | | | | | | | | | | | | | | | | | | | | | | | | | 1909 | | | | | | | | | [address] | | | | | | | [address] | [address], | | | | | | | | | Hot | | | | | | | | | Spring | | | | | | | | | s, [place], | | | | | | | | | | | | | | | | | | [address]- | | | | | | | | | [address], | | | | | | | | | Ph | | | | | | | | | (501) | | | | | | | | | 321[address]10 | | | | | | | | | 00 | | | | | | | | | | | | | | | | | | | | | | | | | | | | | | | | | | | | | | | | | | | | | | | | | | | | | | | | | | | | | | | | | | | | | | | | | | | | | | | | | | | | | | | | | | | | | | | | | | | | +--------+--------+--------+--------+--------+--------+--------+--------+ | 03/17/ | CBC w/ | | 9.5 | % | 2-11 | normal | | | 2021 | auto | | | | | | | | | diff | | | | | | | | | | | | | | | | | | | | | | | | | | | | | | | | | | | | | | | | | | | | | | monocy | | | | | Nation | | | | dl | | | | | al | | | | | | | | | Park | | | | | | | | | Medica | | | | | | | | | l | | | | | | | | | Center | | | | | | | | | | | | | | | | | | | | | | | | | | | | | | | | | | | | | | | | | | | | | | | | | | | | | | | | | | | | | | | | | | | | | | | | | | | | | | | | | | | | | | | | | | | | | | | | | | | | | | | | | | | | | | | | | | | | | | | | | | | | | | | | | | | | | | | 1909 | | | | | | | | | [address] | | | | | | | | | [address], | | | | | | | | | Hot | | | | | | | | | Spring | | | | | | | | | s, [place], | | | | | | | | | | | | | | | | | | [address]- | | | | | | | | | [address], | | | | | | | | | Ph | | | | | | | | | (501) | | | | | | | | | 321[address]10 | | | | | | | | | 00 | | | | | | | | | | | | | | | | | | | | | | | | | | | | | | | | | | | | | | | | | | | | | | | | | | | | | | | | | | | | | | | | | | | | | | | | | | | | | | | | | | | | | | | | | | | | | | | | | | | | +--------+--------+--------+--------+--------+--------+--------+--------+ | 03/17/ | CBC w/ | | 9.6 | fL | 7.4-10 | normal | | | 2021 | auto | | | | .4 | | | | | diff | | | | | | | | | | | | | | | | | | | | | | | | | | | | | | | | | | | | | | | | | | | | | | mean | | | | | Nation | | | | platel | | | | | al | | | | et | | | | | Park | | | | volume | | | | | [facility] | | | | | | | | | l | | | | | | | | | Center | | | | | | | | | | | | | | | | | | | | | | | | | | | | | | | | | | | | | | | | | | | | | | | | | | | | | | | | | | | | | | | | | | | | | | | | | | | | | | | | | | | | | | | | | | | | | | | | | | | | | | | | | | | | | | | | | | | | | | | | | | | | | | | | | | | | | | | 1909 | | | | | | | | | [address] | | | | | | | | | [address], | | | | | | | | | Hot | | | | | | | | | Spring | | | | | | | | | s, [place], | | | | | | | | | | | | | | | | | | [address]- | | | | | | | | | [address], | | | | | | | | | Ph | | | | | | | | | (501) | | | | | | | | | 321[address]10 | | | | | | | | | 00 | | | | | | | | | | | | | | | | | | | | | | | | | | | | | | | | | | | | | | | | | | | | | | | | | | | | | | | | | | | | | | | | | | | | | | | | | | | | | | | | | | | | | | | | | | | | | | | | | | | | +--------+--------+--------+--------+--------+--------+--------+--------+ | 03/17/ | CBC w/ | | 12.10 | 10x3/u | 1.56-6 | high | | | 2021 | auto | | | L | .13 | | | | | diff | | | | | | | | | | | | | | | | | | | | | | | | | | | | | | | | | | | | | | | | | | | | | | neutro | | | | | Nation | | | | norma | | | | | al | | | | abs# | | | | | Park | | | | | | | | | [facility] | | | | | | | | | l | | | | | | | | | Center | | | | | | | | | | | | | | | | | | | | | | | | | | | | | | | | | | | | | | | | | | | | | | | | | | | | | | | | | | | | | | | | | | | | | | | | | | | | | | | | | | | | | | | | | | | | | | | | | | | | | | | | | | | | | | | | | | | | | | | | | | | | | | | | | | | | | | | 1909 | | | | | | | | | [address] | | | | | | | | | [address], | | | | | | | | | Hot | | | | | | | | | Spring | | | | | | | | | s, [place], | | | | | | | | | | | | | | | | | | [address]- | | | | | | | | | [address], | | | | | | | | | Ph | | | | | | | | | (501) | | | | | | | | | 321[address]10 | | | | | | | | | 00 | | | | | | | | | | | | | | | | | | | | | | | | | | | | | | | | | | | | | | | | | | | | | | | | | | | | | | | | | | | | | | | | | | | | | | | | | | | | | | | | | | | | | | | | | | | | | | | | | | | | +--------+--------+--------+--------+--------+--------+--------+--------+ | 03/17/ | CBC w/ | | 72.5 | % | 40-80 | normal | | | 2021 | auto | | | | | | | | | diff | | | | | | | | | | | | | | | | | | | | | | | | | | | | | | | | | | | | | | | | | | | | | | neutro | | | | | Nation | | | | phils | | | | | al | | | | nfr | | | | | Park | | | | bld | | | | | [facility] | | | | auto | | | | | l | | | | | | | | | Center | | | | | | | | | | | | | | | | | | | | | | | | | | | | | | | | | | | | | | | | | | | | | | | | | | | | | | | | | | | | | | | | | | | | | | | | | | | | | | | | | | | | | | | | | | | | | | | | | | | | | | | | | | | | | | | | | | | | | | | | | | | | | | | | | | | | | | | [address] | | | | | | | | | [address] | | | | [address] | [address], | | | | | | | | | Hot | | | | | | | | | Spring | | | | | | | | | s, [place], | | | | | | | | | | | | | | | | | | [address]- | | | | | | | | | [address], | | | | | | | | | Ph | | | | | | | | | (501) | | | | | | | | | 321[address]10 | | | | | | | | | 00 | | | | | | | | | | | | | | | | | | | | | | | | | | | | | | | | | | | | | | | | | | | | | | | | | | | | | | | | | | | | | | | | | | | | | | | | | | | | | | | | | | | | | | | | | | | | | | | | | | | | +--------+--------+--------+--------+--------+--------+--------+--------+ | 03/17/ | CBC w/ | | 222 | 10x3/u | 130-40 | | | | 2021 | auto | | | L | 0 | | | | | diff | | | | | | | | | | | | | | | | | | | | | | | | | | | | | | | | | | | | | | | | | | | | | | platel | | | | | Nation | | | | et # | | | | | al | | | | bld | | | | | Park | | | | auto | | | | | [facility] | | | | | | | | | l | | | | | | | | | Center | | | | | | | | | | | | | | | | | | | | | | | | | | | | | | | | | | | | | | | | | | | | | | | | | | | | | | | | | | | | | | | | | | | | | | | | | | | | | | | | | | | | | | | | | | | | | | | | | | | | | | | | | | | | | | | | | | | | | | | | | | | | | | | | | | | | | | | 1909 | | | | | | | | | [address] | | | | | | | | | [address], | | | | | | | | | Hot | | | | | | | | | Spring | | | | | | | | | s, [place], | | | | | | | | | | | | | | | | | | [address]- | | | | | | | | | [address]752, | | | | | | | | | Ph | | | | | | | | | (501) | | | | | | | | | [address]10 | | | | | | | | | 00 | | | | | | | | | | | | | | | | | | | | | | | | | | | | | | | | | | | | | | | | | | | | | | | | | | | | | | | | | | | | | | | | | | | | | | | | | | | | | | | | | | | | | | | | | | | | | | | | | | | | +--------+--------+--------+--------+--------+--------+--------+--------+ | 03/17/ | CBC w/ | | 4.00 | 10x6/u | 4.00-5 | normal | | | 2021 | auto | | | L | .40 | | | | | diff | | | | | | | | | | | | | | | | | | | | | | | | | | | | | | | | | | | | | | | | | | | | | | RBC # | | | | | Nation | | | | bld | | | | | al | | | | auto | | | | | Park | | | | | | | | | [facility] | | | | | | | | | l | | | | | | | | | Center | | | | | | | | | | | | | | | | | | | | | | | | | | | | | | | | | | | | | | | | | | | | | | | | | | | | | | | | | | | | | | | | | | | | | | | | | | | | | | | | | | | | | | | | | | | | | | | | | | | | | | | | | | | | | | | | | | | | | | | | | | | | | | | | | | | | | | | 1909 | | | | | | | | | [address] | | | | | | | | | [address], | | | | | | | | | Hot | | | | | | | | | Spring | | | | | | | | | s, [place], | | | | | | | | | | | | | | | | | | [address]- | | | | | | | | | [address]752, | | | | | | | | | Ph | | | | | | | | | (501) | | | | | | | | | [address] | | | | | | | | | 00 | | | | | | | | | | | | | | | | | | | | | | | | | | | | | | | | | | | | | | | | | | | | | | | | | | | | | | | | | | | | | | | | | | | | | | | | | | | | | | | | | | | | | | | | | | | | | | | | | | | | +--------+--------+--------+--------+--------+--------+--------+--------+ | 03/17/ | CBC w/ | | 15.4 | % | 11.5-1 | high | | | 2021 | auto | | | | 4.5 | | | | | diff | | | | | | | | | | | | | | | | | | | | | | | | | | | | | | | | | | | | | | | | | | | | | | RDW | | | | | Nation | | | | RBC | | | | | al | | | | auto-R | | | | | Park | | | | TO | | | | | [facility] | | | | | | | | | l | | | | | | | | | Center | | | | | | | | | | | | | | | | | | | | | | | | | | | | | | | | | | | | | | | | | | | | | | | | | | | | | | | | | | | | | | | | | | | | | | | | | | | | | | | | | | | | | | | | | | | | | | | | | | | | | | | | | | | | | | | | | | | | | | | | | | | | | | | | | | | | | | | 1909 | | | | | | | | | [address] | | | | | | | | | [address], | | | | | | | | | Hot | | | | | | | | | Spring | | | | | | | | | s, [place], | | | | | | | | | | | | | | | | | | [address]- | | | | | | | | | [address], | | | | | | | | | Ph | | | | | | | | | (501) | | | | | | | | | [address] | | | | | | | | | 00 | | | | | | | | | | | | | | | | | | | | | | | | | | | | | | | | | | | | | | | | | | | | | | | | | | | | | | | | | | | | | | | | | | | | | | | | | | | | | | | | | | | | | | | | | | | | | | | | | | | | +--------+--------+--------+--------+--------+--------+--------+--------+ | 03/17/ | CBC w/ | | 16.7 | 10x3/u | 4.8-10 | high | | | 2021 | auto | | | L | .8 | | | | | diff | | | | | | | | | | | | | | | | | | | | | | | | | | | | | | | | | | | | | | | | | | | | | | WBC | | | | | Nation | | | | | | | | | al | | | | | | | | | Park | | | | | | | | | [facility] | | | | | | | | | l | | | | | | | | | Center | | | | | | | | | | | | | | | | | | | | | | | | | | | | | | | | | | | | | | | | | | | | | | | | | | | | | | | | | | | | | | | | | | | | | | | | | | | | | | | | | | | | | | | | | | | | | | | | | | | | | | | | | | | | | | | | | | | | | | | | | | | | | | | | | | | | | | | 1909 | | | | | | | | | [address] | | | | | | | | | Hot | | | | | | | | | Spring | | | | | | | | | s, [place], | | | | | | | | | | | | | | | | | | [address]- | | | | | | | | | [address], | | | | | | | | | Ph | | | | | | | | | (501) | | | | | | | | | 321[address]10 | | | | | | | | | 00 | | | | | | | | | | | | | | | | | | | | | | | | | | | | | | | | | | | | | | | | | | | | | | | | | | | | | | | | | | | | | | | | | | | | | | | | | | | | | | | | | | | | | | | | | | | | | | | | | | | | +--------+--------+--------+--------+--------+--------+--------+--------+ | 03/17/ | glucos | | 214 | mg/dL | 70-110 | high | | | 2021 | e, | | | | | | | | | fastin | | | | | | | | | g, | | | | | | | | | finger | | | | | | | | | stick, | | | | | | | | | blood | | | | | | | | | | glucom | | | | | Nation | | | (point | eter - | | | | | al | | | of | fs | | | | | Park | | | care) | glucos | | | | | Medica | | | | e | | | | | l | | | | | | | | | Center | | | | | | | | | | | | | | | | | | | | | | | | | | | | | | | | | | | | | | | | | | | | | | | | | | | | | | | | | | | | | | | | | | | | | | | | | | | | | | | | | | | | | | | | | | | | | | | | | | | | | | | | | | | | | | | | | | | | | | | | | | | | | | | | | | | | | | | 1909 | | | | | | | | | [address] | | | | | | | | | [address], | | | | | | | | | Hot | | | | | | | | | Spring | | | | | | | | | s, [place], | | | | | | | | | | | | | | | | | | [address]- | | | | | | | | | [address]752, | | | | | | | | | Ph | | | | | | | | | (501) | | | | | | | | | 321-10 | | | | | | | | | 00 | | | | | | | | | | | | | | | | | | | | | | | | | | | | | | | | | | | | | | | | | | | | | | | | | | | | | | | | | | | | | | | | | | | | | | | | | | | | | | | | | | | | | | | | | | | | | | | | | | | | +--------+--------+--------+--------+--------+--------+--------+--------+ | 03/17/ | glucos | | 156 | mg/dL | 70-110 | high | | | 2021 | e, | | | | | | | | | fastin | | | | | | | | | g, | | | | | | | | | finger | | | | | | | | | stick, | | | | | | | | | blood | | | | | | | | | | glucom | | | | | Nation | | | (point | eter - | | | | | al | | | of | fs | | | | | Park | | | care) | glucos | | | | | Medica | | | | e | | | | | l | | | | | | | | | Center | | | | | | | | | | | | | | | | | | | | | | | | | | | | | | | | | | | | | | | | | | | | | | | | | | | | | | | | | | | | | | | | | | | | | | | | | | | | | | | | | | | | | | | | | | | | | | | | | | | | | | | | | | | | | | | | | | | | | | | | | | | | | | | | | | | | | | | 1909 | | | | | | | | | [address] | | | | | | | | | [address], | | | | | | | | | Hot | | | | | | | | | Spring | | | | | | | | | s, [place], | | | | | | | | | | | | | | | | | | [address]- | | | | | | | | | [address], | | | | | | | | | Ph | | | | | | | | | (501) | | | | | | | | | 321[address]10 | | | | | | | | | 00 | | | | | | | | | | | | | | | | | | | | | | | | | | | | | | | | | | | | | | | | | | | | | | | | | | | | | | | | | | | | | | | | | | | | | | | | | | | | | | | | | | | | | | | | | | | | | | | | | | | | +--------+--------+--------+--------+--------+--------+--------+--------+ | 03/17/ | glucos | | 224 | mg/dL | 70-110 | high | | | 2021 | e, | | | | | | | | | fastin | | | | | | | | | g, | | | | | | | | | finger | | | | | | | | | stick, | | | | | | | | | blood | | | | | | | | | | glucom | | | | | Nation | | | (point | eter - | | | | | al | | | of | fs | | | | | Park | | | care) | glucos | | | | | Medica | | | | e | | | | | l | | | | | | | | | Center | | | | | | | | | | | | | | | | | | | | | | | | | | | | | | | | | | | | | | | | | | | | | | | | | | | | | | | | | | | | | | | | | | | | | | | | | | | | | | | | | | | | | | | | | | | | | | | | | | | | | | | | | | | | | | | | | | | | | | | | | | | | | | | | | | | | | | | 1909 | | | | | | | | | [address] | | | | | | [address] | [address], | | | | | | | | | Hot | | | | | | | | | Spring | | | | | | | | | s, [place], | | | | | | | | | | | | | | | | | | [address]- | | | | | | | | | [address], | | | | | | | | | Ph | | | | | | | | | (501) | | | | | | | | | [address]10 | | | | | | | | | 00 | | | | | | | | | | | | | | | | | | | | | | | | | | | | | | | | | | | | | | | | | | | | | | | | | | | | | | | | | | | | | | | | | | | | | | | | | | | | | | | | | | | | | | | | | | | | | | | | | | | | +--------+--------+--------+--------+--------+--------+--------+--------+ | 03/18/ | CBC w/ | | 0.1 | % | 0-2 | normal | | | 2021 | auto | | | | | | | | | diff | | | | | | | | | | | | | | | | | | | | | | | | | | | | | | | | | | | | | | | | | | | | | | basoph | | | | | Nation | | | | il % | | | | | al | | | | | | | | | Park | | | | | | | | | Medica | | | | | | | | | l | | | | | | | | | Center | | | | | | | | | | | | | | | | | | | | | | | | | | | | | | | | | | | | | | | | | | | | | | | | | | | | | | | | | | | | | | | | | | | | | | | | | | | | | | | | | | | | | | | | | | | | | | | | | | | | | | | | | | | | | | | | | | | | | | | | | | | | | | | | | | | | | | | [address] | | | | | | | | | [address] | | | | | | | | | Hot | | | | | | | | | Spring | | | | | | | | | s, [place], | | | | | | | | | | | | | | | | | | [address]- | | | | | | | | | [address], | | | | | | | | | Ph | | | | | | | | | (501) | | | | | | | | | [address] | | | | | | | | | 00 | | | | | | | | | | | | | | | | | | | | | | | | | | | | | | | | | | | | | | | | | | | | | | | | | | | | | | | | | | | | | | | | | | | | | | | | | | | | | | | | | | | | | | | | | | | | | | | | | | | | +--------+--------+--------+--------+--------+--------+--------+--------+ | 03/18/ | CBC w/ | | 2.5 | % | 0-7 | normal | | | 2021 | auto | | | | | | | | | diff | | | | | | | | | | | | | | | | | | | | | | | | | | | | | | | | | | | | | | | | | | | | | | eosino | | | | | Nation | | | | phils | | | | | al | | | | | | | | | Park | | | | | | | | | Medica | | | | | | | | | l | | | | | | | | | Center | | | | | | | | | | | | | | | | | | | | | | | | | | | | | | | | | | | | | | | | | | | | | | | | | | | | | | | | | | | | | | | | | | | | | | | | | | | | | | | | | | | | | | | | | | | | | | | | | | | | | | | | | | | | | | | | | | | | | | | | | | | | | | | | | | | | | | | 1909 | | | | | | | | | [address] | | | | | | | | | [address], | | | | | | | | | Hot | | | | | | | | | Spring | | | | | | | | | s, [place], | | | | | | | | | | | | | | | | | | [address]- | | | | | | | | | 7752, | | | | | | | | | Ph | | | | | | | | | (501) | | | | | | | | | 321-10 | | | | | | | | | 00 | | | | | | | | | | | | | | | | | | | | | | | | | | | | | | | | | | | | | | | | | | | | | | | | | | | | | | | | | | | | | | | | | | | | | | | | | | | | | | | | | | | | | | | | | | | | | | | | | | | | +--------+--------+--------+--------+--------+--------+--------+--------+ | 03/18/ | CBC w/ | | 33.7 | % | 36.0-4 | low | | | 2021 | auto | | | | 8.0 | | | | | diff | | | | | | | | | | | | | | | | | | | | | | | | | | | | | | | | | | | | | | | | | | | | | | HCT | | | | | Nation | | | | vfr | | | | | al | | | | bld | | | | | Park | | | | auto | | | | | [facility] | | | | | | | | | l | | | | | | | | | Center | | | | | | | | | | | | | | | | | | | | | | | | | | | | | | | | | | | | | | | | | | | | | | | | | | | | | | | | | | | | | | | | | | | | | | | | | | | | | | | | | | | | | | | | | | | | | | | | | | | | | | | | | | | | | | | | | | | | | | | | | | | | | | | | | | | | | | | 1910 | | | | | | | | | [address] | | | | | | | | | [address], | | | | | | | | | Hot | | | | | | | | | Spring | | | | | | | | | s, [place], | | | | | | | | | | | | | | | | | | [address]- | | | | | | | | | 7752, | | | | | | | | | Ph | | | | | | | | | (501) | | | | | | | | | 321-10 | | | | | | | | | 00 | | | | | | | | | | | | | | | | | | | | | | | | | | | | | | | | | | | | | | | | | | | | | | | | | | | | | | | | | | | | | | | | | | | | | | | | | | | | | | | | | | | | | | | | | | | | | | | | | | | | +--------+--------+--------+--------+--------+--------+--------+--------+ | 03/18/ | CBC w/ | | 10.6 | g/dL | 12-16 | low | | | 2021 | auto | | | | | | | | | diff | | | | | | | | | | | | | | | | | | | | | | | | | | | | | | | | | | | | | | | | | | | | | | hemogl | | | | | Nation | | | | obin | | | | | al | | | | | | | | | Park | | | | | | | | | Medica | | | | | | | | | l | | | | | | | | | Center | | | | | | | | | | | | | | | | | | | | | | | | | | | | | | | | | | | | | | | | | | | | | | | | | | | | | | | | | | | | | | | | | | | | | | | | | | | | | | | | | | | | | | | | | | | | | | | | | | | | | | | | | | | | | | | | | | | | | | | | | | | | | | | | | | | | | | | 1910 | | | | | | | | | [address] | | | | | | | | | [address], | | | | | | | | | Hot | | | | | | | | | Spring | | | | | | | | | s, [place], | | | | | | | | | | | | | | | | | | [address]- | | | | | | | | | 7752, | | | | | | | | | Ph | | | | | | | | | (501) | | | | | | | | | 321-10 | | | | | | | | | 00 | | | | | | | | | | | | | | | | | | | | | | | | | | | | | | | | | | | | | | | | | | | | | | | | | | | | | | | | | | | | | | | | | | | | | | | | | | | | | | | | | | | | | | | | | | | | | | | | | | | | +--------+--------+--------+--------+--------+--------+--------+--------+ | 03/18/ | CBC w/ | | 0.4 | % | 0-5 | normal | | | 2021 | auto | | 0.4 | | | | | | | diff | | | | | | | | | | | | | | | | | | | | | | | | | | | | | | | | | | | | | | | | | | | | | | imm | | | | | Nation | | | | granul | | | | | al | | | | ocytes | | | | | Park | | | | bld | | | | | [facility] | | | | ql | | | | | l | | | | auto | | | | | Center | | | | | | | | | | | | | | | | | | | | | | | | | | | | | | | | | | | | | | | | | | | | | | | | | | | | | | | | | | | | | | | | | | | | | | | | | | | | | | | | | | | | | | | | | | | | | | | | | | | | | | | | | | | | | | | | | | | | | | | | | | | | | | | | | | | | | | | 1909 | | | | | | | | | [address] | | | | | | | | | [address], | | | | | | | | | Hot | | | | | | | | | Spring | | | | | | | | | s, [place], | | | | | | | | | | | | | | | | | | [address]- | | | | | | | | | 7752, | | | | | | | | | Ph | | | | | | | | | (501) | | | | | | | | | 321-10 | | | | | | | | | 00 | | | | | | | | | | | | | | | | | | | | | | | | | | | | | | | | | | | | | | | | | | | | | | | | | | | | | | | | | | | | | | | | | | | | | | | | | | | | | | | | | | | | | | | | | | | | | | | | | | | | +--------+--------+--------+--------+--------+--------+--------+--------+ | 03/18/ | CBC w/ | | 2.96 | 10x3/u | 1.18-3 | normal | | | 2021 | auto | | | L | .74 | | | | | diff | | | | | | | | | | | | | | | | | | | | | | | | | | | | | | | | | | | | | | | | | | | | | | absolu | | | | | Nation | | | | te | | | | | al | | | | lympho | | | | | Park | | | | cyte | | | | | [facility] | | | | count | | | | | l | | | | | | | | | Center | | | | | | | | | | | | | | | | | | | | | | | | | | | | | | | | | | | | | | | | | | | | | | | | | | | | | | | | | | | | | | | | | | | | | | | | | | | | | | | | | | | | | | | | | | | | | | | | | | | | | | | | | | | | | | | | | | | | | | | | | | | | | | | | | | | | | | | 1909 | | | | | | | | | [address] | | | | | | | | | [address], | | | | | | | | | Hot | | | | | | | | | Spring | | | | | | | | | s, [place], | | | | | | | | | | | | | | | | | | [address]- | | | | | | | | | 7752, | | | | | | | | | Ph | | | | | | | | | (501) | | | | | | | | | 321-10 | | | | | | | | | 00 | | | | | | | | | | | | | | | | | | | | | | | | | | | | | | | | | | | | | | | | | | | | | | | | | | | | | | | | | | | | | | | | | | | | | | | | | | | | | | | | | | | | | | | | | | | | | | | | | | | | +--------+--------+--------+--------+--------+--------+--------+--------+ | 03/18/ | CBC w/ | | 21.6 | % | 15-50 | normal | | | 2021 | auto | | | | | | | | | diff | | | | | | | | | | | | | | | | | | | | | | | | | | | | | | | | | | | | | | | | | | | | | | lympho | | | | | Nation | | | | cytes | | | | | al | | | | | | | | | Park | | | | | | | | | [facility] | | | | | | | | | l | | | | | | | | | Center | | | | | | | | | | | | | | | | | | | | | | | | | | | | | | | | | | | | | | | | | | | | | | | | | | | | | | | | | | | | | | | | | | | | | | | | | | | | | | | | | | | | | | | | | | | | | | | | | | | | | | | | | | | | | | | | | | | | | | | | | | | | | | | | | | | | | | | 1909 | | | | | | | | | [address] | | | | | | | | | [address], | | | | | | | | | Hot | | | | | | | | | Spring | | | | | | | | | s, [place], | | | | | | | | | | | | | | | | | | [address]- | | | | | | | | | 7752, | | | | | | | | | Ph | | | | | | | | | (501) | | | | | | | | | 321-10 | | | | | | | | | 00 | | | | | | | | | | | | | | | | | | | | | | | | | | | | | | | | | | | | | | | | | | | | | | | | | | | | | | | | | | | | | | | | | | | | | | | | | | | | | | | | | | | | | | | | | | | | | | | | | | | | +--------+--------+--------+--------+--------+--------+--------+--------+ | 03/18/ | CBC w/ | | 28.0 | pg | 26.0-3 | normal | | | 2021 | auto | | | | 4.0 | | | | | diff | | | | | | | | | | | | | | | | | | | | | | | | | | | | | | | | | | | | | | | | | | | | | | [facility]CH | | | | | Nation | | | | | | | | | al | | | | | | | | | Park | | | | | | | | | Medica | | | | | | | | | l | | | | | | | | | Center | | | | | | | | | | | | | | | | | | | | | | | | | | | | | | | | | | | | | | | | | | | | | | | | | | | | | | | | | | | | | | | | | | | | | | | | | | | | | | | | | | | | | | | | | | | | | | | | | | | | | | | | | | | | | | | | | | | | | | | | | | | | | | | | | | | | | | | 1909 | | | | | | | | | [address] | | | | | | | | | [address], | | | | | | | | | Hot | | | | | | | | | Spring | | | | | | | | | s, [place], | | | | | | | | | | | | | | | | | | [address]- | | | | | | | | | 7752, | | | | | | | | | Ph | | | | | | | | | (501) | | | | | | | | | 321-10 | | | | | | | | | 00 | | | | | | | | | | | | | | | | | | | | | | | | | | | | | | | | | | | | | | | | | | | | | | | | | | | | | | | | | | | | | | | | | | | | | | | | | | | | | | | | | | | | | | | | | | | | | | | | | | | | +--------+--------+--------+--------+--------+--------+--------+--------+ | 03/18/ | CBC w/ | | 31.5 | g/dL | 31.0-3 | normal | | | 2021 | auto | | | | 7.0 | | | | | diff | | | | | | | | | | | | | | | | | | | | | | | | | | | | | | | | | | | | | | | | | | | | | | [facility] | | | | | Nation | | | | RBC | | | | | al | | | | auto-m | | | | | Park | | | | cnc | | | | | [facility] | | | | | | | | | l | | | | | | | | | Center | | | | | | | | | | | | | | | | | | | | | | | | | | | | | | | | | | | | | | | | | | | | | | | | | | | | | | | | | | | | | | | | | | | | | | | | | | | | | | | | | | | | | | | | | | | | | | | | | | | | | | | | | | | | | | | | | | | | | | | | | | | | | | | | | | | | | | | 1909 | | | | | | | | | [address] | | | | | | | | | [address], | | | | | | | | | Hot | | | | | | | | | Spring | | | | | | | | | s, [place], | | | | | | | | | | | | | | | | | | [address]- | | | | | | | | | 7752, | | | | | | | | | Ph | | | | | | | | | (501) | | | | | | | | | 321-10 | | | | | | | | | 00 | | | | | | | | | | | | | | | | | | | | | | | | | | | | | | | | | | | | | | | | | | | | | | | | | | | | | | | | | | | | | | | | | | | | | | | | | | | | | | | | | | | | | | | | | | | | | | | | | | | | +--------+--------+--------+--------+--------+--------+--------+--------+ | 03/18/ | CBC w/ | | 88.9 | fL | 80.0-1 | normal | | | 2021 | auto | | | | 00.0 | | | | | diff | | | | | | | | | | | | | | | | | | | | | | | | | | | | | | | | | | | | | | | | | | | | | | MCV | | | | | Nation | | | | | | | | | al | | | | | | | | | Park | | | | | | | | | Medica | | | | | | | | | l | | | | | | | | | Center | | | | | | | | | | | | | | | | | | | | | | | | | | | | | | | | | | | | | | | | | | | | | | | | | | | | | | | | | | | | | | | | | | | | | | | | | | | | | | | | | | | | | | | | | | | | | | | | | | | | | | | | | | | | | | | | | | | | | | | | | | | | | | | | | | | | | | | 1909 | | | | | | | | | [address] | | | | | | | | | [address], | | | | | | | | | Hot | | | | | | | | | Spring | | | | | | | | | s, [place], | | | | | | | | | | | | | | | | | | [address]- | | | | | | | | | 7752, | | | | | | | | | Ph | | | | | | | | | (501) | | | | | | | | | 321-10 | | | | | | | | | 00 | | | | | | | | | | | | | | | | | | | | | | | | | | | | | | | | | | | | | | | | | | | | | | | | | | | | | | | | | | | | | | | | | | | | | | | | | | | | | | | | | | | | | | | | | | | | | | | | | | | | +--------+--------+--------+--------+--------+--------+--------+--------+ | 03/18/ | CBC w/ | | 10.5 | % | 2-11 | normal | | | 2021 | auto | | | | | | | | | diff | | | | | | | | | | | | | | | | | | | | | | | | | | | | | | | | | | | | | | | | | | | | | | monocy | | | | | Nation | | | | dl | | | | | al | | | | | | | | | Park | | | | | | | | | Medica | | | | | | | | | l | | | | | | | | | Center | | | | | | | | | | | | | | | | | | | | | | | | | | | | | | | | | | | | | | | | | | | | | | | | | | | | | | | | | | | | | | | | | | | | | | | | | | | | | | | | | | | | | | | | | | | | | | | | | | | | | | | | | | | | | | | | | | | | | | | | | | | | | | | | | | | | | | | 1909 | | | | | | | | | [address] | | | | | | | | | [address], | | | | | | | | | Hot | | | | | | | | | Spring | | | | | | | | | s, [place], | | | | | | | | | | | | | | | | | | [address]- | | | | | | | | | 7752, | | | | | | | | | Ph | | | | | | | | | (501) | | | | | | | | | 321-10 | | | | | | | | | 00 | | | | | | | | | | | | | | | | | | | | | | | | | | | | | | | | | | | | | | | | | | | | | | | | | | | | | | | | | | | | | | | | | | | | | | | | | | | | | | | | | | | | | | | | | | | | | | | | | | | | +--------+--------+--------+--------+--------+--------+--------+--------+ | 03/18/ | CBC w/ | | 9.8 | fL | 7.4-10 | normal | | | 2021 | auto | | | | .4 | | | | | diff | | | | | | | | | | | | | | | | | | | | | | | | | | | | | | | | | | | | | | | | | | | | | | mean | | | | | Nation | | | | platel | | | | | al | | | | et | | | | | Park | | | | volume | | | | | [facility] | | | | | | | | | l | | | | | | | | | Center | | | | | | | | | | | | | | | | | | | | | | | | | | | | | | | | | | | | | | | | | | | | | | | | | | | | | | | | | | | | | | | | | | | | | | | | | | | | | | | | | | | | | | | | | | | | | | | | | | | | | | | | | | | | | | | | | | | | | | | | | | | | | | | | | | | | | | | 1910 | | | | | | | | | [address] | | | | | | | | | [address], | | | | | | | | | Hot | | | | | | | | | Spring | | | | | | | | | s, [place], | | | | | | | | | | | | | | | | | | [address]- | | | | | | | | | 7752, | | | | | | | | | Ph | | | | | | | | | (501) | | | | | | | | | 321-10 | | | | | | | | | 00 | | | | | | | | | | | | | | | | | | | | | | | | | | | | | | | | | | | | | | | | | | | | | | | | | | | | | | | | | | | | | | | | | | | | | | | | | | | | | | | | | | | | | | | | | | | | | | | | | | | | +--------+--------+--------+--------+--------+--------+--------+--------+ | 03/18/ | CBC w/ | | 8.92 | 10x3/u | 1.56-6 | high | | | 2021 | auto | | | L | .13 | | | | | diff | | | | | | | | | | | | | | | | | | | | | | | | | | | | | | | | | | | | | | | | | | | | | | neutro | | | | | Nation | | | | norma | | | | | al | | | | abs# | | | | | Park | | | | | | | | | [facility] | | | | | | | | | l | | | | | | | | | Center | | | | | | | | | | | | | | | | | | | | | | | | | | | | | | | | | | | | | | | | | | | | | | | | | | | | | | | | | | | | | | | | | | | | | | | | | | | | | | | | | | | | | | | | | | | | | | | | | | | | | | | | | | | | | | | | | | | | | | | | | | | | | | | | | | | | | | | 1910 | | | | | | | | | [address] | | | | | | | | [address], | | | | | | | | | Hot | | | | | | | | | Spring | | | | | | | | | s, [place], | | | | | | | | | | | | | | | | | | [address]- | | | | | | | | | 7752, | | | | | | | | | Ph | | | | | | | | | (501) | | | | | | | | | 321-10 | | | | | | | | | 00 | | | | | | | | | | | | | | | | | | | | | | | | | | | | | | | | | | | | | | | | | | | | | | | | | | | | | | | | | | | | | | | | | | | | | | | | | | | | | | | | | | | | | | | | | | | | | | | | | | | | +--------+--------+--------+--------+--------+--------+--------+--------+ | 03/18/ | CBC w/ | | 64.9 | % | 40-80 | normal | | | 2021 | auto | | | | | | | | | diff | | | | | | | | | | | | | | | | | | | | | | | | | | | | | | | | | | | | | | | | | | | | | | neutro | | | | | Nation | | | | phils | | | | | al | | | | nfr | | | | | Park | | | | bld | | | | | [facility] | | | | auto | | | | | l | | | | | | | | | Center | | | | | | | | | | | | | | | | | | | | | | | | | | | | | | | | | | | | | | | | | | | | | | | | | | | | | | | | | | | | | | | | | | | | | | | | | | | | | | | | | | | | | | | | | | | | | | | | | | | | | | | | | | | | | | | | | | | | | | | | | | | | | | | | | | | | | | | 1910 | | | | | | | | | [address] | | | | | | | | | [address], | | | | | | | | | Hot | | | | | | | | | Spring | | | | | | | | | s, [place], | | | | | | | | | | | | | | | | | | [address]- | | | | | | | | | 7752, | | | | | | | | | Ph | | | | | | | | | (501) | | | | | | | | | 321-10 | | | | | | | | | 00 | | | | | | | | | | | | | | | | | | | | | | | | | | | | | | | | | | | | | | | | | | | | | | | | | | | | | | | | | | | | | | | | | | | | | | | | | | | | | | | | | | | | | | | | | | | | | | | | | | | | +--------+--------+--------+--------+--------+--------+--------+--------+ | 03/18/ | CBC w/ | | 219 | 10x3/u | 130-40 | normal | | | 2021 | auto | | | L | 0 | | | | | diff | | | | | | | | | | | | | | | | | | | | | | | | | | | | | | | | | | | | | | | | | | | | | | platel | | | | | Nation | | | | et # | | | | | al | | | | bld | | | | | Park | | | | auto | | | | | [facility] | | | | | | | | | l | | | | | | | | | Center | | | | | | | | | | | | | | | | | | | | | | | | | | | | | | | | | | | | | | | | | | | | | | | | | | | | | | | | | | | | | | | | | | | | | | | | | | | | | | | | | | | | | | | | | | | | | | | | | | | | | | | | | | | | | | | | | | | | | | | | | | | | | | | | | | | | | | | 1909 | | | | | | | | | [address] | | | | | | | | | [address], | | | | | | | | | Hot | | | | | | | | | Spring | | | | | | | | | s, [place], | | | | | | | | | | | | | | | | | | [address]- | | | | | | | | | 7752, | | | | | | | | | Ph | | | | | | | | | (501) | | | | | | | | | 321[address]10 | | | | | | | | | 00 | | | | | | | | | | | | | | | | | | | | | | | | | | | | | | | | | | | | | | | | | | | | | | | | | | | | | | | | | | | | | | | | | | | | | | | | | | | | | | | | | | | | | | | | | | | | | | | | | | | | +--------+--------+--------+--------+--------+--------+--------+--------+ | 03/18/ | CBC w/ | | 3.79 | 10x6/u | 4.00-5 | low | | | 2021 | auto | | | L | .40 | | | | | diff | | | | | | | | | | | | | | | | | | | | | | | | | | | | | | | | | | | | | | | | | | | | | | RBC # | | | | | Nation | | | | bld | | | | | al | | | | auto | | | | | Park | | | | | | | | | [facility] | | | | | | | | | l | | | | | | | | | Center | | | | | | | | | | | | | | | | | | | | | | | | | | | | | | | | | | | | | | | | | | | | | | | | | | | | | | | | | | | | | | | | | | | | | | | | | | | | | | | | | | | | | | | | | | | | | | | | | | | | | | | | | | | | | | | | | | | | | | | | | | | | | | | | | | | | | | | 1909 | | | | | | | | | [address] | | | | | | | | | [address], | | | | | | | | | Hot | | | | | | | | | Spring | | | | | | | | | s, [place], | | | | | | | | | | | | | | | | | | [address]- | | | | | | | | | [address]752, | | | | | | | | | Ph | | | | | | | | | (501) | | | | | | | | | 321[address]10 | | | | | | | | | 00 | | | | | | | | | | | | | | | | | | | | | | | | | | | | | | | | | | | | | | | | | | | | | | | | | | | | | | | | | | | | | | | | | | | | | | | | | | | | | | | | | | | | | | | | | | | | | | | | | | | | +--------+--------+--------+--------+--------+--------+--------+--------+ | 03/18/ | CBC w/ | | 15.4 | % | 11.5-1 | high | | | 2021 | auto | | | | 4.5 | | | | | diff | | | | | | | | | | | | | | | | | | | | | | | | | | | | | | | | | | | | | | | | | | | | | | RDW | | | | | Nation | | | | RBC | | | | | al | | | | auto-R | | | | | Park | | | | TO | | | | | [facility] | | | | | | | | | l | | | | | | | | | Center | | | | | | | | | | | | | | | | | | | | | | | | | | | | | | | | | | | | | | | | | | | | | | | | | | | | | | | | | | | | | | | | | | | | | | | | | | | | | | | | | | | | | | | | | | | | | | | | | | | | | | | | | | | | | | | | | | | | | | | | | | | | | | | | | | | | | | | 1909 | | | | | | | | | [address] | | | | | | | | | [address] | | | | | | | | | Hot | | | | | | | | | Spring | | | | | | | | | s, [place], | | | | | | | | | | | | | | | | | | [address]- | | | | | | | | | [address]752, | | | | | | | | | Ph | | | | | | | | | (501) | | | | | | | | | 321-10 | | | | | | | | | 00 | | | | | | | | | | | | | | | | | | | | | | | | | | | | | | | | | | | | | | | | | | | | | | | | | | | | | | | | | | | | | | | | | | | | | | | | | | | | | | | | | | | | | | | | | | | | | | | | | | | | +--------+--------+--------+--------+--------+--------+--------+--------+ | 03/18/ | CBC w/ | | 13.7 | 10x3/u | 4.8-10 | high | | | 2021 | auto | | | L | .8 | | | | | diff | | | | | | | | | | | | | | | | | | | | | | | | | | | | | | | | | | | | | | | | | | | | | | WBC | | | | | Nation | | | | | | | | | al | | | | | | | | | Park | | | | | | | | | [facility] | | | | | | | | | [facility] | | | | | | | | | Center | | | | | | | | | | | | | | | | | | | | | | | | | | | | | | | | | | | | | | | | | | | | | | | | | | | | | | | | | | | | | | | | | | | | | | | | | | | | | | | | | | | | | | | | | | | | | | | | | | | | | | | | | | | | | | | | | | | | | | | | | | | | | | | | | | | | | | | 1909 | | | | | | | | | [address] | | | | [address] | [address], | | | | | | | | | Hot | | | | | | | | | Spring | | | | | | | | | s, [place], | | | | | | | | | | | | | | | | | | [address]- | | | | | | | | | [address]752, | | | | | | | | | Ph | | | | | | | | | (501) | | | | | | | | | 321-10 | | | | | | | | | 00 | | | | | | | | | | | | | | | | | | | | | | | | | | | | | | | | | | | | | | | | | | | | | | | | | | | | | | | | | | | | | | | | | | | | | | | | | | | | | | | | | | | | | | | | | | | | | | | | | | | | +--------+--------+--------+--------+--------+--------+--------+--------+ | 03/18/ | CMP, | | 2.2 | g/dL | 3.4-5. | low | | | 2021 | serum | | | | 0 | | | | | or | | | | | | | | | plasma | | | | | | | | | | | | | | | | | | | | | | | | | | | | | | | | | | | | | albumi | | | | | Nation | | | | n | | | | | al | | | | | | | | | Park | | | | | | | | | [facility] | | | | | | | | | l | | | | | | | | | Center | | | | | | | | | | | | | | | | | | | | | | | | | | | | | | | | | | | | | | | | | | | | | | | | | | | | | | | | | | | | | | | | | | | | | | | | | | | | | | | | | | | | | | | | | | | | | | | | | | | | | | | | | | | | | | | | | | | | | | | | | | | | | | | | | | | | | | | 1909 | | | | | | | | | [address] | | | [address], | | | | | | | | | Hot | | | | | | | | | Spring | | | | | | | | | s, [place], | | | | | | | | | | | | | | | | | | [address]- | | | | | | | | | [address]752, | | | | | | | | | Ph | | | | | | | | | (501) | | | | | | | | | 321-10 | | | | | | | | | 00 | | | | | | | | | | | | | | | | | | | | | | | | | | | | | | | | | | | | | | | | | | | | | | | | | | | | | | | | | | | | | | | | | | | | | | | | | | | | | | | | | | | | | | | | | | | | | | | | | | | | +--------+--------+--------+--------+--------+--------+--------+--------+ | 03/18/ | CMP, | | 84 | U/L | 30-120 | normal | | | 2021 | serum | | | | | | | | | or | | | | | | | | | plasma | | | | | | | | | | | | | | | | | | | | | | | | | | | | | | | | | | | | | ALP | | | | | Nation | | | | serpl- | | | | | al | | | | [facility] | | | | | Park | | | | | | | | | [facility] | | | | | | | | | [facility] | | | | | | | | | Center | | | | | | | | | | | | | | | | | | | | | | | | | | | | | | | | | | | | | | | | | | | | | | | | | | | | | | | | | | | | | | | | | | | | | | | | | | | | | | | | | | | | | | | | | | | | | | | | | | | | | | | | | | | | | | | | | | | | | | | | | | | | | | | | | | | | | | | 1909 | | | | | | | | | [address] | | [address] | | | | | | | | | Hot | | | | | | | | | Spring | | | | | | | | | s, [place], | | | | | | | | | | | | | | | | | | [address]- | | | | | | | | | [address], | | | | | | | | | Ph | | | | | | | | | (501) | | | | | | | | | 321-10 | | | | | | | | | 00 | | | | | | | | | | | | | | | | | | | | | | | | | | | | | | | | | | | | | | | | | | | | | | | | | | | | | | | | | | | | | | | | | | | | | | | | | | | | | | | | | | | | | | | | | | | | | | | | | | | | +--------+--------+--------+--------+--------+--------+--------+--------+ | 03/18/ | CMP, | | 15 | U/L | 10-68 | normal | | | 2021 | serum | | | | | | | | | or | | | | | | | | | plasma | | | | | | | | | | | | | | | | | | | | | | | | | | | | | | | | | | | | | ALT | | | | | Nation | | | | (SGPT) | | | | | al | | | | | | | | | Park | | | | ser[facility]pl | | | | | [facility] | | | | as | | | | | l | | | | | | | | | Center | | | | | | | | | | | | | | | | | | | | | | | | | | | | | | | | | | | | | | | | | | | | | | | | | | | | | | | | | | | | | | | | | | | | | | | | | | | | | | | | | | | | | | | | | | | | | | | | | | | | | | | | | | | | | | | | | | | | | | | | | | | | | | | | | | | | | | | 1909 | | | | | | | | | [address] | | | | [address] | | | | | | | | | Hot | | | | | | | | | Spring | | | | | | | | | s, [place], | | | | | | | | | | | | | | | | | | [address]- | | | | | | | | | [address], | | | | | | | | | Ph | | | | | | | | | (501) | | | | | | | | | 321[address]10 | | | | | | | | | 00 | | | | | | | | | | | | | | | | | | | | | | | | | | | | | | | | | | | | | | | | | | | | | | | | | | | | | | | | | | | | | | | | | | | | | | | | | | | | | | | | | | | | | | | | | | | | | | | | | | | | +--------+--------+--------+--------+--------+--------+--------+--------+ | 03/18/ | CMP, | | 8.90 | mmol/L | 8-16 | normal | | | 2021 | serum | | | | | | | | | or | | | | | | | | | plasma | | | | | | | | | | | | | | | | | | | | | | | | | | | | | | | | | | | | | anion | | | | | Nation | | | | gap | | | | | al | | | | serpl- | | | | | Park | | | | [facility] | | | | | [facility] | | | | | | | | | [facility] | | | | | | | | | Center | | | | | | | | | | | | | | | | | | | | | | | | | | | | | | | | | | | | | | | | | | | | | | | | | | | | | | | | | | | | | | | | | | | | | | | | | | | | | | | | | | | | | | | | | | | | | | | | | | | | | | | | | | | | | | | | | | | | | | | | | | | | | | | | | | | | | | | 1909 | | | | | | | | | [address] | | | | [address] | | | | | | | | | Hot | | | | | | | | | Spring | | | | | | | | | s, [place], | | | | | | | | | | | | | | | | | | [address]- | | | | | | | | | [address], | | | | | | | | | Ph | | | | | | | | | (501) | | | | | | | | | 321[address]10 | | | | | | | | | 00 | | | | | | | | | | | | | | | | | | | | | | | | | | | | | | | | | | | | | | | | | | | | | | | | | | | | | | | | | | | | | | | | | | | | | | | | | | | | | | | | | | | | | | | | | | | | | | | | | | | | +--------+--------+--------+--------+--------+--------+--------+--------+ | 03/18/ | CMP, | | 15 | U/L | 0-45 | | | | 2021 | serum | | | | | | | | | or | | | | | | | | | plasma | | | | | | | | | | | | | | | | | | | | | | | | | | | | | | | | | | | | | AST | | | | | Nation | | | | (SGOT) | | | | | al | | | | | | | | | [facility] | | | | | | | | | [facility] | | | | | | | | | l | | | | | | | | | Center | | | | | | | | | | | | | | | | | | | | | | | | | | | | | | | | | | | | | | | | | | | | | | | | | | | | | | | | | | | | | | | | | | | | | | | | | | | | | | | | | | | | | | | | | | | | | | | | | | | | | | | | | | | | | | | | | | | | | | | | | | | | | | | | | | | | | | | [address] | | | | | | | | | [address], | | | | | | | | | Hot | | | | | | | | | Spring | | | | | | | | | s, [place], | | | | | | | | | | | | | | | | | | [address]- | | | | | | | | | 7752, | | | | | | | | | Ph | | | | | | | | | (501) | | | | | | | | | 321-10 | | | | | | | | | 00 | | | | | | | | | | | | | | | | | | | | | | | | | | | | | | | | | | | | | | | | | | | | | | | | | | | | | | | | | | | | | | | | | | | | | | | | | | | | | | | | | | | | | | | | | | | | | | | | | | | | +--------+--------+--------+--------+--------+--------+--------+--------+ | 03/18/ | CMP, | | 13 | ratio | 10-20 | normal | | | 2021 | serum | | | | | | | | | or | | | | | | | | | plasma | | | | | | | | | | | | | | | | | | | | | | | | | | | | | | | | | | | | | BUN/cr | | | | | Nation | | | | e | | | | | al | | | | ratio | | | | | Park | | | | | | | | | Medica | | | | | | | | | l | | | | | | | | | Center | | | | | | | | | | | | | | | | | | | | | | | | | | | | | | | | | | | | | | | | | | | | | | | | | | | | | | | | | | | | | | | | | | | | | | | | | | | | | | | | | | | | | | | | | | | | | | | | | | | | | | | | | | | | | | | | | | | | | | | | | | | | | | | | | | | | | | | 1910 | | | | | | | | | [address] | | | | | | | | | [address], | | | | | | | | | Hot | | | | | | | | | Spring | | | | | | | | | s, [place], | | | | | | | | | | | | | | | | | | [address]- | | | | | | | | | 7752, | | | | | | | | | Ph | | | | | | | | | (501) | | | | | | | | | 321-10 | | | | | | | | | 00 | | | | | | | | | | | | | | | | | | | | | | | | | | | | | | | | | | | | | | | | | | | | | | | | | | | | | | | | | | | | | | | | | | | | | | | | | | | | | | | | | | | | | | | | | | | | | | | | | | | | +--------+--------+--------+--------+--------+--------+--------+--------+ | 03/18/ | CMP, | | 0.41 | mg/dL | 0.2-1. | normal | | | 2021 | serum | | | | 3 | | | | | or | | | | | | | | | plasma | | | | | | | | | | | | | | | | | | | | | | | | | | | | | | | | | | | | | biliru | | | | | Nation | | | | bin - | | | | | al | | | | total | | | | | Park | | | | | | | | | Med[facility] | | | | | | | | | l | | | | | | | | | Center | | | | | | | | | | | | | | | | | | | | | | | | | | | | | | | | | | | | | | | | | | | | | | | | | | | | | | | | | | | | | | | | | | | | | | | | | | | | | | | | | | | | | | | | | | | | | | | | | | | | | | | | | | | | | | | | | | | | | | | | | | | | | | | | | | | | | | | 1910 | | | | | | | | | [address] | | | | | | | | | [address], | | | | | | | | | Hot | | | | | | | | | Spring | | | | | | | | | s, [place], | | | | | | | | | | | | | | | | | | [address]- | | | | | | | | | 7752, | | | | | | | | | Ph | | | | | | | | | (501) | | | | | | | | | 321-10 | | | | | | | | | 00 | | | | | | | | | | | | | | | | | | | | | | | | | | | | | | | | | | | | | | | | | | | | | | | | | | | | | | | | | | | | | | | | | | | | | | | | | | | | | | | | | | | | | | | | | | | | | | | | | | | | +--------+--------+--------+--------+--------+--------+--------+--------+ | 03/18/ | CMP, | | 12 | mg/dL | 7-18 | | | | 2021 | serum | | | | | | | | | or | | | | | | | | | plasma | | | | | | | | | | | | | | | | | | | | | | | | | | | | | | | | | | | | | BUN | | | | | Nation | | | | serpl- | | | | | al | | | | mcnc | | | | | Park | | | | | | | | | [facility] | | | | | | | | | l | | | | | | | | | Center | | | | | | | | | | | | | | | | | | | | | | | | | | | | | | | | | | | | | | | | | | | | | | | | | | | | | | | | | | | | | | | | | | | | | | | | | | | | | | | | | | | | | | | | | | | | | | | | | | | | | | | | | | | | | | | | | | | | | | | | | | | | | | | | | | | | | | | 1910 | | | | | | | | | [address] | | | | | | | | | [address], | | | | | | | | | Hot | | | | | | | | | Spring | | | | | | | | | s, [place], | | | | | | | | | | | | | | | | | | [address]- | | | | | | | | | 7752, | | | | | | | | | Ph | | | | | | | | | (501) | | | | | | | | | 321-10 | | | | | | | | | 00 | | | | | | | | | | | | | | | | | | | | | | | | | | | | | | | | | | | | | | | | | | | | | | | | | | | | | | | | | | | | | | | | | | | | | | | | | | | | | | | | | | | | | | | | | | | | | | | | | | | | +--------+--------+--------+--------+--------+--------+--------+--------+ | 03/18/ | CMP, | | 7.8 | mg/dL | 8.5-10 | low | | | 2021 | serum | | | | .1 | | | | | or | | | | | | | | | plasma | | | | | | | | | | | | | | | | | | | | | | | | | | | | | | | | | | | | | calciu | | | | | Nation | | | | m | | | | | al | | | | serpl- | | | | | Park | | | | mcnc | | | | | [facility] | | | | | | | | | l | | | | | | | | | Center | | | | | | | | | | | | | | | | | | | | | | | | | | | | | | | | | | | | | | | | | | | | | | | | | | | | | | | | | | | | | | | | | | | | | | | | | | | | | | | | | | | | | | | | | | | | | | | | | | | | | | | | | | | | | | | | | | | | | | | | | | | | | | | | | | | | | | | 1910 | | | | | | | | | [address] | | | | | | | | [address], | | | | | | | | | Hot | | | | | | | | | Spring | | | | | | | | | s, [place], | | | | | | | | | | | | | | | | | | [address]- | | | | | | | | | 7752, | | | | | | | | | Ph | | | | | | | | | (501) | | | | | | | | | 321-10 | | | | | | | | | 00 | | | | | | | | | | | | | | | | | | | | | | | | | | | | | | | | | | | | | | | | | | | | | | | | | | | | | | | | | | | | | | | | | | | | | | | | | | | | | | | | | | | | | | | | | | | | | | | | | | | | +--------+--------+--------+--------+--------+--------+--------+--------+ | 03/18/ | CMP, | | 106 | mmol/L | 98-107 | normal | | | 2021 | serum | | | | | | | | | or | | | | | | | | | plasma | | | | | | | | | | | | | | | | | | | | | | | | | | | | | | | | | | | | | chlori | | | | | Nation | | | | de | | | | | al | | | | ser/pl | | | | | Park | | | | as | | | | | Medica | | | | | | | | | l | | | | | | | | | Center | | | | | | | | | | | | | | | | | | | | | | | | | | | | | | | | | | | | | | | | | | | | | | | | | | | | | | | | | | | | | | | | | | | | | | | | | | | | | | | | | | | | | | | | | | | | | | | | | | | | | | | | | | | | | | | | | | | | | | | | | | | | | | | | | | | | | | | 1909 | | | | | | | | | [address] | | | | | | | | | [address], | | | | | | | | | Hot | | | | | | | | | Spring | | | | | | | | | s, [place], | | | | | | | | | | | | | | | | | | [address]- | | | | | | | | | 7752, | | | | | | | | | Ph | | | | | | | | | (501) | | | | | | | | | 321-10 | | | | | | | | | 00 | | | | | | | | | | | | | | | | | | | | | | | | | | | | | | | | | | | | | | | | | | | | | | | | | | | | | | | | | | | | | | | | | | | | | | | | | | | | | | | | | | | | | | | | | | | | | | | | | | | | +--------+--------+--------+--------+--------+--------+--------+--------+ | 03/18/ | CMP, | | 27.9 | mmol/L | 21.0-3 | normal | | | 2021 | serum | | | | 2.0 | | | | | or | | | | | | | | | plasma | | | | | | | | | | | | | | | | | | | | | | | | | | | | | | | | | | | | | CO2 | | | | | Nation | | | | serpl- | | | | | al | | | | scnc | | | | | Park | | | | | | | | | [facility] | | | | | | | | | l | | | | | | | | | Center | | | | | | | | | | | | | | | | | | | | | | | | | | | | | | | | | | | | | | | | | | | | | | | | | | | | | | | | | | | | | | | | | | | | | | | | | | | | | | | | | | | | | | | | | | | | | | | | | | | | | | | | | | | | | | | | | | | | | | | | | | | | | | | | | | | | | | | 1909 | | | | | | | | | [address] | | | | | | | | | [address], | | | | | | | | | Hot | | | | | | | | | Spring | | | | | | | | | s, [place], | | | | | | | | | | | | | | | | | | [address]- | | | | | | | | | 7752, | | | | | | | | | Ph | | | | | | | | | (501) | | | | | | | | | 321-10 | | | | | | | | | 00 | | | | | | | | | | | | | | | | | | | | | | | | | | | | | | | | | | | | | | | | | | | | | | | | | | | | | | | | | | | | | | | | | | | | | | | | | | | | | | | | | | | | | | | | | | | | | | | | | | | | +--------+--------+--------+--------+--------+--------+--------+--------+ | 03/18/ | CMP, | | 281 | mOsm/k | 275-30 | normal | | | 2021 | serum | | | g | 0 | | | | | or | | | | | | | | | plasma | | | | | | | | | | | | | | | | | | | | | | | | | | | | | | | | | | | | | osmola | | | | | Nation | | | | lity | | | | | al | | | | serpl | | | | | Park | | | | calc | | | | | [facility] | | | | | | | | | l | | | | | | | | | Center | | | | | | | | | | | | | | | | | | | | | | | | | | | | | | | | | | | | | | | | | | | | | | | | | | | | | | | | | | | | | | | | | | | | | | | | | | | | | | | | | | | | | | | | | | | | | | | | | | | | | | | | | | | | | | | | | | | | | | | | | | | | | | | | | | | | | | | 1909 | | | | | | | | | [address] | | | | | | | | | [address], | | | | | | | | | Hot | | | | | | | | | Spring | | | | | | | | | s, [place], | | | | | | | | | | | | | | | | | | [address]- | | | | | | | | | [address]752, | | | | | | | | | Ph | | | | | | | | | (501) | | | | | | | | | 321-10 | | | | | | | | | 00 | | | | | | | | | | | | | | | | | | | | | | | | | | | | | | | | | | | | | | | | | | | | | | | | | | | | | | | | | | | | | | | | | | | | | | | | | | | | | | | | | | | | | | | | | | | | | | | | | | | | +--------+--------+--------+--------+--------+--------+--------+--------+ | 03/18/ | CMP, | | 0.9 | mg/dL | 0.6-1. | normal | | | 2021 | serum | | | | 3 | | | | | or | | | | | | | | | plasma | | | | | | | | | | | | | | | | | | | | | | | | | | | | | | | | | | | | | creat | | | | | Nation | | | | serpl- | | | | | al | | | | [facility] | | | | | Park | | | | | | | | | [facility] | | | | | | | | | l | | | | | | | | | Center | | | | | | | | | | | | | | | | | | | | | | | | | | | | | | | | | | | | | | | | | | | | | | | | | | | | | | | | | | | | | | | | | | | | | | | | | | | | | | | | | | | | | | | | | | | | | | | | | | | | | | | | | | | | | | | | | | | | | | | | | | | | | | | | | | | | | | | 1909 | | | | | | | | | [address] | | | | | | | | | [address], | | | | | | | | | Hot | | | | | | | | | Spring | | | | | | | | | s, [place], | | | | | | | | | | | | | | | | | | [address]- | | | | | | | | | 7752, | | | | | | | | | Ph | | | | | | | | | (501) | | | | | | | | | 321-10 | | | | | | | | | 00 | | | | | | | | | | | | | | | | | | | | | | | | | | | | | | | | | | | | | | | | | | | | | | | | | | | | | | | | | | | | | | | | | | | | | | | | | | | | | | | | | | | | | | | | | | | | | | | | | | | | +--------+--------+--------+--------+--------+--------+--------+--------+ | 03/18/ | CMP, | | 84 | mL/min | 90-120 | low | | | 2021 | serum | | | | | | | | | or | | | | | | | | | plasma | | | | | | | | | | | | | | | | | | | | | | | | | | | | | | | | | | | | | eGFR | | | | | Nation | | | | joie | | | | | al | | | | n | | | | | Park | | | | americ | | | | | [facility] | | | | an | | | | | l | | | | | | | | | Center | | | | | | | | | | | | | | | | | | | | | | | | | | | | | | | | | | | | | | | | | | | | | | | | | | | | | | | | | | | | | | | | | | | | | | | | | | | | | | | | | | | | | | | | | | | | | | | | | | | | | | | | | | | | | | | | | | | | | | | | | | | | | | | | | | | | | | | 1910 | | | | | | | | | [address] | | | | | | | | | [address], | | | | | | | | | Hot | | | | | | | | | Spring | | | | | | | | | s, [place], | | | | | | | | | | | | | | | | | | [address]- | | | | | | | | | 7752, | | | | | | | | | Ph | | | | | | | | | (501) | | | | | | | | | 321-10 | | | | | | | | | 00 | | | | | | | | | | | | | | | | | | | | | | | | | | | | | | | | | | | | | | | | | | | | | | | | | | | | | | | | | | | | | | | | | | | | | | | | | | | | | | | | | | | | | | | | | | | | | | | | | | | | +--------+--------+--------+--------+--------+--------+--------+--------+ | 03/18/ | CMP, | | 69 | mL/min | 90-120 | low | | | 2021 | serum | | | | | | | | | or | | | | | | | | | plasma | | | | | | | | | | | | | | | | | | | | | | | | | | | | | | | | | | | | | eGFR | | | | | Nation | | | | non-af | | | | | al | | | | rican | | | | | Park | | | | americ | | | | | Med[facility] | | | | an | | | | | l | | | | | | | | | Center | | | | | | | | | | | | | | | | | | | | | | | | | | | | | | | | | | | | | | | | | | | | | | | | | | | | | | | | | | | | | | | | | | | | | | | | | | | | | | | | | | | | | | | | | | | | | | | | | | | | | | | | | | | | | | | | | | | | | | | | | | | | | | | | | | | | | | | [address] | | | | | | | | | [address] | | | | | | | | [address], | | | | | | | | | Hot | | | | | | | | | Spring | | | | | | | | | s, [place], | | | | | | | | | | | | | | | | | | [address]- | | | | | | | | | 7752, | | | | | | | | | Ph | | | | | | | | | (501) | | | | | | | | | 321-10 | | | | | | | | | 00 | | | | | | | | | | | | | | | | | | | | | | | | | | | | | | | | | | | | | | | | | | | | | | | | | | | | | | | | | | | | | | | | | | | | | | | | | | | | | | | | | | | | | | | | | | | | | | | | | | | | +--------+--------+--------+--------+--------+--------+--------+--------+ | 03/18/ | CMP, | | 3.3 | g/L | | | | | 2021 | serum | | | | | | | | | or | | | | | | | | | plasma | | | | | | | | | | | | | | | | | | | | | | | | | | | | | | | | | | | | | globul | | | | | Nation | | | | in ser | | | | | al | | | | | | | | | Park | | | | calc-m | | | | | [facility] | | | | cnc | | | | | l | | | | | | | | | Center | | | | | | | | | | | | | | | | | | | | | | | | | | | | | | | | | | | | | | | | | | | | | | | | | | | | | | | | | | | | | | | | | | | | | | | | | | | | | | | | | | | | | | | | | | | | | | | | | | | | | | | | | | | | | | | | | | | | | | | | | | | | | | | | | | | | | | | 1910 | | | | | | | | | [address] | | | | | | | | [address], | | | | | | | | | Hot | | | | | | | | | Spring | | | | | | | | | s, [place], | | | | | | | | | | | | | | | | | | [address]- | | | | | | | | | 7752, | | | | | | | | | Ph | | | | | | | | | (501) | | | | | | | | | 321-10 | | | | | | | | | 00 | | | | | | | | | | | | | | | | | | | | | | | | | | | | | | | | | | | | | | | | | | | | | | | | | | | | | | | | | | | | | | | | | | | | | | | | | | | | | | | | | | | | | | | | | | | | | | | | | | | | +--------+--------+--------+--------+--------+--------+--------+--------+ | 03/18/ | CMP, | | 176 | mg/dL | 74-106 | high | | | 2021 | serum | | | | | | | | | or | | | | | | | | | plasma | | | | | | | | | | | | | | | | | | | | | | | | | | | | | | | | | | | | | glucos | | | | | Nation | | | | e | | | | | al | | | | serpl- | | | | | Park | | | | mcnc | | | | | Medica | | | | | | | | | l | | | | | | | | | Center | | | | | | | | | | | | | | | | | | | | | | | | | | | | | | | | | | | | | | | | | | | | | | | | | | | | | | | | | | | | | | | | | | | | | | | | | | | | | | | | | | | | | | | | | | | | | | | | | | | | | | | | | | | | | | | | | | | | | | | | | | | | | | | | | | | | | | | 1910 | | | | | | | | | [address] | | | | | | | | [address], | | | | | | | | | Hot | | | | | | | | | Spring | | | | | | | | | s, [place], | | | | | | | | | | | | | | | | | | [address]- | | | | | | | | | 7752, | | | | | | | | | Ph | | | | | | | | | (501) | | | | | | | | | 321-10 | | | | | | | | | 00 | | | | | | | | | | | | | | | | | | | | | | | | | | | | | | | | | | | | | | | | | | | | | | | | | | | | | | | | | | | | | | | | | | | | | | | | | | | | | | | | | | | | | | | | | | | | | | | | | | | | +--------+--------+--------+--------+--------+--------+--------+--------+ | 03/18/ | CMP, | | 3.8 | mmol/L | 3.5-5. | normal | | | 2021 | serum | | | | 1 | | | | | or | | | | | | | | | plasma | | | | | | | | | | | | | | | | | | | | | | | | | | | | | | | | | | | | | potass | | | | | Nation | | | | ium | | | | | al | | | | ser/pl | | | | | Park | | | | as | | | | | Medica | | | | | | | | | l | | | | | | | | | Center | | | | | | | | | | | | | | | | | | | | | | | | | | | | | | | | | | | | | | | | | | | | | | | | | | | | | | | | | | | | | | | | | | | | | | | | | | | | | | | | | | | | | | | | | | | | | | | | | | | | | | | | | | | | | | | | | | | | | | | | | | | | | | | | | | | | | | | 1910 | | | | | | | | | [address] | | | | | | | | [address], | | | | | | | | | Hot | | | | | | | | | Spring | | | | | | | | | s, [place], | | | | | | | | | | | | | | | | | | [address]- | | | | | | | | | 7752, | | | | | | | | | Ph | | | | | | | | | (501) | | | | | | | | | 321-10 | | | | | | | | | 00 | | | | | | | | | | | | | | | | | | | | | | | | | | | | | | | | | | | | | | | | | | | | | | | | | | | | | | | | | | | | | | | | | | | | | | | | | | | | | | | | | | | | | | | | | | | | | | | | | | | | +--------+--------+--------+--------+--------+--------+--------+--------+ | 03/18/ | CMP, | | 139 | mmol/L | 136-14 | normal | | | 2021 | serum | | | | 5 | | | | | or | | | | | | | | | plasma | | | | | | | | | | | | | | | | | | | | | | | | | | | | | | | | | | | | | sodium | | | | | Nation | | | | | | | | | al | | | | serpl- | | | | | Park | | | | scnc | | | | | Medica | | | | | | | | | l | | | | | | | | | Center | | | | | | | | | | | | | | | | | | | | | | | | | | | | | | | | | | | | | | | | | | | | | | | | | | | | | | | | | | | | | | | | | | | | | | | | | | | | | | | | | | | | | | | | | | | | | | | | | | | | | | | | | | | | | | | | | | | | | | | | | | | | | | | | | | | | | | | 1910 | | | | | | | | | [address] | | | | | | | | | [address], | | | | | | | | | Hot | | | | | | | | | Spring | | | | | | | | | s, [place], | | | | | | | | | | | | | | | | | | [address]- | | | | | | | | | 7752, | | | | | | | | | Ph | | | | | | | | | (501) | | | | | | | | | 321[address]10 | | | | | | | | | 00 | | | | | | | | | | | | | | | | | | | | | | | | | | | | | | | | | | | | | | | | | | | | | | | | | | | | | | | | | | | | | | | | | | | | | | | | | | | | | | | | | | | | | | | | | | | | | | | | | | | | +--------+--------+--------+--------+--------+--------+--------+--------+ | 03/18/ | CMP, | | 5.5 | g/dL | 6.4-8. | low | | | 2021 | serum | | | | 2 | | | | | or | | | | | | | | | plasma | | | | | | | | | | | | | | | | | | | | | | | | | | | | | | | | | | | | | protei | | | | | Nation | | | | n | | | | | al | | | | total | | | | | Park | | | | ser/pl | | | | | Med[facility] | | | | as | | | | | l | | | | | | | | | Center | | | | | | | | | | | | | | | | | | | | | | | | | | | | | | | | | | | | | | | | | | | | | | | | | | | | | | | | | | | | | | | | | | | | | | | | | | | | | | | | | | | | | | | | | | | | | | | | | | | | | | | | | | | | | | | | | | | | | | | | | | | | | | | | | | | | | | | 1909 | | | | | | | | | [address] | | | | | | [address] | | | | | | | | | Hot | | | | | | | | | Spring | | | | | | | | | s, [place], | | | | | | | | | | | | | | | | | | [address]- | | | | | | | | | [address], | | | | | | | | | Ph | | | | | | | | | (501) | | | | | | | | | 321[address]10 | | | | | | | | | 00 | | | | | | | | | | | | | | | | | | | | | | | | | | | | | | | | | | | | | | | | | | | | | | | | | | | | | | | | | | | | | | | | | | | | | | | | | | | | | | | | | | | | | | | | | | | | | | | | | | | | +--------+--------+--------+--------+--------+--------+--------+--------+ | 03/18/ | magnes | | 1.7 | mg/dL | 1.8-2. | low | | | 2021 | ium, | | | | 4 | | | | | serum | | | | | | | | | or | | | | | | | | | plasma | | | | | | | | | | | | | | | | | | | | | | | | | | | | magnes | | | | | Nation | | | | ium | | | | | al | | | | serpl- | | | | | Park | | | | mcnc | | | | | [facility] | | | | | | | | | l | | | | | | | | | Center | | | | | | | | | | | | | | | | | | | | | | | | | | | | | | | | | | | | | | | | | | | | | | | | | | | | | | | | | | | | | | | | | | | | | | | | | | | | | | | | | | | | | | | | | | | | | | | | | | | | | | | | | | | | | | | | | | | | | | | | | | | | | | | | | | | | | | | 1909 | | | | | | | | | [address] | | | | | | | | [address] | | | | | | | | | Hot | | | | | | | | | Spring | | | | | | | | | s, [place], | | | | | | | | | | | | | | | | | | [address]- | | | | | | | | | [address], | | | | | | | | | Ph | | | | | | | | | (501) | | | | | | | | | 321[address]10 | | | | | | | | | 00 | | | | | | | | | | | | | | | | | | | | | | | | | | | | | | | | | | | | | | | | | | | | | | | | | | | | | | | | | | | | | | | | | | | | | | | | | | | | | | | | | | | | | | | | | | | | | | | | | | | | +--------+--------+--------+--------+--------+--------+--------+--------+ | 03/18/ | glucos | | 179 | mg/dL | 70-110 | high | | | 2021 | e, | | | | | | | | | fastin | | | | | | | | | g, | | | | | | | | | finger | | | | | | | | | stick, | | | | | | | | | blood | | | | | | | | | | glucom | | | | | Nation | | | (point | eter - | | | | | al | | | of | fs | | | | | Park | | | care) | glucos | | | | | Medica | | | | e | | | | | l | | | | | | | | | Center | | | | | | | | | | | | | | | | | | | | | | | | | | | | | | | | | | | | | | | | | | | | | | | | | | | | | | | | | | | | | | | | | | | | | | | | | | | | | | | | | | | | | | | | | | | | | | | | | | | | | | | | | | | | | | | | | | | | | | | | | | | | | | | | | | | | | | | 1909 | | | | | | | | | [address] | | | | | | | [address], | | | | | | | | | Hot | | | | | | | | | Spring | | | | | | | | | s, [place], | | | | | | | | | | | | | | | | | | [address]- | | | | | | | | | [address], | | | | | | | | | Ph | | | | | | | | | (501) | | | | | | | | | 321[address]10 | | | | | | | | | 00 | | | | | | | | | | | | | | | | | | | | | | | | | | | | | | | | | | | | | | | | | | | | | | | | | | | | | | | | | | | | | | | | | | | | | | | | | | | | | | | | | | | | | | | | | | | | | | | | | | | | +--------+--------+--------+--------+--------+--------+--------+--------+ | 03/18/ | glucos | | 207 | mg/dL | 70-110 | high | | | 2021 | e, | | | | | | | | | fastin | | | | | | | | | g, | | | | | | | | | finger | | | | | | | | | stick, | | | | | | | | | blood | | | | | | | | | | glucom | | | | | Nation | | | (point | eter - | | | | | al | | | of | fs | | | | | Park | | | care) | glucos | | | | | Medica | | | | e | | | | | l | | | | | | | | | Center | | | | | | | | | | | | | | | | | | | | | | | | | | | | | | | | | | | | | | | | | | | | | | | | | | | | | | | | | | | | | | | | | | | | | | | | | | | | | | | | | | | | | | | | | | | | | | | | | | | | | | | | | | | | | | | | | | | | | | | | | | | | | | | | | | | | | | | [address] | | | | | | | | | [address] | | | | | | | [address] | | | | | | | | | Hot | | | | | | | | | Spring | | | | | | | | | s, [place], | | | | | | | | | | | | | | | | | | [address]- | | | | | | | | | [address], | | | | | | | | | Ph | | | | | | | | | (501) | | | | | | | | | [address] | | | | | | | | | 00 | | | | | | | | | | | | | | | | | | | | | | | | | | | | | | | | | | | | | | | | | | | | | | | | | | | | | | | | | | | | | | | | | | | | | | | | | | | | | | | | | | | | | | | | | | | | | | | | | | | | +--------+--------+--------+--------+--------+--------+--------+--------+ | | XR, | | | | | | | | | chest, | | | | | | | | | 1 | | | | | | | | | view | | | | | | | | | | | | | | | | | | | | | | | | | | | | | | | | | | | | | | No | | | | Nation | | | | | observ | | | | al | | | | | ation | | | | Park | | | | | record | | | | Medica | | | | | ed. | | | | l | | | | | | | | | Center | | | | | | | | | | | | | | | | | | (Imagi | | | | | | | | | ng) | | | | | | | | | | | | | | | | | | | | | | | | | | | | | | | | | | | | | | | | | | | | | | | | | | | | | | | | | | | | | | | | | | | | | | | | | | | | | | | | | | | | | | | | | | | | | | | | | | | | | | | | | | | | | | | | | | | | | | | | | | | | | | | | | | | | | | | 1909 | | | | | | | | | [address] | | | | | | | | [address] | | | | | | | | | Hot | | | | | | | | | Spring | | | | | | | | | s | | | | | | | | | Nation | | | | | | | | | al | | | | | | | | | Park, | | | | | | | | | [place], | | | | | | | | | [id number], | | | | | | | | | Ph | | | | | | | | | (501) | | | | | | | | | [address] | | | | | | | | | 75 | | | | | | | | | | | | | | | | | | | | | | | | | | | | | | | | | | | | | | | | | | | | | | | | | | | | | | | | | | | | | | | | | | | | | | | | | | | | | | | | | | | | | | | | | | | | | | | | | | | | +--------+--------+--------+--------+--------+--------+--------+--------+ Problems +---------+---------+---------+---------+---------+---------+---------+ | Name | Status | Last | Onset | Resolut | Lateral | Problem | | | | Modifie | Date | ion | ity | Type | | | | d Date | | Date | | | | | | | | | | | | | | | | | | | | | | | | | | | | | | | | | | | | | | | | | | | +---------+---------+---------+---------+---------+---------+---------+ | Infecti | Active | | | | | | | on due | | 020 | 020 | | | | | to | | | | | | | | Strepto | | | | | | | | coccus | | | | | | | | group G | | | | | | | | | | | | | | | | | | | | | | | | | | | | | | | | | | | | | | | | | | | | | | | | | | | | | | | +---------+---------+---------+---------+---------+---------+---------+ | Tobacco | Active | | | | | | | user | | 012 | | | | | | | | | | | | | | | | | | | | | | | | | | | | | | | | | | | | | | | | | | | | | +---------+---------+---------+---------+---------+---------+---------+ | Coronar | Active | | | | | | | y | | 018 | 018 | | | | | arterio | | | | | | | | scleros | | | | | | | | is | | | | | | | | | | | | | | | | | | | | | | | | | | | | | | | | | | | | | | | | | | | | | | | +---------+---------+---------+---------+---------+---------+---------+ | Asthma | Active | | | | | | | | | 013 | | | | | | | | | | | | | | | | | | | | | | | | | | | | | | | | | | | | | | | | | | | | | +---------+---------+---------+---------+---------+---------+---------+ | Chronic | Active | | | | | | | | | 012 | | | | | | obstruc | | | | | | | | tive | | | | | | | | lung | | | | | | | | disease | | | | | | | | | | | | | | | | | | | | | | | | | | | | | | | | | | | | | | | | | | | | | | | | | | | | | | | +---------+---------+---------+---------+---------+---------+---------+ | Multipl | Active | | | | | | | e | | 013 | | | | | | nodules | | | | | | | | of | | | | | | | | lung | | | | | | | | | | | | | | | | | | | | | | | | | | | | | | | | | | | | | | | | | | | | | | | +---------+---------+---------+---------+---------+---------+---------+ | Diverti | Active | | | | | | | culitis | | 012 | | | | | | of | | | | | | | | colon | | | | | | | | | | | | | | | | | | | | | | | | | | | | | | | | | | | | | | | | | | | | | | | +---------+---------+---------+---------+---------+---------+---------+ | Osteoar | Active | | | | | | | thritis | | 013 | | | | | | of | | | | | | | | knee | | | | | | | | | | | | | | | | | | | | | | | | | | | | | | | | | | | | | | | | | | | | | | | +---------+---------+---------+---------+---------+---------+---------+ | Knee | Active | | | | | | | pain | | 013 | | | | | | | | | | | | | | | | | | | | | | | | | | | | | | | | | | | | | | | | | | | | | +---------+---------+---------+---------+---------+---------+---------+ | Lumbar | Active | | | | | | | spondyl | | 013 | | | | | | osis | | | | | | | | | | | | | | | | | | | | | | | | | | | | | | | | | | | | | | | | | | | | | | | +---------+---------+---------+---------+---------+---------+---------+ | History | Active | | | | | | | of | | 018 | 018 | | | | | maligna | | | | | | | | nt | | | | | | | | neoplas | | | | | | | | m of | | | | | | | | breast | | | | | | | | | | | | | | | | | | | | | | | | | | | | | | | | | | | | | | | | | | | | | | | +---------+---------+---------+---------+---------+---------+---------+ | History | Active | | | | | | | of | | 012 | | | | | | clinica | | | | | | | | l | | | | | | | | finding | | | | | | | | in | | | | | | | | subject | | | | | | | | | | | | | | | | | | | | | | | | | | | | | | | | | | | | | | | | | | | | | | | | | | | | | | | +---------+---------+---------+---------+---------+---------+---------+ | History | Active | | | | | | | of | | 018 | 018 | | | | | hystere | | | | | | | | ctomy | | | | | | | | | | | | | | | | | | | | | | | | | | | | | | | | | | | | | | | | | | | | | | | +---------+---------+---------+---------+---------+---------+---------+ | Klebsie | Active | | | | | | | lla | | 020 | 020 | | | | | pneumon | | | | | | | | iae or | | | | | | | | Klebsie | | | | | | | | lla | | | | | | | | oxytoca | | | | | | | | | | | | | | | | | | | | | | | | | | | | | | | | | | | | | | | | | | | | | | | | | | | | | | | +---------+---------+---------+---------+---------+---------+---------+ Procedures Surgical History + + + + + | Date | Name | Laterality | Status | | | | | | | | | | | | | | | | + + + + + | 02/15/2013 | | | completed | | | | | | | | | | | | | BRONCHOSCOPY | | | | | (SURG) | | | | | | | | | | | | | | | | | | | | | | | | | | | | + + + + + | 06/23/2012 | | | completed | | | | | | | | | | | | | BRONCHOSCOPY | | | | | (SURG) | | | | | | | | | | | | | | | | | | | | | | | | | | | | + + + + + | 11/30/2007 | | | completed | | | | | | | | Other | | | | | | | | | | | | | | | | | | | | | | | | | | | | + + + + + | 11/30/2000 | | | completed | | | | | | | | | | | | | Cancer Surgery | | | | | | | | | | | | | | | | | | | | | | | | | | | | + + + + + | 11/30/1999 | | | completed | | | | | | | | | | | | | Cancer Surgery | | | | | | | | | | | | | | | | | | | | | | | | | | | | + + + + + | 11/30/1989 | | | completed | | | | | | | | | | | | | Removal of | | | | | gallbladder | | | | | | | | | | | | | | | | | | | | | | | | | | | | + + + + + | | | | active | | | | | | | | | | | | | Anesth | | | | | hysterectomy | | | | | | | | | | | | | | | | | | | | | | | | | | | | + + + + + | | | | active | | | | | | | | | | | | | Anesth repair | | | | | of hernia | | | | | | | | | | | | | | | | | | | | | | | | | | | | + + + + + | | | | active | | | | | | | | Other | | | | | | | | | | | | | | | | | | | | | | | | | | | | + + + + + Imaging Results None recorded. Medical Equipment None Reported. Allergies + + + + + + + | Name | Reaction | Severity | Status | Onset | Category | | | | | | | | | | | | | | | | | | | | | | | | | | | | | + + + + + + + | | | | | | | | | | | | | | | | | | | | | | | | | | | | | | | | | | | | Iodinated | | | active | | Medicatio | | Contrast | | | | | n Allergy | | Media | | | | | | | | | | | | | | | | | | | | | | | | | | | | | | | | | | | | | | | | | | | | | | | | | | | | | | | | | | | | | | + + + + + + + | | | | | | | | | | | | | | | | | | | | | | | | | | | | | | | | | | | | naproxen | | | active | | Medicatio | | | | | | | n Allergy | | | | | | | | | | | | | | | | | | | | | | | | | | | | | | | | | | | | | | | | | | | | | | | | | | | | | | | | | + + + + + + + Medications + + + + + + + | Name | Sig | Start | Stop Date | Status | Note | | | | Date | | | | | | | | | | | | | | | | | | | | | | | | | | | | | | | | + + + + + + + | | | | | active | glucomete | | | | | | | r | | | | | | | | | | | | | | | | | | | | | | | | | | | | | | | | | | | | | Prescript | | | | | | | ion - New | | | | | | | | | | | | | | | | | | | | | | | | | | | | | | | | | | | | | | | | | | | | | | | | | | | | | | | | | | | | | | | | | | | | | | | | | | | | + + + + + + + | | | | | completed | | | | | | | | | | | | | 15/ | | | | | | | 8 | | | | | | | | | | | | | | | | | | | | | | | | | Prescript | | | | | | | ion - | | | | | | | Renewal | | | | | | | | | | | | | | | | | | | | | | | | | | | | | | | | | | | | | | | | | | | | | | | | | | | | | | | | | | | | | | | | | | | | | | | | | | | | + + + + + + + | | | | | completed | | | | | | | | | | | | | 03/15/ | | | | | | | 8 | | | | | TAKE | | | | | | | ONE Rayna BURNS | | | | | | | TID | | | | | | amoxicill | | | | | | | in 500 mg | | | | | | | capsule | | | | | | | | | | | | | | | | | | | | | | | | | | | | | | | | | | | | | | | | | | | | | | | | | | | | | | | | | | | | | | | | | | | | | | | | | | | | + + + + + + + | | | | | completed | | | | | | | | | | | | | 03/15/201 | | | | | | | 8 | | | | | 2 | | | | | | | tabs on | | | | | | | day 1 and | | | | | | fluconazo | then 1 | | | | | | le 100 mg | tab on | | | | | | tablet | day 2 to | | | | | | | day 13. | | | | | | | | | | | | | | | | | | | | | | | | | | | | | | | | | | | | | | | | | | | | | | | | | | | | | | | | | | | | | | | | | | | | + + + + + + + | | | | | active | | | | | | | | | | | | | | | | | | | | | | | | | TAKE | | | | | | | ONE | | | | | | | TABLET BY | | | | | | atorvasta | MOUTH | | | | | | tin 40 mg | DAILY | | | | | | tablet | | | | | | | | | | | | | | | | | | | | | | | | | | | | | | | | | | | | | | | | | | | | | | | | | | | | | | | | | | | | | | | | | | | | | | | | | | | | + + + + + + + | | | | | active | | | | | | | | | | | | | | | | | | | | | | | | | TAKE | | | | | | | ONE | | | | | | | TABLET BY | | | | | | metformin | MOUTH | | | | | | 500 mg | TWICE | | | | | | tablet | DAILY | | | | | | | | | | | | | | | | | | | | | | | | | | | | | | | | | | | | | | | | | | | | | | | | | | | | | | | | | | | | | | | | | | | | | | | | | | | + + + + + + + | | | | | completed | | | | | | | | | | | | | 03/15/201 | | | | | | | 8 | | | | | | | | | | | | | | | | | | | | | | | | | Qvar 80 | | | | | | | mcg/actua | | | | | | | tion | | | | | | | Metered | | | | | | | Aerosol | | | | | | | oral | | | | | | | inhaler | | | | | | | | | | | | | | | | | | | | | | | | | | | | | | | | | | | | | | | | | | | | | | | | | | | | | | | | | | | | | | | | | | | | | | | | | | | | + + + + + + + | | | | | active | | | | | | | | | | | | | | | | | | | | | | | | | TAKE | | | | | | | UP TO | | | | | | | THREE | | | | | | clonidine | TIMES | | | | | | HCl 0.1 | DAILY | | | | | | mg tablet | NEEDED. | | | | | | | TAKE IF | | | | | | | BLOOD | | | | | | | PRESSURE | | | | | | | IS | | | | | | | GREATER | | | | | | | THAN | | | | | | | 160/90. | | | | | | | | | | | | | | | | | | | | | | | | | | | | | | | | | | | | | | | | | | | | | | | | | | | | | | | | | | | | | + + + + + + + | | | | | active | | | | | | | | | | | | | | | | | | | | | | | | | 40mg | | | | | | | x 5 days | | | | | | | and then | | | | | | prednison | d/c. | | | | | | e 10 mg | | | | | | | tablet | | | | | | | | | | | | | | | | | | | | | | | | | | | | | | | | | | | | | | | | | | | | | | | | | | | | | | | | | | | | | | | | | | | | | | | | | | | | + + + + + + + | | | | | active | | | | | | | | | | | | | | | | | | | | | | | | | | | | | | | | | | | | | | | | | | | | | atorvasta | | | | | | | tin 20 mg | | | | | | | tablet | | | | | | | | | | | | | | | | | | | | | | | | | | | | | | | | | | | | | | | | | | | | | | | | | | | | | | | | | | | | | | | | | | | | | | | | | | | | + + + + + + + | | | | | active | | | | | | | | | | | | | | | | | | | | | | | | | Take | | | | | | | 1 capsule | | | | | | | twice a | | | | | | clindamyc | day by | | | | | | in HCl | oral | | | | | | 300 mg | route for | | | | | | capsule | 10 days. | | | | | | | | | | | | | | | | | | | | | | | | | | | | | | | | | | | | | | | | | | | | | | | | | | | | | | | | | | | | | | | | | | | | | | | | | | | + + + + + + + | | | | | active | | | | | | | | | | | | | | | | | | | | | | | | | | | | | | | | | | | | | | | | | | | | | citalopra | | | | | | | m 40 mg | | | | | | | tablet | | | | | | | | | | | | | | | | | | | | | | | | | | | | | | | | | | | | | | | | | | | | | | | | | | | | | | | | | | | | | | | | | | | | | | | | | | | | + + + + + + + | | | | | active | | | | | | | | | | | | | | | | | | | | | | | | | | | | | | | | | | | | | | | | | | | | | triazolam | | | | | | | 0.25 mg | | | | | | | tablet | | | | | | | | | | | | | | | | | | | | | | | | | | | | | | | | | | | | | | | | | | | | | | | | | | | | | | | | | | | | | | | | | | | | | | | | | | | | + + + + + + + | | | | | active | | | | | | | | | | | | | | | | | | | | | | | | | TAKE | | | | | | | ONE | | | | | | | TABLET BY | | | | | | lisinopri | MOUTH | | | | | | l 20 | TWICE | | | | | | mg-hydroc | DAILY | | | | | | hlorothia | | | | | | | zide 12.5 | | | | | | | mg | | | | | | | tablet | | | | | | | | | | | | | | | | | | | | | | | | | | | | | | | | | | | | | | | | | | | | | | | | | | | | | | | | | | | | | | | | | | | | | | | | | | | | + + + + + + + | | | | | completed | | | | | | | | | | | | | 03/15/201 | | | | | | | 8 | | | | | 2 | | | | | | | tabs on | | | | | | | day 1 and | | | | | | azithromy | then 1 | | | | | | martir 250 | tab daily | | | | | | mg tablet | for next | | | | | | | 4 days. | | | | | | | | | | | | | | | | | | | | | | | | | | | | | | | | | | | | | | | | | | | | | | | | | | | | | | | | | | | | | | | | | | | | + + + + + + + | | | | | completed | | | | | | | | | | | | | 03/15/201 | | | | | | | 8 | | | | | | | | | | | | | | | | | | | | | | | | | ibuprofen | | | | | | | 800 mg | | | | | | | tablet | | | | | | | | | | | | | | | | | | | | | | | | | | | | | | | | | | | | | | | | | | | | | | | | | | | | | | | | | | | | | | | | | | | | | | | | | | | | + + + + + + + | | | | | active | | | | | | | | | | | | | | | | | | | | | | | | | | | | | | | | | | | | | | | | | | | | | Lidocaine | | | | | | | Viscous | | | | | | | 2 % | | | | | | | mucosal | | | | | | | solution | | | | | | | | | | | | | | | | | | | | | | | | | | | | | | | | | | | | | | | | | | | | | | | | | | | | | | | | | | | | | | | | | | | | | | | | | | | | + + + + + + + | | | | | active | | | | | | | | | | | | | | | | | | | | | | | | | Take | | | | | | | 1 tablet | | | | | | | every 72 | | | | | | fluconazo | hours by | | | | | | le 150 mg | oral | | | | | | tablet | route for | | | | | | | 6 days. | | | | | | | | | | | | | | | | | | | | | | | | | | | | | | | | | | | | | | | | | | | | | | | | | | | | | | | | | | | | | | | | | | | | + + + + + + + | | | | | completed | | | | | | | | | | | | | 03/15/201 | | | | | | | 8 | | | | | | | | | | | | | | | | | | | | | | | | | friedaithro | | | | | | | mycin 500 | | | | | | | mg | | | | | | | tablet | | | | | | | | | | | | | | | | | | | | | | | | | | | | | | | | | | | | | | | | | | | | | | | | | | | | | | | | | | | | | | | | | | | | | | | | | | | | + + + + + + + | | | | | completed | | | | | | | | | | | | | 03/15/201 | | | | | | | 8 | | | | | TK 1 | | | | | | | TO 2 TS | | | | | | | PO Q 6 H | | | | | | hydrocodo | PRF | | | | | | ne 5 | SEVERE | | | | | | mg-acetam | PAIN | | | | | | inophen | | | | | | | 325 mg | | | | | | | tablet | | | | | | | | | | | | | | | | | | | | | | | | | | | | | | | | | | | | | | | | | | | | | | | | | | | | | | | | | | | | | | | | | | | | | | | | | | | | + + + + + + + | | | | | completed | | | | | | | | | | | | | /15/201 | | | | | | | 8 | | | | | | | | | | | | | | | | | | | | | | | | | lisinopri | | | | | | | l 20 mg | | | | | | | tablet | | | | | | | | | | | | | | | | | | | | | | | | | | | | | | | | | | | | | | | | | | | | | | | | | | | | | | | | | | | | | | | | | | | | | | | | | | | | + + + + + + + | | | | | active | | | | | | | | | | | | | | | | | | | | | | | | | | | | | | | | | | | | | | | | | | | | | ondansetr | | | | | | | on HCl 4 | | | | | | | mg tablet | | | | | | | | | | | | | | | | | | | | | | | | | | | | | | | | | | | | | | | | | | | | | | | | | | | | | | | | | | | | | | | | | | | | | | | | | | | | + + + + + + + | | | | | active | | | | | | | | | | | | | | | | | | | | | | | | | | | | | | | | | | | | | | | | | | | | | famotidin | | | | | | | e 40 mg | | | | | | | tablet | | | | | | | | | | | | | | | | | | | | | | | | | | | | | | | | | | | | | | | | | | | | | | | | | | | | | | | | | | | | | | | | | | | | | | | | | | | | + + + + + + + | | | | | active | | | | | | | | | | | | | | | | | | | | | | | | | TAKE | | | | | | | 2 1/2 | | | | | | | TABLETS | | | | | | prednison | BY MOUTH | | | | | | e 20 mg | THREE | | | | | | tablet | TIMES | | | | | | | DAILY FOR | | | | | | | 1 DAY. | | | | | | | TAKE ONE | | | | | | | TABLET 13 | | | | | | | hours | | | | | | | BEFORE | | | | | | | CT, 7 | | | | | | | hours | | | | | | | BEFORE | | | | | | | AND THEN | | | | | | | 1 hour | | | | | | | BEFORE. | | | | | | | | | | | | | | | | | | | | | | | | | | | | | | | | | | | | | | | | | | | | | | | | | | | | | | | | | | | | | + + + + + + + | | | | | active | | | | | | | | | | | | | | | | | | | | | | | | | | | | | | | | | | | | | | | | | | | | | isosorbid | | | | | | | e | | | | | | | mononitra | | | | | | | te ER 30 | | | | | | | mg | | | | | | | tablet,ex | | | | | | | tended | | | | | | | release | | | | | | | 24 hr | | | | | | | | | | | | | | | | | | | | | | | | | | | | | | | | | | | | | | | | | | | | | | | | | | | | | | | | | | | | | | | | | | | | | | | | | | | | + + + + + + + | | | | | active | | | | | | | | | | | | | | | | | | | | | | | | | TAKE | | | | | | | ONE | | | | | | | TABLET BY | | | | | | clonazepa | MOUTH | | | | | | m 1 mg | 2-3 times | | | | | | tablet | daily | | | | | | | NEEDED | | | | | | | FOR | | | | | | | ANXIETY | | | | | | | | | | | | | | | | | | | | | | | | | | | | | | | | | | | | | | | | | | | | | | | | | | | | | | | | | | | | | + + + + + + + | | | | | active | | | | | | | | | | | | | | | | | | | | | | | | | TAKE | | | | | | | ONE | | | | | | | TEASPOONF | | | | | | promethaz | UL BY | | | | | | ine 6.25 | MOUTH | | | | | | mg-codein | EVERY 4 | | | | | | e 10 mg/5 | TO 6 | | | | | | mL syrup | HOURS | | | | | | | NEEDED | | | | | | | FOR COUGH | | | | | | | | | | | | | | | | | | | | | | | | | | | | | | | | | | | | | | | | | | | | | | | | | | | | | | | | | | | | | + + + + + + + | | | | | active | | | | | | | | | | | | | | | | | | | | | | | | | Take | | | | | | | 1 tablet | | | | | | | twice a | | | | | | penicilli | day by | | | | | | n V | oral | | | | | | potassium | route as | | | | | | 500 mg | directed | | | | | | tablet | for 10 | | | | | | | days. | | | | | | | | | | | | | | | | | | | | | | | | | | | | | | | | | | | | | | | | | | | | | | | | | | | | | | | | | | | | | | | | | | | | + + + + + + + | | | | | completed | | | | | | | | | | | | | 03/15/201 | | | | | | | 8 | | | | | | | | | | | | | | | | | | | | | | | | | hydroxyzi | | | | | | | ne HCl 50 | | | | | | | mg | | | | | | | tablet | | | | | | | | | | | | | | | | | | | | | | | | | | | | | | | | | | | | | | | | | | | | | | | | | | | | | | | | | | | | | | | | | | | | | | | | | | | | + + + + + + + | | | | | active | | | | | | | | | | | | | | | | | | | | | | | | | TAKE | | | | | | | ONE | | | | | | | TABLET BY | | | | | | clopidogr | MOUTH | | | | | | el 75 mg | DAILY | | | | | | tablet | | | | | | | | | | | | | | | | | | | | | | | | | | | | | | | | | | | | | | | | | | | | | | | | | | | | | | | | | | | | | | | | | | | | | | | | | | | | + + + + + + + | | | | | active | | | | | | | | | | | | | | | | | | | | | | | | | | | | | | | | | | | | | | | | | | | | | amlodipin | | | | | | | e 5 mg | | | | | | | tablet | | | | | | | | | | | | | | | | | | | | | | | | | | | | | | | | | | | | | | | | | | | | | | | | | | | | | | | | | | | | | | | | | | | | | | | | | | | | + + + + + + + | | | | | active | | | | | | | | | | | | | | | | | | | | | | | | | Take | | | | | | | 2 tablets | | | | | | | twice a | | | | | | sulfameth | day by | | | | | | oxazole | oral | | | | | | 800 | route as | | | | | | mg-trimet | directed | | | | | | hoprim | for 10 | | | | | | 160 mg | days. | | | | | | tablet | | | | | | | | | | | | | | | | | | | | | | | | | | | | | | | | | | | | | | | | | | | | | | | | | | | | | | | | | | | | | | | | | | | | | | | | | | | | + + + + + + + | | | | | active | | | | | | | | | | | | | | | | | | | | | | | | | TAKE | | | | | | | ONE | | | | | | | TABLET BY | | | | | | hydrocodo | MOUTH | | | | | | ne 10 | EVERY 4 | | | | | | mg-acetam | HOURS | | | | | | inophen | NEEDED | | | | | | 325 mg | FOR PAIN | | | | | | tablet | | | | | | | | | | | | | | | | | | | | | | | | | | | | | | | | | | | | | | | | | | | | | | | | | | | | | | | | | | | | | | | | | | | | | | | | | | | | + + + + + + + | | | | | completed | | | | | | | | | | | | | 03/15/201 | | | | | | | 8 | | | | | Take | | | | | | | 1 tablet | | | | | | | every 6 | | | | | | tramadol | hours by | | | | | | 50 mg | oral | | | | | | tablet | route. | | | | | | | | | | | | | | | | | | | | | | | | | | | | | | | | | | | | | | | | | | | | | | | | | | | | | | | | | | | | | | | | | | | | | | | | | | | + + + + + + + | | | | | active | | | | | | | | | | | | | | | | | | | | | | | | | APPLY | | | | | | | A THIN | | | | | | | LAYER TO | | | | | | triamcino | THE | | | | | | lone | AFFECTED | | | | | | acetonide | AREA(S) | | | | | | 0.1 % | BY | | | | | | topical | TOPICAL | | | | | | cream | ROUTE 2 | | | | | | | TIMES PER | | | | | | | DAY | | | | | | | | | | | | | | | | | | | | | | | | | | | | | | | | | | | | | | | | | | | | | | | | | | | | | | | | | | | | | + + + + + + + | | | | | active | | | | | | | | | | | | | | | | | | | | | | | | | | | | | | | | | | | | | | | | | | | | | levothyro | | | | | | | xine 25 | | | | | | | mcg | | | | | | | tablet | | | | | | | | | | | | | | | | | | | | | | | | | | | | | | | | | | | | | | | | | | | | | | | | | | | | | | | | | | | | | | | | | | | | | | | | | | | | + + + + + + + | | | | | active | | | | | | | | | | | | | | | | | | | | | | | | | | | | | | | | | | | | | | | | | | | | | hydromorp | | | | | | | catherine 2 mg | | | | | | | tablet | | | | | | | | | | | | | | | | | | | | | | | | | | | | | | | | | | | | | | | | | | | | | | | | | | | | | | | | | | | | | | | | | | | | | | | | | | | | + + + + + + + | | | | | completed | | | | | | | | | | | | | 03/15/201 | | | | | | | 8 | | | | | | | | | | | | | | | | | | | | | | | | | citalopra | | | | | | | m 20 mg | | | | | | | tablet | | | | | | | | | | | | | | | | | | | | | | | | | | | | | | | | | | | | | | | | | | | | | | | | | | | | | | | | | | | | | | | | | | | | | | | | | | | | + + + + + + + | | | | | active | | | | | | | | | | | | | | | | | | | | | | | | | TAKE | | | | | | | ONE | | | | | | | TABLET BY | | | | | | famotidin | MOUTH | | | | | | e 20 mg | DAILY | | | | | | tablet | | | | | | | | | | | | | | | | | | | | | | | | | | | | | | | | | | | | | | | | | | | | | | | | | | | | | | | | | | | | | | | | | | | | | | | | | | | | + + + + + + + | | | | | active | | | | | | | | | | | | | | | | | | | | | | | | | TAKE | | | | | | | ONE | | | | | | | TABLET BY | | | | | | trazodone | MOUTH | | | | | | 100 mg | DAILY | | | | | | tablet | | | | | | | | | | | | | | | | | | | | | | | | | | | | | | | | | | | | | | | | | | | | | | | | | | | | | | | | | | | | | | | | | | | | | | | | | | | | + + + + + + + | | | | | completed | | | | | | | | | | | | 10/20/ | 02/11/201 | | | | | | 3 | 8 | | | | | Take | | | | | | | 1 mL by | | | | | | | injection | | | | | | Kenalog | route as | | | | | | 10 mg/mL | | | | | | | suspensio | directed. | | | | | | n for | | | | | | | injection | | | | | | | | | | | | | | | | | | | | | | | | | | | | | | | | | | | | | | | | | | | | | | | | | | | | | | | | | | | | | | | | | | | | | | | | | | | | + + + + + + + | | | | | active | | | | | | | | | | | | | | | | | | | | | | | | | TAKE | | | | | | | ONE | | | | | | | TABLET BY | | | | | | amlodipin | MOUTH | | | | | | e 10 mg | EVERY DAY | | | | | | tablet | | | | | | | | | | | | | | | | | | | | | | | | | | | | | | | | | | | | | | | | | | | | | | | | | | | | | | | | | | | | | | | | | | | | | | | | | | | | + + + + + + + | | | | | active | | | | | | | | | | | | | | | | | | | | | | | | | TAKE | | | | | | | ONE | | | | | | | TABLET BY | | | | | | levothyro | MOUTH | | | | | | xine 50 | EVERY DAY | | | | | | mcg | ON EMPTY | | | | | | tablet | STOMACH | | | | | | | | | | | | | | | | | | | | | | | | | | | | | | | | | | | | | | | | | | | | | | | | | | | | | | | | | | | | | | | | | | | | | | | | | | | + + + + + + + | | | | | completed | | | | | | | | | | | | | 03/15/201 | | | | | | | 8 | | | | | | | | | | | | | | | | | | | | | | | | | hydrocodo | | | | | | | ne 7.5 | | | | | | | mg-acetam | | | | | | | inophen | | | | | | | 325 mg | | | | | | | tablet | | | | | | | | | | | | | | | | | | | | | | | | | | | | | | | | | | | | | | | | | | | | | | | | | | | | | | | | | | | | | | | | | | | | | | | | | | | | + + + + + + + | | | | | completed | | | | | | | | | | | | | 03/15/201 | | | | | | | 8 | | | | | TK 1 | | | | | | | C PO BID | | | | | | | | | | | | | cephalexi | | | | | | | n 500 mg | | | | | | | capsule | | | | | | | | | | | | | | | | | | | | | | | | | | | | | | | | | | | | | | | | | | | | | | | | | | | | | | | | | | | | | | | | | | | | | | | | | | | | + + + + + + + | | | | | active | | | | | | | | | | | | | | | | | | | | | | | | | | | | | | | | INJECT 1 | | | | | | | ML IM | | | | | | cyanocoba | ONCE | | | | | | laura | DAILY FOR | | | | | | (vit | 7 DAYS | | | | | | B-12) | THEN 1 ML | | | | | | 1,000 | Q 2 | | | | | | mcg/mL | WEEKS FOR | | | | | | injection | 2 DOSES | | | | | | solution | THEN 1 ML | | | | | | | ONCE A | | | | | | | MONTH | | | | | | | THEREAFTE | | | | | | | R | | | | | | | | | | | | | | | | | | | | | | | | | | | | | | | | | | | | | | | | | | | | | | | | | | | | | | | | | | | | | + + + + + + + | | | | | active | | | | | | | | | | | | | | | | | | | | | | | | | | | | | | | | | | | | | | | | | | | | | mirtazapi | | | | | | | ne 30 mg | | | | | | | tablet | | | | | | | | | | | | | | | | | | | | | | | | | | | | | | | | | | | | | | | | | | | | | | | | | | | | | | | | | | | | | | | | | | | | | | | | | | | | + + + + + + + | | | | | active | | | | | | | | | | | | | | | | | | | | | | | | | TAKE | | | | | | | ONE | | | | | | | TABLET BY | | | | | | metformin | MOUTH | | | | | | 1,000 mg | TWICE | | | | | | tablet | DAILY | | | | | | | | | | | | | | | | | | | | | | | | | | | | | | | | | | | | | | | | | | | | | | | | | | | | | | | | | | | | | | | | | | | | | | | | | | | + + + + + + + | | | | | active | | | | | | | | | | | | | | | | | | | | | | | | | APPLY | | | | | | | TO THE | | | | | | | AFFECTED | | | | | | nystatin | AREA(S) | | | | | | 100,000 | BY | | | | | | unit/gram | TOPICAL | | | | | | topical | ROUTE 2 | | | | | | cream | TIMES PER | | | | | | | DAY | | | | | | | | | | | | | | | | | | | | | | | | | | | | | | | | | | | | | | | | | | | | | | | | | | | | | | | | | | | | | | | | | | | | + + + + + + + | | | | | active | | | | | | | | | | | | | | | | | | | | | | | | | | | | | | | | | | | | | | | | | | | | | buspirone | | | | | | | 10 mg | | | | | | | tablet | | | | | | | | | | | | | | | | | | | | | | | | | | | | | | | | | | | | | | | | | | | | | | | | | | | | | | | | | | | | | | | | | | | | | | | | | | | | + + + + + + + | | | | | active | | | | | | | | | | | | | | | | | | | | | | | | | | | | | | | | | | | | | | | | | | | | | lisinopri | | | | | | | l 10 mg | | | | | | | tablet | | | | | | | | | | | | | | | | | | | | | | | | | | | | | | | | | | | | | | | | | | | | | | | | | | | | | | | | | | | | | | | | | | | | | | | | | | | | + + + + + + + | | | | | active | | | | | | | | | | | | 01/25/202 | | | | | | | 1 | | | | | | Take | | | | | | | 1 tablet | | | | | | | 3 times a | | | | | | prednison | day by | | | | | | e 50 mg | oral | | | | | | tablet | route as | | | | | | | directed | | | | | | | for 1 | | | | | | | day. | | | | | | | | | | | | | | | | | | | | | | | | | | | | | | | | | | | | | | | | | | | | | | | | | | | | | | | | | | | | | + + + + + + + | | | | | completed | | | | | | | | | | | | | | | | | | | | 8 | | | | | | | | | | | | | | | | | | | | | | | | | promethaz | | | | | | | ine 25 mg | | | | | | | tablet | | | | | | | | | | | | | | | | | | | | | | | | | | | | | | | | | | | | | | | | | | | | | | | | | | | | | | | | | | | | | | | | | | | | | | | | | | | | + + + + + + + | | | | | completed | | | | | | | | | | | | | | | | | | | | 8 | | | | | Take | | | | | | | 1 capsule | | | | | | | every | | | | | | hydrochlo | day by | | | | | | rothiazid | oral | | | | | | e 12.5 mg | route. | | | | | | capsule | | | | | | | | | | | | | | | | | | | | | | | | | | | | | | | | | | | | | | | | | | | | | | | | | | | | | | | | | | | | | | | | | | | | | | | | | | | | + + + + + + + | | | | | active | | | | | | | | | | | | | | | | | | | 8 | | | | | | APPLY | | | | | | | TO THE | | | | | | | AFFECTED | | | | | | nystatin- | AREA(S) | | | | | | triamcino | BY | | | | | | lone | TOPICAL | | | | | | 100,000 | ROUTE 2 | | | | | | unit/g-0. | TIMES PER | | | | | | 1 % | DAY IN | | | | | | topical | THEMORNIN | | | | | | cream | G AND | | | | | | | EVENING | | | | | | | | | | | | | | | | | | | | | | | | | | | | | | | | | | | | | | | | | | | | | | | | | | | | | | | | | | | | | | | | | | | | + + + + + + + | | | | | completed | | | | | | | | | | | | | | | | | | | | 8 | | | | | TK 1 | | | | | | | TEA PO | | | | | | | TID PRN | | | | | | hydrocodo | FOR COUGH | | | | | | ne-homatr | | | | | | | opine 5 | | | | | | | mg-1.5 | | | | | | | mg/5 mL | | | | | | | oral | | | | | | | syrup | | | | | | | | | | | | | | | | | | | | | | | | | | | | | | | | | | | | | | | | | | | | | | | | | | | | | | | | | | | | | | | | | | | | | | | | | | | | + + + + + + + | | | | | active | | | | | | | | | | | | | | | | | | | | | | | | | | | | | | | | | | | | | | | | | | | | | nitroglyc | | | | | | | suzi 0.4 | | | | | | | mg | | | | | | | sublingua | | | | | | | l tablet | | | | | | | | | | | | | | | | | | | | | | | | | | | | | | | | | | | | | | | | | | | | | | | | | | | | | | | | | | | | | | | | | | | | | | | | | | | | + + + + + + + | | | | | active | | | | | | | | | | | | | | | | | | | | | | | | | TAKE | | | | | | | ONE | | | | | | | CAPSULE | | | | | | gabapenti | BY MOUTH | | | | | | n 300 mg | THREE | | | | | | capsule | TIMES | | | | | | | DAILY | | | | | | | | | | | | | | | | | | | | | | | | | | | | | | | | | | | | | | | | | | | | | | | | | | | | | | | | | | | | | | | | | | | | + + + + + + + | | | | | active | | | | | | | | | | | | | | | | | | | | | | | | | TAKE | | | | | | | ONE | | | | | | | CAPSULE | | | | | | omeprazol | BY MOUTH | | | | | | e 20 mg | EVERY DAY | | | | | | capsule,d | | | | | | | elayed | | | | | | | release | | | | | | | | | | | | | | | | | | | | | | | | | | | | | | | | | | | | | | | | | | | | | | | | | | | | | | | | | | | | | | | | | | | | | | | | | | | | + + + + + + + | | | | | active | | | | | | | | | | | | | | | | | | | | | | | | | | | | | | | | | | | | | | | | | | | | | lisinopri | | | | | | | l 20 | | | | | | | mg-hydroc | | | | | | | hlorothia | | | | | | | zide 25 | | | | | | | mg tablet | | | | | | | | | | | | | | | | | | | | | | | | | | | | | | | | | | | | | | | | | | | | | | | | | | | | | | | | | | | | | | | | | | | | | | | | | | | | + + + + + + + | | | | | completed | | | | | | | | | | | | | 03/15/201 | | | | | | | 8 | | | | | TK 1 | | | | | | | T PO Q 6 | | | | | | | H PRN FOR | | | | | | hydrocodo | PAIN | | | | | | ne 5 | | | | | | | mg-acetam | | | | | | | inophen | | | | | | | 500 mg | | | | | | | tablet | | | | | | | | | | | | | | | | | | | | | | | | | | | | | | | | | | | | | | | | | | | | | | | | | | | | | | | | | | | | | | | | | | | | | | | | | | | | + + + + + + + | | | | | active | | | | | | | | | | | | | | | | | | | | | | | | | APPLY | | | | | | | TO THE | | | | | | | AFFECTED | | | | | | mupirocin | AREA(S) | | | | | | 2 % | THREE | | | | | | topical | TIMES | | | | | | ointment | DAILY | | | | | | | | | | | | | | | | | | | | | | | | | | | | | | | | | | | | | | | | | | | | | | | | | | | | | | | | | | | | | | | | | | | | | | | | | | | + + + + + + + | | | | | completed | | | | | | | | | | | | | 03/15/201 | | | | | | | 8 | | | | | | | | | | | | | | | | | | | | | | | | | zolpidem | | | | | | | 5 mg | | | | | | | tablet | | | | | | | | | | | | | | | | | | | | | | | | | | | | | | | | | | | | | | | | | | | | | | | | | | | | | | | | | | | | | | | | | | | | | | | | | | | | + + + + + + + | | | | | active | | | | | | | | | | | | | | | | | | | | | | | | | TAKE | | | | | | | 1 TABLET | | | | | | | EVERY | | | | | | mirtazapi | NIGHT AT | | | | | | ne 15 mg | BEDTIME | | | | | | tablet | | | | | | | | | | | | | | | | | | | | | | | | | | | | | | | | | | | | | | | | | | | | | | | | | | | | | | | | | | | | | | | | | | | | | | | | | | | | + + + + + + + | | | | | completed | | | | | | | | | | | | | 03/15/201 | | | | | | | 8 | | | | | TK 10 | | | | | | | ML PO Q | | | | | | | 4 H PRF | | | | | | Cheratuss | COUGH | | | | | | in AC 10 | | | | | | | mg-100 | | | | | | | mg/5 mL | | | | | | | oral | | | | | | | liquid | | | | | | | | | | | | | | | | | | | | | | | | | | | | | | | | | | | | | | | | | | | | | | | | | | | | | | | | | | | | | | | | | | | | | | | | | | | | + + + + + + + | | | | | active | | | | | | | | | | | | | | | | | | | | | | | | | | | | | | | | | | | | | | | | | | | | | lisinopri | | | | | | | l 10 | | | | | | | mg-hydroc | | | | | | | hlorothia | | | | | | | zide 12.5 | | | | | | | mg | | | | | | | tablet | | | | | | | | | | | | | | | | | | | | | | | | | | | | | | | | | | | | | | | | | | | | | | | | | | | | | | | | | | | | | | | | | | | | | | | | | | | | + + + + + + + | | | | | completed | | | | | | | | | | | | | 03/15/201 | | | | | | | 8 | | | | | | | | | | | | | | | | | | | | | | | | | prednison | | | | | | | e 5 mg | | | | | | | tablets | | | | | | | in a dose | | | | | | | pack | | | | | | | | | | | | | | | | | | | | | | | | | | | | | | | | | | | | | | | | | | | | | | | | | | | | | | | | | | | | | | | | | | | | | | | | | | | | + + + + + + + | | | | | active | | | | | | | | | | | | | | | | | | | | | | | | | Take | | | | | | | 1 tablet | | | | | | | every 24 | | | | | | levofloxa | hours by | | | | | | martir 500 | oral | | | | | | mg tablet | route for | | | | | | | 7 days. | | | | | | | | | | | | | | | | | | | | | | | | | | | | | | | | | | | | | | | | | | | | | | | | | | | | | | | | | | | | | | | | | | | | + + + + + + + | | | | | active | | | | | | | | | | | | | | | | | | | | | | | | | TAKE | | | | | | | ONE | | | | | | | TABLET BY | | | | | | oxycodone | MOUTH | | | | | | -acetamin | ONCE OR | | | | | | ophen 7.5 | TWICE | | | | | | mg-325 | DAILY | | | | | | mg tablet | NEEDED | | | | | | | FOR PAIN | | | | | | | | | | | | | | | | | | | | | | | | | | | | | | | | | | | | | | | | | | | | | | | | | | | | | | | | | | | | | | | | | | | | + + + + + + + | | | | | active | | | | | | | | | | | | | | | | | | | | | | | | | TAKE | | | | | | | ONE | | | | | | | TABLET BY | | | | | | zolpidem | MOUTH | | | | | | 10 mg | EVERY DAY | | | | | | tablet | AT | | | | | | | BEDTIME | | | | | | | NEEDED | | | | | | | FOR | | | | | | | SLEEP | | | | | | | | | | | | | | | | | | | | | | | | | | | | | | | | | | | | | | | | | | | | | | | | | | | | | | | | | | | | | + + + + + + + | | | | | active | | | | | | | | | | | | | | | | | | | | | | | | | FPD | | | | | | | | | | | | | | | | | | | | methylpre | | | | | | | dnisolone | | | | | | | 4 mg | | | | | | | tablets | | | | | | | in a dose | | | | | | | pack | | | | | | | | | | | | | | | | | | | | | | | | | | | | | | | | | | | | | | | | | | | | | | | | | | | | | | | | | | | | | | | | | | | | | | | | | | | | + + + + + + + | | | | | active | | | | | | | | | | | | | | | | | | | | | | | | | | | | | | | | INHALE 1 | | | | | | | PUFF BY | | | | | | albuterol | MOUTH | | | | | | sulfate | EVERY 4 | | | | | | HFA 90 | TO 6 | | | | | | mcg/actua | HOURS | | | | | | tion | NEEDED | | | | | | aerosol | SHORTNESS | | | | | | inhaler | OF | | | | | | | BREATH | | | | | | | AND FOR | | | | | | | WHEEZING | | | | | | | | | | | | | | | | | | | | | | | | | | | | | | | | | | | | | | | | | | | | | | | | | | | | | | | | | | | | | + + + + + + + | | | | | completed | | | | | | | | | | | | | 03/15/201 | | | | | | | 8 | | | | | | | | | | | | | | | | | | | | | | | | | hydrocodo | | | | | | | ne 7.5 | | | | | | | mg-acetam | | | | | | | inophen | | | | | | | 500 mg | | | | | | | tablet | | | | | | | | | | | | | | | | | | | | | | | | | | | | | | | | | | | | | | | | | | | | | | | | | | | | | | | | | | | | | | | | | | | | | | | | | | | | + + + + + + + | | | | | completed | | | | | | | | | | | | | 03/15/201 | | | | | | | 8 | | | | | | | | | | | | | | | | | | | | | | | | | lisinopri | | | | | | | l 40 mg | | | | | | | tablet | | | | | | | | | | | | | | | | | | | | | | | | | | | | | | | | | | | | | | | | | | | | | | | | | | | | | | | | | | | | | | | | | | | | | | | | | | | | + + + + + + + | | | | | completed | | | | | | | | | | | | | 03/15/201 | | | | | | | 8 | | | | | | | | | | | | | | | | | | | | | | | | | loratadin | | | | | | | e 10 mg | | | | | | | tablet | | | | | | | | | | | | | | | | | | | | | | | | | | | | | | | | | | | | | | | | | | | | | | | | | | | | | | | | | | | | | | | | | | | | | | | | | | | | + + + + + + + | | | | | completed | | | | | | | | | | | | | 03/15/201 | | | | | | | 8 | | | | | | | | | | | | | | | | | | | | | | | | | amoxicill | | | | | | | in 875 | | | | | | | mg-potass | | | | | | | ium | | | | | | | clavulana | | | | | | | te 125 mg | | | | | | | tablet | | | | | | | | | | | | | | | | | | | | | | | | | | | | | | | | | | | | | | | | | | | | | | | | | | | | | | | | | | | | | | | | | | | | | | | | | | | | + + + + + + + | | | | | active | | | | | | | | | | | | 01/25/202 | | | | | | | 1 | | | | | | Take | | | | | | | 2 | | | | | | | capsules | | | | | | Benadryl | by oral | | | | | | 25 mg | route as | | | | | | capsule | directed | | | | | | | for 1 | | | | | | | day. | | | | | | | | | | | | | | | | | | | | | | | | | | | | | | | | | | | | | | | | | | | | | | | | | | | | | | | | | | | | | + + + + + + + | | | | | completed | | | | | | | | | | | | | 03/15/201 | | | | | | | 8 | | | | | | | | | | | | | | | | | | | | | | | | | azithromy | | | | | | | martir 500 | | | | | | | mg tablet | | | | | | | | | | | | | | | | | | | | | | | | | | | | | | | | | | | | | | | | | | | | | | | | | | | | | | | | | | | | | | | | | | | | | | | | | | | | + + + + + + + | | | | | active | | | | | | | | | | | | | | | | | | | | | | | | | TAKE | | | | | | | ONE | | | | | | | TABLET BY | | | | | | escitalop | MOUTH | | | | | | jazmine 20 mg | DAILY | | | | | | tablet | | | | | | | | | | | | | | | | | | | | | | | | | | | | | | | | | | | | | | | | | | | | | | | | | | | | | | | | | | | | | | | | | | | | | | | | | | | | + + + + + + + | | | | | active | | | | | | | | | | | | | | | | | | | | | | | | | | | | | | | | | | | | | | | | | | | | | Novolog | | | | | | | Flexpen | | | | | | | U-100 | | | | | | | Insulin | | | | | | | aspart | | | | | | | 100 | | | | | | | unit/mL | | | | | | | (3 mL) | | | | | | | subcutane | | | | | | | ous | | | | | | | | | | | | | | | | | | | | | | | | | | | | | | | | | | | | | | | | | | | | | | | | | | | | | | | | | | | | | | | | | | | | | | | | | | | | + + + + + + + | | | | | active | | | | | | | | | | | | | | | | | | | | | | | | | Take | | | | | | | 1 capsule | | | | | | | every 12 | | | | | | nitrofura | hours by | | | | | | ntoin | oral | | | | | | monohydra | route for | | | | | | te/macroc | 7 days. | | | | | | rystals | | | | | | | 100 mg | | | | | | | capsule | | | | | | | | | | | | | | | | | | | | | | | | | | | | | | | | | | | | | | | | | | | | | | | | | | | | | | | | | | | | | | | | | | | | | | | | | | | | + + + + + + + | | | | | completed | | | | | | | | | | | | | 03/15/201 | | | | | | | 8 | | | | | | | | | | | | | | | | | | | | | | | | | Vesicare | | | | | | | 5 mg | | | | | | | tablet | | | | | | | | | | | | | | | | | | | | | | | | | | | | | | | | | | | | | | | | | | | | | | | | | | | | | | | | | | | | | | | | | | | | | | | | | | | | + + + + + + + | | | | | active | | | | | | | | | | | | | | | | | | | | | | | | | | | | | | | | | | | | | | | | | | | | | Flovent | | | | | | | HFA 220 | | | | | | | mcg/actua | | | | | | | tion | | | | | | | aerosol | | | | | | | inhaler | | | | | | | | | | | | | | | | | | | | | | | | | | | | | | | | | | | | | | | | | | | | | | | | | | | | | | | | | | | | | | | | | | | | | | | | | | | | + + + + + + + | | | | | completed | 10.0 ? | | | | | | | | | | | | 03/15/201 | | | | | | | 8 | | | | | | | | | | | | | | | | | | | | | | | | | benzonata | | | | | | | te | | | | | | | | | | | | | | | | | | | | | | | | | | | | | | | | | | | | | | | | | | | | | | | | | | | | | | | | | | | | | | | | | | | | | | | | | | | | + + + + + + + | | | | | active | | | | | | | | | | | | | | | | | | | | | | | | | | | | | | | | | | | | | | | | | | | | | Unifine | | | | | | | Pentips | | | | | | | 31 gauge | | | | | | | x 1/4" | | | | | | | needle | | | | | | | | | | | | | | | | | | | | | | | | | | | | | | | | | | | | | | | | | | | | | | | | | | | | | | | | | | | | | | | | | | | | | | | | | | | | + + + + + + + | | | | | active | | | | | | | | | | | | | | | | | | | | | | | | | | | | | | | | INHALE | | | | | | | TWO PUFFS | | | | | | Symbicort | BY MOUTH | | | | | | 160 | TWICE | | | | | | mcg-4.5 | DAILY | | | | | | mcg/actua | | | | | | | tion HFA | | | | | | | aerosol | | | | | | | inhaler | | | | | | | | | | | | | | | | | | | | | | | | | | | | | | | | | | | | | | | | | | | | | | | | | | | | | | | | | | | | | | | | | | | | | | | | | | | | + + + + + + + | | | | | active | | | | | | | | | | | | | | | | | | | | | | | | | | | | | | | | | | | | | | BD | | | | | | | Ultra-Fin | | | | | | | e Marily | | | | | | | Pen | | | | | | | Needle 32 | | | | | | | gauge x | | | | | | | 5/32" | | | | | | | | | | | | | | | | | | | | | | | | | | | | | | | | | | | | | | | | | | | | | | | | | | | | | | | | | | | | | | | | | | | | | | | | | | | | + + + + + + + | | | | | active | | | | | | | | | | | | | | | | | | | | | | | | | test | | | | | | | sugar | | | | | | | FOUR | | | | | | OneTouch | TIMES | | | | | | Verio | DAILY | | | | | | test | | | | | | | strips | | | | | | | | | | | | | | | | | | | | | | | | | | | | | | | | | | | | | | | | | | | | | | | | | | | | | | | | | | | | | | | | | | | | | | | | | | | | + + + + + + + | | | | | active | | | | | | | | | | | | | | | | | | | | | | | | | | | | | | | | | | | | | | | | | | | | | OneTouch | | | | | | | Verio | | | | | | | Meter | | | | | | | | | | | | | | | | | | | | | | | | | | | | | | | | | | | | | | | | | | | | | | | | | | | | | | | | | | | | | | | | | | | | | | | | | | | | + + + + + + + | | | | | active | | | | | | | | | | | | | | | | | | | | | | | | | | | | | | | | INJECT 65 | | | | | | | UNITS | | | | | | Basaglar | SUBCUTANE | | | | | | KwikPen | OUSLY | | | | | | U-100 | DAILY | | | | | | Insulin | | | | | | | 100 | | | | | | | unit/mL | | | | | | | (3 mL) | | | | | | | subcutane | | | | | | | ous | | | | | | | | | | | | | | | | | | | | | | | | | | | | | | | | | | | | | | | | | | | | | | | | | | | | | | | | | | | | | | | | | | | | | | | | | | | | + + + + + + + | | | | | active | | | | | | | | | | | | | | | | | | | | | | | | | | | | | | | | | | | | | | | | | | | | | OneTouch | | | | | | | Delica | | | | | | | Plus | | | | | | | Lancet 33 | | | | | | | gauge | | | | | | | | | | | | | | | | | | | | | | | | | | | | | | | | | | | | | | | | | | | | | | | | | | | | | | | | | | | | | | | | | | | | | | | | | | | | + + + + + + + | | | | | active | | | | | | | | | | | | | | | | | | | | | | | | | lot # | | | | | | | [id number] | | | | | | | exp | | | | | | Flucelvax | 06/18/202 | | | | | | Quad | 0 to be | | | | | | [phone] | given by | | | | | | (PF) 60 | pharmacis | | | | | | mcg (15 | t | | | | | | mcg x | | | | | | | 4)/0.5 mL | | | | | | | IM | | | | | | | syringe | | | | | | | | | | | | | | | | | | | | | | | | | | | | | | | | | | | | | | | | | | | | | | | | | | | | | | | | | | | | | | | | | | | | | | | | | | | | + + + + + + + History of Present Illness None recorded. Physical Exam + + + | | | | | | | | | | | | + + + | | None recorded. | | Notes: | | | | | | | | + + + Review of Systems None recorded. Vitals None Recorded Social History + + + | | Current Every Day Smoker | | Smoking Status | (CurrentlyEveryDay) | | | | | | | + + + | Sex | Unknown | | | | + + + Functional Status + + + | | Yes | | Able to Care for Self | | | | | | | | + + + Mental Status None recorded. Family History + + + + + + + | Relations | Descripti | Onset Age | of | Resolved | Notes | | hip | on | | this Age | Age | | | | | | | | | | | | | | | | | | | | | | | | | | | | | | + + + + + + + | Mother | Problem | | | | CERVICAL | | | | | | | CANCER | | | | | | | | | | | | | | | | | | | | | | | | | | | | | + + + + + + + | Father | Problem | | | | HEART | | | | | | | FALIURE | | | | | | | | | | | | | | | | | | | | | | | | | | | | | + + + + + + + Medical History + + + | Condition | Response | | | | + + + | Seizures/Epilepsy | N | | | | + + + | Alcohol/Substance Abuse | N | | | | + + + | Rheumatic Fever | N | | | | + + + | High Blood Pressure | Y | | | | + + + | Urinary Tract Infection | Y | | | | + + + | Asthma | N | | | | + + + | Sleep Apnea (CPAP/BPAP/O2) | Y | | | | + + + | Emphysema | Y | | | | + + + | Kidney Failure | N | | | | + + + | Stroke | N | | | | + + + | Diabetes | N | | | | + + + | Anemia | Y | | | | + + + | Addiction | N | | | | + + + | Insomnia | Y | | | | + + + | Swelling of Ankles, Feet or Hands | N | | | | | | | + + + | Kidney Disease | N | | | | + + + | Cancer | Y | | | | + + + | Blood Clots | N | | | | + + + | Abdominal Pain | Y | | | | + + + | Headache | N | | | | + + + | Thyroid Problems | N | | | | + + + | Heart Murmur | N | | | | + + + | Good Pastures | N | | | | + + + | Hepatitis | N | | | | + + + | Bladder Problems | Y | | | | + + + | Heart Disease | Y | | | | + + + | Hiatal Hernia | Y | | | | + + + | Liver Disease | N | | | | + + + | Complication To Anesthesia | N | | | | + + + | Peripheral Vascular Disease (PVD) | N | | | | | | | + + + | Abnormal Mammogram | Y | | | | + + + | Joint Pain or Swelling | N | | | | + + + | Blood in Urine | N | | | | + + + | Blood Transfusions | Y | | | | + + + | Heartburn | N | | | | + + + | Depression | N | | | | + + + Gynecological History + + + | Statement/Question | Response | | | | + + + | Are you menopausal? | Y | | | | + + + Obstetrics History GPAL: G 2 P 1 0 1 1 + + + | Type | Value | | | | + + + | Full Term | 1 | | | | + + + | Living | 1 | | | | + + + | Ectopics | 1 | | | | + + + | Total | 2 | | | | + + + Immunizations None recorded. Past Encounters None Reported. Goals Section + + + + + + + | Goal | Descripti | Status | Start | Updated | Updated | | | on | | Date | by | on | | | | | | | | | | | | | | | | | | | | | | | | | | | | | + + + + + + + + + | None Recorded | + + Health Concerns Section + + | Related Observation | + + | None Recorded | + + + + + + + | Concern | Status | Updated by | Updated on | | | | | | | | | | | | | | | | + + + + + | None Recorded | | | | | | | | | | | | | | | | | | | + + + + +
--- NOTE | 2021-02-14 14:44 | NUR ---
ASSISTED PT BACK TO BED. ASKED WHEN HER NEXT AVAILABLE PAIN MED WAS. I TOLD HER 2215. CL IN REACH. IN ROOM. WCTM
--- NOTE | 2021-02-14 17:30 | NUR ---
abd dressing changed. bloody and yellow discharge. caused some discomfort to patient.
[2021-02-15] VITALS: BP 111/58
[2021-02-15 04:00] VITALS: BP 113/59
--- NOTE | 2021-02-15 04:24 | NUR ---
I have reviewed this patient and I concur with the Shift Assessment completed by the Licensed Practical Nurse today this shift.
--- NOTE | 2021-02-15 08:00 | NUR ---
ALERT AND ORIENTED X4. ABDOMINAL DRESSING AND BINDER INTACT AND DENIES ANY PIN OR DISCOMFORT. BOWEL SOUNDS NOTED X4. ENCOURAGED AMBULATION AND NOTIFIED OF RESTRICTIONS. IVF INFUSING AT PRESCRIBED RATE VIA MEDIPORT TO RIGHT SUBCLAVIAN WITH NO S/S OF INFECTION/INFILTRATION. ENCOURAGED TO USE CALL LIGHT FOR ASSSIT.
[2021-02-15] MEDS ORDERED: LEVOFLOXAC500 MG/100 PO (09:14)
[2021-02-15] MEDS ORDERED: CLEOCIN HCL300 MG PO (09:15)
[2021-02-15] MEDS ORDERED: ULTRAM50 MG PO (09:17)
[2021-02-15 09:23] VITALS: BP 112/62
[2021-02-15] MEDS ORDERED: LEVOFLOXACIN500 MG PO (09:51)
--- NOTE | 2021-02-15 09:51 | MORECARE ---
CASE MANAGEMENT DISCHARGE SUMMARY PATIENT: NYLA SCHMIDT UNIT: [id number] ADM DATE: 02/11/21 AGE: 55 : 67 SEX: F ROOM/BED: D.2235 AUTHOR: JAX,DOC PHYSICIAN: REFERRING PHYSICIAN: DOROTHY SANCHEZ MD DATE OF SERVICE: 02/15/21 Case Management Discharge Planning Summary COMMENTS ENTERED DATE: 02/15/21 9:48 CT COMMENT TYPE: Discharge Planning REVIEWER: Jennifer Muhammad CM met with patient at bedside after obtaining verbal consent. CM discussed availability / needs of home health, REHAB and medical equipment. Patient will need Home health for dressing changes. TITO signed for [facility] . IMM signed and copy on chart. Referral faxed to [facility] , and notified patient requests jay or Savanah from [employer]. at bedside, plan to dc to home today. CM to follow and assist as needed. DCP REVIEW SUMMARY ANTICIPATED D/C DATE: EXPECTED LOS : CASE STATUS: DCP Initiated INITIAL REVIEW: 02/12/2021 INITIAL REVIEWER: Jennifer Muhammad FINAL DISCHARGE DISPOSITION: : FINAL REVIEWER: FINAL REVIEW DATE: DCP Focus Questions & Answers DCP REV -DCP Review Added on: 02/15/21 9:44 am QUESTION: ANSWER DCP Screen High Risk Factors: : None Walking limitation: Patient stated self rated walking limitation present? : No Age: : 45 - 65 Prior living environment: : Lives with others Disability ranking: : Grade 1: No significant disability DCP Evaluation Patient's ability to cope with chronic illness : d. No chronic illness Mental health screen: : No mental health history Would patient like to participate in any Care Coordination programs (if applicable): : Not applicable Physical Status: : Independent with ADL's Baseline cognitive status: : *Oriented to person, place, situation, time and present Living Arrangements: : Home with Spouse/Significant Other Medication Management: : Patient states can afford medications Does Patient have transportation to get home and to follow-up medical appointments when discharged from the hospital? : Yes Equipment in use: : Home Oxygen with Nasal Cannula Equipment agency name and contact information: : [facility] Patient's current cognitive status: : *Oriented to person, place, situation, time and present Does the patient have the ability to pay for or attain post discharge needs / services? : Yes Is there a likelihood that the patient will require additional services to return to the preadmission environment? : Yes Results of this evaluation have been discussed with: : Spouse Patient and/or caregiver agree upon recommended discharge plan? : Yes Planned post hospital services available for patient? : Yes Planned post hospital services covered by insurance plan? : Yes DCP Re-evaluation Would patient like to participate in any Care Coordination programs (if applicable): : Not applicable PATIENT: NYLA SCHMIDT I ENCOUNTER: [id number] MEDICAL RECORD#: [id number] ADMISSION DATE: 02/11/2021 DISCHARGE DATE: ATTENDING MD: DOROTHY IGLESIAS : AGE: 55 MARITAL STATUS: M DC PLAN ID: [id number] FACILITY: [facility] PRINTED ON: 02/15/21 9:50 CT All edits/amendments must be made on the electronic document DICTATION DATE: 02/15/21949 MANAGER TRAFFIC: EDY 02/15/21949 RPT#: [id number] DC DATE: STATUS: ADM IN [facility] [address] [place] [address] END OF REPORT
--- NOTE | 2021-02-15 11:30 | NUR ---
IV DISCONTINUED AND VERBALIZED UNDERSTANDING OF DISCHARGE INSTRUCTIONS. STABLE AT TIME OF DISCHARGE.
--- NOTE | 2021-02-15 11:46 | MORECARE ---
CASE MANAGEMENT DISCHARGE SUMMARY PATIENT: NYLA SCHMIDT UNIT: [id number] ADM DATE: 02/11/21 AGE: 55 : 67 SEX: F ROOM/BED: D.2235 AUTHOR: JAX,DOC PHYSICIAN: REFERRING PHYSICIAN: DOROTHY SANCHEZ MD DATE OF SERVICE: 02/15/21 Case Management Discharge Planning Summary COMMENTS ENTERED DATE: 02/15/21 11:41 CT COMMENT TYPE: Discharge Planning REVIEWER: Jennifer Muhammad [facility] CAN NOT START CARE OVER THE WEEKEND. I HAVE SENT REFERRAL TO [address] FOR START OF CARE TOMORROW. ENTERED DATE: 02/15/21 9:48 CT COMMENT TYPE: Discharge Planning REVIEWER: Jennifer Muhammad CM met with patient at bedside after obtaining verbal consent. CM discussed availability / needs of home health, REHAB and medical equipment. Patient will need Home health for dressing changes. TITO signed for [facility]. IMM signed and copy on chart. Referral faxed to [facility], and notified patient requests jay or Savanah from [employer]. at bedside, plan to dc to home today. CM to follow and assist as needed. DCP REVIEW SUMMARY ANTICIPATED D/C DATE: EXPECTED LOS : CASE STATUS: DCP Initiated INITIAL REVIEW: 02/12/2021 INITIAL REVIEWER: Jennifer Muhammad FINAL DISCHARGE DISPOSITION: : FINAL REVIEWER: FINAL REVIEW DATE: DCP Focus Questions & Answers DCP REV -DCP Review Added on: 02/15/21 9:44 am QUESTION: ANSWER DCP Screen High Risk Factors: : None Walking limitation: Patient stated self rated walking limitation present? : No Age: : 45 - 64 Prior living environment: : Lives with others Disability ranking: : Grade 1: No significant disability DCP Evaluation Patient's ability to cope with chronic illness : d. No chronic illness Mental health screen: : No mental health history Would patient like to participate in any Care Coordination programs (if applicable): : Not applicable Physical Status: : Independent with ADL's Baseline cognitive status: : *Oriented to person, place, situation, time and present Living Arrangements: : Home with Spouse/Significant Other Medication Management: : Patient states can afford medications Does Patient have transportation to get home and to follow-up medical appointments when discharged from the hospital? : Yes Equipment in use: : Home Oxygen with Nasal Cannula Equipment agency name and contact information: : [facility] Patient's current cognitive status: : *Oriented to person, place, situation, time and present Does the patient have the ability to pay for or attain post discharge needs / services? : Yes Is there a likelihood that the patient will require additional services to return to the preadmission environment? : Yes Results of this evaluation have been discussed with: : Spouse Patient and/or caregiver agree upon recommended discharge plan? : Yes Planned post hospital services available for patient? : Yes Planned post hospital services covered by insurance plan? : Yes DCP Re-evaluation Would patient like to participate in any Care Coordination programs (if applicable): : Not applicable PROVIDER NETWORKING REVIEW DATE: 02/15/2021 SERVICE TYPE: Home Health Care REVIEWER: Jennifer Muhammad REVIEW DATE: 02/15/2021 SERVICE TYPE: Home Health Care REVIEWER: Jennifer Muhammad PATIENT: NYLA SCHMIDT I ENCOUNTER: [id number] MEDICAL RECORD#: [id number] ADMISSION DATE: 02/11/2021 DISCHARGE DATE: 02/15/2021 ATTENDING MD: DOROTHY IGLESIAS : AGE: 55 MARITAL STATUS: M DC PLAN ID: [id number] FACILITY: [facility] PRINTED ON: 02/15/21 11:46 CT All edits/amendments must be made on the electronic document DICTATION DATE: 02/15/21 1146 CAMERA MAKER: EDY 02/15/21 1146 RPT#: [id number] DC DATE:02/15/21 STATUS: DIS IN [facility] [address] [place] [address] END OF REPORT
--- NOTE | 2021-02-18 09:45 | MORECARE ---
CASE MANAGEMENT DISCHARGE SUMMARY PATIENT: NYLA SCHMIDT UNIT: [id number] ADM DATE: 02/11/21 AGE: 55 : 67 SEX: F ROOM/BED: D.2235 AUTHOR: JAX,DOC PHYSICIAN: REFERRING PHYSICIAN: DOROTHY SANCHEZ MD DATE OF SERVICE: 02/18/21 Case Management Discharge Planning Summary COMMENTS ENTERED DATE: 02/15/21 11:41 CT COMMENT TYPE: Discharge Planning REVIEWER: Jennifer Muhammad [facility] CAN NOT START CARE OVER THE WEEKEND. I HAVE SENT REFERRAL TO [address] FOR START OF CARE TOMORROW. ENTERED DATE: 02/15/21 9:48 CT COMMENT TYPE: Discharge Planning REVIEWER: Jennifer Muhammad CM met with patient at bedside after obtaining verbal consent. CM discussed availability / needs of home health, REHAB and medical equipment. Patient will need Home health for dressing changes. TITO signed for [facility]. IMM signed and copy on chart. Referral faxed to [facility], and notified patient requests jay or Savanah from [employer]. at bedside, plan to dc to home today. CM to follow and assist as needed. DCP REVIEW SUMMARY ANTICIPATED D/C DATE: EXPECTED LOS : CASE STATUS: DCP Initiated INITIAL REVIEW: 02/12/2021 INITIAL REVIEWER: Jennifer Muhammad FINAL DISCHARGE DISPOSITION: : FINAL REVIEWER: FINAL REVIEW DATE: DCP Focus Questions & Answers DCP REV -DCP Review Added on: 02/15/21 9:44 am QUESTION: ANSWER DCP Screen High Risk Factors: : None Walking limitation: Patient stated self rated walking limitation present? : No Age: : 45 - 64 Prior living environment: : Lives with others Disability ranking: : Grade 1: No significant disability DCP Evaluation Patient's ability to cope with chronic illness : d. No chronic illness Mental health screen: : No mental health history Would patient like to participate in any Care Coordination programs (if applicable): : Not applicable Physical Status: : Independent with ADL's Baseline cognitive status: : *Oriented to person, place, situation, time and present Living Arrangements: : Home with Spouse/Significant Other Medication Management: : Patient states can afford medications Does Patient have transportation to get home and to follow-up medical appointments when discharged from the hospital? : Yes Equipment in use: : Home Oxygen with Nasal Cannula Equipment agency name and contact information: : [facility] Patient's current cognitive status: : *Oriented to person, place, situation, time and present Does the patient have the ability to pay for or attain post discharge needs / services? : Yes Is there a likelihood that the patient will require additional services to return to the preadmission environment? : Yes Results of this evaluation have been discussed with: : Spouse Patient and/or caregiver agree upon recommended discharge plan? : Yes Planned post hospital services available for patient? : Yes Planned post hospital services covered by insurance plan? : Yes DCP Re-evaluation Would patient like to participate in any Care Coordination programs (if applicable): : Not applicable PROVIDER NETWORKING REVIEW DATE: 02/15/2021 SERVICE TYPE: Home Health Care REVIEWER: Jnenifer Muhammad REVIEW DATE: 02/15/2021 SERVICE TYPE: Home Health Care REVIEWER: Jennifer Muhammad PATIENT: NYLA SCHMIDT I ENCOUNTER: [id number] MEDICAL RECORD#: [id number] ADMISSION DATE: 02/11/2021 DISCHARGE DATE: 02/15/2021 ATTENDING MD: DOROTHY IGLESIAS : AGE: 55 MARITAL STATUS: M DC PLAN ID: [id number] FACILITY: [facility] PRINTED ON: 02/18/21 9:45 CT All edits/amendments must be made on the electronic document DICTATION DATE: 02/18/21944 STORE TEAM MEMBER: EDY 02/18/21944 RPT#: [id number] DC DATE:02/15/21 STATUS: DIS IN [facility] [address] [place] [address] END OF REPORT
--- NOTE | 2021-02-18 12:45 | MORECARE ---
CASE MANAGEMENT DISCHARGE SUMMARY PATIENT: NYLA SCHMIDT UNIT: [id number] ADM DATE: 02/11/21 AGE: 55 : 67 SEX: F ROOM/BED: D.2235 AUTHOR: JAX,DOC PHYSICIAN: REFERRING PHYSICIAN: DOROTHY SANCHEZ MD DATE OF SERVICE: 02/18/21 Case Management Discharge Planning Summary COMMENTS ENTERED DATE: 02/15/21 11:41 CT COMMENT TYPE: Discharge Planning REVIEWER: Jennifer Muhammad [facility] CAN NOT START CARE OVER THE WEEKEND. I HAVE SENT REFERRAL TO [address] FOR START OF CARE TOMORROW. ENTERED DATE: 02/15/21 9:48 CT COMMENT TYPE: Discharge Planning REVIEWER: Jennifer Muhammad CM met with patient at bedside after obtaining verbal consent. CM discussed availability / needs of home health, REHAB and medical equipment. Patient will need Home health for dressing changes. TITO signed for [facility]. IMM signed and copy on chart. Referral faxed to [facility], and notified patient requests jay or Savanah from [email or web address]. at bedside, plan to dc to home today. CM to follow and assist as needed. DCP REVIEW SUMMARY ANTICIPATED D/C DATE: EXPECTED LOS : CASE STATUS: DCP Initiated INITIAL REVIEW: 02/12/2021 INITIAL REVIEWER: Jennifer Muhammad FINAL DISCHARGE DISPOSITION: : FINAL REVIEWER: FINAL REVIEW DATE: DCP Focus Questions & Answers DCP REV -DCP Review Added on: 02/15/21 9:44 am QUESTION: ANSWER DCP Screen High Risk Factors: : None Walking limitation: Patient stated self rated walking limitation present? : No Age: : 45 - 64 Prior living environment: : Lives with others Disability ranking: : Grade 1: No significant disability DCP Evaluation Patient's ability to cope with chronic illness : d. No chronic illness Mental health screen: : No mental health history Would patient like to participate in any Care Coordination programs (if applicable): : Not applicable Physical Status: : Independent with ADL's Baseline cognitive status: : *Oriented to person, place, situation, time and present Living Arrangements: : Home with Spouse/Significant Other Medication Management: : Patient states can afford medications Does Patient have transportation to get home and to follow-up medical appointments when discharged from the hospital? : Yes Equipment in use: : Home Oxygen with Nasal Cannula Equipment agency name and contact information: : [facility] Patient's current cognitive status: : *Oriented to person, place, situation, time and present Does the patient have the ability to pay for or attain post discharge needs / services? : Yes Is there a likelihood that the patient will require additional services to return to the preadmission environment? : Yes Results of this evaluation have been discussed with: : Spouse Patient and/or caregiver agree upon recommended discharge plan? : Yes Planned post hospital services available for patient? : Yes Planned post hospital services covered by insurance plan? : Yes DCP Re-evaluation Would patient like to participate in any Care Coordination programs (if applicable): : Not applicable PROVIDER NETWORKING REVIEW DATE: 02/15/2021 SERVICE TYPE: Home Health Care REVIEWER: Jennifer Muhammad REVIEW DATE: 02/15/2021 SERVICE TYPE: Home Health Care REVIEWER: Jennifer Muhammad PATIENT: NYLA SCHMIDT I ENCOUNTER: [id number] MEDICAL RECORD#: [id number] ADMISSION DATE: 02/11/2021 DISCHARGE DATE: 02/15/2021 ATTENDING MD: DOROTHY IGLESIAS : AGE: 55 MARITAL STATUS: M DC PLAN ID: [id number] FACILITY: [facility] PRINTED ON: 02/18/21 12:45 CT All edits/amendments must be made on the electronic document DICTATION DATE: 02/18/211244 TEACHER EDUCATION INSTRUCTOR: EDY 02/18/21 1245 RPT#: [id number] DC DATE:02/15/21 STATUS: DIS IN [facility] [address] [place] [address] END OF REPORT
== END 2021-02-15 11:31 | disposition home health service (06) | DRG 355 ==
LOC: D.OPS 08:15 → D.MS 16:17
PROVIDERS: ADMIT Surgery; ATTEND Surgery
PROC: 0WUF0JZ Supplement Abdominal Wall with Synthetic Substitute, Open Approach (ICD-10-PCS; principal; 2021-02-11 10:15)
DX: K43.0 Incisional hernia with obstruction, without gangrene (principal); I25.10 Atherosclerotic heart disease of native coronary artery without angina pectoris; E11.9 Type 2 diabetes mellitus without complications; I10 Essential (primary) hypertension; F17.200 Nicotine dependence, unspecified, uncomplicated